=== PATIENT | male | born 1940 | race Caucasian/White ===

== ENCOUNTER → 2017-12-25 10:16 | Outpatient (CLI) | payer MEDICARE, SELFPAY ==
--- NOTE | 2017-12-25 10:30 | RAD_ITS ---
STUDY: X-RAY - PELVIS AND RIGHT HIP REASON FOR EXAM: Male, 77 years old. Worsening right hip pain over 3 months. TECHNIQUE: Radiological exam, hip, unilateral, with pelvis when performed; 2 or 3 views. COMPARISON: Right hip and pelvis, October 17, 2016. FINDINGS: There is increased rectal feces. Normal visualized soft tissue structures. There are multiple calcified phleboliths. Normal bilateral iliac wings, sacroiliac joints and visualized sacrum. Normal bilateral superior and inferior pubic rami. Normal pubic symphysis. Normal bilateral ischial tuberosities. There are stable degenerative changes of the left hip. Normal visualized right femoral head. There is cortical sclerosis with sub-cortical cyst formation of the right acetabulum. is severe articular joint space narrowing of the right hip. RAD/Hip 2-3 Views with Pelvis IMPRESSION: Stable degenerative changes right hip. Electronically Signed: Devante Gomez DO at 18:16 EDT Tel [phone], Service support ,
== END ==
PROVIDERS: Family Provider Family Medicine; PCP Family Medicine; Visit Provider Anesthesiology Pain Medicine
DX: M25.551 Pain in right hip (principal)
CPT/HCPCS: 73502

== ENCOUNTER → 2018-01-14 10:28 | Outpatient (CLI) | payer MEDICARE, SELFPAY ==
[2018-01-14 12:40] LABS: Anion Gap 7 (5-15); BUN 25 mg/dL (7-18); BUN/Creat Ratio 33.5 RATIO (10-20); Calcium,Total 9.5 mg/dL (8.5-10.1); Chloride 106 mmol/L (98-107); Cholesterol 104 mg/dL (200); Creatinine, Serum 0.75 mg/dL (0.70-1.30); EST Glomerular Filtration Rate 108 mL/min (>60); Est Glom Filt Rate - Afr Amer 131 mL/min (>60); Glucose 118 mg/dL (74-106); Hemoglobin A1c 6.6 % (4.2-6.3); High Density Lipoprotein 45 mg/dL; Potassium 4.3 mmol/L (3.5-5.1); Sodium Level 141 mmol/L (136-145); Triglycerides 75 mg/dL; Very Low Density Lipoprotein 15 mg/dL (5-40)
== END ==
PROVIDERS: Family Provider Family Medicine; PCP Family Medicine; Visit Provider Family Medicine
DX: J44.9 Chronic obstructive pulmonary disease, unspecified (principal); E11.9 Type 2 diabetes mellitus without complications; E78.5 Hyperlipidemia, unspecified
CPT/HCPCS: 36415; 80048; 80061; 83036

== ENCOUNTER 2018-04-10 08:30 | Outpatient (RCR) | payer MEDICARE, SELFPAY ==
--- NOTE | 2018-02-26 09:34 | HP.PTEVAL_ITS ---
Patient's Visit Information ARMAAN MCCLOUD is a 78 year old M referred to Physical Therapy by Mari Hull with a diagnosis of BACK PAIN AND LEG WEAKNESS. Date of Evaluation: 02/26/18 Physical Therapist: Dianna Kiran - Visit Plan Frequency: 2-3x /Week Duration: 4-6 Weeks Plan: AQUATIC THERAPY FOR PAIN RELEIF, POSTURE CORRECTION/STRENGTHENING, INSTRUCTION IN APPROPRIATE BODY MECHANICS AND ACTIVITY MODIFICATIONS. DLS STARTING WITH A NEUTRAL SPINE PROGRESSING ROM TOLERATED. SAMANTHA LE ROM, STRETCHING AND STRENGTHENING. HEP INSTRUCTION. - Subjective Subjective: Diagnosis: BACK PAIN AND LEG WEAKNESS. Work/Leisure: RETIRED. Disability: NO. Present symptoms: LOW BACK PAIN AND RIGHT HIP PAIN. RIGHT LEG GIVES OUT SOMETIMES BUT HASN'T FALLEN. Present since: CHRONIC. Pain Scale : WORST 6/10, LEAST 1/10. Currently: 11/16. Commenced as a result of: ARTHRITIS. Symptoms at onset: LOW BACK. Worse: WALKING, STANDING, YARD WORK. Better: SITTING, LYING. Disturbed sleep: NO. Previous history/Previous treatment: LUMBAR SURGERY SEP 2015, PT BEFORE AND AFTER SURGERY. WATER THERAPY 2016 - WHICH HELPED BUT PATIENT UNABLE TO FOLLOW THROUGH. DR. HULL ABOUT 6 MONTHS OR SO NOW. CONSULT WITH DR. ANGUIANO LEAD TO DR. HULL. PATIENT REPORTS HE HAS HAD AT LEAST 4 LUMBAR MIRNA (AND MAYBE A RIGHT HIP INJECTION OR TWO) WITH BENEFIT. Coughing/sneezing/straining: NO. Gait: INDEP DISTANCE AND SPEED LIMITED. NO AD. Difficulty initiating urinatin: NO. Accidents: NO. Unexplained weight loss: NO. Imaging: LUMBAR X-RAY A FEW MONTHS AGO OF RIGHT HIP AND MRI LOW BACK ABOUT A YEAR AGO. MRI: L4-5: There is disc desiccation, moderate to severe loss of the disc. height, endplate spondylosis, with moderate facet arthrosis. The patient is. status post right L4 hemilaminectomy (axial T1 series 6, image 13). There. is a broad-based right foraminal disc protrusion (sagittal T1 series 3,. image 10; axial T1 series 6, image 12), measuring 6 mm in width, producing. retrodiscal foraminal narrowing, but without morphologic neural impingement. (sagittal T1 series 3, image 10). L5-S1: There is disc desiccation, mild loss of the disc height,. circumferential annular bulging and mild facet arthrosis. Normal central. canal and intervertebral neural foramina. MULTI-LEVEL DDD. PMH: IDDM. Recent major surgery: LUMBAR 2015 - Objective Sitting/Standing Posture: POOR. Lordosis: INCREASED. Lateral shift: SCOLIOSIS. Active Correction of posture: NE. Other Observations: INDEP GAIT INTO PT WITH MILD LIMP ON RIGHT LE WITHOUT AD. INDEP SIT TO STAND WITHOUT UE ASSIST. Motor deficit: LEFT LE 5/5 EXCEPT HIP 4/5. RIGHT LE: HIP 3+/5, KNEE 5/5, ANKLE 5/5. Sensory deficit: NO. ROM deficit: DECREASED RIGHT HIP ROM ALL PLANES COMPARED TO LEFT. TESTING OF HIP FLEXION ROM WHICH IS APPROX 85 DEG IS PAINFULL. HE ALSO HAS DECREASED RIGHT HIP ROM ALL PLANES AND PAIN AT THE END OF THE AVAILABLE RANGE. Dural Signs: NEGATIVE. Lumbar mvmt loss: flex - MIN. ext - ELSY. R SG - ELSY. L SG - ELSY. Core strength: POOR. OTHER: POSITIVE RIGHT BRIT TEST. DIFFICULTING REACHING RIGHT FOOT LIMITING PUTTING ON /TAKING OFF SHOE AND SOCK. - Goals Goal 1:: DECREASE C/O LOW BACK AND RIGHT HIP PAIIN Goal Time Frame: 4-6 Weeks Goal 2:: IMPROVE STANDING, WALKING, ADL, AND YARD WORK FUNCTION Goal Time Frame: 4-6 Weeks Goal 3:: INSTRUCT IN PROPHYLAXIS Goal Time Frame: 4-6 Weeks - Rehabilitation Potential Rehabilitation Potential: Good - Anticipated Interventions Patient/Client Instruction: Educate patient on: Condition, Plan of Care, Risk Factors, Benefits of Fitness Program For the Purpose of:: To improve self management Therapeutic Exercise to Include: Strength training, Endurance training, Body mechanics, Postural training, Flexibilty training, Gait and locomotor training, Dynamic Lumbar Stabilization For the Purpose of:: To decrease pain, To improve muscle performance and motor function, To increase tolerance to activity/condition/position, To improve ability of physical actions for home/community/work/leisure, To improve gait and locomotor functions Thank you for the opportunity to evaluate your patient. For Medicare and Medicare HMO plans, please review the plan of care and approve it. It will need to be FAXED BACK to us at [phone] for Medicare purposes. Please let me know if there are questions or concerns regarding this plan of care. Physician Signature: Date:
--- NOTE | 2018-04-10 09:21 | HP.PTDCSUM_ITS ---
HP - PT D/C Summary It has been my pleasure to treat ARMAAN MCCLOUD under orders from Mari Hull , for the diagnosis of BACK PAIN AND LEG WEAKNESS for a total of 8 visit(s). Discharge Date: 04/10/18 Please see the following information for a summary of their discharge status. - Subjective Subjective: FOLLOW UP WITH DR. HULL LAST SATURDAY. THEY WENT OVER THE X-RAY AND STATES DR. HULL DOESN'T THINK HE NEEDS HIP SURGERY YET. NEXT INJECTION IS PLANNED TO BE IN HIS BACK. PLANS TO TRY A HIP X-RAY IN MAY 2018. ON THE [facility] [employer] BOARD SO HOPING A SHOT WILL HELP HIM DEAL WITH THE FAIR. OBTAINED A POOL MEMBERSHIP AT [facility] AND PLANS TO START INDEP WATER EX THERE TODAY. HE WANTS TO STOP PT AND SEE HOW HE DOES ON HIS OWN AT THIS POINT. PATIENT REPORTS HE IS ABLE TO GET HIS RIGHT FOOT UP A LITTLE BIT HIGHER NOW TO GET HIS SHOE AND SOCK ON. RIGHT BACK AND HIP PAIN COMES AND GOES BUT THE TIGHTNESS IS ALWAYS THERE. STILL GETTING UP TO 5-6/10 PAIN WITH A LOT OF BENDING (30-40 MIN) TO DO THINGS LIKE GARDENING. - Pain RLE Pain Intensity (Out of 10): 1 Lumbar Spine Pain Intensity (Out of 10): 1 - Overall Improvement % Improvement: 50 - Objective Objective/Function: Motor deficit: LEFT LE 5/5 EXCEPT HIP 4+/5. RIGHT LE: HIP 4-/5, KNEE 5/5, ANKLE 5/5. ROM deficit: DECREASED RIGHT HIP ROM ALL PLANES COMPARED TO LEFT. TESTING OF HIP FLEXION ROM WHICH IS APPROX 110 DEG PROVOKES C/O A LITTLE BIT OF PAIN BUT MAINLY TIGHTNESS TODAY. HE ALSO HAS DECREASED RIGHT HIP ROM ALL PLANES AND PAIN AT THE END OF THE AVAILABLE RANGE. Dural Signs: NEGATIVE. Lumbar mvmt loss: flex - MIN. ext - ELSY. R SG - ELSY. L SG - ELSY. OTHER: POSITIVE RIGHT BRIT TEST WITH C/O MILD RIGHT ANTERIOR HIP PAIN. - Goals Goal 1:: DECREASE C/O LOW BACK AND RIGHT HIP PAIIN Goal Progress: Not Progressing Goal 2:: IMPROVE STANDING, WALKING, ADL, AND YARD WORK FUNCTION Goal Progress: Goal Met Goal 3:: INSTRUCT IN PROPHYLAXIS Goal Progress: Goal Met - Plan Plan: D/C TO INDEP WATER EX AT THE DAYS INN. - D/C Information If there are questions or concerns regarding this patient's physical therapy, please feel free to call me at [phone]. Thank you for the referral of this patient. Sincerely, Dianna Kiran
== END 2018-04-10 10:14 | disposition home or self-care (01) ==
LOC: PT 08:30
PROVIDERS: Family Provider Family Medicine; PCP Family Medicine; Visit Provider Anesthesiology Pain Medicine
DX: M54.9 Dorsalgia, unspecified (principal); R29.898 Other symptoms and signs involving the musculoskeletal system
CPT/HCPCS: 97113; 97162; 97164

== ENCOUNTER → 2018-07-17 10:54 | Outpatient (CLI) | payer MEDICARE, SELFPAY ==
[2018-07-17 12:26] LABS: Microalbumin,Random Urine 23.6 mg/L (NO RANGE EST.); Microalbumin:Creatinine Ratio 24.9 mg/g CRE (<30 mg/g CRE)
[2018-07-17 12:32] LABS: Hemoglobin A1c 6.5 % (4.2-6.3)
[2018-07-17 12:38] LABS: AST(SGOT) 14 U/L (15-37); Alanine Aminotransfer ALT/SGPT 21 U/L (16-61); Albumin, Serum 3.5 g/dL (3.2-5.0); Alkaline Phosphatase 69 U/L (45-117); Anion Gap 4 (5-15); BUN 19 mg/dL (7-18); BUN/Creat Ratio 27.1 RATIO (10-20); Chloride 106 mmol/L (98-107); Cholesterol 95 mg/dL (200); EST Glomerular Filtration Rate 116 mL/min (>60); Est Glom Filt Rate - Afr Amer 141 mL/min (>60); Globulin 3.6 g/dL (2.2-4.2); Glucose 195 mg/dL (74-106); High Density Lipoprotein 41 mg/dL; Potassium 4.4 mmol/L (3.5-5.1); Protein, Total 7.1 g/dL (6.4-8.2); Sodium Level 139 mmol/L (136-145); Triglycerides 88 mg/dL; Very Low Density Lipoprotein 18 mg/dL (5-40)
== END ==
PROVIDERS: Visit Provider Family Medicine
DX: E11.9 Type 2 diabetes mellitus without complications (principal)
CPT/HCPCS: 36415; 80048; 80061; 80076; 82043; 82570; 83036

== ENCOUNTER 2018-09-27 23:08 | Emergency (ER) | payer MEDICARE, SELFPAY ==
[2018-09-27 09:22] VITALS: BMI 32.3
[2018-09-27 23:09] VITALS: BP 149/74; PULSE 68; RESP 16; TEMP 36.7; O2SAT 98; BMI 32.3
[2018-09-27] MEDS: Morphine 4 MG/ML Syringe IV (23:36)
[2018-09-27] MEDS: Ondansetron 4 MG/2 ML Vial IV (23:37)
[2018-09-27 23:44] LABS: Absolute Neutrophil Count 5.9 X10^3/uL (2.0-7.7); Basophil# 0.01 X10^3/uL; Basophil% 0.1 % (0-1); Eosinophil# 0.03 X10^3/uL; Eosinophils% 0.4 % (0-5); Hematocrit 35.7 % (40-54); Hemoglobin 11.7 g/dl (13.0-16.5); Lymphocyte % 12.8 % (19-41); Mean Corp Hgb Conc 32.8 g/gl (32-36); Mean Corpuscular Hgb 30.9 pg (27.0-32.0); Mean Corpuscular Volume 94.2 fL (80-94); Mean Platelet Vol. 9.5 fl (6.2-12.0); Monocyte# 0.91 X10^3/uL; Monocyte% 11.6 % (0-10); Neutrophil # 5.85 X10^3/uL (2.7-7.7); Neutrophil % 74.6 % (47-70); Platelet Count 268 K/mm3 (150-450); RBC Distribution Width CV 14.6 % (11.6-14.6); RBC Distribution Width SD 50.3 fl (35.1-43.9); Red Blood Count 3.79 M/mm3 (4.6-6.2); White Blood Count 7.8 K/mm3 (4.4-11.0)
[2018-09-27 23:46] LABS: POSITIVE COUNT NO; POSITIVE DIFFERENTIAL NO; POSITIVE MORPHOLOGY NO
[2018-09-27 23:57] LABS: Anion Gap 8 (5-15); BUN 16 mg/dL (7-18); BUN/Creat Ratio 16.3 RATIO (10-20); Calcium,Total 8.6 mg/dL (8.5-10.1); Chloride 107 mmol/L (98-107); Creatinine, Serum 0.98 mg/dL (0.70-1.30); EST Glomerular Filtration Rate 79 mL/min (>60); Est Glom Filt Rate - Afr Amer 95 mL/min (>60); Estimated Creatinine Clearance 59.95 ml/min; Glucose 233 mg/dL (74-106); Sodium Level 139 mmol/L (136-145)
--- NOTE | 2018-09-28 01:22 | ED.VISSUMM ---
- ER Visit Summary Date of Service: 09/28/18 Chief Complaint: Headache History of Present Illness: The patient is a [address] Ramon and Dr. Jaime Auguts. He reports that he has a right sided headache that began 3 days ago. He states that over the same timeframe he is developed a rash on his forehead. Does complain of skin sensitivity. Patient reports that the headache is a dull, aching pain that is 9 out of 10 at worst and 7 out of 10 currently. Is worsened by nothing and relieved by nothing. States that he was seen in urgent care this morning and was placed on acyclovir. He has vomited 30 minutes after he is taking each pill. States he is vomited 3-4 times. No blood in his emesis. Patient also complains of right eye pain is 4-10 severity. He denies any change in his vision. Does not wear contacts. He does wear glasses. On review of systems patient denies any fever, chills, numbness, weakness, or other complaints. Physical Examination: Vitals: Stable. Afebrile. General: Well-nourished and well-developed. Head: Normocephalic atraumatic. Eye: Diffuse conjunctival injection. No ulcer. He does have fluorescein uptake approximate 11:00. This is not over his pupil. Neck: Supple, no lymphadenopathy. No JVD. Nontender. Cardiovascular: Regular rate and rhythm. No murmurs. Respiratory: No respiratory distress. Clear to auscultation bilaterally. Abdominal: Soft, nontender, nondistended, normal bowel sounds. No guarding, rebound, or peritoneal signs. Back: Nontender. Extremities: Nontender, no edema. Skin: Vesicular rash in a V1 distribution on the right. There is no crusting. He does have lesions to the bridge of his nose. However, there is not a Black sign. Neurologic: Alert and oriented ?3. Cranial nerves II through XII are intact. Normal strength and sensation. Psych: Normal affect. Test Results: CBC is remarkable for an H&H of 11.7 and 35.7, 7 neutrophils of 75, lymphocytes 13, monocytes of 12. Chem-7 is more for glucose 233. Emergency Department Course and Treatment: Patient began vomiting on arrival to the emerge department. He had an IV placed. He was given morphine, Zofran, and acyclovir IV. He had TobraDex eyedrops placed. Treatment Plan: Patient was discussed with Dr. Jackson. He will be discharged instructions to follow-up tomorrow for another exam. He will be discharged with Zofran and valacyclovir to use instead of the acyclovir. He is given Percocet for pain. He is instructed to use the TobraDex drops 4 times a day. Return to the emergency department for any worsening symptoms. Disposition: To home in improved and stable condition. Impression: 1. Herpes zoster right forehead. 2. Herpes zoster ophthalmicus on right. This note was generated with [employer] dictation software. It may contain incorrect words, spelling, and punctuation that were not noted in review of the chart prior to signing ED Disposition - Plan for ED Patient: Disposition: Home or Assisted Living Chief Complaint: General Illness Instructions: ED Shingles Prescriptions: Oxycodone HCl/Acetaminophen [Percocet 5/325] 1 tablet PO Q6H PRN PRN 5 Days #20 tablet PRN Reason: Pain Ondansetron [Zofran Odt] 4 mg PO Q8H PRN PRN #10 tablet PRN Reason: Nausea Valacyclovir HCl [Valacyclovir] 1,000 mg PO TID #21 tablet Referrals: Jaime Galarza MD [Primary Care Provider] - 1-2 Weeks Cameron Jackson MD [STAFF PHYSICIAN] - 09/28/18 12:30 pm
--- NOTE | 2018-09-28 01:25 | ED.DCSUM_ITS ---
- ER Visit Summary Date of Service: 09/28/18 Chief Complaint: Headache History of Present Illness: The patient is a [address] Ramon and Dr. Jaime August. He reports that he has a right sided headache that began 3 days ago. He states that over the same timeframe he is developed a rash on his foreh ead. Does complain of skin sensitivity. Patient reports that the headache is a dull, aching pain that is 9 out of 10 at worst and 7 out of 10 currently. Is worsened by nothing and relieved by nothi ng. States that he was seen in urgent care this morning and was placed on acyclovir. He has vomited 30 minutes after he is taking each pill. States he is vomited 3-4 times. No blood in his emesis. Patient also complains of right eye pain is 4-10 severity. He denies any change in his vision. Does not wear contacts. He does wear glasses. On review of systems patient denies any fever, chills, numbness, weakness, or other complaints. Physical Examination: Vitals: Stable. Afebrile. General: Well-nourished and well-developed. Head: Normocephalic atraumatic. Eye: Diffuse conjunctival injection. No ulcer. He does have fluorescein uptake approximate 11:00. This is not over his pupil. Neck: Supple, no lymphadenopathy. No JVD. Nontender. Cardiovascular: Regular rate and rhythm. No murmurs. Respiratory: No respiratory distress. Clear to auscultation bilaterally. Abdominal: Soft, nontender, nondistended, normal bowel sounds. No guarding, rebound, or peritoneal signs. Back: Nontender. Extremities: Nontender, no edema. Skin: Vesicular rash in a V1 distribution on the right. There is no crusting. He does have lesions to the bridge of his nose. However, there is not a Black sign. Neurologic: Alert and oriented ?3. Cranial nerves II through XII are intact. Normal strength and sensation. Psych: Normal affect. Test Results: CBC is remarkable for an H&H of 11.7 and 35.7, 7 neutrophils of 75, lymphocytes 13, monocytes of 12. Chem-7 is more for glucose 233. Emergency Department Course and Treatment: Patient began vomiting on arrival to the emerge department. He had an IV placed. He was given morphine, Zofran, and acyclovir IV. He had TobraDex eyedrops placed. Treatment Plan: Patient was discussed with Dr. Jackson. He will be discharged instructions to follow-up tomorrow for another exam. He will be discharged with Zofran and valacyclovir to use instead of the acyclovir. He is given Percocet for pain. He is instructed to use the TobraDex drops 4 times a day. Return to the emergency department for any worsening symptoms. Disposition: To home in improved and stable condition. Impression: 1. Herpes zoster right forehead. 2. Herpes zoster ophthalmicus on right. This note was generated with [employer] dictation software. It may contain incorrect words, spelling, and punctuation that were not noted in review of the chart prior to signing ED Disposition - Plan for ED Patient: Disposition: Home or Assisted Living Chief Complaint: General Illness Instructions: ED Shingles Prescriptions: Oxycodone HCl/Acetaminophen [Percocet 5/325] 1 tablet PO Q6H PRN PRN 5 Days #20 tablet PRN Reason: Pain Ondansetron [Zofran Odt] 4 mg PO Q8H PRN PRN #10 tablet PRN Reason: Nausea Valacyclovir HCl [Valacyclovir] 1,000 mg PO TID #21 tablet Referrals: Jaime Galarza MD [Primary Care Provider] - 1-2 Weeks Cameron Jackson MD [STAFF PHYSICIAN] - 09/28/18 12:30 pm
[2018-09-28] MEDS: Fluorescein 1 MG STRIP 1 STRIP RIGHT EYE (01:35)
[2018-09-28] MEDS: Tetracaine 0.5% Ophthalmic Bottle 1 DRP RIGHT EYE (01:35)
[2018-09-28] MEDS: Tobram/Dexam 2.5ML OPTH.BTL 2 DRP RIGHT EYE (01:47)
[2018-09-28] MEDS: Ondansetron ODT 4 MG Tablet PO (01:48)
[2018-09-28] MEDS: oxyCODONE 5 MG Tablet PO (01:49)
[2018-09-28 01:55] VITALS: BP 130/68; PULSE 65; PULSE 66; O2SAT 95; O2SAT 96
== END 2018-09-28 01:57 | disposition home or self-care (01) ==
PROVIDERS: Emergency Provider Emergency Medicine; Family Provider Family Medicine; PCP Family Medicine
DX: R51 Headache (principal); B02.30 Zoster ocular disease, unspecified; E11.9 Type 2 diabetes mellitus without complications; I10 Essential (primary) hypertension; E78.00 Pure hypercholesterolemia, unspecified; N40.0 Benign prostatic hyperplasia without lower urinary tract symptoms
CPT/HCPCS: 80048; 85025; 96361; 96374; 96375; 99284; J7030; J7040; A4216; J2405

== ENCOUNTER → 2018-12-08 09:46 | Outpatient (CLI) | payer MEDICARE, SELFPAY ==
[2018-12-08 12:29] LABS: Absolute Lymphocyte Count 1.24 X10^3/ul (0.83-4.51); Basophil# 0.01 X10^3/uL; Basophil% 0.2 % (0-1); Eosinophil# 0.19 X10^3/uL; Eosinophils% 3.9 % (0-5); Hematocrit 40.1 % (40-54); Hemoglobin 12.6 g/dl (13.0-16.5); Lymphocyte # 1.24 X10^3/ul (4.0); Lymphocyte % 25.5 % (19-41); Mean Corp Hgb Conc 31.4 g/gl (32-36); Mean Corpuscular Hgb 30.7 pg (27.0-32.0); Mean Corpuscular Volume 97.8 fL (80-94); Mean Platelet Vol. 10.6 fl (6.2-12.0); Monocyte# 0.41 X10^3/uL; Monocyte% 8.4 % (0-10); Platelet Count 294 K/mm3 (150-450); RBC Distribution Width CV 15.1 % (11.6-14.6); RBC Distribution Width SD 52.4 fl (35.1-43.9); White Blood Count 4.9 K/mm3 (4.4-11.0)
[2018-12-08 12:30] LABS: Neutrophil % 61.6 % (47-70); POSITIVE COUNT NO; POSITIVE DIFFERENTIAL NO; POSITIVE MORPHOLOGY NO
[2018-12-08 13:13] LABS: ALB/GLOB Ratio 1.2 RATIO (0.9-2.4); AST(SGOT) 18 U/L (15-37); Alanine Aminotransfer ALT/SGPT 24 U/L (16-61); Albumin, Serum 3.7 g/dL (3.2-5.0); Alkaline Phosphatase 67 U/L (45-117); Anion Gap 11 (5-15); BUN 16 mg/dL (7-18); BUN/Creat Ratio 22.6 RATIO (10-20); Chloride 106 mmol/L (98-107); Cholesterol 100 mg/dL (200); Creatinine, Serum 0.71 mg/dL (0.70-1.30); EST Glomerular Filtration Rate 115 mL/min (>60); Est Glom Filt Rate - Afr Amer 139 mL/min (>60); Glucose 169 mg/dL (74-106); High Density Lipoprotein 42 mg/dL; PSA,Total - Annual Screen 2.32 ng/mL (0.00-4.00); Potassium 4.5 mmol/L (3.5-5.1); Protein, Total 6.7 g/dL (6.4-8.2); Sodium Level 143 mmol/L (136-145); Thyroid Stim Hormone (TSH) 0.92 uIU/mL (0.358-3.74); Triglycerides 86 mg/dL; Very Low Density Lipoprotein 17 mg/dL (5-40)
== END ==
PROVIDERS: Family Provider Family Medicine; PCP Family Medicine; Referring Provider Family Medicine; Visit Provider Family Medicine
DX: Z01.818 Encounter for other preprocedural examination (principal); Z12.5 Encounter for screening for malignant neoplasm of prostate
CPT/HCPCS: 36415; 80053; 80061; 84153; 84443; 85025; G0103

== ENCOUNTER 2019-01-05 05:23 | Inpatient (IN) | payer MEDICARE, SELFPAY ==
--- NOTE | 2018-12-19 11:45 | HP.PCM_ITS ---
History and Physical DATE OF SURGERY: 01/05/2019 SCHEDULED PROCEDURE: right total hip arthroplasty HISTORY OF PRESENT ILLNESS: This is a 78-year-old male who has been having ongoing pain in his right hip for approximately 3 years. Patient was also having low back problems in which she had surgery which helped his back. He continued to have ongoing pain in the right hip. His pain is constant and aching. He has increased pain going up and down stairs, walking any amount of distance, and standing. Patient has difficult time with activities of daily living. Patient has tried conservative measures consisting of rest, elevation with no relief in symptoms. Patient has had a previous corticosteroid injection into the hip with only temporary relief. Patient has tried physical therapy and home exercises without relief in symptoms. Patient has tried oral medications consisting of Aleve with only temporary relief. He denies previous surgery on the right hip. After failing conservative measures and discussing treatment options with Dr. Santy Arvizu, the patient would like to proceed with a right total hip arthroplasty. Patient has obtain surgical clearance from his primary care physician Dr. Galarza. Patient has medical history pertinent for type 2 diabetes mellitus, Merchant's palsy, and enlarged prostate. He currently denies any chest pain, shortness of breath, fevers chills, recent infections. Patient just got over shingles outbreak earlier this year. REVIEW OF SYSTEMS: ROS: Const: Reports vision problems, but denies anorexia, change in appetite, fever, hard of hearing and weight change. CV: Denies chest pain, heart murmur, irregular heartbeat and peripheral vascular disease. Resp: Denies asthma, cough, pneumonia, sleep apnea, SOB, tuberculosis and wheezing. GI: Denies constipation, diarrhea, difficulty swallowing, heartburn, nausea, bloody stools and vomiting. : Urinary: denies incontinence. Musculo: Denies leg swelling, limp, trouble walking and weakness. Skin: Reports history of shingles, but denies Raynaud's and tattoo. Neuro: Denies ambulatory dysfunction, dizziness, numbness/tingling and tremor. Psych: Denies anxiety, depression, insomnia, mental illness and stress. Ap/Lymph: Denies anemia, bleeding/bruising tendency and past transfusion. Reviewed and updated. PAST MEDICAL HISTORY: PMH: Problem List: Localized, primary osteoarthritis of the pelvic region and thigh, Thoracic and lumbosacral neuritis, Low back pain, Thoracic and lumbosacral neuritis, Low back pain Medical Problems: Diabetes RT Side - MERCHANT'S PALSY Accidents: RT Elbow Dislocated - 21YEARS OLD Surgical Hx: Appendectomy, Tonsillectomy, Back surgery 2015 Anesthesia Complications: None Assistive Devices: Glasses Reviewed and updated. SOCIAL HISTORY: SH: Marital: .Occupation: Retired.Work Status: Retired.Hand Dominance: Ambidextrous. Personal Habits: Cigarette Use: Former - [employer].Alcohol: Occasionally.Drug Use: Denies Use.Enjoy Exercising: Exercises 1-3 X/Week. Reviewed, no changes. VITALS: Ht: 65.5 Wt: 236lb Wt k.050 BMI: 38.7 BP: 138/64 Pulse: 68 Resp: 16 T: 98.2 T: 36.8C ALLERGIES: No Known Drug Allergy MEDICATIONS: Metformin HCL ER 500 mg 2 po BID, Losartan Potassium 50 mg 1 PO q day, Glipizide ER 5 mg 1 PO bid, Finasteride 5 mg 1 po qd, Actos 30 mg 1 PO q day, Lovastatin 40 mg 1 po qd, Aspirin 81 mg 1 po qd, Vitamin E 400 Unit 1 po qd, Vitamin C 500 mg 1 po qd, Multivitamins 1 po qd, Insulin 22 units daily, Tamsulosin HCL 0.4 mg 1 by mouth every day, Naproxen Sodium 220 mg 2 tablets per day PRE-OP EXAM: General appearance:NORMAL Other: Eyes: Conjunctivae and lids: NORMAL Pupils: ERR Ears, Nose, Mouth, and Throat: NORMAL Other: Inspection of lips, teeth and gums: NORMAL Other: Neck: Examination of neck: no masses noted. Respiratory: Assessment of respiratory effort: NORMAL Other: Auscultation of lungs: clear to auscultation no wheezes, rhonchi or rales. Cardiovascular: Auscultation of heart: regular rate and rhythm, no murmurs, gallops or rubs. Gastrointestinal: Exam of abdomen: soft, nontender, nondistended bowel sounds present. PHYSICAL EXAMINATION: Patient does walk with an antalgic gait. Patient is complaining of groin pain on the right side as well as buttock pain. He has limited range of motion of the right hip with increased pain. Negative straight leg raise. Sensation intact to light touch. Neurovascularly intact. IMAGING STUDIES: X-rays were obtained at [facility] [place] on December 19, 2018 including 3 views AP pelvis, AP right hip, frog leg right hip reveals no acute findings for fracture or dislocation. Patient has severe osteoarthritic changes in the right hip with [id number]. There is subchondral sclerosis, subchondral cyst formation. There is large osteophytes off the acetabulum and femoral head. Patient also has osteoarthritis in the left hip with joint space narrowing, subchondral sclerosis, and osteophyte formation. IMPRESSION: 1. Severe right hip osteoarthritis 2. Type 2 diabetes mellitus 3. Merchant's palsy affecting right side 4. Enlarged prostate PLAN: Dr. Santy Arvizu did discuss and review with the patient all treatment options including surgical versus nonsurgical options. Patient does wish to proceed with the above-stated procedure. Potential risks, benefits, and complications of the procedure were discussed in detail including but not limited to , infection, nerve and blood vessel damage, persistent pain, numbness, tingling, paresthesias, blood clot, pulmonary embolism, and requirement for possible further surgery. The patient expressed full understanding and has no further questions for the doctor. Patient does agree to proceed with the above-stated procedure and has signed the surgery consent form. This dictation was created using voice recognition software. Phonetic and/or grammatical errors may exist.. ___ I have re-examined the patient. There are no clinical changes since date of exam. ___ See progress notes for changes. ___ Dictated on admission Date: Time: Signature:
[2018-12-19 13:28] VITALS: BP 129/58; PULSE 80; RESP 16; TEMP 37.2; O2SAT 98; BMI 31.1
[2018-12-19 14:34] LABS: Hemoglobin A1c 6.1 % (4.2-6.3)
--- NOTE | 2019-01-01 10:29 | CASEMGMT ---
Call placed to patient to discuss discharge needs after upcoming surgery. Patient plans to return home with assistance from family. Patient has first outpatient physical therapy visit set up and will have transportation assistance. Patient has a walker, toilet riser, and shower seat. There's a bedroom and bathroom on the first level of the home. There are no steps to get into basement where [id number] suite is located, there are 2 steps to get to the rest of the home. Informed patient that RN-CM will likely follow up after surgery. Guera Bhat LPN Clinical Support
--- NOTE | 2019-01-02 | HIP_PTH ---
PATIENT: ARMAAN MCCLOUD LOC: MS3 U#:[id number] AGE/SX: 78/M ROOM: MS305 RE01/05/[address]: Dr. Santy Arvizu DO : 1940 BED: 1 DIS: 01/06/2019 SPEC #: [id number] RECD: 01/05/19 10:13 STATUS: NADYA REQ #: [id number] WON: 01/02/19 00:[address]: Santy Arvizu DEPT: SURGICAL PATHOLOGY RECD BY: Hira Shrestha ENTERED: 01/05/19 12:59 SP TYPE: TOTAL HIP OTHR DR: Dr. Jaime Galarza MD Tissues: Hip, NOS Procedures: Decalcification bone/plaque Surgery Specimen Level IV HEADER OPERATION: Total hip replacement PRE-OP DIAGNOSIS: Severe right hip osteoarthritis TISSUE SUBMITTED: Right hip bone and soft tissue MICROSCOPIC DIAGNOSIS Right hip, bone and soft tissue, total hip replacement: Bone and degenerative articular cartilage showing changes consistent with degenerative osteoarthritis. Bone marrow showing trilineage hematopoiesis and benign lymphoid aggregates. Fibroadipose tissue showing vascular calcification. CE:brett 01/08/19 MICROSCOPIC DESCRIPTION Slides are reviewed. GROSS DESCRIPTION Received is one container labeled with the patient's name and designated bone and soft tissue hip, right. The specimen consists of a lyle femoral head measuring 6 x 4.5 x 4.5 cm. The articular surface displays prominent osteophyte formation, eburnation and bone erosion. Also present in the specimen container are multiple irregular fragments of bone reamings and pink-yellow soft tissue measuring in aggregate 9 x 7 x 1.5 cm. Communications Agent sections are submitted in two cassettes as follows: 1 - soft tissue, 2 - bone after decalcification. / AM:brett 01/05/19 TC:5 CPT: 01893, [id number]
[2019-01-05] VITALS (15 sets, daily range): BP systolic 118–140; BP diastolic 49–89; PULSE 67–84; RESP 16–18; TEMP 36.1–36.9; O2SAT 93–99; BMI 31.1
[2019-01-05] MEDS: oxyCODONE HCl Cr 10 MG Tablet PO (05:59)
[2019-01-05] MEDS: Celecoxib 200 MG Capsule 400 MG PO (05:59)
[2019-01-05] MEDS: Acetaminophen 500 MG Tablet 1000 MG PO ×3 (06:00→21:25)
[2019-01-05] MEDS: Lactated Ringers 1,000 ML 999 ML IV (06:19)
[2019-01-05 06:36] LABS: Bedside Glucose 153 mg/dL (70-110)
[2019-01-05] MEDS: Cefazolin 2 GM in 0.9% Normal Saline 100 ML IV (07:28)
--- NOTE | 2019-01-05 08:36 | PCM.OPRPT ---
Report of Operation Date of Procedure: 01/05/19 Pre-Operative Diagnosis: OA right hip Post-Operative Diagnosis: same Surgery/Procedure Performed:: Right THR Description of Surgical Findings:: Primary Surgeon/Physician: Santy Arvizu rubber mill operator: Ashvin Meraz PA-C rubber mill operator: Pre-Operative Diagnosis: OA Right hip Post-Operative Diagnosis: same Surgery/Procedure Performed: Right THR Estimated Blood Loss: 100cc Specimen's Removed: bone Type of Anesthesia: spinal ASA Class: ASA3 Severe Disease Implants: [Cheryl Trident size 50 cup, 132 degree Accolade 2 size 3 stem, +3 neck, MDM head ] Surgical Indications: Patient has severe end-stage osteoarthritic changes in the [right ] hip. They have failed conservative measures including activity modification, anti-inflammatories, use of assistive devices. This to the point where the pain affects their ability to enjoy life and complete activities of daily living without discomfort. Patient has elected to undergo the above procedure Procedure Description: The patient was greeted in the preoperative area the [right ] hip was marked with surgical marker preoperative antibiotics administered. The patient was then taken to or suite in stable condition. Preoperative tranexamic acid was also utilized. Once the patient was placed in the supine position on the operating room table and once adequate anesthesia was obtained they were then placed in the lateral decubitus position with the surgical hip facing the field. All bony prominences were well-padded. A commercial hip position was utilized. The appropriate extremity was then prepped and draped in usual sterile fashion. Ioban was placed on the skin. Surgical timeout was performed and surgery was commenced. A standard posterior approach to the hip was then performed. Incision was planned and carried out with a #10 blade scalpel. Dissection was then carried length of the incision to the IT band which was split proximally and distally. A Charnley retractor was then placed for soft tissue retraction exposing the piriformis. A standard posterior capsulotomy was performed. Severe eburnation of bone was noted and periarticular osteophytes were identified consistent with severe end-stage osteoarthritis. A femoral neck osteotomy guide was used to aileen the proximal femur. A femoral osteotomy was then created approximately 1 fingerbreadth above the lesser trochanter. This was measured and placed on the back table. Once this was complete acetabular retractors were placed anteriorly and posteriorly. Labrum was then removed from the acetabulum exposing the entire cup of the acetabulum. Sequential reaming was then commenced and the acetabulum was medialized and sequentially widened in order to accommodate appropriate size cup. The acetabular cup was then impacted into position to the appropriate depth referencing approximately 30? anteversion and 45? of inclination. Excellent purchase was obtained. An appropriate size MDM liner was then placed. Attention was then turned to the femoral preparation. The hip was placed in the 90/90 position and a lateralizing box osteotome was utilized. Femoral starting awl was used followed by sequential broaching to the appropriate size. Excellent purchase was obtained with the stem no stem subsidence and excellent rotational stability was confirmed. A calcar reamer was then used in the trial head neck was placed on the broach. The hip was then located and taken through full range of motion flexion internal and external rotation as well as extension. Excellent stability was noted no impingement was identified of the components and leg lengths appear to be appropriate. The hip was at this point dislocated and the trial femoral components were removed. The final femoral stem was then implanted and impacted to the appropriate depth. Again excellent purchase was obtained no stem subsidence or rotational instability was noted. The hip was once again trialed and confirmation of leg length and stability was performed. Soft tissue tension also appeared to be appropriate. At this point the hip was redislocated and the trunnion was cleaned and dried meticulously in the appropriate size MDM femoral head was placed on the clean dry trunnion using a 12/14 Peña taper. The hip was once again relocated and again taken through full range of motion. I did inject a cocktail of postoperative pain medication in the deep and superficial tissues. Copious irrigation was performed. Anatomic closure of the piriformis tendon was performed through drill holes in the greater trochanter. A #1 Vicryl 0 Vicryl was utilized in subcutaneous tissue and surgical amador were placed in the skin. A well-padded nonadherent dressing was applied. Patient was taken to PACU in stable condition. No complications were identified. Will follow standard postop protocol for total hip arthroplasty. My materials assistant played a vital role in the procedure beginning with positioning, holding retraction of soft tissues, positioning the leg to optimize visualization during the procedure and assisting with wound closure. rubber mill operator: None rubber mill operator: Ashvin Meraz Type of Anesthesia:: Spinal Anesthesiologist: Kancherla,Jonah Specimen's removed: bone Estimated Blood Loss (mL): 100 cc - Admit VTE Documentation VTE Present on Admission: No VTE Mechan Device Prophylaxis: SCD's, Thigh High JENIFER Hose VTE Pharm Prophylaxis ordered?: Yes
--- NOTE | 2019-01-05 08:40 | OP.PCM_ITS ---
Report of Operation Date of Procedure: 01/05/19 Pre-Operative Diagnosis: OA right hip Post-Operative Diagnosis: same Surgery/Procedure Performed:: Right THR Description of Surgical Findings:: Primary Surgeon/Physician: Santy Arvizu clinic assistant: Ashvin Meraz PA-C clinic assistant: Pre-Operative Diagnosis: OA Right hip Post-Operative Diagnosis: same Surgery/Procedure Performed: Right THR Estimated Blood Loss: 100cc Specimen's Removed: bone Type of Anesthesia: spinal ASA Class: ASA3 Severe Disease Implants: [Cheryl Trident size 50 cup, 132 degree Accolade 2 size 3 stem, +3 neck, MDM head ] Surgical Indications: Patient has severe end-stage osteoarthritic changes in the [right ] hip. They have failed conservative measures including activity modification, anti-inflammatories, use of assistive devices. This to the point where the pain affects their ability to enjoy life and complete activities of daily living without discomfort. Patient has elected to undergo the above procedure Procedure Description: The patient was greeted in the preoperative area the [right ] hip was marked with surgical marker preoperative antibiotics administered. The patient was then taken to or suite in stable condition. Preoperative tranexamic acid was also utilized. Once the patient was placed in the supine position on the operating room table and once adequate anesthesia was obtained they were then placed in the lateral decubitus position with the surgical hip facing the field. All bony prominences were well-padded. A commercial hip position was utilized. The appropriate extremity was then prepped and draped in usual sterile fashion. Ioban was placed on the skin. Surgical timeout was performed and surgery was commenced. A standard posterior approach to the hip was then performed. Incision was planned and carried out with a #10 blade scalpel. Dissection was then carried length of the incision to the IT band which was split proximally and distally. A Charnley retractor was then placed for soft tissue retraction exposing the piriformis. A standard posterior capsulotomy was performed. Severe eburnation of bone was noted and periarticular osteophytes were identified consistent with severe end-stage osteoarthritis. A femoral neck osteotomy guide was used to aileen the proximal femur. A femoral osteotomy was then created approximately 1 fingerbreadth above the lesser trochanter. This was measured and placed on the back table. Once this was complete acetabular retractors were placed anteriorly and posteriorly. Labrum was then removed from the acetabulum exposing the entire cup of the acetabulum. Sequential reaming was then commenced and the acetabulum was medialized and sequentially widened in order to accommodate appropriate size cup. The acetabular cup was then impacted into position to the appropriate depth referencing approximately 30? anteversion and 45? of inclination. Excellent purchase was obtained. An appropriate size MDM liner was then placed. Attention was then turned to the femoral preparation. The hip was placed in the 90/90 position and a lateralizing box osteotome was utilized. Femoral starting awl was used followed by sequential broaching to the appropriate size. Excellent purchase was obtained with the stem no stem subsidence and excellent rotational stability was confirmed. A calcar reamer was then used in the trial head neck was placed on the broach. The hip was then located and taken through full range of motion flexion internal and external rotation as well as extension. Excellent stability was noted no impingement was identified of the components and leg lengths appear to be appropriate. The hip was at this point dislocated and the trial femoral components were removed. The final femoral stem was then implanted and impacted to the appropriate depth. Again excellent purchase was obtained no stem subsidence or rotational instability was noted. The hip was once again trialed and confirmation of leg length and stability was performed. Soft tissue tension also appeared to be appropriate. At this point the hip was redislocated and the trunnion was cleaned and dried meticulously in the appropriate size MDM femoral head was placed on the clean dry trunnion using a 12/14 Peña taper. The hip was once again relocated and again taken through full range of motion. I did inject a cocktail of postoperative pain medication in the deep and superficial tissues. Copious irrigation was performed. Anatomic closure of the piriformis tendon was performed through drill holes in the greater trochanter. A #1 Vicryl 0 Vicryl was utilized in subcutaneous tissue and surgical amador were placed in the skin. A well-padded nonadherent dressing was applied. Patient was taken to PACU in stable condition. No complications were identified. Will follow standard postop protocol for total hip arthroplasty. My assistant football coach played a vital role in the procedure beginning with positioning, holding retraction of soft tissues, positioning the leg to optimize visualization during the procedure and assisting with wound closure. clinic assistant: None clinic assistant: Ashvin Meraz Type of Anesthesia:: Spinal Anesthesiologist: Kancherla,Jonah Specimen's removed: bone Estimated Blood Loss (mL): 100 cc - Admit VTE Documentation VTE Present on Admission: No VTE Mechan Device Prophylaxis: SCD's, Thigh High JENIFER Hose VTE Pharm Prophylaxis ordered?: Yes
--- NOTE | 2019-01-05 09:30 | RAD_ITS ---
STUDY: X-RAY - RIGHT HIP REASON FOR EXAM: Male, 78 years old. Right hip replacement. TECHNIQUE: 2 views of the hip. COMPARISON: Comparison is made with prior study dated December 06, 2017. FINDINGS: The patient is status post right total hip replacement. There is good alignment. Normal visualized superior and inferior pubic rami and ischial tuberosities. Widening of the left femoral head and neck suggestive of left femoral acetabular impingement. Postoperative soft tissue changes. RAD/Hip Min 2 Views (Portable) IMPRESSION: Status post right total hip replacement. There is good alignment. Electronically Signed: Willard Conrad, at 13:43 EDT , Service support ,
[2019-01-05 10:11] LABS: Bedside Glucose 146 mg/dL (70-110)
[2019-01-05] MEDS: Finasteride 5 MG Tablet PO (11:08)
[2019-01-05] MEDS: Pioglitazone Hydrochloride 30 MG Tablet PO (11:09)
[2019-01-05] MEDS: glipiZIDE XL 5 MG Tablet PO ×2 (11:09→17:30)
[2019-01-05] MEDS: Lactated Ringers 1,000 ML 125 ML IV ×2 (11:12→21:25)
--- NOTE | 2019-01-05 11:13 | PCA ---
rn in with pt
[2019-01-05] MEDS: Ipratropium 0.5 MG/2.5 ML SOLUTION INHALATION ×2 (13:21→20:21)
[2019-01-05] MEDS: Cefazolin 1 GM/50 ML BAG IV ×2 (14:53→23:04)
[2019-01-05 15:52] LABS: Hematocrit 30.8 % (40-54); Mean Corp Hgb Conc 32.5 g/gl (32-36); Mean Corpuscular Volume 95.4 fL (80-94); Mean Platelet Vol. 9.3 fl (6.2-12.0); Platelet Count 218 K/mm3 (150-450); RBC Distribution Width CV 14.5 % (11.6-14.6); RBC Distribution Width SD 50.3 fl (35.1-43.9); Red Blood Count 3.23 M/mm3 (4.6-6.2); White Blood Count 7.3 K/mm3 (4.4-11.0)
[2019-01-05 15:55] LABS: Scan Indicated on CBC? Y/N NO
[2019-01-05 16:05] LABS: Anion Gap 3 (5-15); BUN 18 mg/dL (7-18); BUN/Creat Ratio 23.4 RATIO (10-20); Calcium,Total 8.6 mg/dL (8.5-10.1); Chloride 107 mmol/L (98-107); Creatinine, Serum 0.77 mg/dL (0.70-1.30); EST Glomerular Filtration Rate 104 mL/min (>60); Est Glom Filt Rate - Afr Amer 126 mL/min (>60); Estimated Creatinine Clearance 54.67 ml/min; Glucose 185 mg/dL (74-106); Sodium Level 139 mmol/L (136-145)
[2019-01-05] MEDS: metFORMIN HCl 1,000 MG Tablet 1000 MG PO (17:31)
[2019-01-05] MEDS: Aspirin 325 MG Tablet PO (21:25)
[2019-01-05] MEDS: Senna/Docusate Sodium 1 Tablet 2 TABLET PO (21:25)
[2019-01-05] MEDS: Atorvastatin Calcium 40 MG Tablet PO (21:26)
[2019-01-05] MEDS: Tamsulosin HCl 0.4 MG Capsule PO (21:26)
[2019-01-05 22:30] LABS: Bedside Glucose 88 mg/dL (70-110)
[2019-01-06 02:13] VITALS: BP 129/59; PULSE 80; RESP 18; TEMP 36.8
[2019-01-06] MEDS: Lactated Ringers 1,000 ML 125 ML IV (03:57)
[2019-01-06] MEDS: Acetaminophen 500 MG Tablet 1000 MG PO ×2 (05:48→14:13)
[2019-01-06 06:19] LABS: Hematocrit 33.4 % (40-54); Hemoglobin 10.7 g/dl (13.0-16.5); Mean Corpuscular Hgb 30.3 pg (27.0-32.0); Mean Corpuscular Volume 94.6 fL (80-94); Platelet Count 239 K/mm3 (150-450); RBC Distribution Width CV 14.4 % (11.6-14.6); RBC Distribution Width SD 47.3 fl (35.1-43.9); Red Blood Count 3.53 M/mm3 (4.6-6.2); White Blood Count 6.6 K/mm3 (4.4-11.0)
[2019-01-06 06:33] LABS: Anion Gap 4 (5-15); BUN 12 mg/dL (7-18); BUN/Creat Ratio 19.8 RATIO (10-20); Chloride 107 mmol/L (98-107); EST Glomerular Filtration Rate 138 mL/min (>60); Est Glom Filt Rate - Afr Amer 166 mL/min (>60); Estimated Creatinine Clearance 54.67 ml/min; Glucose 137 mg/dL (74-106); Potassium 4.3 mmol/L (3.5-5.1); Sodium Level 141 mmol/L (136-145)
[2019-01-06 06:39] LABS: Scan Indicated on CBC? Y/N NO
[2019-01-06] MEDS: oxyCODONE 5 MG Tablet PO ×2 (07:06→13:07)
[2019-01-06 07:16] VITALS: PULSE 78; RESP 16; O2SAT 96
[2019-01-06] MEDS: Ipratropium 0.5 MG/2.5 ML SOLUTION INHALATION (07:16)
[2019-01-06 07:36] VITALS: BP 138/59; PULSE 93; RESP 18; TEMP 37.1; O2SAT 97
--- NOTE | 2019-01-06 07:52 | PN.ORTHO_ITS ---
Subjective: Patient sitting at bedside eating breakfast. Patient states pain is well managed. Patient denies chest pain, shortness breath, calf pain, nausea v omiting. Has no other complaints. Ready for discharge home. Objective: Dressings clean dry intact. Negative signs and symptoms of DVT. Vital signs labs within normal limits. Patient speaking in full sentences with no obvious respiratory distress. - Physical Exam General: Alert, Oriented x3, Cooperative HEENT: PERRLA Neurological: Cranial nerves II-XII grossly intact Psych/Mental Status: Normal Affect, Alert and oriented to time, place, person, mood and affect Vital Signs Temp Pulse Resp BP Pulse Ox 98.8 F 93 18 138/59 H 97 01/06/19 07:36 01/06/19 07:36 01/06/19 07:36 01/06/19 07:36 01/06/19 07:36 Oxygen Delivery Method Room Air Weight: 86.3 kg Body Mass Index (BMI) 31.1 Finger Stick Blood Glucose 146 Intake and Output for Last 24 Hours 01/04/19 01/05/19 01/06/19 23:59 23:59 23:59 Intake Total 3874 / 3874 1505 / 1505 Output Total 200 / 200 500 / 500 Balance 3674 / 3674 1005 / 1005 Laboratory Tests Past 24 Hrs 01/05/19 01/05/19 01/06/19 15:28 15:28 05:40 WBC 7.3 6.6 RBC 3.23 L 3.53 L Hgb 10.0 L 10.7 L Hct 30.8 L 33.4 L MCV 95.4 H 94.6 H MCH 31.0 30.3 MCHC 32.5 32.0 RDW 14.5 14.4 RDW Differential 50.3 H 47.3 H Plt Count 218 239 MPV 9.3 10.0 Sodium 139 Potassium 4.0 Chloride 107 Carbon Dioxide 29.0 Anion Gap 3 L BUN 18 Creatinine 0.77 Estim Creat Clear Calc 54.67 Est GFR (MDRD) Af Amer 126 Est GFR (MDRD) Non-Af 104 BUN/Creatinine Ratio 23.4 H Glucose 185 H Calcium 8.6 01/06/19 05:40 WBC RBC Hgb Hct MCV MCH MCHC RDW RDW Differential Plt Count MPV Sodium 141 Potassium 4.3 Chloride 107 Carbon Dioxide 30.0 Anion Gap 4 L BUN 12 Creatinine 0.60 L Estim Creat Clear Calc 54.67 Est GFR (MDRD) Af Amer 166 Est GFR (MDRD) Non-Af 138 BUN/Creatinine Ratio 19.8 Glucose 137 H Calcium 9.0 POC Glucose 01/05/19 01/05/19 21:23 10:04 POC Glucose 88 146 H Medical Necessity - Tobacco Use Smoking Status: Former smoker Tobacco Use: Cigarettes Assessment/Plan All Active Problems (Last Reviewed 09/27/18 @ 09:25 by Lachelle River) Corneal abrasion, right (Acute) Shingles (Acute) Status post right total hip arthroplasty Plan 1. Continue pain medications as prescribed 2. Continue physical therapy, weight-bear as tolerated, with walker. 3. Aspirin 3 and 25 mg 1 p.o. every 12 hours times 30 days for postop DVT prophylaxis 4. Encourage incentive spirometry 5. Follow-up as scheduled, see pink sheet 6. Discharge home today after p.m. therapy 7. [facility]
[2019-01-06 07:56] VITALS: BP 109/65; PULSE 98; RESP 18; TEMP 37.2; O2SAT 94
--- NOTE | 2019-01-06 07:56 | DCINST_ITS ---
Discharge Diet: No Restrictions Discharge Activity: May Not Drive, May Shower, Use Walker May shower in (days): 2 - only if incision is dry and without drainage. Do NOT soak/submerge in tub/pool/garcia/stream/hot tub. May resume sexual activity in: No Restrictions Ice area for (Minutes): 20 - every hour while awake Weight Bearing Status: Weight bearing as tolerated Lifting Restrictions: 20 pounds Elevate: Operative Extremity Call your doctor if your incision/area has: Continuous Slow Oozing, Sudden Increased Bleeding, Increased Pain/ Swelling, Increased Redness, Foul Smelling Discharge Call your doctor if you observe: Fever of 101 or Higher, Inability to urinate, Inability to have a bowel movement, Shortness of breath, Fainting spells, Chest pain, Increased palpitations (irregular heartbeat), Calf discomfort, Uncontrolled pain Change Dressing in (Days):: 1 - Change daily and as needed. Cleanse incision/area with: Soap & Water Allergies/Adverse Reactions: Allergies No Known Allergies Allergy (Verified 12/19/18 12:52) Medications to take at Discharge Finasteride [Proscar] 5 mg PO DAILY 08/11/13 Insulin Glargine [Lantus SoloStar Pen] 22 units SUBCUT QHS 08/11/13 Losartan Potassium [Cozaar] 50 mg PO DAILY 08/11/13 Metformin HCl [Glucophage] 1,000 mg PO BIDCM 08/11/13 Multivitamins,Therapeutic [Multivitamin] 1 tab PO DAILY 08/11/13 Pioglitazone [Actos] 30 mg PO DAILY 08/11/13 glipiZIDE XL [Glucotrol Xl] 5 mg PO BID 08/11/13 Atorvastatin Calcium [Lipitor] 40 mg PO QHS 06/02/17 Ascorbic Acid [Vitamin C] 500 mg PO DAILY 12/19/18 Tamsulosin HCl [Flomax] 0.4 mg PO QHS 12/19/18 Umeclidinium [place] Inhaler [Incruse Ellipta Inhaler] 1 puff IH DAILY 12/19/18 Vitamin E 400 unit PO DAILY 12/19/18 Acetaminophen [Tylenol] 1,000 mg PO Q8 #90 tab 01/06/19 Aspirin 325 mg PO BID #60 tab 01/06/19 Oxycodone [Oxyir] 5 - 10 mg PO Q4H PRN PRN 7 Days #90 tab 01/06/19 The following prescriptions were given: Oxycodone [Oxyir] 5 - 10 mg PO Q4H PRN PRN 7 Days #90 tab PRN Reason: Mod-Severe Pain (-07/16) Acetaminophen [Tylenol] 1,000 mg PO Q8 #90 tab Aspirin 325 mg PO BID #60 tab Primary Care Physician: Jaime Galarza MD [Primary Care Provider] - Test Results: Test results from this visit will be discussed in further detail at your follow- up appointment, if applicable. Please Follow Up With: Ashvin Meraz PA-C When: see pink sheet
[2019-01-06 07:57] VITALS: PULSE 93; RESP 18
[2019-01-06] MEDS: metFORMIN HCl 1,000 MG Tablet 1000 MG PO (08:14)
[2019-01-06] MEDS: Aspirin 325 MG Tablet PO (08:15)
[2019-01-06] MEDS: glipiZIDE XL 5 MG Tablet PO (08:15)
[2019-01-06] MEDS: Pioglitazone Hydrochloride 30 MG Tablet PO (08:15)
[2019-01-06] MEDS: Finasteride 5 MG Tablet PO (08:16)
[2019-01-06] MEDS: Multivitamins,Therapeutic Tablet 1 TABLET PO (08:16)
[2019-01-06] MEDS: Senna/Docusate Sodium 1 Tablet 2 TABLET PO (08:16)
[2019-01-06] MEDS: Losartan Potassium 50 MG Tablet PO (08:16)
[2019-01-06] MEDS: Ascorbic Acid 500 MG Tablet PO (08:16)
[2019-01-06] MEDS: Vitamin E 400 UNITS Capsule PO (08:16)
--- NOTE | 2019-01-06 08:51 | NURSING ---
Pt requested all AM pills this morning prior to therapy. Same given. Pt denies any nausea since arrival to [facility]- education provided on patch- pt requested to have removed this morning from behind right ear- same completed. 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 Pt denies any vision issues or any other noticeable abnormalities regarding moreira's palsy.
--- NOTE | 2019-01-06 11:55 | CASEMGMT ---
RN ALISA Face to Face with patient for initial transition planning/care coordination assessment. RN ALISA introduced self and role at [facility]. Patient sitting in chair, alert and oriented. Patient willing to participate in assessment and is able to answer all questions appropriately. Care providers, pharmacy, and demographics verified. Patient wishes to discharge home and is setup with [facility] for outpatient therapy. Patient states he has no further needs or concerns at this time. CM to follow for discharge planning needs that may arise. PCP: Geovanni Specialists: None Preferred Pharmacy: [facility] Insurance: [facility] Prescription Benefit: yes Living Will/HPOA: Yes Lolly Womack LNOK: Living Arrangements: Patient lives with in home with in law suite in basement. Transportation: DME/HHC: Patient states he has shower chair, raised toilet seat, and walker. No previous HHC or SNF Disposition Plan: Patient to discharge home with outpatient therapy, family support, and follow-up plans in place. Denise ORELLANA, RN, CM
== END 2019-01-06 14:34 | disposition home or self-care (01) | DRG 470 ==
PROVIDERS: Admitting Provider Orthopaedic Surgery; Family Provider Family Medicine; PCP Family Medicine; Referring Provider Orthopaedic Surgery; Visit Provider Orthopaedic Surgery
PROC: 0SR90JZ Replacement of Right Hip Joint with Synthetic Substitute, Open Approach (ICD-10-PCS; CPT 27130; principal; 2019-01-05 06:50)
DX: M16.0 Bilateral primary osteoarthritis of hip (principal); G51.0 Bell's palsy; N40.0 Benign prostatic hyperplasia without lower urinary tract symptoms; E11.9 Type 2 diabetes mellitus without complications; Z79.84 Long term (current) use of oral hypoglycemic drugs
CPT/HCPCS: 36415; 73502; 80048; 82962; 83036; 85027; 87081; 88305; 88311; 94640; 94762; 97110; 97161; 97166; 97530; 97535; C1776; J7120; J2405

== ENCOUNTER 2019-03-05 12:00 | Outpatient (RCR) | payer MEDICARE, SELFPAY ==
[2018-12-19 13:28] VITALS: BMI 31.1
[2019-01-05 10:49] VITALS: BMI 31.1
--- NOTE | 2019-01-09 13:03 | HP.PTEVAL_ITS ---
Patient's Visit Information ARMAAN MCCLOUD is a 78 year old M referred to Physical Therapy by DORON Champion with a diagnosis of R DREW. Date of Evaluation: 01/09/19 Physical Therapist: Cm Yang PT, ATC - Visit Plan Frequency: 2-3x /Week Duration: 4-6 Weeks Plan: R DREW protocal. R LE strengthening, balance and proprio, core stab ex's, nustep, and HEP - Subjective Findings: DOS: 01/05/19. Pt reports he had a R DREW performed on that date. Pt reports he had a chronic Hx greater than one year of R hip pain. Pt reports he was in the hospital for one day after the surgery and has been home ever since. Pt reports he is still in a lot of pain, but is able to walk much better since having the surgery. No tingling or numbness in R LE. No sleep difficulty secondary to pain. Pt had a posterior approach used for his DREW. Pt is able to negotiate stairs one step at a time. Pt reports he lives in his basement, but has a chair lift for the stairs. Pt reports he has 4 steps into his house, and no difficulty with negotiating them as long as it's 1 step at a time. 2/10 at rest, 5/10 at worst (walking) - Pain R DREW Pain Intensity (Out of 10): 2 Pain Intensity Range: 5 - Objective Neuro: B LE sensation is WNL to light touch. B patellar reflex = 1/3. Observation: Incision is healing well with no signs of infection. Mild drainage in 2 locations. MMT: R LE is grossly 3-/5 throughout while L LE is 5/5 throughout. ROM: L LE is WNL in all planes. R LE is limited in all planes secondary to weakness and pain. Gait: Pt was able to ambulate 680' with WW and CGA - Goals Goal 1:: Decrease R hip pain x 50% to aid with increased tolerance for ambulation Goal Time Frame: 4-6 Weeks Goal 2:: Increase R LE strength x 1 grade to aid with stair negotiation Goal Time Frame: 4-6 Weeks Goal 3:: Pt will be able to ambulate greater than 1000' with LRD to aid with community ambulation Goal Time Frame: 4-6 Weeks Goal 4:: I with HEP Goal Time Frame: 4-6 Weeks - Rehabilitation Potential Physical Therapy Diagnosis: R hip pain, weakness, and limited gait ability secondary to R DREW Rehabilitation Potential: Good - Anticipated Interventions Patient/Client Instruction: Educate patient on: Condition, Plan of Care For the Purpose of:: To improve self management Therapeutic Exercise to Include: Strength training, Endurance training, Balance training, Flexibilty training, Gait and locomotor training, Dynamic Lumbar Stabilization For the Purpose of:: To decrease pain, To improve muscle performance and motor function, To improve gait and locomotor functions Cryotherapy (ice pack, ice massage): Yes For the Purpose of:: To decrease pain Thank you for the opportunity to evaluate your patient. For Medicare and Medicare HMO plans, please review the plan of care and approve it. It will need to be FAXED BACK to us at [phone] for Medicare purposes. For Medicare only, by signing this I certify the plan of care. Please let me know if there are questions or concerns regarding this plan of care. Physician Signature:_ Date:
--- NOTE | 2019-02-02 12:07 | HP.PTREVAL ---
DORON Champion, It has been my pleasure to treat ARMAAN MCCLOUD over the last 10 visits for R DREW. Please see the progress note below for an update on the physical therapy plan of care! Subjective: Mild pain this date Objective/Function: R hip pain 1/10 and only increases to 2/10 at worst. Gait: Pt is able to ambulate 680' with WW until needing to sit down and rest. Stairs: Pt can negotiate 1 flight of stairs with L UE assist without difficulty. R hip MMT: 4/5 throughout. Pt is negotiating well toward Rx goals Plan Plan: R DREW protocol. R LE strengthening, balance and proprio, core stab ex's, nustep, and HEP Goals Goal 1:: Decrease R hip pain x 50% to aid with increased tolerance for ambulation Goal Time Frame: 4-6 Weeks Goal Progress: Progressing Goal 2:: Increase R LE strength x 1 grade to aid with stair negotiation Goal Time Frame: 4-6 Weeks Goal Progress: Progressing Goal 3:: Pt will be able to ambulate greater than 1000' with LRD to aid with community ambulation Goal Time Frame: 4-6 Weeks Goal Progress: Progressing Goal 4:: I with HEP Goal Time Frame: 4-6 Weeks Goal Progress: Progressing Anticipated Interventions Patient/Client Instruction: Educate patient on: Condition, Plan of Care For the Purpose of:: To improve self management Therapeutic Exercise to Include: Strength training, Endurance training, Balance training, Flexibilty training, Gait and locomotor training, Dynamic Lumbar Stabilization For the Purpose of:: To decrease pain, To improve muscle performance and motor function, To improve gait and locomotor functions Cryotherapy (ice pack, ice massage): Yes For the Purpose of:: To decrease pain Please do not hesitate to contact me at [phone] by phone or if you have questions or concerns regarding this new plan of care! Sincerely, Cm Yang, PT, ATC
--- NOTE | 2019-03-05 12:24 | HP.PTDCSUM ---
HP - PT D/C Summary It has been my pleasure to treat ARMAAN MCCLOUD under orders from DORON Champion, for the diagnosis of R DREW for a total of 19 visit(s). Discharge Date: Please see the following information for a summary of their discharge status. - Subjective Subjective: No pain, it just feels a little weak - Pain R DREW Pain Intensity (Out of 10): 0 - Overall Improvement % Improvement: 90 - Objective Objective/Function: R hip pain 0/10. R LE MMT= 5/5 throughout. Pt was able to ambulate greater than 1000' with no AD. Pt is I with HEP. Rx goals achieved - Goals Goal 1:: Decrease R hip pain x 50% to aid with increased tolerance for ambulation Goal Progress: Goal Met Goal 2:: Increase R LE strength x 1 grade to aid with stair negotiation Goal Progress: Goal Met Goal 3:: Pt will be able to ambulate greater than 1000' with LRD to aid with community ambulation Goal Progress: Goal Met Goal 4:: I with HEP Goal Progress: Goal Met - Plan Plan: Discharge - D/C Information If there are questions or concerns regarding this patient's physical therapy, please feel free to call me at [phone]. Thank you for the referral of this patient. Sincerely, Cm Yang, PT, ATC
== END 2019-03-05 19:00 | disposition home or self-care (01) ==
LOC: PT 12:00
PROVIDERS: Family Provider Family Medicine; PCP Family Medicine; Referring Provider Physician Assistant Surgical; Visit Provider Physician Assistant Surgical
DX: Z96.641 Presence of right artificial hip joint (principal); Z47.1 Aftercare following joint replacement surgery
CPT/HCPCS: 97110; 97161; 97530

== ENCOUNTER → 2019-07-21 10:17 | Outpatient (CLI) | payer MEDICARE, SELFPAY ==
[2019-01-05 10:49] VITALS: BMI 31.1
[2019-07-21 12:26] LABS: Hematocrit 35.8 % (40-54); Hemoglobin 11.5 g/dL (13.0-16.5); Mean Corp Hgb Conc 32.1 g/dL (32-36); Mean Corpuscular Hgb 31.8 pg (27.0-32.0); Mean Corpuscular Volume 98.9 fL (80-94); Mean Platelet Vol. 10.7 fl (6.2-12.0); Platelet Count 254 K/mm3 (150-450); RBC Distribution Width CV 14.6 % (11.6-14.6); RBC Distribution Width SD 50.2 fl (35.1-43.9); Red Blood Count 3.62 M/mm3 (4.6-6.2)
[2019-07-21 12:46] LABS: AST(SGOT) 15 U/L (15-37); Alanine Aminotransfer ALT/SGPT 19 U/L (16-61); Albumin, Serum 3.5 g/dL (3.2-5.0); Alkaline Phosphatase 65 U/L (45-117); Anion Gap 5 (5-15); BUN 13 mg/dL (7-18); BUN/Creat Ratio 20.1 RATIO (10-20); Chloride 107 mmol/L (98-107); Cholesterol 80 mg/dL (200); Creatinine, Serum 0.65 mg/dL (0.70-1.30); EST Glomerular Filtration Rate 127 mL/min (>60); Est Glom Filt Rate - Afr Amer 154 mL/min (>60); Globulin 3.4 g/dL (2.2-4.2); Glucose 152 mg/dL (74-106); High Density Lipoprotein 41 mg/dL; Potassium 4.1 mmol/L (3.5-5.1); Protein, Total 6.9 g/dL (6.4-8.2); Sodium Level 139 mmol/L (136-145); Triglycerides 68 mg/dL; Very Low Density Lipoprotein 14 mg/dL (5-40)
== END ==
PROVIDERS: Family Medicine; Family Provider Family Medicine; PCP Family Medicine; Referring Provider Family Medicine; Visit Provider Family Medicine
DX: I10 Essential (primary) hypertension (principal); E78.5 Hyperlipidemia, unspecified; N40.0 Benign prostatic hyperplasia without lower urinary tract symptoms
CPT/HCPCS: 36415; 80053; 80061; 84153; 85027

== ENCOUNTER → 2020-11-25 10:25 | Outpatient (CLI) | payer MEDICARE, SELFPAY ==
[2019-01-05 10:49] VITALS: BMI 31.1
[2020-11-25 13:02] LABS: Anion Gap 4 (5-15); BUN 21 mg/dL (7-18); BUN/Creat Ratio 25.3 RATIO (10-20); Calcium,Total 9.5 mg/dL (8.5-10.1); Chloride 106 mmol/L (98-107); Cholesterol 97 mg/dL (200); Creatinine, Serum 0.83 mg/dL (0.70-1.30); EST Glomerular Filtration Rate 95 mL/min (>60); Est Glom Filt Rate - Afr Amer 115 mL/min (>60); Glucose 156 mg/dL (74-106); High Density Lipoprotein 43 mg/dL; Potassium 4.4 mmol/L (3.5-5.1); Sodium Level 139 mmol/L (136-145); Triglycerides 92 mg/dL; Very Low Density Lipoprotein 18 mg/dL (5-40)
[2020-11-25 15:16] LABS: Microalbumin,Random Urine 17.2 mg/L (NO RANGE EST.)
== END ==
PROVIDERS: PCP Family Medicine; Referring Provider Family Medicine; Visit Provider Family Medicine
DX: I10 Essential (primary) hypertension (principal)
CPT/HCPCS: 36415; 80048; 80061; 82043

== ENCOUNTER 2021-01-18 08:05 | Day surgery (SDC) | payer MEDICARE, SELFPAY ==
[2019-01-05 10:49] VITALS: BMI 31.1
--- NOTE | 2021-01-12 12:41 | EKG12_ITS ---
Test Reason : PREOP Blood Pressure : / mmHG Vent. Rate : 080 BPM Atrial Rate : 080 BPM P-R Int : 174 ms QRS Dur : 076 ms QT Int : 356 ms P-R-T Axes : 050 -07 045 degrees QTc Int : 410 ms Normal sinus rhythm Normal ECG Confirmed by JE TANG, ROSS ([id number]), copy editor NEHEMIAH GALLARDO ([id number]) on 01/16/2021 2:08:39 PM Referred By: DALILA Confirmed By:ROSS WOOTEN MD
[2021-01-12 13:53] LABS: Absolute Neutrophil Count 3.5 X10^3/uL (2.0-7.7); Basophil# 0.03 X10^3/uL; Basophil% 0.6 % (0-1); Eosinophils% 1.9 % (0-5); Hematocrit 37.1 % (40-54); Hemoglobin 11.7 g/dL (13.0-16.5); Lymphocyte % 20.8 % (19-41); Mean Corp Hgb Conc 31.5 g/dL (32-36); Mean Corpuscular Hgb 31.8 pg (27.0-32.0); Mean Corpuscular Volume 100.8 fL (80-94); Mean Platelet Vol. 10.1 fl (6.2-12.0); Monocyte# 0.51 X10^3/uL; Monocyte% 9.6 % (0-10); NRBC Flagged by Analyzer 0 % (0-5); Neutrophil # 3.46 X10^3/uL (2.7-7.7); Neutrophil % 65.4 % (47-70); Platelet Count 265 K/mm3 (150-450); RBC Distribution Width CV 14.6 % (11.6-14.6); RBC Distribution Width SD 51.8 fl (35.1-43.9); Red Blood Count 3.68 M/mm3 (4.6-6.2); White Blood Count 5.3 K/mm3 (4.4-11.0)
[2021-01-18] VITALS (14 sets, daily range): BP systolic 112–149; BP diastolic 62–72; PULSE 79–96; RESP 16–18; TEMP 36.1–37.7; O2SAT 94–100; BMI 33.0
[2021-01-18] MEDS: Lactated Ringers 1,000 ML 100 ML IV (08:30)
[2021-01-18 08:55] LABS: Bedside Glucose 187 mg/dL (70-110)
[2021-01-18] MEDS: Cefazolin 2 GM in 0.9% Normal Saline 100 ML IV (10:05)
--- NOTE | 2021-01-18 10:05 | PCM.HP.STD ---
Problem List (1) BPH with obstruction/lower urinary tract symptoms Status: Acute History of Present Illness Date of Admission: 01/18/21 Chief Complaint: BPH with obstruction The patient is a 81 year old male with a large prostate obstructive prostate plan to proceed with a TURP today to relieve obstruction. Past Medical History Medical History: Medical History (Last Reviewed 09/27/18 @ 09:25 by Lachelle River) Arthritis M19.90 Diabetes E11.9 History of dislocation of elbow Z87.39 Severe headache R51 Shoulder pain M25.519 Chronic neck and back pain M54.2, M54.9, G89.29 Allergies No Known Allergies Allergy (Verified 01/18/21 08:40) Home Medications: Ambulatory Orders Medication Instructions Recorded Finasteride [Proscar] 5 mg PO DAILY 08/11/13 Insulin Glargine [Lantus SoloStar 22 units SUBCUT QHS 08/11/13 Pen] Losartan Potassium [Cozaar] 50 mg PO DAILY 08/11/13 Multivitamins,Therapeutic 1 tab PO DAILY 08/11/13 [Multivitamin] Pioglitazone [Actos] 30 mg PO DAILY 08/11/13 glipiZIDE XL [Glucotrol Xl] 5 mg PO BID 08/11/13 metFORMIN HCl [Glucophage] 1,000 mg PO BIDCM 08/11/13 Atorvastatin Calcium [Lipitor] 40 mg PO QHS 06/02/17 Ascorbic Acid [Vitamin C] 500 mg PO DAILY 12/19/18 Tamsulosin HCl [Flomax] 0.4 mg PO QHS 12/19/18 Umeclidinium [place] Inhaler 1 puff IH BID 12/19/18 [Incruse Ellipta Inhaler] Vitamin E 400 unit PO DAILY 12/19/18 Acetaminophen [Tylenol] 1,000 mg PO Q8 #90 tab 01/06/19 Aspirin [Aspirin, Baby] 81 mg PO DAILY 01/11/21 Surgical History: Surgical History (Last Reviewed 09/27/18 @ 09:25 by Lachelle River) History of appendectomy Z90.49 Surgical History: no surgical history Smoking Status: Former smoker Review of Systems Constitutional: Denies: Chills, Fever, Weight Change HEENT: Denies: Head Aches, Sinus Congestion, Sinus Drainage Cardiovascular: Denies: Chest Pain, Palpitations Respiratory: Denies: Cough, Shortness of breath at rest, Sputum production Gastrointestinal: Denies: Abdominal Pain, Nausea, Vomiting Genitourinary: Denies: Dysuria Musculoskeletal: Denies: Joint Pain, Joint Tenderness Skin: Denies: Rash, Wounds Neurological: Denies: Numbness, Tingling, Focal weakness Psychiatric: Denies: Anxiety, Depression, Homicidal Ideations, Suicidal Ideations Hematologic/ Lymphatic: Denies: Easy Bruising, Easy Bleeding VTE Information - Inpt Only VTE Present on Admission: No - Physical Exam Vitals/I&O's: Vital Signs Temp Pulse Resp BP Pulse Ox 98.2 F 80 16 149/62 H 100 01/18/21 08:42 01/18/21 08:42 01/18/21 08:42 01/18/21 08:42 01/18/21 08:42 Oxygen Delivery Method Room Air Weight: 95.6 kg Body Mass Index (BMI) 33.0 Finger Stick Blood Glucose 146 General: Alert, Oriented x3, Cooperative HEENT: Atraumatic, PERRLA, EOMI, Normocephalic Neck: Supple, No JVD, Negative Carotid Bruits Lungs: Clear to auscultation, Normal air movement Cardiovascular: Regular rate, No murmurs Abdomen: Bowel Sounds Present, Soft, Non Tender Extremities: No edema, Capillary Refill Less than 3 Seconds Skin: No rashes, No breakdown Musculoskeletal: No Tenderness to Palpation of Joints or Extremities Neurological: Cranial nerves II-XII grossly intact Psych/Mental Status: Normal Affect, Appropriate Microbiology Past 72 Hours 01/17/21 12:40 Interface Orders SARS-CoV-2 Antigen (Rapid) - Final Laboratory Results 01/18/21 08:31: POC Glucose 187 H Current Medications Lactated Ringer's () 1,000 mls @ 100 mls/hr IV .Q10H HERNAN Last Admin: 01/18/21 08:30 Dose: 100 mls/hr Documented by: Assessment/Plan All Active Problems (Last Reviewed 09/27/18 @ 09:25 by Lachelle River) BPH with obstruction/lower urinary tract symptoms (Acute) Corneal abrasion, right (Acute) Shingles (Acute) Plan to proceed with a TURP.
--- NOTE | 2021-01-18 10:08 | DCINST_ITS ---
Discharge Diet: Light diet - advance as tolerated Discharge Activity: May not drive while taking narcotic pain medications. Instructions: Transurethral Resection of the Prostate (TURP): Home Recovery Allergies/Adverse Reactions: Allergies No Known Allergies Allergy (Verified 01/18/21 08:40) Medications to take at Discharge Finasteride [Proscar] 5 mg PO DAILY 08/11/13 Insulin Glargine [Lantus SoloStar Pen] 22 units SUBCUT QHS 08/11/13 Losartan Potassium [Cozaar] 50 mg PO DAILY 08/11/13 Multivitamins,Therapeutic [Multivitamin] 1 tab PO DAILY 08/11/13 Pioglitazone [Actos] 30 mg PO DAILY 08/11/13 glipiZIDE XL [Glucotrol Xl] 5 mg PO BID 08/11/13 metFORMIN HCl [Glucophage] 1,000 mg PO BIDCM 08/11/13 Atorvastatin Calcium [Lipitor] 40 mg PO QHS 06/02/17 Ascorbic Acid [Vitamin C] 500 mg PO DAILY 12/19/18 Tamsulosin HCl [Flomax] 0.4 mg PO QHS 12/19/18 Umeclidinium [place] Inhaler [Incruse Ellipta Inhaler] 1 puff IH BID 12/19/18 Vitamin E 400 unit PO DAILY 12/19/18 Acetaminophen [Tylenol] 1,000 mg PO Q8 #90 tab 01/06/19 Aspirin [Aspirin, Baby] 81 mg PO DAILY 01/11/21 Ciprofloxacin [Cipro] 500 mg PO BID #6 tab 01/18/21 Ibuprofen 600 mg PO Q6H PRN PRN 7 Days #20 tablet 01/18/21 The following prescriptions were given: Ciprofloxacin [Cipro] 500 mg PO BID #6 tab Transmission Status: Pending to [address] Ibuprofen 600 mg PO Q6H PRN PRN 7 Days #20 tablet PRN Reason: Pain 1-10 Or Fever Transmission Status: Pending to [address] Orders to be completed after discharge: 12 Lead EKG [[facility]] Location: None Selected Primary Care Physician: Jaime Galarza MD [Primary Care Provider] - Test Results: Test results from this visit will be discussed in further detail at your follow- up appointment, if applicable. Please Follow Up With: Patel Gamble MD When: in 2 weeks, please call to make an appointment.
--- NOTE | 2021-01-18 10:10 | PROS_PTH ---
PATIENT: ARMAAN MCCLOUD LOC: [facility] [place] U#:[id number] AGE/SX: 81/M ROOM: RE01/18/[address]: Dr. Patel Gamble MD : 1940 BED: DIS: 01/19/2021 SPEC #: [id number] RECD: 01/18/21 12:47 STATUS: NADYA REHeber #: [id number] WON: 01/18/21 10:[address]: Patel Gamble DEPT: SURGICAL PATHOLOGY RECD BY: Yoselin Reed ENTERED: 01/18/21 13:01 SP TYPE: TURP OTHR DR: Dr. Jaime Galarza MD Tissues: Prostate, NOS Procedures: Surgery Specimen Level IV HEADER OPERATION: Cysto, TUR prostate, Olympus PRE-OP DIAGNOSIS: BPH with obstruction / lower urinary tract symptoms TISSUE SUBMITTED: Prostate chips MICROSCOPIC DIAGNOSIS Prostate chips, TUR: Benign prostatic hyperplasia, glandular and stromal type. Focal mild chronic inflammation. SJ:rg 01/19/2021 MICROSCOPIC DESCRIPTION Slides are reviewed. GROSS DESCRIPTION Received is one container labeled with the patient's name and designated prostate chips. The specimen consists of multiple irregular fragments of pink-lyle, rubbery, soft tissue that in aggregate weigh 21 gm and measure in aggregate 6 x 6 x 3 cm. For[place] Hand tissue is submitted in ten cassettes. / BETH:brett 01/18/21 TC:5 CPT: 93748
--- NOTE | 2021-01-18 11:39 | PCM.OPRPT ---
Problem List (1) BPH with obstruction/lower urinary tract symptoms Status: Acute Report of Operation Date of Procedure: 01/18/21 Pre-Operative Diagnosis: BPH with obstruction Post-Operative Diagnosis: Same Surgery/Procedure Performed:: Transurethral resection of the prostate Description of Surgical Findings:: In the preoperative setting I discussed with the patient how the surgery would be done with expect afterwards. We discussed how a prostate resection is done and we discussed the risk of the surgery including, bleeding, infection, retrograde ejaculation, changes with ejaculation or intercourse,. We discussed the possibility that the resection of the prostate may not alleviate his urinary symptoms. We discussed the small risk of developing scar tissue along the urethral channel and strictures. We also discussed the chance of the prostate could grow back and he may need further surgery or treatment in the future for prostate problems. Patient was taken back to the operating room, timeout procedure was performed, he was identified and marked and placed on the operating room table. He underwent general anesthesia. He was placed in dorsolithotomy position. Penis and testicles were prepped and draped in usual sterile fashion. Went into the bladder using the visual obturator with a resectoscope. Once inside the bladder identified the right and left ureteral orifice. I then identified the prostate and the anatomy of the prostate. I marked out the area of the sphincter and the verumontanum was identified. I then proceeded with the prostate resection first resected the median lobe. And then resected the right lobe of the prostate. Then to resect the left lobe of the prostate. I then resected the apical tissue of the prostate. Made sure that there was no injury to the sphincter or the verumontanum was still intact. At the end of the resection all the chips were Ellik out of the bladder. I then identified the left and right ureteral orifice and these were confirmed to be in good position and effluxing and not injured. The resectoscope was removed, a 22 [place] Konger catheter was placed into the bladder on continuous irrigation. And the urine was fairly light pink color and draining normally. He was taken back to the PACU in good condition. Type of Anesthesia:: General Drains: [address] - Admit VTE Documentation VTE Present on Admission: No
[2021-01-18] MEDS: 0.9% Normal Saline 1,000 ML 75 ML IV (15:47)
[2021-01-18 16:41] LABS: Bedside Glucose 221 mg/dL (70-110)
--- NOTE | 2021-01-18 16:43 | CHAPLAIN ---
Type of Pastoral Visit _x__ Initial Visit ___ Follow-up Visit ___ On-call Visit ___ General Patient Visit ___ Spiritual Assessment ___ Family Conference ___ Bereavement ___ Rapid Response ___ Code Blue ___ Other (describe below) Pastoral Care Referral From _x__ Patient ___ Family ___ Nurse ___ Physician ___ Forest Technician ___ Hospitality Specialist ___ Other (describe below) Sacrament/Intervention _x__ Active listening ___ Anointing ___ Sabianism ___ Bereavement ___ Communion ___ Chel exploration ___ ___ Life review _x__ Prayer ___ Reconciliation ___ Sacrament of Sick _x__ Supportive presence ___ Wedding ___ Other (describe below) Pastoral Comments
[2021-01-18] MEDS: glipiZIDE XL 5 MG Tablet PO (17:39)
[2021-01-18] MEDS: metFORMIN HCl 1,000 MG Tablet 1000 MG PO (17:39)
[2021-01-18] MEDS: Ipratropium 0.5 MG/2.5 ML SOLUTION INHALATION (18:50)
[2021-01-18] MEDS: Ciprofloxacin 400 MG/200 ML BAG 200 MG IV (21:33)
[2021-01-18] MEDS: 0.9% Saline Lock 10 ML Syringe IV (21:34)
[2021-01-18] MEDS: Tamsulosin HCl 0.4 MG Capsule PO (21:35)
[2021-01-18] MEDS: Atorvastatin Calcium 40 MG Tablet PO (21:35)
[2021-01-18] MEDS: Docusate Sodium 100 MG Capsule PO (21:35)
[2021-01-18 23:06] LABS: Bedside Glucose 267 mg/dL (70-110)
[2021-01-19 03:45] VITALS: BP 124/59; PULSE 89; RESP 16; TEMP 36.8; O2SAT 96
[2021-01-19] MEDS: 0.9% Normal Saline 1,000 ML 75 ML IV (06:01)
[2021-01-19] MEDS: Ipratropium 0.5 MG/2.5 ML SOLUTION INHALATION (06:54)
[2021-01-19 07:32] VITALS: PULSE 83; RESP 17; RESP 18
[2021-01-19 07:53] VITALS: BP 127/64; PULSE 85; RESP 16; TEMP 37.1; O2SAT 97
[2021-01-19] MEDS: glipiZIDE XL 5 MG Tablet PO (10:18)
[2021-01-19] MEDS: metFORMIN HCl 1,000 MG Tablet 1000 MG PO (10:18)
[2021-01-19] MEDS: Pioglitazone Hydrochloride 30 MG Tablet PO (10:18)
[2021-01-19] MEDS: Multivitamins,Therapeutic Tablet 1 TABLET PO (10:18)
[2021-01-19] MEDS: Pantoprazole Sodium 40 MG Tablet PO (10:19)
[2021-01-19] MEDS: Docusate Sodium 100 MG Capsule PO (10:19)
[2021-01-19] MEDS: Ascorbic Acid 500 MG Tablet PO (10:19)
[2021-01-19] MEDS: Vitamin E 400 UNITS Capsule PO (10:19)
[2021-01-19] MEDS: Losartan Potassium 50 MG Tablet PO (10:19)
== END 2021-01-19 11:15 | disposition home or self-care (01) ==
LOC: SDC 08:07 → AC 08:07 → MS3 11:08
PROVIDERS: Anesthesiology; PCP Family Medicine; Referring Provider Urology; Visit Provider Urology
PROC: (CPT 52601; principal; 2021-01-18 10:00)
DX: N40.1 Benign prostatic hyperplasia with lower urinary tract symptoms (principal); N41.1 Chronic prostatitis; N13.8 Other obstructive and reflux uropathy; E11.9 Type 2 diabetes mellitus without complications; Z79.4 Long term (current) use of insulin; Z79.82 Long term (current) use of aspirin; Z87.891 Personal history of nicotine dependence; M19.90 Unspecified osteoarthritis, unspecified site; Z87.39 Personal history of other diseases of the musculoskeletal system and connective tissue; M54.9 Dorsalgia, unspecified; M54.2 Cervicalgia; G89.29 Other chronic pain
CPT/HCPCS: 52601; 36415; 82962; 83036; 85025; 87426; 88305; 93005; 94640; 99251; C9803; J7030; J7120; A4216; G0463; J0744; J2405

== ENCOUNTER → 2021-05-26 08:28 | Outpatient (CLI) | payer MEDICARE, SELFPAY ==
[2021-05-26 10:25] LABS: AST(SGOT) 18 U/L (15-37); Alanine Aminotransfer ALT/SGPT 27 U/L (16-61); Albumin, Serum 3.7 g/dL (3.2-5.0); Alkaline Phosphatase 71 U/L (45-117); Anion Gap 2 (5-15); BUN 17 mg/dL (7-18); BUN/Creat Ratio 22.2 RATIO (10-20); Bilirubin, Direct 0.19 mg/dL (0.00-0.30); Calcium,Total 9.3 mg/dL (8.5-10.1); Chloride 109 mmol/L (98-107); Cholesterol 80 mg/dL (200); Creatinine, Serum 0.77 mg/dL (0.70-1.30); EST Glomerular Filtration Rate 104 mL/min (>60); Est Glom Filt Rate - Afr Amer 126 mL/min (>60); Globulin 3.4 g/dL (2.2-4.2); Glucose 111 mg/dL (74-106); High Density Lipoprotein 38 mg/dL; Microalbumin:Creatinine Ratio 68.3 mg/g CRE (<30 mg/g CRE); Potassium 4.4 mmol/L (3.5-5.1); Protein, Total 7.1 g/dL (6.4-8.2); Sodium Level 140 mmol/L (136-145); Triglycerides 58 mg/dL; Very Low Density Lipoprotein 12 mg/dL (5-40)
== END ==
PROVIDERS: PCP Family Medicine; Visit Provider Family Medicine
DX: E11.9 Type 2 diabetes mellitus without complications (principal)
CPT/HCPCS: 36415; 80048; 80061; 80076; 82043; 82570

== ENCOUNTER → 2021-06-25 15:48 | Outpatient (CLI) | payer MEDICARE, SELFPAY | PROVIDERS: PCP Family Medicine; Visit Provider Nurse Practitioner Family | DX: U07.1 COVID-19 (principal) | CPT/HCPCS: 87635; U0005; U0003 ==

== ENCOUNTER 2021-06-29 15:53 | Outpatient (CLI) | payer MEDICARE, SELFPAY ==
[2021-06-29] MEDS: 0.9% Saline Lock 10 ML Syringe IV (16:14)
[2021-06-29 16:18] VITALS: BP 143/58; PULSE 95; RESP 16; TEMP 36.9; O2SAT 98; BMI 32.1
[2021-06-29 16:48] VITALS: BP 137/59; PULSE 88; RESP 18; TEMP 37.2; O2SAT 96
[2021-06-29 17:48] VITALS: BP 138/59; PULSE 92; RESP 18; TEMP 37.5; O2SAT 96
== END 2021-06-29 17:48 | disposition home or self-care (01) ==
LOC: ICUOUT 15:53 → MS3 15:54
PROVIDERS: PCP Family Medicine; Referring Provider Nurse Practitioner Adult Health; Visit Provider Nurse Practitioner Adult Health
DX: Z23 Encounter for immunization (principal); U07.1 COVID-19
CPT/HCPCS: J7050; M0243; Q0245; A4216; Q0244

== ENCOUNTER 2021-07-31 05:36 | Day surgery (SDC) | payer MEDICARE, SELFPAY ==
--- NOTE | 2021-07-18 08:55 | EKG12_ITS ---
Test Reason : PRE OP Blood Pressure : / mmHG Vent. Rate : 089 BPM Atrial Rate : 089 BPM P-R Int : 162 ms QRS Dur : 082 ms QT Int : 338 ms P-R-T Axes : 045 -23 051 degrees QTc Int : 411 ms Normal sinus rhythm Normal ECG Confirmed by JE TANG, ROSS ([id number]), web editor RICCARDO CHADWICK ([id number]) on 07/19/2021 9:14:04 AM Referred By: Santy Arvizu Confirmed By:ROSS WOOTEN MD
[2021-07-18 10:39] LABS: Absolute Lymphocyte Count 1.16 X10^3/uL (0.83-4.51); Absolute Neutrophil Count 4.2 X10^3/uL (2.0-7.7); Basophil# 0.03 X10^3/uL; Basophil% 0.5 % (0-1); Eosinophil# 0.08 X10^3/uL; Eosinophils% 1.3 % (0-5); Hematocrit 36.3 % (40-54); Hemoglobin 11.7 g/dL (13.0-16.5); Lymphocyte # 1.16 X10^3/ul (0.83-4.51); Mean Corp Hgb Conc 32.2 g/dL (32-36); Mean Corpuscular Hgb 32.7 pg (27.0-32.0); Mean Corpuscular Volume 101.4 fL (80-94); Mean Platelet Vol. 10.2 fl (6.2-12.0); Monocyte% 8.2 % (0-10); NRBC Flagged by Analyzer 0 % (0-5); Neutrophil # 4.23 X10^3/uL (2.7-7.7); Neutrophil % 69.4 % (47-70); Platelet Count 373 K/mm3 (150-450); RBC Distribution Width CV 17.2 % (11.6-14.6); RBC Distribution Width SD 56.6 fl (35.1-43.9); Red Blood Count 3.58 M/mm3 (4.6-6.2); White Blood Count 6.1 K/mm3 (4.4-11.0)
[2021-07-18 11:08] LABS: Anion Gap 8 (5-15); BUN 15 mg/dL (7-18); BUN/Creat Ratio 20.2 RATIO (10-20); Calcium,Total 9.5 mg/dL (8.5-10.1); Chloride 104 mmol/L (98-107); Creatinine, Serum 0.74 mg/dL (0.70-1.30); EST Glomerular Filtration Rate 108 mL/min (>60); Est Glom Filt Rate - Afr Amer 131 mL/min (>60); Glucose 192 mg/dL (74-106); Potassium 4.1 mmol/L (3.5-5.1); Sodium Level 140 mmol/L (136-145)
[2021-07-18 11:09] LABS: Hemoglobin A1c 6.2 % (3.8-5.6); Magnesium 1.8 mg/dL (1.6-2.6)
[2021-07-31] VITALS (15 sets, daily range): BP systolic 106–134; BP diastolic 52–67; PULSE 72–84; RESP 16; TEMP 36–37.1; O2SAT 93–100; BMI 31.0
--- NOTE | 2021-07-31 | IMM_PTH ---
PATIENT: ARMAAN MCCLOUD LOC: [facility] [place] U#:[id number] AGE/SX: 81/M ROOM: RE07/31/[address]: Dr. Santy Arvizu DO : 1940 BED: DIS: 07/31/2021 SPEC #: [id number] RECD: 08/02/21 13:48 STATUS: NADYA REQ #: [id number] WON: 07/31/21 00:[address]: Santy Arvizu DEPT: IMMUNOHISTOCHEMISTRY RECD BY: Janessa Farias ENTERED: 08/02/21 13:50 SP TYPE: IMMUNO OTHR DR: Dr. Jaime Galarza MD Tissues: Hip, NOS Procedures: BCL-2 (add) BCL-6 (add) CD10 (add) CD138 (add) CD15 (add) CD20 (add) CD23 (add) CD3 (add) CD30 (add) CD43 (add) CD45 (add) CD5 (add) CD79A (add) CYCLIN (add) KAPPA (add) KI-67 (add) LAMBDA (add) MUM1 (add) Pankeratin (initial) PHYSICIAN & [address] [address] SPECIMEN INFORMATION: Tissue Source: Left hip bone and tissue Clinical Info: Osteoarthritis Specimen Number: [id number] #2 CPT code: 54946, 65192 x18 METHODOLOGY: Deparaffinized sections of prefer/formalin-fixed tissue or PAP/DQ stained slides are incubated with monoclonal/polyclonal antibodies/oligonucleotide probes. Localization is made via biotin free immunoperoxidase method. Appropriate controls are performed and reacted as expected. Results on target cell population are indicated in the following table: RESULTS: ANTIBODY / CLONE RESULT Block 2 AE1-3 (AE1/AE3/PCK26) negative CD3 (PS1) positive CD5 (SP10) positive CD10 (56C6) negative CD15 (MMA) negative CD20 (L26) positive, dim CD23 (1B12) negative CD30 (Christiano-H2) negative CD43 (L60) positive CD45 (RP2/18) positive CD79a (11E3) positive CD138 (B-A38) negative BCL-2 (bcl-2/100/D5) negative BCL-6 (IK655M/A8) negative Cyclin D1/BCL-1 (SP4) negative MUM1 (MRQ-43) negative Loring (polyclonal) negative Lambda (polyclonal) negative Ki-67 (30-9) negative These tests were developed and their performance characteristics determined by [facility]. They may not have been cleared or approved by the U.S. Food and Drug Administration. The FDA has determined that such clearance or approval is not necessary. The above immunohistochemical/dualISH markers are ordered and reviewed by the Pathologist. INTERPRETATION: Bone and tissue of left hip, total hip resection: Polytypic (benign) lymphoid aggregates. AM:brett 08/03/2021
--- NOTE | 2021-07-31 | HIP_PTH ---
PATIENT: ARMAAN MCCLOUD LOC: [facility] [place] U#:[id number] AGE/SX: 81/M ROOM: RE07/31/[address]: Dr. Santy Arvizu DO : 1940 BED: DIS: 07/31/2021 SPEC #: [id number] RECD: 07/31/21 12:48 STATUS: NADYA REHeber #: [id number] WON: 07/31/21 00:[address]: Santy Arvizu DEPT: SURGICAL PATHOLOGY RECD BY: Hira Shrestha ENTERED: 07/31/21 12:49 SP TYPE: TOTAL HIP OTHR DR: Dr. Jaime Galarza MD Tissues: Hip, NOS Procedures: Decalcification bone/plaque Surgery Specimen Level IV HEADER OPERATION: ERAS, total hip replacement PRE-OP DIAGNOSIS: Osteoarthritis left hip TISSUE SUBMITTED: Left hip bone and tissue MICROSCOPIC DIAGNOSIS Bone and tissue of left hip, total hip resection: Degenerative joint disease. Multiple paratrabecular lymphoid aggregates, polytypic by immunohistochemistry. See comment. AM:brett 08/02/2021 COMMENT Sections show multiple paratrabecular lymphoid aggregates. Immunohistochemistry ([id number]) reveals these lymphoid aggregates to be polytypic (benign). Clinical correlation is suggested. Case has been reviewed in consultation with Dr. Truong who concurs with the above diagnosis. IDC:BETH MICROSCOPIC DESCRIPTION Slides are reviewed. GROSS DESCRIPTION Received is one container labeled with the patient's name and designated bone and tissue hip, left. The specimen consists of a lyle femoral head with portion of femoral neck. The femoral head measures 4 x 4.5 x 4 cm and the femoral neck measures up to 1.5 cm in length. The articular surface displays prominent osteophyte formation and bone erosion. Also present in the specimen container are multiple irregular fragments of bone reamings measuring in aggregate 7 x 7.5 x 2 cm. Body Care Manager sections are submitted in two cassettes after decalcification as follows: 1 ? bone reamings, 2 ? femoral head. / BETH:brett 07/31/21 TC:5 CPT: 76649, 69737
[2021-07-31] MEDS: Acetaminophen 500 MG Tablet 1000 MG PO (06:16)
[2021-07-31] MEDS: Gabapentin 600 MG Tablet PO (06:16)
[2021-07-31] MEDS: Lactated Ringers 1,000 ML 100 ML IV (06:18)
[2021-07-31 07:05] LABS: Bedside Glucose 326 mg/dL (70-110)
[2021-07-31] MEDS: Insulin Lispro 100 UNIT/ML INSULN.PEN SC (07:05)
[2021-07-31] MEDS: Cefazolin 2 GM in 0.9% Normal Saline 100 ML IV (07:40)
--- NOTE | 2021-07-31 08:51 | OP.PCM_ITS ---
Report of Operation Date of Procedure: 07/31/21 Pre-Operative Diagnosis: OA left hip Post-Operative Diagnosis: same Surgery/Procedure Performed:: Left THR Description of Surgical Findings:: Report of Operation Date of Procedure: Pre-Operative Diagnosis: OA [ left ] hip Post-Operative Diagnosis: same Surgery/Procedure Performed: [left ] THR brush or broom cutter: Ashvin Meraz PA-C Type of Anesthesia: spinal Anesthesiologist: Rolando Park M.D. Specimen's removed: bone Estimated Blood Loss (100 mL): Implants: Cheryl Accolade 2, size 4 132 degree neck angle stem, 48 mm MDM cup, +0 neck length Surgical Indications: Patient has severe end-stage osteoarthritic changes in the [left ] hip. They have failed conservative measures including activity modification, anti-inf lammatories, use of assistive devices. This to the point where the pain affects their ability to enjoy life and complete activities of daily living without discomfort. Patient has elected to undergo the above procedure Procedure Description: The patient was greeted in the preoperative area the [ left ] hip was marked with surgical marker preoperative antibiotics administered. The patient was then taken to or suite in stable condition. Preoperative tranexamic acid was also utilized. Once the patient was placed in the supine position on the operating room table and once adequate anesthesia was obtained they were then placed in the lateral decubitus position with the surgical hip facing the field. All bony prominences were well-padded. A commercial hip position was utilized. The appropriate extremity was then prepped and draped in usual sterile fashion. Ioban was placed on the skin. Surgical timeout was performed and surgery was commenced. A standard posterior approach to the hip was then performed. Incision was planned and carried out with a #10 blade scalpel. Dissection was then carried length of the incision to the IT band which was split proximally and distally. A Charnley retractor was then placed for soft tissue retraction exposing the piriformis. A standard posterior capsulotomy was performed. Severe eburnation of bone was noted and periarticular osteophytes were identified consistent with severe end-stage osteoarthritis. A femoral neck osteotomy guide was used to aileen the proximal femur. A femoral osteotomy was then created approximately 1 fingerbreadth above the lesser trochanter. This was measured and placed on the back table. Once this was complete acetabular retractors were placed anteriorly and posteriorly. Labrum was then removed from the acetabulum exposing the entire cup of the acetabulum. Sequential reaming was then commenced and the acetabulum was medialized and sequentially widened in order to accommodate appropriate size cup. The acetabular cup was then impacted into position to the appropriate depth referencing approximately [45 ] anteversion and [45 ]of inclination. Excellent purchase was obtained. An appropriate size MDM liner was then placed. Attention was then turned to the femoral preparation. The hip was placed in the 90/90 position and a lateralizing box osteotome was utilized. Femoral starting awl was used followed by sequential broaching to the appropriate size. Excellent purchase was obtained with the stem no stem subsidence and excellent rotational stability was confirmed. A calcar reamer was then used in the trial head neck was placed on the broach. The hip was then located and taken through full range of motion flexion internal and external rotation as well as extension. Excellent stability was noted no impingement was identified of the components and leg lengths appear to be appropriate. The hip was at this point dislocated and the trial femoral components were removed. The final femoral stem was then implanted and impacted to the appropriate depth. Again excellent purchase was obtained no stem subsidence or rotational instability was noted. The hip was once again trialed and confirmation of leg length and stability was performed. Soft tissue tension also appeared to be appropriate. At this point the hip was redislocated and the trunnion was cleaned and dried meticulously in the appropriate size MDM femoral head was placed on the clean dry trunnion using a 12/14 Peña taper. The hip was once again relocated and again taken through full range of motion. I did inject a cocktail of postoperative pain medication in the deep and superficial tissues. Copious irrigation was performed. Anatomic closure of the piriformis tendon was performed through drill holes in the greater trochanter. A #1 Vicryl 0 Vicryl was utilized in subcutaneous tissue and surgical amador were placed in the skin. A well-padded nonadherent dressing was applied. Patient was taken to PACU in stable condition. No complications were identified. Will follow standard postop protocol for total hip arthroplasty. My certified medical assistant played a vital role in the procedure beginning with positioning, holding retraction of soft tissues, positioning the leg to optimize visualization during the procedure and assisting with wound closure. Post-op Plan: DVT ppx; ASA 81 mg BID, thigh high compression stockings Follow up: in office in 2 weeks for wound check PT: to start POD #0 at hospital, outpatient PT should be arranged. Preoperative antibiotic: Ancef 2 grams IV Santy Arvizu DO Surgeon: Santy Arvizu brush or broom cutter: Ashvin Meraz Type of Anesthesia: Spinal Anesthesiologist: Rolando Colin Estimated Blood Loss (mL): 100 cc Fluids Replaced: 1000 c crystalloid Admit VTE Documentation VTE Present on Admission: No VTE Mechan Device Prophylaxis: SCD's and Thigh High JENIFER Hose VTE Pharm Prophylaxis ordered?: Yes
[2021-07-31] MEDS: Lactated Ringers 1,000 ML 999 ML IV (09:13)
[2021-07-31 09:50] LABS: Bedside Glucose 205 mg/dL (70-110)
--- NOTE | 2021-07-31 10:05 | RAD_ITS ---
STUDY: X-RAY - PELVIS AND LEFT HIP REASON FOR EXAM: Male, 81 years old. pain -- in PACU TECHNIQUE: 2 views of the pelvis and hip. COMPARISON: None. FINDINGS: There is a non-specific bowel gas pattern. There are atherosclerotic vascular calcifications of the pelvic arteries. There are multiple calcified phleboliths. Normal bilateral iliac wings, sacroiliac joints and visualized sacrum. Normal bilateral superior and inferior pubic rami. Normal pubic symphysis. Normal bilateral ischial tuberosities. Right hip replacement in gross radiographic alignment. Left hip replacement is in radiographic alignment. No periimplant fracture. Soft tissue swelling, subcutaneous air and surgical skin amador of the lateral left hip compatible with recent surgery. RAD/Hip Min 2 Views (Portable) IMPRESSION: Left hip replacement and gross radiographic alignment with recent operative changes. Electronically Signed: Mahendra Aldana MD (Brooks) at 6:47 EDT , Service support ,
[2021-07-31] MEDS: Lactated Ringers 1,000 ML 125 ML IV (10:21)
[2021-07-31] MEDS: Cefazolin 1 GM/50 ML BAG IV (12:39)
[2021-07-31] MEDS: 0.9% Normal Saline 1,000 ML 100 ML IV (12:39)
== END 2021-07-31 15:39 | disposition home or self-care (01) ==
LOC: SDC 05:36 → AC 05:36
PROVIDERS: Anesthesiology; PCP Family Medicine; Referring Provider Orthopaedic Surgery; Visit Provider Orthopaedic Surgery
PROC: 0SRB0JZ Replacement of Left Hip Joint with Synthetic Substitute, Open Approach (ICD-10-PCS; CPT 27130; principal; 2021-07-31 07:05)
DX: M16.12 Unilateral primary osteoarthritis, left hip (principal); E11.9 Type 2 diabetes mellitus without complications; M19.90 Unspecified osteoarthritis, unspecified site; G89.29 Other chronic pain; Z79.4 Long term (current) use of insulin; Z79.899 Other long term (current) drug therapy
CPT/HCPCS: 01214; 27130; 36415; 73502; 80048; 82962; 83036; 83735; 85025; 87081; 88305; 88311; 88341; 88342; 93005; 97162; C1776; J7030; J7120; J2405

== ENCOUNTER 2021-11-28 11:22 | Outpatient (CLI) | payer MEDICARE, SELFPAY ==
[2021-11-28 13:16] LABS: Anion Gap 4 (5-15); BUN 14 mg/dL (7-18); BUN/Creat Ratio 19.1 RATIO (10-20); Calcium,Total 9.3 mg/dL (8.5-10.1); Chloride 110 mmol/L (98-107); Cholesterol 86 mg/dL (200); Creatinine, Serum 0.73 mg/dL (0.70-1.30); EST Glomerular Filtration Rate 109 mL/min (>60); Est Glom Filt Rate - Afr Amer 132 mL/min (>60); Glucose 152 mg/dL (74-106); High Density Lipoprotein 39 mg/dL; Potassium 4.2 mmol/L (3.5-5.1); Sodium Level 142 mmol/L (136-145); Triglycerides 48 mg/dL; Very Low Density Lipoprotein 10 mg/dL (5-40)
== END 2021-11-28 23:59 | disposition home or self-care (01) ==
PROVIDERS: PCP Family Medicine; Referring Provider Family Medicine; Visit Provider Family Medicine
DX: E11.9 Type 2 diabetes mellitus without complications (principal)
CPT/HCPCS: 36415; 80048; 80061

== ENCOUNTER → 2022-05-09 | Outpatient (CLI) | payer MEDICARE, SELFPAY | END | disposition home or self-care (01) | PROVIDERS: PCP Family Medicine; Visit Provider Family Medicine | DX: U07.1 COVID-19 (principal) | CPT/HCPCS: 87635; U0003; U0005 ==

== ENCOUNTER → 2022-12-24 | Outpatient (CLI) | payer MEDICARE, SELFPAY ==
[2022-12-24 17:57] LABS: Anion Gap 8 (5-15); BUN 22 mg/dL (7-18); BUN/Creat Ratio 30.5 RATIO (10-20); Calcium,Total 9.8 mg/dL (8.5-10.1); Chloride 106 mmol/L (98-107); Creatinine, Serum 0.72 mg/dL (0.70-1.30); EST Glomerular Filtration Rate 111 mL/min (>60); Est Glom Filt Rate - Afr Amer 135 mL/min (>60); Glucose 137 mg/dL (74-106); Sodium Level 140 mmol/L (136-145)
== END | disposition home or self-care (01) ==
LOC: MFPLAB 14:39
PROVIDERS: PCP Family Medicine; Visit Provider Family Medicine
DX: Z12.5 Encounter for screening for malignant neoplasm of prostate (principal); E11.9 Type 2 diabetes mellitus without complications
CPT/HCPCS: 36415; 80048; 84153; G0103

== ENCOUNTER 2023-03-16 20:26 | Emergency (ER) | payer MEDICARE, SELFPAY ==
[2023-03-16 20:26] VITALS: BP 171/68; PULSE 77; RESP 18; TEMP 35.5; O2SAT 99
--- NOTE | 2023-03-16 20:37 | CT_ITS ---
INDICATION: Right facial and head trauma EXAMINATION: CT BRAIN - CT Head or Brain W/O Contrast Injection TECHNIQUE: Multiple axial images were obtained of the head without intravenous contrast. A radiation dose optimization technique was used for this scan. IV Contrast dosage and agent: None. COMPARISON: FINDINGS: BRAIN PARENCHYMA: No intra- or extra-axial hemorrhage. No evidence of acute infarct. No intracranial mass or mass effect. There is preservation of the rose/white matter interface. Posterior fossa structures are unremarkable. CSF SPACES: Moderate cortical and central involutional change. No hydrocephalus. Basal cisterns are patent. CALVARIUM, SKULL BASE, PARANASAL SINUSES AND MASTOID AIR CELLS: Right maxillary sinus fluid level. Right orbital floor fracture identified. No obvious zygomatic arch fracture. Small superficial hematoma at the right forehead. CT/Brain/Head without Contrast IMPRESSION: No acute parenchymal or extra-axial hemorrhage identified. Left right-sided orbital fracture. See dedicated facial CT. Right forehead superficial hematoma. Electronically Signed: Anoop Birmingham MD at 21:25 EDT ,
--- NOTE | 2023-03-16 20:39 | CT_ITS ---
INDICATION: right orbit trauma EXAMINATION: CT FACIAL BONES - CT Maxillofacial W/O Contrast Injection TECHNIQUE: Helically acquired images were obtained of the facial bones. A radiation dose optimization technique was used for this scan. IV Contrast dosage and agent: None. COMPARISON: None. FINDINGS: Right orbital floor fracture. Depression of 7 mm. Inferior rectus approaches the bony defect at the orbital floor through which is herniated a small amount of fat. No definitive nasal septal fracture or nasal bone fracture. Small right-sided extraconal air is present. No mandibular fracture. Intact nasal spine. Intact pterygoid bones. Intact zygomatic arches. Lamina papyracea grossly intact. Visualized submandibular and parotid glands are grossly intact. Intact parapharyngeal fat planes. Superficial soft tissue hematoma the right-side of forehead. CT/Sinus/Facial Bone IMPRESSION: Right orbital floor fracture as outlined. Electronically Signed: Anoop Birmingham MD at 21:27 EDT ,
--- NOTE | 2023-03-16 20:39 | ED.VIS.FALL ---
HPI HPI - Fall History of Present Illness Chief Complaint: Fall Detail of Chief Complaint: Tripped and fell injuring his right face. Informant: patient and spouse/S.O. Occured/Mechanism Occurred: Today and Hours Mechanism/Context: Yes same level fall and Yes trip Usually ambulates: Without assistance Pain/Injury Pain Location: head, face and chest Quality of Pain: Dull and Aching Current Severity: Moderate Maximum Severity: Moderate Associated Symptoms Associated Symptoms: Negative for Parasthesias, Weakness, Loss of function, Inability to ambulate, Loss of consciousness or Amnesia Narrative Narrative: 83-year-old male history of diabetes. Was walking today tripped over a curb around 4-1/2 hours ago. Tripped and fell and hit the right side of his face on the cement. No LOC. He is on aspirin but no other blood thinners. Denies any headache. More facial pain and right eyebrow pain. Said he has had some nausea this evening. Denies neck pain. Also when he fell he injured his right lower rib cage. Denies any abdominal pain. No recent illness. Has a mild abrasion to his left knee. Prior similar symptoms: No Recent Illness/Hospitalization: [facility] Medical History (Updated 03/16/23 @ 21:[address] Mode Gilbert MD) Arthritis Back pain Chronic cough Chronic neck and back pain Diabetes Former smoker History of dislocation of elbow History of echocardiogram History of pain when walking History of stress test Insulin dependent diabetes mellitus Severe headache Shortness of breath on exertion Shoulder pain Uses inhaler device Wears glasses Wears hearing aid Home Medications glipizide 5 mg tablet, extended release 24 hr 5 mg PO BID DIABETES 08/11/13 [History Last Taken Unknown] insulin glargine 100 unit/mL (3 mL) subcutaneous pen 22 units subcut QHS DIABETES 08/11/13 [History Last Taken Unknown] losartan 50 mg tablet 50 mg PO DAILY BP 08/11/13 [History Last Taken 07/31/21 05:00] metformin 1,000 mg tablet 1,000 mg PO BIDCM DIABETES 08/11/13 [History Last Taken Unknown] multivitamin with folic acid 400 mcg tablet 1 tab PO DAILY SUPPLEMENT 08/11/13 [History Last Taken Unknown] pioglitazone 30 mg tablet 30 mg PO DAILY DIABETES 08/11/13 [History Last Taken Unknown] atorvastatin 40 mg tablet 40 mg PO QHS CHOLESTEROL 06/02/17 [History Last Taken Unknown] ascorbic acid (vitamin C) 500 mg tablet (Vitamin C) 500 mg PO DAILY SUPPLEMENT 12/19/18 [History Last Taken Unknown] vitamin E 268 mg (400 unit) capsule 400 unit PO DAILY SUPPLEMENT 12/19/18 [History Last Taken Unknown] aspirin 81 mg chewable tablet 81 mg PO DAILY 01/11/21 [History Last Taken 01/10/21] mometasone-formoterol HFA 200 mcg-5 mcg/actuation aerosol inhaler (Dulera) 2 puff inhalation BID 06/29/21 [History Last Taken Unknown] acetaminophen 500 mg tablet 1,000 mg PO Q12H PRN PRN Pain 07/14/21 [History Last Taken Unknown] Allergy/AdvReac Type Severity Reaction Status Date / Time No Known Allergies Allergy Verified 03/16/23 20:29 Surgical History (Updated 03/16/23 @ 21:13 by Tami Celis) History of appendectomy History of back surgery History of tonsillectomy and adenoidectomy Hx of colonoscopy Hx of total hip arthroplasty Hx of transurethral resection of prostate Social History Smoking Status: Former smoker ROS ROS ED ROS Narrative Nausea today after his head injury. Review of Systems ROS Unobtainable: Denies due to encephalopathy Constitutional Constitutional ED: Denies chills or fever(s) Eyes Eyes: Denies blurry vision ENT ENT ED: Denies ear pain Cardiovascular Cardiovascular: Denies chest pain Respiratory/Chest Respiratory/Chest: Denies cough or dyspnea Gastrointestinal Gastrointestinal: Reports nausea; Denies abdominal pain, diarrhea or melena Genitourinary Genitourinary ED: Denies dysuria Musculoskeletal Musculoskeletal: Denies arthralgias Integumentary Denies abscess Neurologic Neurologic: Reports headache(s) Psychiatric Psychiatric: Denies anxiety or depression Endocrine Endocrinology: Denies polydipsia Hematologic/Lymphatic Hematologic/Lymphatic: Denies easy bleeding Allergic/Immunologic Allergic/Immunologic ED: Denies mouth swelling EXAM Physical Exam Narrative Exam Narrative: 83-year male vital signs stable afebrile there is no septal retracting. Lying in bed. at bedside. H EENT exam Unremarkable. Pupils are round reactive to light. Equal symmetrical 2 mm. He does have tenderness and swelling to his right eyebrow. No laceration. Extraocular motions are intact. There is no other facial trauma. Scalp nontender. Trachea and C-spine nontender normal range of motion to his neck. Lungs are clear. Heart regular rhythm. Chest wall nontender except right lower rib cage mildly tender. Abdomen soft nontender normal bowel sounds no peritoneal signs. Pelvic girdle intact. Moving all 4 extremities. There is a mild abrasion of his left knee but he has full flexion extension at the knee. Both hips are unremarkable. Neurologically is awake and alert. He is answering questions following commands. GCS of 15. Back nontender. Const Vital Signs: 03/16/23 20:26 03/16/23 21:15 Temperature 95.9 F L Temperature Source Temporal Pulse Rate 77 Respiratory Rate 18 Respiratory Effort Normal Non-Labored Respiratory Depth Normal Respiratory Pattern Normal Blood Pressure 171/68 H Blood Pressure Mean 102 Pulse Ox 99 Oxygen Delivery Method Room Air Room Air Positive well nourished and well developed; Negative for cachectic, contractures or unkempt General Appearance ED: well developed and NAD; Negative for unkempt, cachectic or contractures Nutritional Appearance: Negative for cachectic HEENT Reports normocephalic trauma, contusion, hematoma and tenderness; Negative for atraumatic Eyes PERRL and EOMs intact bilaterally General Eye ED: Negative for pale conjunctiva or scleral icterus Neck full ROM, no lymphadenopathy and supple General: Negative for tenderness Chest Wall inspection of chest normal and palpation of chest normal Chest: Negative for other Resp normal respiratory effort, no retractions and clear to auscultation bilaterally Resp Narrative: Mild tenderness right lower rib cage. No crepitance or subcu air. No bruising. Effort and Inspection: Negative for pain with movement Auscultation: Negative for rales, rhonchi or wheezes Cardio regular rate, regular rhythm, S1 normal heart sound, S2 normal heart sound and no murmurs GI non-tender, non-distended and no masses Inspection: Negative for abdominal distention Palpation: soft; Negative for guarding Back/Spine no CVA tenderness General Back: Negative for CVA tenderness, erythema, ecchymosis, swelling or tenderness Cervical Spine: Negative for cervical spine tenderness Thoracic Spine / Upper Back: Negative for ROM limited Lumbar Spine / Lower Back: Negative for lumbar spinal tenderness Neuro oriented x3, CN's II-XII intact bilaterally, moves all extremities and no focal motor deficits Shaq Coma Scale: document GCS findings Spontaneous Obeys Commands Oriented 15 Sensorium / Orientation: alert, oriented to person, oriented to place and oriented to time; Negative for orientation impaired or confused Motor Exam: strength 5/5 throughout Psych mental status grossly normal and thought process normal Appearance: Negative for unkempt Attitude: No agitated Mood & Affect: Negative for depressed, anxious or tearful Skin General Skin Exam: Negative for other Lesions: no lesions Rashes: no rashes MDM MDM MDM Narrative Medical decision making narrative: 83-year-old male tripped and fell on a curb fell hitting his right forehead primarily upper eyebrow on the curb. He is on aspirin. He has had nausea and pain CAT scan of his head to be obtained. He has no neck pain I do not think CT imaging of his neck is necessary. He has mild tenderness to his right lower rib cage chest x-ray will be obtained. He has an abrasion on his left knee it does not need x-rayed. He is nontender is normal range of motion. No deformity or any significant swelling. Patient was offered but did not anything for pain or nausea. Repeat exam patient doing well at 9:33 PM went over his x-ray results. CT of his head and facial bones showed a right orbital floor fracture. Soft tissue hematoma. But no acute intracranial bleed. He was instructed of that. Ice to his. Tylenol for pain. Follow-up with ophthalmology for reevaluation of the orbital floor fracture. History & Record Review Discussion w/independent historian: Patient and Family Radiography Chest X-Ray - ED: 2 View, Read by ED Physician, Normal, Heart, Lungs, Mediastinum, Bony Structures, No Acute Disease and Chronic Changes Diagnostic Testing: Clinical Impression(s) from Imaging Studies Brain CT 03/16/23 20:37 IMPRESSION: No acute parenchymal or extra-axial hemorrhage identified. Left right-sided orbital fracture. See dedicated facial CT. Right forehead superficial hematoma. Electronically Signed: Anoop Birmingham MD at 21:25 EDT , Facial/Sinus 03/16/23 20:39 IMPRESSION: Right orbital floor fracture as outlined. Electronically Signed: Anoop Birmingham MD at 21:27 EDT , Chest X-Ray 03/16/23 20:57 IMPRESSION: No radiographic evidence of acute cardiopulmonary disease. Electronically Signed: Anoop Birmingham MD at 21:22 EDT , Chest x-ray, 2 views, interpreted by myself shows no acute abnormality. Normal cardiac silhouette. No obvious rib fractures. No obvious bony abnormality. No pneumothorax or hemothorax. Interpreted by myself. I did go over the patient's chest x-ray results of both he and his . Discharge Plan Triage Chief Complaint: Fall ED Provider: Mode Gilbert Dx/Rx/DC Orders Clinical Impression: Fall, Closed head injury, Closed fracture of right orbit, Traumatic hematoma of forehead Instructions: ED Facial Fracture, ED Head Injury (Adult) Prescriptions: No Action losartan 50 MG tablet 50 mg PO DAILY glipizide 5 MG tablet 5 mg PO BID metformin 1,000 MG tablet 1,000 mg PO BIDCM pioglitazone 30 MG tablet 30 mg PO DAILY insulin glargine 100 UNITS/ML insulin pen 22 units subcut QHS multivitamin with folic acid 1 TABLET tablet 1 tab PO DAILY atorvastatin 40 MG tablet 40 mg PO QHS ascorbic acid (vitamin C) [Vitamin C] 500 MG tablet 500 mg PO DAILY vitamin E 400 UNIT capsule 400 unit PO DAILY aspirin 81 MG tablet,chewable 81 mg PO DAILY acetaminophen 500 MG tablet 1,000 mg PO Q12H PRN PRN (Reason: Pain) Dulera 200-5 mcg/actuation HFA aerosol inhaler 2 puff INHALATION BID Label Comments: inhale 2 puffs by mouth and INTO THE LUNGS twice a day Rinse mouth after use Primary Care Provider: Jaime Galarza Referrals: Morales Herrmann MD [Med Staff - Active Staff] - 1 Week Jaime Galarza MD [Primary Care Provider] - As Needed Activity Restrictions/Additional Instructions: Ice to your forehead and right eye. You do have a small fracture or break in the orbit of your eye. Call and follow-up with Dr. Morales Herrmann of ophthalmology for further evaluation. Tylenol for pain. Return if severe headache, intractable vomiting or not acting right. You most likely also have a mild concussion. Disposition Disposition: Home, Self Care
--- NOTE | 2023-03-16 20:57 | RAD_ITS ---
INDICATION: Fall right lower rib cage pain EXAMINATION/TECHNIQUE: X-RAY - XR Chest 2 Views COMPARISON: None. FINDINGS: LINES/DEVICES: None. LUNGS: No consolidation, edema or effusion. No pneumothorax. MEDIASTINUM AND CARDIOVASCULAR STRUCTURES: Cardiac silhouette not enlarged. Central airways and mediastinal contour are unremarkable. BONES AND SOFT TISSUES: No acute fracture. Degenerative changes of the shoulders and spine are present. RAD/Chest PA and Lateral IMPRESSION: No radiographic evidence of acute cardiopulmonary disease. Electronically Signed: Anoop Birmingham MD at 21:22 EDT ,
[2023-03-16 21:13] VITALS: BMI 32.5
[2023-03-16 21:43] VITALS: BP 155/77; PULSE 81; RESP 17; O2SAT 100
== END 2023-03-16 21:45 | disposition home or self-care (01) ==
PROVIDERS: Emergency Provider Emergency Medicine; PCP Family Medicine; Visit Provider Emergency Medicine
DX: S02.31XA Fracture of orbital floor, right side, initial encounter for closed fracture (principal); E11.9 Type 2 diabetes mellitus without complications; Z79.4 Long term (current) use of insulin; Z87.891 Personal history of nicotine dependence; S00.83XA Contusion of other part of head, initial encounter; W01.198A Fall on same level from slipping, tripping and stumbling with subsequent striking against other object, initial encounter; Y93.01 Activity, walking, marching and hiking; S09.8XXA Other specified injuries of head, initial encounter; Z79.899 Other long term (current) drug therapy; Z79.84 Long term (current) use of oral hypoglycemic drugs; Z79.82 Long term (current) use of aspirin; Z90.49 Acquired absence of other specified parts of digestive tract; Z96.649 Presence of unspecified artificial hip joint
CPT/HCPCS: 70450; 70486; 71046; 99282

== ENCOUNTER → 2023-06-27 | Outpatient (CLI) | payer MEDICARE, SELFPAY ==
[2023-06-27 11:01] LABS: ALB/GLOB Ratio 1.2 RATIO (0.9-2.4); AST(SGOT) 19 U/L (15-37); Alanine Aminotransfer ALT/SGPT 25 U/L (16-61); Albumin, Serum 3.6 g/dL (3.2-5.0); Alkaline Phosphatase 75 U/L (45-117); Anion Gap 2 (5-15); BUN 19 mg/dL (7-18); BUN/Creat Ratio 24.5 RATIO (10-20); Calcium,Total 9.5 mg/dL (8.5-10.1); Chloride 108 mmol/L (98-107); Cholesterol 82 mg/dL (200); Creatinine, Serum 0.78 mg/dL (0.70-1.30); EST Glomerular Filtration Rate 102 mL/min (>60); Est Glom Filt Rate - Afr Amer 123 mL/min (>60); Glucose 183 mg/dL (74-106); High Density Lipoprotein 36 mg/dL; PSA,Total- Diagnostic 3.28 ng/mL (0.0-4.0); Potassium 4.6 mmol/L (3.5-5.1); Protein, Total 6.6 g/dL (6.4-8.2); Sodium Level 139 mmol/L (136-145); Triglycerides 91 mg/dL; Very Low Density Lipoprotein 18 mg/dL (5-40)
[2023-06-27 12:54] LABS: Microalbumin,Random Urine 87.8 mg/L (NO RANGE EST.); Microalbumin:Creatinine Ratio 52.6 mg/g CRE (<30 mg/g CRE)
== END | disposition home or self-care (01) ==
LOC: MFPLAB 09:43
PROVIDERS: PCP Family Medicine; Visit Provider Family Medicine
DX: R97.20 Elevated prostate specific antigen [PSA] (principal); E11.9 Type 2 diabetes mellitus without complications
CPT/HCPCS: 36415; 80053; 80061; 82043; 82570; 84153

== ENCOUNTER → 2023-12-26 | Outpatient (CLI) | payer MEDICARE, SELFPAY ==
[2023-12-26 11:27] LABS: Anion Gap 8 (5-15); BUN 16 mg/dL (7-18); BUN/Creat Ratio 18.3 RATIO (10-20); Calcium,Total 8.9 mg/dL (8.5-10.1); Chloride 107 mmol/L (98-107); Cholesterol 76 mg/dL (200); Creatinine, Serum 0.87 mg/dL (0.70-1.30); EST Glomerular Filtration Rate 89 mL/min (>60); Est Glom Filt Rate - Afr Amer 108 mL/min (>60); Glucose 192 mg/dL (74-106); High Density Lipoprotein 40 mg/dL; Potassium 4.4 mmol/L (3.5-5.1); Sodium Level 138 mmol/L (136-145); Triglycerides 94 mg/dL; Very Low Density Lipoprotein 19 mg/dL (5-40)
== END | disposition home or self-care (01) ==
LOC: MTLAB 09:27
PROVIDERS: PCP Family Medicine; Referring Provider Family Medicine; Visit Provider Family Medicine
DX: E11.9 Type 2 diabetes mellitus without complications (principal); I10 Essential (primary) hypertension
CPT/HCPCS: 36415; 80048; 80061

== ENCOUNTER → 2024-05-13 | Outpatient (CLI) | payer MEDICARE, SELFPAY ==
--- NOTE | 2024-05-13 13:54 | RAD_ITS ---
STUDY: X-RAY - UNILATERAL RIBS ( RIGHT ) WITH CHEST REASON FOR EXAM: Male, 84 years old. One week history of right anterior rib pain. TECHNIQUE - RIBS: 4 view(s) of the ribs. TECHNIQUE - CHEST: Single PA view of the chest. COMPARISON: Comparison is made with prior chest radiograph dated March 16, 2023. FINDINGS - RIBS: Normal visualized ribs without a demonstrated fracture. FINDINGS - CHEST: There is hyperinflation of the lungs consistent with chronic obstructive lung disease (COPD). There is no demonstrated pleural abnormality. There is borderline cardiomegaly. Normal mediastinum and carmelita. Normal visualized pulmonary arteries. There is atherosclerotic calcification of the aortic arch with tortuosity. Normal visualized thoracic spine. Normal visualized ribs, clavicles, and shoulders. There is no demonstrated abnormality of the visualized soft tissue structures of the upper abdomen. RAD/Ribs Uni Min 3V w/PA Chest IMPRESSION: RIBS: Normal x-ray examination of the ribs. CHEST: Hyperinflation. COPD. Electronically Signed: Willard Conrad MD at 14:31 EDT ,
== END | disposition home or self-care (01) ==
LOC: MTRAD 13:54
PROVIDERS: PCP Family Medicine; Referring Provider Physician Assistant; Visit Provider Physician Assistant
DX: T14.90XA Injury, unspecified, initial encounter (principal)
CPT/HCPCS: 71101

== ENCOUNTER → 2024-06-29 | Outpatient (CLI) | payer MEDICARE, SELFPAY ==
[2024-06-29 12:20] LABS: Anion Gap 5 (5-15); BUN 14 mg/dL (7-18); BUN/Creat Ratio 17.3 RATIO (10-20); Calcium,Total 9.2 mg/dL (8.5-10.1); Chloride 103 mmol/L (98-107); Cholesterol 92 mg/dL (200); Creatinine, Serum 0.81 mg/dL (0.70-1.30); EST Glomerular Filtration Rate 97 mL/min (>60); Est Glom Filt Rate - Afr Amer 117 mL/min (>60); Glucose 265 mg/dL (74-106); High Density Lipoprotein 35 mg/dL; Potassium 4.1 mmol/L (3.5-5.1); Sodium Level 135 mmol/L (136-145); Triglycerides 152 mg/dL; Very Low Density Lipoprotein 30 mg/dL (5-40)
== END | disposition home or self-care (01) ==
LOC: MFPLAB 09:53
PROVIDERS: PCP Family Medicine; Visit Provider Family Medicine
DX: I10 Essential (primary) hypertension (principal)
CPT/HCPCS: 36415; 80048; 80061

== ENCOUNTER → 2024-07-06 | Outpatient (CLI) | payer MEDICARE, SELFPAY ==
[2024-07-06 15:49] LABS: PSA,Total - Annual Screen 4.31 ng/mL (0.00-4.00)
== END | disposition home or self-care (01) ==
LOC: MTLAB 12:51
PROVIDERS: PCP Family Medicine; Referring Provider Nurse Practitioner; Visit Provider Nurse Practitioner
DX: Z12.5 Encounter for screening for malignant neoplasm of prostate (principal)
CPT/HCPCS: 36415; 84153; G0103

== ENCOUNTER → 2024-08-21 | Outpatient (CLI) | payer MEDICARE, SELFPAY ==
--- NOTE | 2024-08-21 14:52 | RAD_ITS ---
INDICATION: cough EXAMINATION/TECHNIQUE: X-RAY - XR Chest 2 Views COMPARISON: Prior study dated: 05/13/2024, 03/16/2023 FINDINGS: LINES/DEVICES: None. LUNGS: Focal opacity posteriorly on the lateral view of the CP angle. This is not well visualized on the PA view but is likely in the right lower lobe. No pneumothorax. MEDIASTINUM: Aorta is atherosclerotic and tortuous. CARDIAC SILHOUETTE: Not enlarged. BONES AND SOFT TISSUES: No acute abnormalities. RAD/Chest PA and Lateral IMPRESSION: Focal opacity posteriorly best seen on the lateral view, likely in the right lower lobe. This may be consistent with pneumonia. Other etiologies including mass is not excluded. Radiographic follow-up is recommended in 6-8 weeks to confirm resolution, or CT may be helpful, to exclude mass. Electronically Signed: Arin Reddy MD at 8:05 EST ,
== END | disposition home or self-care (01) ==
LOC: MTRAD 14:50
PROVIDERS: PCP Family Medicine; Referring Provider Physician Assistant Surgical; Visit Provider Physician Assistant Surgical
DX: R09.89 Other specified symptoms and signs involving the circulatory and respiratory systems (principal); R05.9 Cough, unspecified
CPT/HCPCS: 71046

== ENCOUNTER 2024-08-22 19:58 | Inpatient (IN) | payer MEDICARE, SELFPAY ==
[2024-08-22] VITALS (7 sets, daily range): BP systolic 134–183; BP diastolic 62–76; PULSE 81–123; RESP 18–28; TEMP 37.1–38; O2SAT 91–93; BMI 29.3
--- NOTE | 2024-08-22 20:54 | EDS_ITS ---
HPI History of Present Illness Chief Complaint: General Illness Informant: patient Onset/Context/Timing Onset: Days (3) Context: Sudden Onset Timing: Continuous Quality: Short of breath Location: Chest Worsened by: Nothing Relieved by: Nothing Narrative Narrative: Patient presents with cough and fever that has been getting worse over the past 3 days. Patient [facility]. Patient was given a prescription for erythromycin. Patient states he has been taking that with minimal relief. Patient states he also recently received his COVID and influenza immunizations just prior to his symptoms starting. Patient states he had an episode of nausea and vomiting 3 days ago when his symptoms started. Patient states he is coughing up some clear sputum. Patient denies any sore throat or sinus pressure. Patient denies any headaches. [facility] Medical History Contusion of right chest wall URI (upper respiratory infection) Wears hearing aid Wears glasses Insulin dependent diabetes mellitus Uses inhaler device Back pain Former smoker Shortness of breath on exertion Chronic cough History of pain when walking History of stress test History of echocardiogram History of dislocation of elbow Chronic neck and back pain Severe headache Diabetes Shoulder pain Arthritis Home Medications ?Medication ?Instructions ?Recorded ?Last Taken ?Type glipizide 5 mg tablet, extended 5 mg PO BID DIABETES 08/11/13 Unknown History release 24 hr insulin glargine 100 unit/mL (3 22 units subcut QHS DIABETES 08/11/13 Unknown History mL) subcutaneous pen losartan 50 mg tablet 50 mg PO DAILY BP 08/11/13 07/31/21 05:00 History metformin 1,000 mg tablet 1,000 mg PO BIDCM DIABETES 08/11/13 Unknown History multivitamin with folic acid 400 1 tab PO DAILY SUPPLEMENT 08/11/13 Unknown History mcg tablet pioglitazone 30 mg tablet 30 mg PO DAILY DIABETES 08/11/13 Unknown History atorvastatin 40 mg tablet 40 mg PO QHS CHOLESTEROL 06/02/17 Unknown History ascorbic acid (vitamin C) 500 mg 500 mg PO DAILY SUPPLEMENT 12/19/18 Unknown History tablet (Vitamin C) vitamin E 268 mg (400 unit) capsule 400 unit PO DAILY SUPPLEMENT 12/19/18 Unknown History aspirin 81 mg chewable tablet 81 mg PO DAILY 01/11/21 01/10/21 History acetaminophen 500 mg tablet 1,000 mg PO Q12H PRN PRN Pain 07/14/21 Unknown History benzonatate 200 mg capsule 200 mg PO TID PRN cough #20 caps 06/16/24 Unknown Rx azithromycin 250 mg tablet See Rx Instructions PO .COMPLEX #6 08/21/24 Unknown Rx tabs Allergy/AdvReac Type Severity Reaction Status Date / Time No Known Allergies Allergy Verified 08/22/24 19:59 Surgical History Hx of transurethral resection of prostate Hx of colonoscopy History of tonsillectomy and adenoidectomy Hx of total hip arthroplasty History of back surgery History of appendectomy Social History Smoking Status: Former smoker ROS ROS ED Constitutional Constitutional ED: Reports fever(s) and subjective; Denies chills Eyes Eyes: Denies blurry vision or change in vision ENT ENT ED: Denies rhinorrhea or sore throat Cardiovascular Cardiovascular: Denies chest pain or palpitations Respiratory/Chest Respiratory/Chest: Reports cough and dyspnea Gastrointestinal Gastrointestinal: Denies nausea or vomiting Genitourinary Genitourinary ED: Reports urinary frequency; Denies dysuria or hematuria Musculoskeletal Musculoskeletal: Denies back pain or neck pain Integumentary Denies abscess or rash Neurologic Neurologic: Denies headache(s) or weakness Allergic/Immunologic Allergic/Immunologic ED: Denies mouth swelling or urticaria EXAM Physical Exam Const Vital Signs: 08/22/24 19:58 08/22/24 20:44 08/22/24 20:45 Temperature 98.8 F 100.4 F H Temperature Source Oral Oral Pulse Rate 81 123 H Respiratory Rate 19 H 24 H Respiratory Pattern Tachypnea Blood Pressure 183/76 H 172/65 H Blood Pressure Mean 111 100 Pulse Ox 93 93 Oxygen Delivery Method Room Air Room Air 08/22/24 21:40 08/22/24 21:45 08/22/24 22:24 Temperature 100.4 F H Temperature Source Oral Pulse Rate 117 H 123 H 116 H Respiratory Rate 24 H 28 H 18 Respiratory Pattern Tachypnea Blood Pressure 136/68 H 163/62 H Blood Pressure Mean 90 95 Pulse Ox 93 91 Oxygen Delivery Method Room Air Room Air 08/22/24 23:18 08/22/24 23:20 Temperature 100.2 F H 100.2 F H Temperature Source Oral Pulse Rate 115 H 113 H Respiratory Rate 24 H 28 H Respiratory Pattern Blood Pressure 134/66 H 134/66 H Blood Pressure Mean 88 88 Pulse Ox 91 91 Oxygen Delivery Method Room Air Positive well nourished and well developed General Appearance ED: well developed and NAD HEENT Reports moist mucous membranes Neck supple and no JVD Resp normal respiratory effort Auscultation: rhonchi lower bilaterally Cardio regular rhythm Rate: tachycardic GI non-tender and non-distended Palpation: soft Neuro oriented x3, CN's II-XII intact bilaterally and no sensory deficits noted Sensorium / Orientation: alert Motor Exam: strength 5/5 throughout Psych mental status grossly normal MDM MDM MDM Narrative Medical decision making narrative: Differential diagnose includes pneumonia, bronchitis, viral illness, and urinary tract infection. Chest x-ray will be obtained to assess for pneumonia and bronchitis. COVID-19, influenza, and RSV PCR will be obtained to assess for viral infection. CBC will be obtained to assess for leukocytosis and anemia. Basic metabolic profile will be obtained to assess for electrolyte abnormality and renal function. Urinalysis will be obtained to assess for urinary tract infection and hematuria. Lab Data Attestation: I reviewed the patient's lab results. Lab results narrative: CBC was reviewed. There is a mild anemia with hemoglobin of 10.1 and hematocrit 31.8. The remainder is within normal limits. Basic metabolic profile was reviewed. Glucose was elevated to 61. The remainder is within normal limits. Urinalysis was reviewed. There is no evidence of urinary tract infection or hematuria. Labs: Laboratory Results - last 24 hr 08/22/24 08/22/24 20:50 21:30 WBC 5.1 RBC 3.26 L Hgb 10.1 L Hct 31.8 L MCV 97.5 H MCH 31.0 MCHC 31.8 L RDW Std Deviation 49.9 H RDW Coeff of Bruna 14.1 Plt Count 284 MPV 10.7 Immature Gran % (Auto) 0.600 Neut % (Auto) 69.4 Lymph % (Auto) 11.3 L [place] % (Auto) 18.3 H Eos % (Auto) 0.2 Baso % (Auto) 0.2 Absolute Neuts (auto) 3.6 Absolute Lymphs (auto) 0.58 L Nucleated RBC % 0 Differential Comment SEE COMMENT Platelet Estimate ADEQUATE RBC Morphology N CHROM Hypochromasia RARE Anisocytosis RARE Macrocytosis RARE Ovalocytes RARE Sodium 136 Potassium 4.0 Chloride 104 Carbon Dioxide 26.0 Anion Gap 6 BUN 16 Creatinine 0.86 Estim Creat Clear Calc 68.96 Est GFR (MDRD) Af Amer 110 Est GFR (MDRD) Non-Af 91 BUN/Creatinine Ratio 18.7 Glucose 261 H Calcium 9.6 Urine Color Yellow Urine Clarity Clear Urine pH 6.0 Ur Specific [place] 1.015 Urine Protein 100 H Urine Glucose (UA) 1000 H Urine Ketones 50 H Urine Occult Blood 25 H Urine Nitrite Negative Urine Bilirubin Negative Urine Urobilinogen 4 H Ur Leukocyte Esterase Negative Urine RBC 0 SEEN Urine WBC 0 SEEN Ur Squamous Epith Cells 0-5 SEEN Amorphous Sediment 1+ Urine Bacteria 0 SEEN Hyaline Casts 0-5 SEEN Urine Mucus 0 SEEN Radiography Diagnostic Testing: Clinical Impression(s) from Imaging Studies Chest X-Ray 08/22/24 21:20 IMPRESSION: Bibasilar pneumonia Electronically Signed: Morales Cordoba MD at 22:41 EST Reading Location ID and State: [facility] / [place] Tel , Service support , PA and lateral chest x-ray was obtained. There are 2 views. On my independent interpretation, lung walters show bibasilar pneumonia. There is normal cardiac silhouette. Bony thorax is normal. Radiologist also interpreted the x-ray and agrees. Management Discussion w/another healthcare provider: Hospitalist Treatment and Re-Evaluation :: Patient was given a DuoNeb aerosol here. Patient was given Tylenol. Patient was given IV fluids. Patient was advised of his findings. Patient was started on Rocephin and Zithromax. Because of the patient's tachycardia and bilateral infiltrates, I recommended admission to the hospital. Case was discussed with the hospitalist. She will admit the patient to her service. Patient understood and was agreeable with the plan. All questions were answered. Discharge Plan Triage Chief Complaint: General Illness ED Provider: Gerry Ojeda Dx/Rx/DC Orders Clinical Impression: Pneumonia, 65 years of age or older, Tachycardia, Diabetes mellitus Prescriptions: No Action benzonatate 200 mg capsule 200 mg PO TID PRN (Reason: cough) Qty: 20 0RF azithromycin 250 mg tablet See Rx Instructions PO .COMPLEX Qty: 6 0RF Rx Instructions: take 500 mg today (day 1), then 250 mg for 4 days (days 2-5) PO losartan 50 MG tablet 50 mg PO DAILY glipizide 5 MG tablet 5 mg PO BID metformin 1,000 MG tablet 1,000 mg PO BIDCM pioglitazone 30 MG tablet 30 mg PO DAILY insulin glargine 100 UNITS/ML insulin pen 22 units subcut QHS multivitamin with folic acid 1 TABLET tablet 1 tab PO DAILY atorvastatin 40 MG tablet 40 mg PO QHS ascorbic acid (vitamin C) [Vitamin C] 500 MG tablet 500 mg PO DAILY vitamin E 400 UNIT capsule 400 unit PO DAILY aspirin 81 MG tablet,chewable 81 mg PO DAILY acetaminophen 500 MG tablet 1,000 mg PO Q12H PRN PRN (Reason: Pain) Primary Care Provider: Jaime Galarza Referrals: Jaime Galarza MD [Primary Care Provider] - Print Language: Bhutanese Disposition Disposition: Acute Care Hospital [facility]
--- NOTE | 2024-08-22 21:20 | RAD_ITS ---
STUDY: X-RAY CHEST REASON FOR EXAM: Male, 84 years old. Cough TECHNIQUE: PA and lateral COMPARISON: August 21, 2024. FINDINGS: Mild bilateral lower lobe infiltrates.. There is no demonstrated pleural abnormality. Normal size heart. Normal mediastinum and carmelita. Normal visualized pulmonary arteries. Calcified aortic arch and descending thoracic aorta. Normal visualized thoracic spine. Normal visualized ribs, clavicles, and shoulders. There is no demonstrated abnormality of the visualized soft tissue structures of the upper abdomen. RAD/Chest PA and Lateral IMPRESSION: Bibasilar pneumonia Electronically Signed: Morales Cordoba MD at 22:41 EST ,
[2024-08-22 21:36] LABS: Absolute Lymphocyte Count 0.58 X10^3/uL (0.83-4.51); Absolute Neutrophil Count 3.6 X10^3/uL (2.0-7.7); Basophil# 0.01 X10^3/uL; Basophil% 0.2 % (0-1); Eosinophil# 0.01 X10^3/uL; Eosinophils% 0.2 % (0-5); Hematocrit 31.8 % (40-54); Hemoglobin 10.1 g/dL (13.0-16.5); Lymphocyte # 0.58 X10^3/ul (0.83-4.51); Lymphocyte % 11.3 % (19-41); Mean Corp Hgb Conc 31.8 g/dL (32-36); Mean Corpuscular Volume 97.5 fL (80-94); Mean Platelet Vol. 10.7 fl (6.2-12.0); Monocyte# 0.94 X10^3/uL; Monocyte% 18.3 % (0-10); NRBC Flagged by Analyzer 0 % (0-5); Neutrophil # 3.56 X10^3/uL (2.7-7.7); Neutrophil % 69.4 % (47-70); POSITIVE DIFFERENTIAL YES; POSITIVE MORPHOLOGY YES; Platelet Count 284 K/mm3 (150-450); RBC Distribution Width CV 14.1 % (11.6-14.6); RBC Distribution Width SD 49.9 fl (35.1-43.9); Red Blood Count 3.26 M/mm3 (4.6-6.2); White Blood Count 5.1 K/mm3 (4.4-11.0)
[2024-08-22 21:37] LABS: Differential Indicated SCAN CRITERIA MET
[2024-08-22] MEDS: Ipratropium/Albuterol Sulfate 3 ML AMPUL.NEB INHALATION (21:39)
[2024-08-22] MEDS: 0.9% Normal Saline (1000mL) 1,000 ML 1000 ML IV (21:39)
[2024-08-22 21:50] LABS: Bacteria 0 SEEN /hpf (None Seen); Mucous, Urine 0 SEEN /hpf (<or=2+); Red Blood Cells-Urine 0 SEEN /hpf (0-5); White Blood Cells 0 SEEN /hpf (0-5)
[2024-08-22 21:55] LABS: Anion Gap 6 (5-15); BUN 16 mg/dL (7-18); BUN/Creat Ratio 18.7 RATIO (10-20); Calcium,Total 9.6 mg/dL (8.5-10.1); Chloride 104 mmol/L (98-107); Creatinine, Serum 0.86 mg/dL (0.70-1.30); EST Glomerular Filtration Rate 91 mL/min (>60); Est Glom Filt Rate - Afr Amer 110 mL/min (>60); Estimated Creatinine Clearance 68.96 ml/min; Glucose 261 mg/dL (74-106); Sodium Level 136 mmol/L (136-145)
[2024-08-22 21:58] LABS: Color, Urine Yellow (Yellow); Glucose, Dipstick 1000 mg/dl (Normal); Ketone-Dipstick 50 mg/dl (Negative); Leukocyte Esterase-Dipstick Negative /ul (Negative); Nitrite-Dipstick Negative (Negative); Occult Blood-Urine 25 /ul (Negative); Protein-Dipstick 100 mg/dl (Negative); Specific Gravity, Urine 1.015 (1.002-1.030); Urine Bilirubin Dipstick Negative (Negative); Urine Clarity Clear (Clear); Urine Urobilinogen 4 mg/dl (Normal)
[2024-08-22 22:09] LABS: Amorphous Sediment 1+; Hyaline Cast 0-5 SEEN /lpf (0-5); Squamous Epithelial Cells - UA 0-5 SEEN /hpf (0-5)
[2024-08-22 22:16] LABS: Platelet Estimate ADEQUATE (ADEQ)
[2024-08-22 22:17] LABS: Anisocytosis RARE; Hypochromasia RARE; Macrocytosis RARE; Ovalocyte RARE; Red Cell Morphology N CHROM NORMAL (NORM C&C)
[2024-08-22] MEDS: Ceftriaxone 2 GM in 0.9% Normal Saline (50mL MB+) 50 ML IV (23:19)
--- NOTE | 2024-08-22 23:21 | PCM.HP.STD ---
HPI - General General Date of Admission: 08/22/24 Date of Service: 08/22/24 Chief Complaint: URI sxs, cough, dyspnea HPI Narrative The patient is an 84 y/o M w/ PMHx: IRVING on CPAP q HS, Chronic anemia, Former tobacco use, Diabetes mellitus type II, Obesity, BPH with obstructive pathology, HTN, HLD who presents to the [facility] ED on 08/22/2024 with 2 days of persistent cough, congestion, fatigue, shortness of breath as well as fever with urgent care evaluation the day prior prescribed an antibiotic therapy specifically a Z-Triston cough regimen with benzonatate however despite self administration of these medications he has felt worse prompting eventual ED evaluation this evening. Patient did receive his COVID and influenza immunizations on 08/20/2024 of note. He denies any ill contacts and his son and who are present deny themselves any recent URI type symptoms. Workup in the ED included T98.8, heart rate 81, BP 183/76, respiratory rate 19, 93% on room air however most recent repeat vital sign assessment T 100.4 orally, heart rate 123, BP 172/65, respiratory rate 24, 93% on room air, CBC with WBC 5.1, hemoglobin 10.1, MCV 97.5, platelet 24 with lymphopenia, BMP unremarkable aside glucose 261, urinalysis with protein 100, glucose 1000, ketone 50, occult blood 25, negative nitrite, negative leukocyte esterase, no marked urine bacteria, chest x-ray with bibasilar pneumonia, rapid SARS COVID/influenza/RSV PCR negative. In the ED patient ministered 1 L normal saline, azithromycin 500 mg IV x 1, Rocephin 2 g IV x 1, as well as DuoNeb therapy. [facility] Medical History Obesity BPH (benign prostatic hyperplasia) HLD (hyperlipidemia) HTN (hypertension) Chronic anemia IRVING on CPAP Wears hearing aid Wears glasses Insulin dependent diabetes mellitus Back pain Former smoker History of pain when walking History of stress test History of echocardiogram History of dislocation of elbow Chronic neck and back pain Arthritis Home Medications ?Medication ?Instructions ?Recorded ?Last Taken ?Type glipizide 5 mg tablet, extended 5 mg PO BID DIABETES 08/11/13 Unknown History release 24 hr insulin glargine 100 unit/mL (3 22 units subcut QHS DIABETES 08/11/13 Unknown History mL) subcutaneous pen losartan 50 mg tablet 50 mg PO DAILY BP 08/11/13 07/31/21 05:00 History metformin 1,000 mg tablet 1,000 mg PO BIDCM DIABETES 08/11/13 Unknown History multivitamin with folic acid 400 1 tab PO DAILY SUPPLEMENT 08/11/13 Unknown History mcg tablet pioglitazone 30 mg tablet 30 mg PO DAILY DIABETES 08/11/13 Unknown History atorvastatin 40 mg tablet 40 mg PO QHS CHOLESTEROL 06/02/17 Unknown History ascorbic acid (vitamin C) 500 mg 500 mg PO DAILY SUPPLEMENT 12/19/18 Unknown History tablet (Vitamin C) vitamin E 268 mg (400 unit) capsule 400 unit PO DAILY SUPPLEMENT 12/19/18 Unknown History aspirin 81 mg chewable tablet 81 mg PO DAILY 01/11/21 01/10/21 History acetaminophen 500 mg tablet 1,000 mg PO Q12H PRN PRN Pain 07/14/21 Unknown History benzonatate 200 mg capsule 200 mg PO TID PRN cough #20 caps 06/16/24 Unknown Rx azithromycin 250 mg tablet See Rx Instructions PO .COMPLEX #6 08/21/24 Unknown Rx tabs Allergy/AdvReac Type Severity Reaction Status Date / Time No Known Allergies Allergy Verified 08/22/24 19:59 Family History Mother Heart failure Heart disease Father Diabetes Surgical History Hx of transurethral resection of prostate Hx of colonoscopy History of tonsillectomy and adenoidectomy Hx of total hip arthroplasty History of back surgery History of appendectomy Social History household members: spouse Smoking Status: Former smoker how long ago did patient quit smoking: Quit 1965, smoked 1 ppd from college->quit. alcohol intake: current alcohol intake frequency: a few times a month Alcohol type: wine substance use type: does not use ROS ROS Narrative Admission Review of Systems: CONSTITUTIONAL: No weight loss, + fever, chills, weakness or fatigue. HEENT: + Congestion, rhinorrhea. Eyes: No visual loss, blurred vision, double vision or yellow sclerae. Ears, Nose, Throat: No hearing loss, sneezing. SKIN: No rash or itching, lesions, wounds. CARDIOVASCULAR: No chest pain, chest pressure or chest discomfort, palpitations, edema, orthopnea, syncopal events. RESPIRATORY: + Dyspnea, cough. No marked wheezing or hemoptysis. GASTROINTESTINAL: No anorexia, nausea, vomiting or diarrhea, abdominal pain, melena, BRBPR. GENITOURINARY: No dysuria, frequency, urgency or retention. NEUROLOGICAL: No headache, dizziness, syncope, paralysis, ataxia, numbness or tingling in the extremities, focal weakness, change in bowel or bladder control, seizure. MUSCULOSKELETAL: + muscle, back pain, joint pain or stiffness. HEMATOLOGIC: + Chronic anemia. No bleeding or bruising. LYMPHATICS: No enlarged nodes. No history of splenectomy. PSYCHIATRIC: No history of depression or anxiety. ENDOCRINOLOGIC: No reports of sweating, cold or heat intolerance. No polyuria or polydipsia. ALLERGIES: No history of asthma, hives, eczema or rhinitis. Vital Signs Vital Signs Vital Signs: 08/22/24 19:58 08/22/24 20:44 08/22/24 20:45 Temperature 98.8 F 100.4 F H Temperature Source Oral Oral Pulse Rate 81 123 H Respiratory Rate 19 H 24 H Respiratory Pattern Tachypnea Blood Pressure 183/76 H 172/65 H Blood Pressure Mean 111 100 Pulse Ox 93 93 Oxygen Delivery Method Room Air Room Air 08/22/24 21:40 08/22/24 21:45 08/22/24 22:24 Temperature 100.4 F H Temperature Source Oral Pulse Rate 117 H 123 H 116 H Respiratory Rate 24 H 28 H 18 Respiratory Pattern Tachypnea Blood Pressure 136/68 H 163/62 H Blood Pressure Mean 90 95 Pulse Ox 93 91 Oxygen Delivery Method Room Air Room Air 08/22/24 23:18 08/22/24 23:20 Temperature 100.2 F H 100.2 F H Temperature Source Oral Pulse Rate 115 H 113 H Respiratory Rate 24 H 28 H Respiratory Pattern Blood Pressure 134/66 H 134/66 H Blood Pressure Mean 88 88 Pulse Ox 91 91 Oxygen Delivery Method Room Air Weight Weight: 187 lb 3.2 oz Body Mass Index (BMI) 29.3 Physical Exam Narrative Physical Examination: General: Awake, alert, oriented x 3 and cooperative, seated upright in the bed, fatigued and ill-appearing. Skin: Normal color, normal turgor, no icterus, no cyanosis. HEENT: AT/NC, EOMI, PERRLA, dry MM, no appreciated carotid bruits or JVD noted; however, thickened neck makes evaluation difficult. Lungs: Significantly diminished, greater bases, mildly coarse, right greater than left, coughing during evaluation, productive, no marked wheezing or rales noted. Heart: Mildly tachycardic with regular rhythm; no gallop, rub audible. Abdomen: Soft, obese, NTTP, ND, distant normal BS, no appreciated HSM. Extremities: No cyanosis, clubbing, or edema. Neurological: Patient awake, alert, oriented as noted, cognitive function intact; pupils equally reactive to light and accommodation, cranial nerves grossly normal, moving all 4 extremities, no focal deficits, strength moderately to severely globally decreased secondary to acute presentation complaints. Psychiatric: Affect appears fatigued, ill-appearing, no acute evidence of depressive or anxiety feelings. Results Lab / Micro Data 08/22/24 20:50 08/22/24 20:50 Labs: Laboratory Results - last 24 hr 08/22/24 20:50: WBC 5.1, RBC 3.26 L, Hgb 10.1 L, Hct 31.8 L, MCV 97.5 H, MCH 31.0, MCHC 31.8 L, RDW Std Deviation 49.9 H, RDW Coeff of Bruna 14.1, Plt Count 284, MPV 10.7, Immature Gran % (Auto) 0.600, Neut % (Auto) 69.4, Lymph % (Auto) 11.3 L, [place] % (Auto) 18.3 H, Eos % (Auto) 0.2, Baso % (Auto) 0.2, Absolute Neuts (auto) 3.6, Absolute Lymphs (auto) 0.58 L, Nucleated RBC % 0, Differential Comment SEE COMMENT, Platelet Estimate ADEQUATE, RBC Morphology N CHROM, Hypochromasia RARE, Anisocytosis RARE, Macrocytosis RARE, Ovalocytes RARE, Sodium 136, Potassium 4.0, Chloride 104, Carbon Dioxide 26.0, Anion Gap 6, BUN 16, Creatinine 0.86, Estim Creat Clear Calc 68.96, Est GFR (MDRD) Af Amer 110, Est GFR (MDRD) Non-Af 91, BUN/Creatinine Ratio 18.7, Glucose 261 H, Calcium 9.6 08/22/24 21:30: Urine Color Yellow, Urine Clarity Clear, Urine pH 6.0, Ur Specific [place] 1.015, Urine Protein 100 H, Urine Glucose (UA) 1000 H, Urine Ketones 50 H, Urine Occult Blood 25 H, Urine Nitrite Negative, Urine Bilirubin Negative, Urine Urobilinogen 4 H, Ur Leukocyte Esterase Negative, Urine RBC 0 SEEN, Urine WBC 0 SEEN, Ur Squamous Epith Cells 0-5 SEEN, Amorphous Sediment 1+, Urine Bacteria 0 SEEN, Hyaline Casts 0-5 SEEN, Urine Mucus 0 SEEN Micro: Microbiology 08/22/24 21:35 Mucosa - Nose SARS-CoV-2, Influenza & RSV (PCR) - Final Imaging Radiology Impression Chest X-Ray 08/22/24 21:20 IMPRESSION: Bibasilar pneumonia Electronically Signed: Morales Cordoba MD at 22:41 EST Reading Location ID and State: [address] [place] [address] Tel , Service support , Assessment & Plan Assessment/Plan (1) Pneumonia: PLAN: Plan The patient is an 84 y/o M w/ PMHx: IRV[place] on CPAP q HS, Chronic anemia, Former tobacco use, Diabetes mellitus type II, Obesity, BPH with obstructive pathology, HTN, HLD who presents to the [facility] ED on 08/22/2024 with 2 days of persistent cough, congestion, fatigue, shortness of breath as well as fever with urgent care evaluation the day prior prescribed an antibiotic therapy specifically a Z-Triston cough regimen with benzonatate however despite self administration of these medications he has felt worse prompting eventual ED evaluation this evening. Patient did receive his COVID and influenza immunizations on 08/20/2024 of note. #1. Acute Hypoxia secondary to Acute Bibasilar pneumonia, failed outpatient therapy, unclear organism: Will admit to MS telemetry, will maintain on oxygen with wean as tolerated to room air if supplementation necessary, continue ATC budesonide therapy, PRN albuterol, maintained on IV Rocephin, complete azithromycin treatment course, HOB, IS parameters w/ pending sputum cultures, full respiratory viral panel and urine antigens. Given patient hypoxia with oxygenation seated in the ED bed 90 to 91% do suspect that with ambulation he would drop significantly therefore will need ambulatory oxygenation assessment prior to discharge to home. #2. Diabetes mellitus type II: Hold oral home regimen, continue home insulin regimen, most recent hemoglobin A1c noted remotely 07/18/2021 6.2% at that time, ADA diet, accu checks w/ ISS. #3. Chronic macrocytic anemia: Admission hemoglobin 10.1, MCV 97.5, baseline hemoglobin noted previously 10-11 range, continue to follow outpatient, trend CBC. #4. Hypertension: Continue home regimen including losartan, PRN hydralazine. #5. Hyperlipidemia: We will continue patient on statin therapy. #6. Obesity: Weight loss and lifestyle changes encouraged. #7. Former tobacco use: Encourage continued tobacco cessation. #8. IRVING: CPAP nightly. #9. DVT prophylaxis Lovenox. #10. CODE status: Patient AUNDREA is his who is present and sign a secondary and living will is currently in place. Discussed CODE status at length including difference between FULL code, DNR-CCA and DNR-CC status. Following discussions about the differences in these status, requested Full Code status. Advanced Care Planning Face to Face Time: 16 minutes. Charges/Coding Visit Charges Inpatient E&M: 21905 Init Hosp L3 Procedures Hospitalists Procedures: 47236 Advncd Care Plan 30 Min
[2024-08-23] VITALS (13 sets, daily range): BP systolic 116–143; BP diastolic 54–89; PULSE 90–116; RESP 15–24; TEMP 36.3–38.5; O2SAT 92–95; BMI 29.0
[2024-08-23] MEDS: 0.9% Normal Saline (1000mL) 1,000 ML 100 ML IV (01:04)
[2024-08-23] MEDS: Azithromycin 500 MG in Dextrose 5%-Water (250mL Bag) 250 ML 250 MG IV ×2 (01:05→10:38)
[2024-08-23] MEDS: Acetaminophen 325 MG Tablet 650 MG PO (01:19)
[2024-08-23] MEDS: Albuterol 2.5 MG/3 ML VIAL.NEB. INHALATION ×3 (01:48→20:21)
[2024-08-23 06:32] LABS: Absolute Lymphocyte Count 0.68 X10^3/uL (0.83-4.51); Absolute Neutrophil Count 3.2 X10^3/uL (2.0-7.7); Basophil# 0.03 X10^3/uL; Basophil% 0.6 % (0-1); Eosinophil# 0.01 X10^3/uL; Eosinophils% 0.2 % (0-5); Hematocrit 27.3 % (40-54); Hemoglobin 8.6 g/dL (13.0-16.5); Lymphocyte # 0.68 X10^3/ul (0.83-4.51); Mean Corp Hgb Conc 31.5 g/dL (32-36); Mean Corpuscular Hgb 30.6 pg (27.0-32.0); Mean Corpuscular Volume 97.2 fL (80-94); Mean Platelet Vol. 10.6 fl (6.2-12.0); Monocyte# 0.95 X10^3/uL; Monocyte% 19.5 % (0-10); NRBC Flagged by Analyzer 0 % (0-5); Neutrophil # 3.16 X10^3/uL (2.7-7.7); Neutrophil % 65.1 % (47-70); POSITIVE MORPHOLOGY YES; Platelet Count 248 K/mm3 (150-450); RBC Distribution Width CV 14.1 % (11.6-14.6); RBC Distribution Width SD 50.1 fl (35.1-43.9); Red Blood Count 2.81 M/mm3 (4.6-6.2); White Blood Count 4.9 K/mm3 (4.4-11.0)
[2024-08-23] MEDS: Insulin Lispro 100 UNIT/ML INSULN.PEN SC ×4 (06:34→22:01)
[2024-08-23 06:54] LABS: Bedside Glucose 255 mg/dL (74-106)
[2024-08-23 06:59] LABS: Differential Comment SCANNED; Differential Indicated SCAN CRITERIA MET
[2024-08-23 07:00] LABS: Polychromasia 1+
[2024-08-23 07:01] LABS: ALB/GLOB Ratio 0.9 RATIO (0.9-2.4); AST(SGOT) 20 U/L (15-37); Alanine Aminotransfer ALT/SGPT 15 U/L (16-61); Albumin, Serum 2.9 g/dL (3.2-5.0); Alkaline Phosphatase 61 U/L (45-117); Anion Gap 5 (5-15); BUN 15 mg/dL (7-18); BUN/Creat Ratio 19.7 RATIO (10-20); Calcium,Total 8.8 mg/dL (8.5-10.1); Chloride 108 mmol/L (98-107); Creatinine, Serum 0.76 mg/dL (0.70-1.30); EST Glomerular Filtration Rate 104 mL/min (>60); Est Glom Filt Rate - Afr Amer 126 mL/min (>60); Estimated Creatinine Clearance 73.81 ml/min; Globulin 3.2 g/dL (2.2-4.2); Glucose 281 mg/dL (74-106); Potassium 3.8 mmol/L (3.5-5.1); Protein, Total 6.1 g/dL (6.4-8.2); Sodium Level 138 mmol/L (136-145)
[2024-08-23] MEDS: Budesonide Respules 0.5 MG/2 ML AMPUL.NEB. INHALATION ×2 (07:01→20:21)
[2024-08-23] MEDS: Aspirin 81 MG TAB.CHEW PO (09:02)
[2024-08-23] MEDS: Ascorbic Acid 500 MG Tablet PO (09:03)
[2024-08-23] MEDS: Losartan Potassium 50 MG Tablet PO (09:04)
[2024-08-23] MEDS: Enoxaparin 40 MG/0.4 ML Syringe SC (09:04)
[2024-08-23] MEDS: Ceftriaxone 1 GM/50 ML BAG IV (09:11)
[2024-08-23 12:35] LABS: Bedside Glucose 275 mg/dL (74-106)
--- NOTE | 2024-08-23 16:28 | PN.HOSP_ITS ---
Reason for Visit Reason for Visit: Diagnoses Pneumonia, unspecified organism (08/22/24) Subjective Subjective Patient was seen and examined today, he is on room air at rest and appears comfortable. Patient's respiratory panel was unremarkable, COVID-19 test was negative. Objective Data Objective Data Vital Signs: Vital Signs Temp Pulse Resp BP Pulse Ox O2 Del Method 97.4 F L 90 16 126/63 H 95 Room Air 08/23/24 14:00 08/23/24 14:00 08/23/24 14:00 08/23/24 14:00 08/23/24 14:00 08/23/24 14:00 Oxygen Delivery Method Room Air Weight: 84.1 kg Body Mass Index (BMI) 29.0 Intake & Output: Intake and Output for Last 24 Hours 08/21/24 08/22/24 08/23/24 23:59 23:59 23:59 Intake Total 1050 / 1050 1375 / 1375 Balance 1050 / 1050 1375 / 1375 Lab / Micro Data 08/23/24 05:20 08/23/24 05:20 Labs: Laboratory Results - last 24 hr 08/22/24 20:50: WBC 5.1, RBC 3.26 L, Hgb 10.1 L, Hct 31.8 L, MCV 97.5 H, MCH 31.0, MCHC 31.8 L, RDW Std Deviation 49.9 H, RDW Coeff of Bruna 14.1, Plt Count 284, MPV 10.7, Immature Gran % (Auto) 0.600, Neut % (Auto) 69.4, Lymph % (Auto) 11.3 L, Bracken % (Auto) 18.3 H, Eos % (Auto) 0.2, Baso % (Auto) 0.2, Absolute Neuts (auto) 3.6, Absolute Lymphs (auto) 0.58 L, Nucleated RBC % 0, Differential Comment SEE COMMENT, Platelet Estimate ADEQUATE, RBC Morphology N CHROM, Hypochromasia RARE, Anisocytosis RARE, Macrocytosis RARE, Ovalocytes RARE, Sodium 136, Potassium 4.0, Chloride 104, Carbon Dioxide 26.0, Anion Gap 6, BUN 16, Creatinine 0.86, Estim Creat Clear Calc 68.96, Est GFR (MDRD) Af Amer 110, Est GFR (MDRD) Non-Af 91, BUN/Creatinine Ratio 18.7, Glucose 261 H, Calcium 9.6 08/22/24 21:30: Urine Color Yellow, Urine Clarity Clear, Urine pH 6.0, Ur Specific Woodworth 1.015, Urine Protein 100 H, Urine Glucose (UA) 1000 H, Urine Ketones 50 H, Urine Occult Blood 25 H, Urine Nitrite Negative, Urine Bilirubin Negative, Urine Urobilinogen 4 H, Ur Leukocyte Esterase Negative, Urine RBC 0 SEEN, Urine WBC 0 SEEN, Ur Squamous Epith Cells 0-5 SEEN, Amorphous Sediment 1+, Urine Bacteria 0 SEEN, Hyaline Casts 0-5 SEEN, Urine Mucus 0 SEEN 08/23/24 05:20: WBC 4.9, RBC 2.81 L, Hgb 8.6 L, Hct 27.3 L, MCV 97.2 H, MCH 30.6, MCHC 31.5 L, RDW Std Deviation 50.1 H, RDW Coeff of Bruna 14.1, Plt Count 248, MPV 10.6, Immature Gran % (Auto) 0.600, Neut % (Auto) 65.1, Lymph % (Auto) 14.0 L, Bracken % (Auto) 19.5 H, Eos % (Auto) 0.2, Baso % (Auto) 0.6, Absolute Neuts (auto) 3.2, Absolute Lymphs (auto) 0.68 L, Nucleated RBC % 0, Differential Comment SCANNED, Polychromasia 1+, Sodium 138, Potassium 3.8, Chloride 108 H, Carbon Dioxide 25.0, Anion Gap 5, BUN 15, Creatinine 0.76, Estim Creat Clear Calc 73.81, Est GFR (MDRD) Af Amer 126, Est GFR (MDRD) Non-Af 104, BUN/Creatinine Ratio 19.7, Glucose 281 H, Calcium 8.8, Total Bilirubin 1.30 H, AST 20, ALT 15 L, Alkaline Phosphatase 61, Total Protein 6.1 L, Albumin 2.9 L, Globulin 3.2, Albumin/Globulin Ratio 0.9 08/23/24 06:29: POC Glucose 255 H 08/23/24 12:13: POC Glucose 275 H Micro: Microbiology 08/23/24 03:33 Sputum, Expectorated/Coughed Gram Stain - Final 08/23/24 02:12 Mucosa - Nasopharyngeal Respiratory Panel (PCR) - Final 08/23/24 03:33 Urine, Clean Catch Legionella Antigen - Final 08/23/24 03:33 Urine, Clean Catch Streptococcus pneumoniae Antigen (M - Final 08/22/24 21:35 Mucosa - Nose SARS-CoV-2, Influenza & RSV (PCR) - Final Radiography Diagnostic Testing: Radiology Impression Chest X-Ray 08/22/24 21:20 IMPRESSION: Bibasilar pneumonia Electronically Signed: Morales Cordoba MD at 22:41 EST Reading Location ID and State: [facility] / [place] Tel , Service support , Physical Exam Const alert, oriented x3, no apparent distress and healthy appearing General Appearance: cooperative, well kempt and well developed Orientation / Consciousness: awake, oriented to person, oriented to place and oriented to time HEENT normocephalic, head/scalp atraumatic and moist oral mucous membranes Eyes PERRL, EOMs intact bilaterally and conjunctivae normal Neck supple, no JVD, thyroid normal and no carotid bruits General: trachea midline Resp normal respiratory effort, no retractions, no use of accessory muscles and clear to auscultation bilaterally Auscultation: Negative for rales, rhonchi or wheezes Cardio regular rate, regular rhythm, S1 normal heart sound, S2 normal heart sound, no murmurs, no rub and no gallops GI normal to inspection, nondistended, normoactive bowel sounds, soft to palpation, non-tender and non-distended Extremity no clubbing, cyanosis or edema Skin no rashes or lesions noted General Skin Exam: no breakdown Neuro oriented x3, CN's II-XII intact bilaterally, moves all extremities, no focal motor deficits and no sensory deficits noted Sensorium / Orientation: awake and alert Speech: speech normal Psych affect normal Assessment & Plan Assessment/Plan (1) Pneumonia: PLAN: Plan 1. Bibasilar community-acquired pneumonia-continue present antibiotic coverage, patient's white blood cell count remains normal at this time, patient is on room air at this time, I will repeat patient's chest x-ray tomorrow #2 hypoxia secondary to #1-resolved at this time, patient will need a walking pulse oximeter he before he is discharged home #3 type 2 diabetes-patient is receiving sliding scale insulin per fingerstick blood sugars #4 essential hypertension-patient will continue on his home regimen Total clinical time spent by myself addressing the patient's medical issues, reviewing all of his data, and collaborating with patient's care team: 35 minutes Charges/Coding Visit Charges Inpatient E&M: 27573 Subs Hosp L2
[2024-08-23 17:09] LABS: Bedside Glucose 193 mg/dL (74-106)
--- NOTE | 2024-08-23 20:32 | CPS ---
This SUPERVISOR MATRIX set up patient home CPAP
[2024-08-23] MEDS: Atorvastatin Calcium 40 MG Tablet PO (21:58)
[2024-08-23] MEDS: Insulin Glargine-YFGN 100 UNIT/ML Pen 22 UNIT SC (22:02)
[2024-08-23 22:23] LABS: Bedside Glucose 209 mg/dL (74-106)
[2024-08-24] VITALS (13 sets, daily range): BP systolic 110–133; BP diastolic 56–84; PULSE 85–99; RESP 15–18; TEMP 37.1–37.6; O2SAT 90–97; BMI 29.6
--- NOTE | 2024-08-24 06:12 | RAD_ITS ---
INDICATION: pneumonia EXAMINATION/TECHNIQUE: X-RAY - XR Chest 2 Views COMPARISON: Chest radiograph 08/22/2024 and 03/16/2023. Findings: Frontal and lateral views of the chest. LUNG PARENCHYMA: No acute focal airspace disease or mass lesion. PLEURA: No pleural effusion. No pneumothorax. Again noted is left posterior costophrenic angle patchy airspace disease, not present previous year. HEART/GREAT VESSELS: Cardiomediastinal silhouette is unremarkable. BONES: Osseous structures are unremarkable for age. RAD/Chest PA and Lateral IMPRESSION: Again noted is left posterior costophrenic angle patchy airspace disease, to include atelectasis versus pneumonia, not present previous year. Recommend follow-up to resolution. Electronically Signed: Greg Mckeon MD at 6:39 EST ,
[2024-08-24] MEDS: Insulin Lispro 100 UNIT/ML INSULN.PEN SC ×4 (06:25→21:22)
[2024-08-24 06:45] LABS: Bedside Glucose 240 mg/dL (74-106)
[2024-08-24] MEDS: Budesonide Respules 0.5 MG/2 ML AMPUL.NEB. INHALATION ×2 (07:29→19:52)
[2024-08-24] MEDS: Aspirin 81 MG TAB.CHEW PO (09:48)
[2024-08-24] MEDS: Ascorbic Acid 500 MG Tablet PO (09:50)
[2024-08-24] MEDS: Enoxaparin 40 MG/0.4 ML Syringe SC (09:50)
[2024-08-24] MEDS: Losartan Potassium 50 MG Tablet PO (09:50)
[2024-08-24] MEDS: Ceftriaxone 1 GM/50 ML BAG IV (09:51)
[2024-08-24] MEDS: 0.9% Saline Lock 10 ML Syringe IV (09:52)
--- NOTE | 2024-08-24 10:15 | CASEMGMT ---
TIFFANIE CUELLAR Assessment: Face to Face with pt for initial transition planning/care coordination assessment. TIFFANIE CUELLAR introduced self and role at [facility], pt voices understanding and consents to assessment. Pt is A&O x4 and answers all questions appropriately at this time. Pt sitting up in bed in no distress with oxygen on. Care providers, pharmacy, and demographics verified/updated. Admitting Dx: PNA Strata Score: 2 PCP:Geovanni Specialists:Sibilia, pulm; Yenny, eyes; Tye, uro; [facility] Preferred Pharmacy: [facility] Insurance: [employer] [facility] Prescription Benefit: yes LNOK: Lolly Chnael, Living Arrangements: Pt lives with in a two story home with 2 steps to enter with a rail. Pt reports he is typically I in ADLs and denies concerns at home. Transportation: Pt drives self and denies concerns with transportation. DME:CPAP, BGM with sufficient test strips and supplies as well as insulin and needles. Pt ahs a shower chair, cane and walker available but does not use. HHC/SNF: Denies hx of Pt states no concerns with going home at time of dc. Provided pt with a local in network list of DME companies should pt need O2 upon dc, pt chose [employer]. Pt states he will go to [employer] for silver sneakers upon dc. 6 cl=20, no therapy ordered. Pt aware if he feels he needs therapy here to notify TIFFANIE CUELLAR. Pt states no further concerns/needs. CM to follow. Advised pt to ask CM if any further question/concerns/needs arise, voices understanding. Pt Goal: Home- plans to go to [employer] on own for silver sneakers Plan: Home, follow for oxygen Rey MORENO CM
[2024-08-24] MEDS: Azithromycin 500 MG in Dextrose 5%-Water (250mL Bag) 250 ML 250 MG IV (10:53)
[2024-08-24 12:32] LABS: Bedside Glucose 326 mg/dL (74-106)
--- NOTE | 2024-08-24 12:51 | CHAPLAIN ---
Type of Pastoral Visit _x__ Initial Visit ___ Follow-up Visit ___ On-call Visit ___ General Patient Visit ___ Spiritual Assessment ___ Family Conference ___ Bereavement ___ Rapid Response ___ Code Blue ___ Other (describe below) Pastoral Care Referral From _x__ Patient ___ Family ___ Nurse ___ Physician ___ Heel Builder ___ Paper Grader ___ Other (describe below) Sacrament/Intervention _x__ Active listening ___ Anointing ___ Pentecostalism ___ Bereavement ___ Communion ___ Chel exploration ___ ___ Life review _x__ Prayer ___ Reconciliation ___ Sacrament of Sick _x__ Supportive presence ___ Wedding ___ Other (describe below) Pastoral Comments
--- NOTE | 2024-08-24 13:29 | PCM.PN.HOSP ---
Reason for Visit Reason for Visit: Diagnoses Pneumonia, unspecified organism (08/22/24) Objective Data Objective Data Vital Signs: Vital Signs Temp Pulse Resp BP Pulse Ox O2 Del Method O2 Flow Rate 99.3 F H 86 17 120/56 L 94 Nasal Cannula 2 08/24/24 12:24 08/24/24 12:24 08/24/24 12:24 08/24/24 12:24 08/24/24 12:24 08/24/24 12:24 08/24/24 12:24 Oxygen Flow Rate (L/min) 2 Oxygen Delivery Method Nasal Cannula Weight: 188 lb 11.451 oz Body Mass Index (BMI) 29.6 Intake & Output: Intake and Output for Last 24 Hours 08/22/24 08/23/24 08/24/24 23:59 23:59 23:59 Intake Total 1050 / 1050 1375 / 1575 865 / 865 Balance 1050 / 1050 1375 / 1575 865 / 865 Lab / Micro Data 08/23/24 05:20 08/23/24 05:20 Labs: Laboratory Results - last 24 hr 08/23/24 16:49: POC Glucose 193 H 08/23/24 22:00: POC Glucose 209 H 08/24/24 06:24: POC Glucose 240 H 08/24/24 12:10: POC Glucose 326 H Micro: Microbiology 08/23/24 03:33 Sputum, Expectorated/Coughed Gram Stain - Final 08/23/24 02:12 Mucosa - Nasopharyngeal Respiratory Panel (PCR) - Final 08/23/24 03:33 Urine, Clean Catch Legionella Antigen - Final 08/23/24 03:33 Urine, Clean Catch Streptococcus pneumoniae Antigen (M - Final 08/22/24 21:35 Mucosa - Nose SARS-CoV-2, Influenza & RSV (PCR) - Final Radiography Diagnostic Testing: Radiology Impression Chest X-Ray 08/24/24 06:12 IMPRESSION: Again noted is left posterior costophrenic angle patchy airspace disease, to include atelectasis versus pneumonia, not present previous year. Recommend follow-up to resolution. Electronically Signed: Greg Mckeon MD at 6:39 EST , Physical Exam Narrative Seen and examined. Patient feels short of breath cough. He still brings up greenish sputum although amount has decreased. Dyspnea on exertion. Physical exam General: Alert, Oriented x3, Cooperative. BMI 29.6 kg/m? HEENT: Atraumatic, PERRLA, EOMI, Normocephalic Oral: No Gingival or Mucosal Lesions/ Ulcerations Neck: Supple, No JVD, Negative Carotid Bruits Chest wall/Lungs: Air entry bilateral equal, bronchial breath sound. Bilateral coarse crepitation. Dyspnea on exertion Cardiovascular: Regular rate, Regular Rhythm, Normal S1, Normal S2, No M/G/R Abdomen: Bowel Sounds Present, Soft, Non Tender, Non-Distended : No dysuria. No renal angle tenderness. No suprapubic tenderness. Extremities: No edema, Capillary Refill Less than 3 Seconds Skin: No rashes, No breakdown Musculoskeletal: No Tenderness to Palpation of Joints or Extremities Neurological: Cranial nerves II-XII grossly intact, DTR 2+/4. No acute focal neurological deficit. Psych/Mental Status: Normal Affect, Appropriate. Assessment & Plan Assessment/Plan (1) Pneumonia: PLAN: Plan 84-year-old gentleman was admitted with fever cough for past 3 days with gradual worsening. Patient also had outpatient prescription of erythromycin who he was taking with minimal relief. Patient was diagnosed pneumonia with bilateral basilar infiltrate. 1. Bibasilar community-acquired pneumonia-continue present antibiotic coverage, patient's white blood cell count remains normal at this time, patient is on room air at this time, I will repeat patient's chest x-ray tomorrow 08/24: Repeat chest x-ray done in the morning, individually reviewed shows persistent left posterior CP angle patchy airspace disease compared with the previous chest x-ray. Patient is still symptomatic with shortness of breath therefore continue IV antibiotics. Tmax 99.3 Fahrenheit #2 hypoxia secondary to #1: On 2 L of oxygen. #3 type 2 diabetes: Accu-Chek before meals and at bedtime with Humalog sliding scale coverage and hypoglycemia protocol. #4. Essential hypertension: Continue on his home regimen Charges/Coding Visit Charges Inpatient E&M: 42085 Subs Hosp L2
[2024-08-24] MEDS: guaiFENesin/D-Methorphan TAB.SR.12H 2 TABLET PO ×2 (15:04→21:56)
[2024-08-24] MEDS: Acetaminophen 325 MG Tablet 650 MG PO ×2 (17:03→21:34)
[2024-08-24] MEDS: Ipratropium/Albuterol Sulfate 3 ML AMPUL.NEB INHALATION (19:52)
[2024-08-24] MEDS: Insulin Glargine-YFGN 100 UNIT/ML Pen 22 UNIT SC (21:22)
[2024-08-24] MEDS: Atorvastatin Calcium 40 MG Tablet PO (21:34)
[2024-08-24 21:57] LABS: Bedside Glucose 277 mg/dL (74-106)
[2024-08-24 21:57] LABS: Bedside Glucose 277 mg/dL (74-106)
[2024-08-25 02:23] VITALS: BP 138/65; PULSE 97; RESP 18; TEMP 36.9; O2SAT 94
[2024-08-25 04:03] VITALS: PULSE 92
[2024-08-25 05:49] VITALS: BMI 29.3
[2024-08-25] MEDS: Acetaminophen 325 MG Tablet 650 MG PO (06:01)
[2024-08-25] MEDS: Insulin Lispro 100 UNIT/ML INSULN.PEN SC ×2 (06:04→12:59)
[2024-08-25 06:24] LABS: Bedside Glucose 312 mg/dL (74-106)
[2024-08-25] MEDS: Ipratropium/Albuterol Sulfate 3 ML AMPUL.NEB INHALATION (06:55)
[2024-08-25] MEDS: Budesonide Respules 0.5 MG/2 ML AMPUL.NEB. INHALATION (06:55)
[2024-08-25 06:56] VITALS: PULSE 76; RESP 16; O2SAT 96
[2024-08-25 09:00] VITALS: BP 118/60; PULSE 93; RESP 16; TEMP 36.6; O2SAT 96
[2024-08-25] MEDS: 0.9% Saline Lock 10 ML Syringe IV (09:33)
[2024-08-25] MEDS: Aspirin 81 MG TAB.CHEW PO (09:34)
[2024-08-25] MEDS: Enoxaparin 40 MG/0.4 ML Syringe SC (09:34)
[2024-08-25] MEDS: Senna/Docusate Sodium 1 Tablet 2 TABLET PO (09:34)
[2024-08-25] MEDS: Losartan Potassium 50 MG Tablet PO (09:34)
[2024-08-25] MEDS: Ascorbic Acid 500 MG Tablet PO (09:34)
[2024-08-25] MEDS: guaiFENesin/D-Methorphan TAB.SR.12H 2 TABLET PO (09:35)
[2024-08-25] MEDS: Ceftriaxone 1 GM/50 ML BAG IV (09:37)
--- NOTE | 2024-08-25 10:21 | DCINST_ITS ---
Discharge Instructions Diet Discharge Diet: Low fat / Low cholesterol, 1800 Calorie Control Diet and 2000 mg Sodium Diet Activity Discharge Activity: Return to Normal Activity Weight Bearing Status: Weight bearing as tolerated Dressing / Incision Call your doctor if you observe: Fever of 101 or Higher, Coldness, Increased Pain, Numbness or Tingling, Change in Color, Inability to urinate, Inability to have a bowel movement, Shortness of breath, Dizziness, Fainting spells, Swelling in the ankles, Chest pain, Prolonged hiccupping, Increased palpitations (irregular heartbeat) and Calf discomfort Follow Up Care When: IN 2 WEEKS Test Results: Test results from this visit will be discussed in further detail at your follow- up appointment, if applicable. Discharge Plan Admission Admit Date/Time: 08/22/24 23:29 Primary Reason for Your Visit: Pneumonia Attending Provider: Anders Nguyen Primary Care Provider: Jaime Galarza Consulting Providers: Alyson Clarke; Matias Sinclair Instructions Additional Instructions / Restrictions: Continue incentive spirometry and PEP for 1 week Discharge Orders/Prescriptions Prescriptions: New dextromethorphan-guaifenesin 60-1,200 mg tablet extended release 12 hr 1 tab PO BID 7 Days Qty: 14 0RF cefdinir 300 mg capsule 300 mg PO BID 5 Days Qty: 10 0RF Continued benzonatate 200 mg capsule 200 mg PO TID PRN (Reason: cough) Qty: 20 0RF losartan 50 MG tablet 50 mg PO DAILY glipizide 5 MG tablet 5 mg PO BID metformin 1,000 MG tablet 1,000 mg PO BIDCM pioglitazone 30 MG tablet 30 mg PO DAILY insulin glargine 100 UNITS/ML insulin pen 22 units subcut QHS multivitamin with folic acid 1 TABLET tablet 1 tab PO DAILY atorvastatin 40 MG tablet 40 mg PO QHS ascorbic acid (vitamin C) [Vitamin C] 500 MG tablet 500 mg PO DAILY vitamin E 400 UNIT capsule 400 unit PO DAILY aspirin 81 MG tablet,chewable 81 mg PO DAILY acetaminophen 500 MG tablet 1,000 mg PO Q12H PRN PRN (Reason: Pain) Discontinued azithromycin 250 mg tablet See Rx Instructions PO .COMPLEX Qty: 6 0RF Rx Instructions: take 500 mg today (day 1), then 250 mg for 4 days (days 2-5) PO Referrals / Follow Up: Jaime Galarza MD [Primary Care Provider] - Errol Cabral MD [Med Staff - Active Staff] - Within 2 Weeks Disposition Disposition (needs filled in before D/C Order can be placed): Home, Self Care
--- NOTE | 2024-08-25 10:28 | PCM.DC.SUM ---
Providers Date of Admission: 08/22/24 Date of Discharge: 08/25/24 Primary Care Physician: Dr. Jaime Galarza MD Reason For Visit: PNA Diagnosis Discharge Diagnosis (1) Pneumonia: Status: Acute Code(s): J18.9 - Pneumonia, unspecified organism Plan 84-year-old gentleman was admitted with fever cough for past 3 days with gradual worsening. Patient also had outpatient prescription of erythromycin who he was taking with minimal relief. Patient was diagnosed pneumonia with bilateral basilar infiltrate. 1. Bibasilar community-acquired pneumonia-continue present antibiotic coverage, patient's white blood cell count remains normal at this time, patient is on room air at this time, I will repeat patient's chest x-ray tomorrow 08/24: Repeat chest x-ray done in the morning, individually reviewed shows persistent left posterior CP angle patchy airspace disease compared with the previous chest x-ray. Patient is still symptomatic with shortness of breath therefore continue IV antibiotics. Tmax 99.3 Fahrenheit 08/25: Clinically patient much improved. No shortness of breath/dyspnea at rest. Currently not on oxygen. No tachypnea. Patient is discharged on cefdinir for 5 more days and Mucinex DM; prescription given. Home qualification oxygen ordered. Pulse ox 96% on room air. Continue incentive spirometry and PEP for 1 week. Advised to follow with tobacco primer machine operator Dr. Errol Cabral in 2 weeks. #2 hypoxia secondary to #1: On 2 L of oxygen. 08/25 hypoxia resolved. #3 type 2 diabetes: Accu-Chek before meals and at bedtime with Humalog sliding scale coverage and hypoglycemia protocol. 08/25: Glucose 281 in BMP. On metformin glipizide and pioglitazone at home. Continued #4. Essential hypertension: Continue on his home regimen 08/25: Blood pressure in normal range. Discharge medication reconciliation done. Discharge follow-up instructions completed. Discharge process discussed with the patient and all questions were answered to patient's satisfaction. Follow with PCP in 1 to 2 weeks Total time spent, exact 35 minutes on discharge meds reconciliation, examination, coordination of care with nurses and ancillary staff, review of imaging and blood test and discussion with the patient on follow-up instructions. Medications at Discharge Home Medications glipizide 5 mg tablet, extended release 24 hr 5 mg PO BID DIABETES 08/11/13 insulin glargine 100 unit/mL (3 mL) subcutaneous pen 22 units subcut QHS DIABETES 08/11/13 losartan 50 mg tablet 50 mg PO DAILY BP 08/11/13 metformin 1,000 mg tablet 1,000 mg PO BIDCM DIABETES 08/11/13 multivitamin with folic acid 400 mcg tablet 1 tab PO DAILY SUPPLEMENT 08/11/13 pioglitazone 30 mg tablet 30 mg PO DAILY DIABETES 08/11/13 atorvastatin 40 mg tablet 40 mg PO QHS CHOLESTEROL 06/02/17 ascorbic acid (vitamin C) 500 mg tablet (Vitamin C) 500 mg PO DAILY SUPPLEMENT 12/19/18 vitamin E 268 mg (400 unit) capsule 400 unit PO DAILY SUPPLEMENT 12/19/18 aspirin 81 mg chewable tablet 81 mg PO DAILY 01/11/21 acetaminophen 500 mg tablet 1,000 mg PO Q12H PRN PRN Pain 07/14/21 benzonatate 200 mg capsule 200 mg PO TID PRN cough #20 caps 06/16/24 cefdinir 300 mg capsule 300 mg PO BID 5 days #10 caps 08/25/24 dextromethorphan-guaifenesin ER 60 mg-1,200 mg tab,extend release,12hr 1 tab PO BID 7 days #14 tabs 08/25/24 Physical Exam Narrative Seen and examined. Patient has mild cough sometimes bring phlegm otherwise no tachypnea or shortness of breath or dyspnea. Physical exam General: Alert, Oriented x3, Cooperative. BMI 29.6 kg/m? HEENT: Atraumatic, PERRLA, EOMI, Normocephalic Oral: No Gingival or Mucosal Lesions/ Ulcerations Neck: Supple, No JVD, Negative Carotid Bruits Chest wall/Lungs: Air entry diminished in bilateral lung bases. No tachypnea or hypoxia. Mild bilateral coarse crepitations Cardiovascular: Regular rate, Regular Rhythm, Normal S1, Normal S2, No M/G/R Abdomen: Bowel Sounds Present, Soft, Non Tender, Non-Distended : No dysuria. No renal angle tenderness. No suprapubic tenderness. Extremities: No edema, Capillary Refill Less than 3 Seconds Skin: No rashes, No breakdown Musculoskeletal: No Tenderness to Palpation of Joints or Extremities Neurological: Cranial nerves II-XII grossly intact, DTR 2+/4. No acute focal neurological deficit. Psych/Mental Status: Normal Affect, Appropriate. Weight / BMI Weight Weight: 186 lb 15.232 oz Body Mass Index (BMI) 29.3 ABG / Lab / Microbiology Data 08/23/24 05:20 08/23/24 05:20 Laboratory: Laboratory Results - last 24 hr 08/24/24 12:10: POC Glucose 326 H 08/24/24 16:31: POC Glucose 277 H 08/24/24 21:20: POC Glucose 277 H 08/25/24 06:02: POC Glucose 312 H Microbiology: Microbiology 08/22/24 23:30 Blood Culture (Wb) - Anticubital Right Blood Culture - Preliminary No growth in 48 hours. 08/23/24 03:33 Sputum, Expectorated/Coughed Gram Stain - Final 08/23/24 02:12 Mucosa - Nasopharyngeal Respiratory Panel (PCR) - Final 08/23/24 03:33 Urine, Clean Catch Legionella Antigen - Final 08/23/24 03:33 Urine, Clean Catch Streptococcus pneumoniae Antigen (M - Final 08/22/24 21:35 Mucosa - Nose SARS-CoV-2, Influenza & RSV (PCR) - Final D/C Instructions Discharge Diet: Low fat / Low cholesterol, 1800 Calorie Control Diet and 2000 mg Sodium Diet Weight Bearing Status: Weight bearing as tolerated Call your doctor if you observe: Fever of 101 or Higher, Coldness, Increased Pain, Numbness or Tingling, Change in Color, Inability to urinate, Inability to have a bowel movement, Shortness of breath, Dizziness, Fainting spells, Swelling in the ankles, Chest pain, Prolonged hiccupping, Increased palpitations (irregular heartbeat) and Calf discomfort DC O2, CPAP, BIPAP Needs Additional Home O2 Discharge instructions: Yes Type of respiratory needs?: CPAP CPAP instructions: On home setting. DC home with Oxygen: No When: IN 2 WEEKS Meaningful Use Info Meaningful Use Meaningful Use Diagnoses (Choose all that apply): None applicable Ischemic Stroke Statin Dosing Therapy Reference: STATIN DOSE THERAPY REFERENCE: * Patients > 75 years receive moderate or high dose statin therapy. * Patients 75 years or YOUNGER should receive HIGH intensity statin dose unless contraindicated. You will be required to document reason for non-treatment if statin daily dose does not meet guidelines. HIGH DOSE STATIN THERAPY DAILY Atorvastatin > than or = to 40 mg Rosuvastatin > than or = to 20 mg Amlodipine + Atorvastatin > than or = to 2.5/40 mg Ezetimibe + Simvastatin 10/80 mg Simvastatin 80mg Discharge Plan Admission Admit Date/Time: 08/22/24 23:29 Primary Reason for Your Visit: Pneumonia Attending Provider: Anders Nguyen Primary Care Provider: Jaime Galarza Consulting Providers: Alyson Clarke; Matias Sinclair Instructions Additional Instructions / Restrictions: Continue incentive spirometry and PEP for 1 week Discharge Orders/Prescriptions Prescriptions: New dextromethorphan-guaifenesin 60-1,200 mg tablet extended release 12 hr 1 tab PO BID 7 Days Qty: 14 0RF cefdinir 300 mg capsule 300 mg PO BID 5 Days Qty: 10 0RF Continued benzonatate 200 mg capsule 200 mg PO TID PRN (Reason: cough) Qty: 20 0RF losartan 50 MG tablet 50 mg PO DAILY glipizide 5 MG tablet 5 mg PO BID metformin 1,000 MG tablet 1,000 mg PO BIDCM pioglitazone 30 MG tablet 30 mg PO DAILY insulin glargine 100 UNITS/ML insulin pen 22 units subcut QHS multivitamin with folic acid 1 TABLET tablet 1 tab PO DAILY atorvastatin 40 MG tablet 40 mg PO QHS ascorbic acid (vitamin C) [Vitamin C] 500 MG tablet 500 mg PO DAILY vitamin E 400 UNIT capsule 400 unit PO DAILY aspirin 81 MG tablet,chewable 81 mg PO DAILY acetaminophen 500 MG tablet 1,000 mg PO Q12H PRN PRN (Reason: Pain) Discontinued azithromycin 250 mg tablet See Rx Instructions PO .COMPLEX Qty: 6 0RF Rx Instructions: take 500 mg today (day 1), then 250 mg for 4 days (days 2-5) PO Referrals / Follow Up: Jaime Galarza MD [Primary Care Provider] - Errol Cabral MD [Med Staff - Active Staff] - Within 2 Weeks Disposition Disposition (needs filled in before D/C Order can be placed): Home, Self Care Charges/Coding Visit Charges Inpatient E&M: 45369 Disch Hosp >30min
--- NOTE | 2024-08-25 11:26 | PHA.DC.MC.R ---
Pharmacy [facility] has performed discharge medication reconciliation and counseling for this patient. 1. CEFDINIR 300MG PO BID X 5 DAYS 2. MUCINEX DM 1T PO Q12 X 7 DAYS The patient's discharge medication list was reviewed for discrepancies and discrepancies were resolved. The patient was counseled on the following discharge medications and changes in medications for homegoing were reviewed. The Reason for Use, instructions for use, and potential side effects were reviewed for all new medications. The patient's questions regarding all of their medications were answered. The patient was able to verbally demonstrate an understanding of their discharge medications. Patient counseled by pharmacy affairs assistantRick. Medications at Discharge Home Medications glipizide 5 mg tablet, extended release 24 hr 5 mg PO BID DIABETES 08/11/13 insulin glargine 100 unit/mL (3 mL) subcutaneous pen 22 units subcut QHS DIABETES 08/11/13 losartan 50 mg tablet 50 mg PO DAILY BP 08/11/13 metformin 1,000 mg tablet 1,000 mg PO BIDCM DIABETES 08/11/13 multivitamin with folic acid 400 mcg tablet 1 tab PO DAILY SUPPLEMENT 08/11/13 pioglitazone 30 mg tablet 30 mg PO DAILY DIABETES 08/11/13 atorvastatin 40 mg tablet 40 mg PO QHS CHOLESTEROL 06/02/17 ascorbic acid (vitamin C) 500 mg tablet (Vitamin C) 500 mg PO DAILY SUPPLEMENT 12/19/18 vitamin E 268 mg (400 unit) capsule 400 unit PO DAILY SUPPLEMENT 12/19/18 aspirin 81 mg chewable tablet 81 mg PO DAILY 01/11/21 acetaminophen 500 mg tablet 1,000 mg PO Q12H PRN PRN Pain 07/14/21 benzonatate 200 mg capsule 200 mg PO TID PRN cough #20 caps 06/16/24 cefdinir 300 mg capsule 300 mg PO BID 5 days #10 caps 08/25/24 dextromethorphan-guaifenesin ER 60 mg-1,200 mg tab,extend release,12hr 1 tab PO BID 7 days #14 tabs 08/25/24
[2024-08-25 11:54] LABS: Bedside Glucose 304 mg/dL (74-106)
[2024-08-25] MEDS: Azithromycin 250 MG Tablet 500 MG PO (13:03)
--- NOTE | 2024-08-25 13:54 | CASEMGMT ---
Pt nurse notified RN CM that pt does not qualify for home oxygen.
[2024-08-25 13:56] VITALS: O2SAT 92; O2SAT 96
[2024-08-25 14:32] VITALS: BP 122/64; PULSE 94; RESP 16; TEMP 36.6; O2SAT 96
== END 2024-08-25 14:52 | disposition home or self-care (01) | DRG 195 ==
LOC: ED 23:42 → MS3 08-23
PROVIDERS: Internal Medicine; Admitting Provider Family Medicine; Emergency Provider Emergency Medicine; PCP Family Medicine; Visit Provider Internal Medicine
DX: J18.9 Pneumonia, unspecified organism (principal); D53.9 Nutritional anemia, unspecified; E11.9 Type 2 diabetes mellitus without complications; E66.9 Obesity, unspecified; E78.5 Hyperlipidemia, unspecified; I10 Essential (primary) hypertension; G47.33 Obstructive sleep apnea (adult) (pediatric); Z79.4 Long term (current) use of insulin; Z87.891 Personal history of nicotine dependence; R09.02 Hypoxemia; Z68.29 Body mass index [BMI] 29.0-29.9, adult
CPT/HCPCS: 36415; 71046; 80048; 80053; 81001; 82962; 85025; 87040; 87070; 87205; 87449; 87631; 87633; 94640; 94668; 97802; 99285; J7030; J7040; A4216; J0696

== ENCOUNTER → 2024-08-28 | Outpatient (CLI) | payer MEDICARE, SELFPAY ==
[2024-08-28 15:53] LABS: Hematocrit 27.5 % (40-54); Hemoglobin 8.7 g/dL (13.0-16.5); Mean Corp Hgb Conc 31.6 g/dL (32-36); Mean Corpuscular Hgb 30.3 pg (27.0-32.0); Mean Corpuscular Volume 95.8 fL (80-94); Mean Platelet Vol. 10.4 fl (6.2-12.0); POSITIVE COUNT YES; POSITIVE MORPHOLOGY YES; Platelet Count 489 K/mm3 (150-450); RBC Distribution Width CV 14.3 % (11.6-14.6); RBC Distribution Width SD 50.2 fl (35.1-43.9); Red Blood Count 2.87 M/mm3 (4.6-6.2); White Blood Count 11.4 K/mm3 (4.4-11.0)
[2024-08-28 16:13] LABS: Anion Gap 7 (5-15); BUN 16 mg/dL (7-18); BUN/Creat Ratio 18.3 RATIO (10-20); Calcium,Total 9.6 mg/dL (8.5-10.1); Chloride 106 mmol/L (98-107); Creatinine, Serum 0.88 mg/dL (0.70-1.30); EST Glomerular Filtration Rate 89 mL/min (>60); Est Glom Filt Rate - Afr Amer 107 mL/min (>60); Glucose 298 mg/dL (74-106); Potassium 4.2 mmol/L (3.5-5.1); Sodium Level 138 mmol/L (136-145)
[2024-08-28 18:06] LABS: Differential Indicated MANUAL DIFF
[2024-08-28 18:14] LABS: Eosinophil 1 % (0-5); Lymphocyte 13 % (19-41); Metamyelocyte 6 % (0-1); Monocyte 3 % (0-10); Myelocyte 3 % (0-0); Neutrophil-Band 7 % (0-5); Neutrophil-Segmented 67 % (47-70); Total Cells Counted 100 (MANUAL DIFF)
[2024-08-28 18:18] LABS: Absolute Neutrophil Count 8.4 X10^3/uL (2.0-7.7)
[2024-08-28 18:19] LABS: Absolute Lymphocyte Count 1.48 X10^3/uL (0.83-4.51); Anisocytosis RARE; Macrocytosis RARE; Platelet Estimate SLT INC (ADEQ); Red Cell Morphology N CHROM NORMAL (NORM C&C)
[2024-08-28 18:20] LABS: Hypochromasia RARE
[2024-09-01 08:54] LABS: Pathologist Review Reviewed
== END | disposition home or self-care (01) ==
LOC: MFPLAB 13:54
PROVIDERS: PCP Family Medicine; Referring Provider Family Medicine; Visit Provider Family Medicine
DX: D64.9 Anemia, unspecified (principal); J18.9 Pneumonia, unspecified organism
CPT/HCPCS: 36415; 80048; 85025

== ENCOUNTER → 2024-09-23 | Outpatient (CLI) | payer MEDICARE, SELFPAY ==
[2024-09-23 15:40] LABS: Absolute Lymphocyte Count 0.99 X10^3/uL (0.83-4.51); Absolute Neutrophil Count 4.3 X10^3/uL (2.0-7.7); Basophil# 0.03 X10^3/uL; Basophil% 0.5 % (0-1); Eosinophil# 0.14 X10^3/uL; Eosinophils% 2.4 % (0-5); Hematocrit 30.5 % (40-54); Hemoglobin 9.5 g/dL (13.0-16.5); Lymphocyte # 0.99 X10^3/ul (0.83-4.51); Lymphocyte % 16.8 % (19-41); Mean Corp Hgb Conc 31.1 g/dL (32-36); Mean Corpuscular Volume 105.9 fL (80-94); Mean Platelet Vol. 10.4 fl (6.2-12.0); Monocyte# 0.36 X10^3/uL; Monocyte% 6.1 % (0-10); NRBC Flagged by Analyzer 0 % (0-5); Neutrophil # 4.31 X10^3/uL (2.7-7.7); Platelet Count 216 K/mm3 (150-450); RBC Distribution Width CV 16.9 % (11.6-14.6); RBC Distribution Width SD 64.9 fl (35.1-43.9); Red Blood Count 2.88 M/mm3 (4.6-6.2); White Blood Count 5.9 K/mm3 (4.4-11.0)
== END | disposition home or self-care (01) ==
LOC: MFPLAB 12:07
PROVIDERS: PCP Family Medicine; Referring Provider Family Medicine; Visit Provider Family Medicine
DX: D64.9 Anemia, unspecified (principal)
CPT/HCPCS: 36415; 85025

== ENCOUNTER → 2025-03-26 | Outpatient (CLI) | payer MEDICARE, SELFPAY ==
--- OUTSIDE RECORDS SUMMARY | 2025-03-26 10:02 | XMS RPT_ITS | CCD ---
Author Organization [facility] Care Team Providers Care Relationship Mgr Name Role Phone BRANDON OLIVER Unavailable Unavailable OLIVER, CORWIN Unavailable Unavailable BRANDON OLIVER Unavailable Unavailable Alyson Clarke Admitting Unavailable Alyson Clarke Consulting Unavailable Anders Nguyen Attending Unavailable Geovanni, Jaime Primary Care Unavailable KaneeletsMatias bolanos Consulting Unavailable Geovanni, Jaime Primary Care Unavailable Galarza, Jaime Referring Unavailable Geovanni, Jaime Attending Unavailable Valentín Jones Referring Unavailable Valentín Jones Attending Unavailable Geovanni, Jaime Primary Care Unavailable Geovanni, Jaime Primary Care Unavailable Alyson Clarke Admitting Unavailable Dottie, Matias Attending Unavailable Alyson Clarke Consulting Unavailable Tereletsluis miguel, Matias Consulting Unavailable Anders Nguyen Attending Unavailable Anders Nguyen Consulting Unavailable Geovanni, Jaime Primary Care Unavailable Geovanni, Jaime Referring Unavailable Valentín Jones Attending Unavailable Galarza, Jaime Referring Unavailable Valentín Jones Attending Unavailable Geovanni, Jaime Primary Care Unavailable Geovanni, Jaime Referring Unavailable Valentín Jones Attending Unavailable Geovanni, Jaime Primary Care Unavailable Geovanni, Jaime Referring Unavailable Maxx oClón Attending Unavailable Geovanni, Jaime Primary Care Unavailable Alyson Clarke Attending Unavailable Galarza, Jaime Attending Unavailable Galarza, Jaime Primary Care Unavailable ChicagoJulia Referring Unavailable [place], Julia Attending Unavailable Geovanni, Jaime Primary Care Unavailable Maxx Colón Referring Unavailable Maxx Colón Attending Unavailable Geovanni, Jaime Primary Care Unavailable Galarza, Jaime Primary Care Unavailable Galarza, Jaime Referring Unavailable Geovanni, Jaime Attending Unavailable Medications Current Medications Medication Drug Class(es) Dates Sig (Normalized) Sig (Original) acetaminophen 500 mg oral tablet (6 sources) Start: 07-14-2021 take 1000 mg by mouth every twelve hours as needed Acetaminophen Active 1000 MG PO EVERY 12 HOURS NEEDED July 14, 2021 11:04am Start: 01-06-2019 End: 07-14-2021 take 1000 mg by mouth every eight hours Acetaminophen Discontinued 1000 MG PO EVERY 8 HOURS 90 January 06, 2019 12:00am July 14, 2021 11:05am ascorbic acid 500 mg oral tablet (3 sources) Vitamin C Start: 12-19-2018 take 1 tablet by mouth once daily Ascorbic Acid (Vitamin C) (Vitamin C) 500 MG tablet Active 500 MG PO DAILY December 19, 2018 12:00am aspirin 81 mg chewable tablet (6 sources) Platelet Aggregation Inhibitor, Nonsteroidal Anti-inflammatory Drug Start: 01-11-2021 take 81 mg by mouth once daily Aspirin Active 81 MG PO DAILY January 11, 2021 12:00am Start: 08-11-2013 End: 01-06-2019 take 81 mg by mouth once daily Aspirin Discontinued 81 MG PO DAILY@0800 August 11, 2013 1:00am January 06, 2019 7:54am atorvastatin 40 mg oral tablet (3 sources) HMG-CoA Reductase Inhibitor Start: 06-02-2017 take 40 mg by mouth at bedtime Atorvastatin Active 40 MG PO AT BEDTIME June 02, 2017 12:00am 120 actuat formoterol fumarate 0.005 mg/actuat / mometasone furoate 0.2 mg/actuat metered dose inhaler (3 sources) Corticosteroid, beta2-Adrenergic Agonist Start: 06-29-2021 take 1 puff(s) by inhalation twice daily Mometasone-Formo terol (Dulera) 200-5 mcg/actuation HFA aerosol inhaler Active 2 PUFF INHALATION TWICE A DAY June 29, 2021 12:00am glipiZIDE er 5 mg 24 hr extended release oral tablet (3 sources) Sulfonylurea Start: 08-11-2013 take 5 mg by mouth twice daily Glipizide Active 5 MG PO TWICE A DAY August 11, 2013 1:00am 3 ml insulin glargine 100 unt/ml pen injector (3 sources) Insulin Analog Start: 08-11-2013 Insulin Glargine Active 22 UNITS SC AT BEDTIME August 11, 2013 1:00am losartan potassium 50 mg oral tablet (3 sources) Angiotensin 2 Receptor Luis Start: 08-11-2013 take 50 mg by mouth once daily Losartan Active 50 MG PO DAILY August 11, 2013 1:00am metFORMIN hydrochloride 1000 mg oral tablet (3 sources) Biguanide Start: 08-11-2013 take 1000 mg by mouth twice daily at mealtime Metformin Active 1000 MG PO TWICE DAILY WITH MEALS August 11, 2013 1:00am Multivitamin With Folic Acid (3 sources) Start: 08-11-2013 take 1 tablet by mouth once daily Multivitamin With Folic Acid Active 1 TABLET PO DAILY August 11, 2013 1:00am pioglitazone 30 mg oral tablet (3 sources) Peroxisome Proliferator Receptor alpha Agonist, Peroxisome Proliferator Receptor gamma Agonist, Thiazolidinedione Start: 08-11-2013 take 30 mg by mouth once daily Pioglitazone Active 30 MG PO DAILY August 11, 2013 1:00am predniSONE 10 mg oral tablet (1 source) Start: 05-28-2023 take 10 mg by mouth twice daily Prednisone Active 10 MG PO TWICE A DAY May 28, 2023 12:00am vitamin e 180 mg oral capsule (3 sources) Start: 12-19-2018 take 400 [IU] by mouth once daily Vitamin E Active 400 UNIT PO DAILY December 19, 2018 12:00am Completed/Discontinued Medications Medication Drug Class(es) Dates Sig (Normalized) Sig (Original) acetaminophen 325 mg / oxyCODONE hydrochloride 5 mg oral tablet (3 sources) Opioid Agonist Start: 09-28-2018 End: 10-03-2018 take 1 tablet by mouth every six hours as needed Oxycodone-Acetamin ophen Discontinued 1 TABLET PO EVERY 6 HOURS NEEDED 23 02September 28, 2018 1:00am October 03, 2018 1:08am acyclovir 800 mg oral tablet (3 sources) Herpesvirus Nucleoside Analog DNA Polymerase Inhibitor, Herpes Simplex Virus Nucleoside Analog DNA Polymerase Inhibitor, Herpes Zoster Virus Nucleoside Analog DNA Polymerase Inhibitor Start: 09-27-2018 End: 10-04-2018 Acyclovir Discontinued 800 MG PO Q4H 42 September 27, 2018 1:00am October 04, 2018 1:07am while awake; give 5 doses in 24 hours ibuprofen 600 mg oral tablet (3 sources) Nonsteroidal Anti-inflammatory Drug Start: 01-18-2021 End: 01-25-2021 take 600 mg by mouth every six hours as needed Ibuprofen Discontinued 600 MG PO EVERY 6 HOURS NEEDED 25 04January 18, 2021 10:07am January 25, 2021 12:02am naproxen sodium 220 mg oral capsule (3 sources) Nonsteroidal Anti-inflammatory Drug Start: 12-19-2018 End: 01-06-2019 Naproxen Sodium (Aleve) 220 MG capsule Discontinued 220 MG PO NEEDED December 19, 2018 12:00am January 06, 2019 7:54am oxyCODONE hydrochloride 5 mg oral tablet (3 sources) Opioid Agonist Start: 01-06-2019 End: 01-13-2019 take 5-10 mg by mouth every four hours as needed Oxycodone Discontinued 5 - 10 MG PO EVERY 4 HOURS NEEDED 90 7 January 06, 2019 12:00am January 13, 2019 12:11am sulfacetamide sodium 100 mg/ml ophthalmic solution (3 sources) Sulfonamide Antibacterial Start: 09-27-2018 End: 10-04-2018 Sulfacetamide Sodium (Bleph-10) 10 % drops Discontinued 1 DRP ophthalmic (eye) Q3H 15 September 27, 2018 1:00am October 04, 2018 1:07am Problems Active Problems Problem Classification Problem Date Documented Da te Episodic/Chronic Deficiency and other anemia (1 source) Anemia, unspecified; Translations: [Anemia, unspecified] Onset: 10-28-2024 Episodic E Codes: Fall (1 source) Fall; Translations: [Unspecified fall, initial encounter] 03-24-2023 Episodic Essential hypertension (1 source) Essential (primary) hypertension; Translations: [Essential (primary) hypertension] Onset: 07-22-2024 Chronic Hyperplasia of prostate (3 sources) Benign prostatic hypertrophy with outflow obstruction; Translations: [Benign prostatic hyperplasia with lower urinary tract symptoms] 01-18-2021 Chronic Immunizations and screening for infectious disease (3 sources) Patient encounter status; Translations: [Encounter for laboratory testing for COVID-19 virus] 06-25-2021 Episodic Other injuries and conditions due to external causes (1 source) Closed injury of head; Translations: [Unspecified injury of head, initial encounter] 03-24-2023 Episodic Other upper respiratory disease (3 sources) Respiratory tract congestion; Translations: [Nasal congestion] 06-25-2021 Episodic Skull and face fractures (1 source) Closed fracture of right orbit; Translations: [Fracture of orbit, unspecified, initial encounter for closed fracture] 03-24-2023 Episodic Superficial injury; contusion (4 sources) Abrasion of cornea of right eye; Translations: [Injury of conjunctiva and corneal abrasion without foreign body, right eye, initial encounter] 01-05-2019 Episodic Unclassified (1 source) Unknown / UNK(Unknown) Onset: 05-07-2017 Unclassified (3 sources) Age AND/OR growth finding; Translations: [65 years of age or older] 06-29-2021 Unclassified (1 source) Cough, unspecified; Translations: [Cough, unspecified] Onset: 08-22-2024 Viral infection (6 sources) Disease caused by 2019-nCoV; Translations: [COVID-19] 06-29-2021 Episodic Past or Other Problems Problem Classification Problem Date Documented Da te Episodic/Chronic Other circulatory disease (1 source) Other specified symptoms and signs involving the circulatory and respiratory systems; Translations: [Other specified symptoms and signs involving the circulatory and respiratory systems] Onset: 09-17-2024 Episodic Other injuries and conditions due to external causes (1 source) Injury, unspecified, initial encounter; Translations: [Injury, unspecified, initial encounter] Onset: 06-11-2024 Episodic Other lower respiratory disease (2 sources) Cough; Translations: [Other forms of dyspnea] Onset: 05-07-2017 Episodic Other screening for suspected conditions (not mental disorders or infectious disease) (1 source) Encounter for screening for malignant neoplasm of prostate; Translations: [Encounter for screening for malignant neoplasm of prostate] Onset: 07-29-2024 Episodic Other upper respiratory disease (1 source) Dysphonia; Translations: [Dysphonia] Onset: 05-07-2017 Episodic Other upper respiratory infections (2 sources) Upper respiratory infection; Translations: [Acute upper respiratory infection, unspecified] Onset: 08-22-2024 05-28-2023 Episodic Pneumonia (except that caused by tuberculosis or sexually transmitted disease) (2 sources) Pneumonia, unspecified organism; Translations: [Pneumonia, unspecified organism] Onset: 08-25-2024 Episodic Results Test Name Value Interpretation Reference Range Facility Urgent Care Visit Reporton 0 01-04-2025 Urgent Care Visit Report [facility] [address], [address] [place] [address] OFFICE VISIT Date of Service: 01/04/25 MR#: [id number] Acct: [id number] Name: ARMAAN CHANEL Rep #: [id number] : 1940 Provider: DORON Ferrer Age/Sex: 84/M Location: [facility] Status: Signed Intake Vital Signs 08/23/24 11:01 01/04/25 13:07 Height 5 ft 7 in 5 ft 7 in Weight: 190 lb BMI 29.7 BP 122/74 H Blood Pressure Location Rt brachial Position Sitting Respiration 18 Pulse 90 Pulse Source Monitor Temp 98.8 F Temp Source Temporal Pulse Oximetry (%) 98 Oxygen Delivery Method room air Intake Visit Reasons: 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 complaints 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 Is patient in pain?: No Allergies No Known Allergies Allergy (Verified 01/04/25 13:05) Medications ???Medication ???Instructions ???Recorded ???Confirmed ???Type glipizide 5 mg tablet, extended 5 mg PO BID DIABETES 08/11/1312/07 History release 24 hr insulin glargine 100 unit/mL (3 22 units subcut QHS DIABETES 08/1101/04/25 History mL) subcutaneous pen losartan 50 mg tablet 50 mg PO DAILY BP 08/11/13 5 History metformin 1,000 mg tablet 1,000 mg PO BIDCM DIABETES 3 01/04/25 History multivitamin with folic acid 400 1 tab PO DAILY SUPPLEMENT 08/11/13 01/04/25 History mcg tablet pioglitazone 30 mg tablet 30 mg PO DAILY DIABETES 08/11/13 0 01/04/25 History atorvastatin 40 mg tablet 40 mg PO QHS CHOLESTEROL 06/02/17 01/04/25 History ascorbic acid (vitamin C) 500 mg 500 mg PO DAILY SUPPLEMENT 9 01/04/25 History tablet (Vitamin C) vitamin E 268 mg (400 unit) capsule 400 unit PO DAILY SUPPLEMENT 01/04/25 History aspirin 81 mg chewable tablet 81 mg PO DAILY 01/11/21 01/04/25 H istory acetaminophen 500 mg tablet 1,000 mg PO Q12H PRN PRN Pain 1005/2701/04/25 History dextromethorphan-guaifenesi n ER 60 1 tab PO BID 7 days #14 tabs 01/04/25 Rx mg-1,200 mg tab,extend release,12hr methylprednisolone 4 mg tablets in See Rx Instructions PO PER PKG D IR 01/04/25 01/04/25 Rx a dose pack (Medrol (Triston)) #21 tabs Have you fallen in the past year?: No Nurse's Note: Sx's have been going on since Saturday States he has a somewhat productive cough that is clear, sinus congestion/runny nose,some sob. Denies headaches, sore throat, body aches,fevers, chills. [facility]. Had leftover benzonate and dayquil he was able to sleep last night. [facility] Medical History Pneumonia Obesity BPH (benign prostatic hyperplasia) HLD (hyperlipidemia) HTN (hypertension) Chronic anemia IRVING on CPAP Wears hearing aid Wears glasses Insulin dependent diabetes mellitus Back pain Former smoker History of pain when walking History of stress test History of echocardiogram History of dislocation of elbow Chronic neck and back pain Arthritis Surgical History Hx of transurethral resection of prostate Hx of colonoscopy History of tonsillectomy and adenoidectomy Hx of total hip arthroplasty History of back surgery History of appendectomy Family History Mother Heart failure Heart disease Father Diabetes Social History household members: spouse Smoking Status: Former smoker how long ago did patient quit smoking: Quit 1965, smoked 1 ppd from college->quit. alcohol intake: current alcohol intake frequency: a few times a month Alcohol type: wine substance use type: does not use HPI HPI Details: ARMAAN CHANEL, is a 84 M who presents to the office today for initial evaluation at the [facility] for approximately 48-hour history of clear cough, congestion/runny nose, some sob only w/ persistent coughing. No complaints of fever, chills, sweats, headaches, sore throat, or chest pressure with shortness of breath/dyspnea on exertion. He admits to having difficulty sleeping at night as his cough is more prominent when supine. Wlyv-paq-loixbsi DayQuil as well as Mucinex DM and an old benzonatate prescription have been tried with minimal assist. Non-smoker. No close contacts with similar complaints. Declining POC screening upon offering. No other associated symptoms and no alleviating/aggravating factors. ROS: as above Exam Const General: cooperative, healthy appearing and no acute distress Orientation: alert, awake and oriented x3 HENMT Head: normal to inspection Ears: hearing grossly normal bilaterally, external ears normal, TM's normal bilaterally and EAC's normal Nose: external n (more content not included)... Normal [facility] CBC W/Diff, Automatedon - Absolute Lymph 0.99 X10 3/uL Normal 0.83-4.51 [facility] Comment on above: Order Comment: Order Date: 08/31/24Order Info: 018- - CBCD Performed By: #### L 501.080 #### [facility] [address] [place], [address] Absolute Neut 4.3 X10 3/uL Normal 2.0-7.7 [facility] Comment on above: Order Comment: Order Date: 08/31/24Order Info: 018- - CBCD Performed By: #### L 501.080 #### [facility] [address] [place], [address] Basophils/100 WBC (Bld) 0.5 % Normal 0-1 [facility] Comment on above: Order Comment: Order Date: 08/31/24Order Info: 018- - CBCD Performed By: #### L 501.080 #### [facility] [address] [place], [address] Eosinophils/100 WBC (Bld) 2.4 % Normal 0-5 [facility] Comment on above: Order Comment: Order Date: 08/31/24Order Info: 018-1 - CBCD Performed By: #### L 501.080 #### [facility] [address] [place], [address] Erythrocyte distribution width (RBC) [Ratio] 16.9 % High 11.6-14.6 [facility] Comment on above: Order Comment: Order Date: 08/31/24Order Info: 018-1 - CBCD Performed By: #### L 501.080 #### [facility] [address] [place], [address] Hematocrit (Bld) [Volume fraction] 30.5 % Low 40-54 [facility] Comment on above: Order Comment: Order Date: 08/31/24Order Info: 018- - CBCD Performed By: #### L 501.080 #### [facility] [address] [place], [address] Hemoglobin (Bld) [Mass/Vol] 9.5 g/dL Low 13.0-16.5 [facility] Comment on above: Order Comment: Order Date: 08/31/24Order Info: 018- - CBCD Performed By: #### L 501.080 #### [facility] [address] [place], [address] IG% 1.200 High 0.0-0.9 [facility] Comment on above: Order Comment: Order Date: 08/31/24Order Info: 018- - CBCD Result Comment: IG% - Immature Granulocytes (promyelocytes, myelocytes and metamyelocytes) > 1% indicates that a LEFT SHIFT is Present. Performed By: #### L 501.080 #### [facility] [address] [place], [address] Lymphocytes/100 WBC (Bld) 16.8 % Low 19-41 [facility] Comment on above: Order Comment: Order Date: 08/31/24Order Info: 018- - CBCD Performed By: #### L 501.080 #### [facility] [address] [place], [address] MCH (RBC) [Entitic mass] 33.0 pg High 27.0-32.0 [facility] Comment on above: Order Comment: Order Date: 08/31/24Order Info: 183-10 - CBCD Performed By: #### L 501.080 #### [facility] [address] [place], [address] MCHC (RBC) [Mass/Vol] 31.1 g/dL Low 32-36 [facility] Comment on above: Order Comment: Order Date: 08/31/24Order Info: 183- - CBCD Performed By: #### L 501.080 #### [facility] [address] [place], [address] MCV (RBC) [Entitic vol] 105.9 fL High 80-94 [facility] Comment on above: Order Comment: Order Date: 08/31/24Order Info: 183-10 - CBCD Performed By: #### L 501.080 #### [facility] [address] [place], [address] Monocytes/100 WBC (Bld) 6.1 % Normal 0-10 [facility] Comment on above: Order Comment: Order Date: 08/31/24Order Info: 183-10 - CBCD Performed By: #### L 501.080 #### [facility] [address] [place], [address] Neutrophils/100 WBC (Bld) 73.0 % High 47-70 [facility] Comment on above: Order Comment: Order Date: 08/31/24Order Info: 183- - CBCD Performed By: #### L 501.080 #### [facility] [address] [place], [address] Nucleated RBC (Bld) [#/Vol] 0 10*3/uL Normal 0-5 [facility] Comment on above: Order Comment: Order Date: 08/31/24Order Info: 183- - CBCD Performed By: #### L 501.080 #### [facility] [address] [place], [address] Platelet mean volume (Bld) [Entitic vol] 10.4 fL Normal 6.2-12.0 [facility] Comment on above: Order Comment: Order Date: 08/31/24Order Info: 018- - CBCD Performed By: #### L 501.080 #### [facility] [address] [place], [address] Platelets (Bld) [#/Vol] 216 10*3/uL Normal 150-450 [facility] Comment on above: Order Comment: Order Date: 08/31/24Order Info: 183- - CBCD Performed By: #### L 501.080 #### [facility] [address] [place], [address] RBC (Bld) [#/Vol] 2.88 10*6/uL Low 4.6-6.2 [facility] Comment on above: Order Comment: Order Date: 08/31/24Order Info: 018- - CBCD Performed By: #### L 501.080 #### [facility] [address] [place], [address] RDW SD 64.9 fl High 35.1-43.9 [facility] Comment on above: Order Comment: Order Date: 08/31/24Order Info: 018- - CBCD Performed By: #### L 501.080 #### [facility] [address] [place], [address] WBC (Bld) [#/Vol] 5.9 10*3/uL Normal 4.4-11.0 [facility] Comment on above: Order Comment: Order Date: 08/31/24Order Info: 018-1 - CBCD Performed By: #### L 501.080 #### [facility] [address] [place], [address] CBC W/Diff, Automatedon 11-2 PATH REV Reviewed Normal [facility] Comment on above: Result Comment: LEUK OCYTOSIS Macrocytic anemia. SLIGHT L WBC Clinical correlation suggested. Juan A Peralta D.O. 09/01/24 AMENDED REPORT 09/01/24 0853 PATH REV previously reported as: February Performed By: #### L 100.0100, L500.2500 #### [facility] [address] [place], [address] Basic Metabolic Profile (BMP )on 08-28-2024 BUN/CRE 18.3 RATIO Normal 10-20 [facility] Comment on above: Performed By: #### L 100.0100, L500.2500 #### [facility] [address] [place], [address] CA,Total 9.6 mg/dL Normal 8.5-10.1 [facility] Comment on above: Performed By: #### L 100.0100, L500.2500 #### [facility] [address] [place], [address] Chloride [Moles/Vol] 106 mmol/L Normal 98-107 [facility] Comment on above: Performed By: #### L 100.0100, L500.2500 #### [facility] [address] [place], [address] CO2 [Moles/Vol] 25.0 mmol/L Normal 21.0-32.0 [facility] Comment on above: Performed By: #### L 100.0100, L500.2500 #### [facility] [address] [place], [address] Creatinine [Mass/Vol] 0.88 mg/dL Normal 0.70-1.30 [facility] Comment on above: Result Comment: The validity of the calculated GFR GFRAA in patients over 70 years has not been determined. Clinical correlation is essential. Performed By: #### L 100.0100, L500.2500 #### [facility] [address] [place], [address] EST GFR - AA 107 mL/min Normal >60 [facility] Comment on above: Result Comment: Afri can Swiss GFR Calc Performed By: #### L 100.0100, L500.2500 #### [facility] [address] [place], [address] GAP 7 Normal 5-15 [facility] Comment on above: Performed By: #### L 100.0100, L500.2500 #### [facility] [address] [place], [address] GFR/1.73 sq M.predicted among non-blacks MDRD (S/P/Bld) [Vol rate/Area] 89 mL/min/{1.73_m2} Normal >60 [facility] Comment on above: Result Comment: Non- GFR Calc Performed By: #### L 100.0100, L500.2500 #### [facility] [address] [place], [address] Glucose [Mass/Vol] 298 mg/dL High 74-106 [facility] Comment on above: Result Comment: Gluc ose result greater than or equal to 200 mg/dL suggests DIABETES MELLITUS per A.D.A. criteria. Performed By: #### L 100.0100, L500.2500 #### [facility] [address] [place], [address] Potassium [Moles/Vol] 4.2 mmol/L Normal 3.5-5.1 [facility] Comment on above: Performed By: #### L 100.0100, L500.2500 #### [facility] [address] [place], [address] Sodium [Moles/Vol] 138 mmol/L Normal 136-145 [facility] Comment on above: Performed By: #### L 100.0100, L500.2500 #### [facility] [address] [place], [address] Urea nitrogen [Mass/Vol] 16 mg/dL Normal 7-18 [facility] Comment on above: Performed By: #### L 100.0100, L500.2500 #### [facility] [address] [place], [address] Culture, Blood (WB)on 2023 CUB Blood Cultures x2, f rom different sites No growth in 5 days. Normal [facility] Comment on above: Performed By: #### L 100.0100, L500.2500 #### [facility] [address] [place], [address] Bedside Glucoseon 08-25-2024 FINGERSTICK GLU 304 mg/dL High 74-106 [facility] Comment on above: Result Comment: YESSI GEMENT OF PATIENT CARE PER NURSING PROTOCOL Performed By: #### L 501.080 #### [facility] [address] [place], [address] FINGERSTICK GLU 312 mg/dL High 74-106 [facility] Comment on above: Result Comment: YESSI GEMENT OF PATIENT CARE PER NURSING PROTOCOL Performed By: #### L 501.080 #### [facility] [address] [place], [address] Discharge Instructionon 08-07 Discharge Instruction [facility] Medical Records Department [address] [place] [address] Instructions for Home/Discharge Instructions 08/25/24 1021 MR#: [id number] Acct: [id number] Name: ARMAAN CHANEL Rep #: [id number] : 1940 84 From: Anders Nguyen MD PCP: Dr. Jaime Galarza MD Status:ADM IN Discharge Instructions Diet Discharge Diet: Low fat / Low cholesterol, 1800 Calorie Control Diet and 2000 mg Sodium Diet Activity Discharge Activity: Return to Normal Activity Weight Bearing Status: Weight bearing as tolerated Dressing / Incision Call your doctor if you observe: Fever of 101 or Higher, Coldness, Increased Pain, Numbness or Tingling, Change in Color, Inability to urinate, Inability to have a bowel movement, Shortness of breath, Dizziness, Fainting spells, Swelling in the ankles, Chest pain, Prolonged hiccupping, Increased palpitations (irregular heartbeat) and Calf discomfort Follow Up Care When: IN 2 WEEKS Test Results: Test results from this visit will be discussed in further detail at your follow-up appointment, if applicable. Discharge Plan Admission Admit Date/Time: 08/22/24 23:29 Primary Reason for Your Visit: Pneumonia Attending Provider: Anders Nguyen Primary Care Provider: Jaime Galarza Consulting Providers: Alyson Clarke; Matias Sinclair Instructions Additional Instructions / Restrictions: Continue incentive spirometry and PEP for 1 week Discharge Orders/Prescriptions Prescriptions: New dextromethorphan-guaifenesi n 60-1,200 mg tablet extended release 12 hr 1 tab PO BID 7 Days Qty: 14 0RF cefdinir 300 mg capsule 300 mg PO BID 5 Days Qty: 10 0RF Continued benzonatate 200 mg capsule 200 mg PO TID PRN (Reason: cough) Qty: 20 0RF losartan 50 MG tablet 50 mg PO DAILY glipizide 5 MG tablet 5 mg PO BID metformin 1,000 MG tablet 1,000 mg PO BIDCM pioglitazone 30 MG tablet 30 mg PO DAILY insulin glargine 100 UNITS/ML insulin pen 22 units subcut QHS multivitamin with folic acid 1 TABLET tablet 1 tab PO DAILY atorvastatin 40 MG tablet 40 mg PO QHS ascorbic acid (vitamin C) [Vitamin C] 500 MG tablet 500 mg PO DAILY vitamin E 400 UNIT capsule 400 unit PO DAILY aspirin 81 MG tablet,chewable 81 mg PO DAILY acetaminophen 500 MG tablet 1,000 mg PO Q12H PRN PRN (Reason: Pain) Discontinued azithromycin 250 mg tablet See Rx Instructions PO .COMPLEX Qty: 6 0RF Rx Instructions: take 500 mg today (day 1), then 250 mg for 4 days (days 2-5) PO Referrals / Follow Up: Jaime Galarza MD [Primary Care Provider] - Errol Cabral MD [Med Staff - Active Staff] - Within 2 Weeks Disposition Disposition (needs filled in before D/C Order can be placed): Home, Self Care 08/25/24 1028 Anders Nguyen MD CC: Dr. Alyson Clarke MD; Dr. Matias Sinclair DO; Dr. Jaime Galarza MD Signed Normal [facility] Respiratory Cultureon 2023 RESPC List Antibiotics Las t 48 Hours? rocephin zithromax Presumptive C albicans Amount Growth 1+ Normal [facility] Comment on above: Performed By: #### L 501.080 #### [facility] [address] [place], [address] Bedside Glucoseon 08-24-2024 FINGERSTICK GLU 277 mg/dL High 74-106 [facility] Comment on above: Result Comment: YESSI GEMENT OF PATIENT CARE PER NURSING PROTOCOL Performed By: #### L 501.080 #### [facility] [address] [place], [address] FINGERSTICK GLU 326 mg/dL High [address] [place] [address] Comment on above: Result Comment: YESSI GEMENT OF PATIENT CARE PER NURSING PROTOCOL Performed By: #### L 501.080 #### [facility] [address] [place], [address] FINGERSTICK GLU 240 mg/dL High [address] [place] [address] Comment on above: Result Comment: YESSI GEMENT OF PATIENT CARE PER NURSING PROTOCOL Performed By: #### L 501.080 #### [facility] [address] [place], [address] Chest PA and Lateralon 08-24 Chest PA and Lateral [facility] Imaging Services [address] [place] [address] Chest PA and Lateral MR#: [id number] Acct: [id number] Name: ARMAAN CHANEL Rep #: [id number] : 1940 M 84 From: Greg Mckeon MD PCP: Dr. Jaime Galarza MD Status: ADM IN Study: Chest PA and Lateral Date of Exam: 08/24/24 Exam# [id number] Ordering Dr: Matias Sinclair DO [id number] INDICATION: pneumonia EXAMINATION/TECHNIQUE: X-RAY - XR Chest 2 Views COMPARISON: Chest radiograph 08/22/2024 and 03/16/2023. Findings: Frontal and lateral views of the chest. LUNG PARENCHYMA: No acute focal airspace disease or mass lesion. PLEURA: No pleural effusion. No pneumothorax. Again noted is left posterior costophrenic angle patchy airspace disease, not present previous year. HEART/GREAT VESSELS: Cardiomediastinal silhouette is unremarkable. BONES: Osseous structures are unremarkable for age. RAD/Chest PA and Lateral IMPRESSION: Again noted is left posterior costophrenic angle patchy airspace disease, to include atelectasis versus pneumonia, not present previous year. Recommend follow-up to resolution. Electronically Signed: Greg Mckeon MD at 6:39 EST , CC: Dr. Matias Sinclair, ; Dr. Jaime Galarza MD Production Specialist: Signed Normal [facility] Bedside Glucoseon 08-23-2024 FINGERSTICK GLU 209 mg/dL High 74-106 [facility] Comment on above: Result Comment: YESSI GEMENT OF PATIENT CARE PER NURSING PROTOCOL Performed By: #### L 501.080 #### [facility] [address] [place], [address] FINGERSTICK GLU 193 mg/dL High 74-106 [facility] Comment on above: Result Comment: YESSI GEMENT OF PATIENT CARE PER NURSING PROTOCOL Performed By: #### L 501.080 #### [facility] [address] [place], [address] FINGERSTICK GLU 275 mg/dL High [facility]106 [facility] Comment on above: Result Comment: YESSI GEMENT OF PATIENT CARE PER NURSING PROTOCOL Performed By: #### L 501.080 #### [facility] [address] [place], [address] FINGERSTICK GLU 255 mg/dL High 74-106 [facility] Comment on above: Result Comment: YESSI DE LEON OF PATIENT CARE PER NURSING PROTOCOL Performed By: #### L 501.080 #### [facility] [address], [address] CBC W/Diff, Automatedon 11- POLYCHROMASIA 1+ Normal [facility] Comment on above: Performed By: #### L 100.0100, L500.2500 #### [facility] [address] [place], [address] SMEAR COMMENT SCANNED Normal [facility] Comment on above: Performed By: #### L 100.0100, L500.2500 #### [facility] [address] [place], [address] Comprehensive Metabolic Prof ilon 08-23-2024 Albumin [Mass/Vol] 2.9 g/dL Low 3.2-5.0 [facility] Comment on above: Performed By: #### L 100.0100, L500.2500 #### [facility] [address] [place], [address] Albumin/Globulin [Mass ratio] 0.9 {ratio} Normal 0.9-2.4 [facility] Comment on above: Performed By: #### L 100.0100, L500.2500 #### [facility] [address] [place], [address] ALK P 61 U/L Normal 45-117 [facility] Comment on above: Performed By: #### L 100.0100, L500.2500 #### [facility] [address] [place], [address] ALT [Catalytic activity/Vol] 15 U/L Low 16-61 [facility] Comment on above: Performed By: #### L 100.0100, L500.2500 #### [facility] [address] [place], [address] AST [Catalytic activity/Vol] 20 U/L Normal 15-37 [facility] Comment on above: Performed By: #### L 100.0100, L500.2500 #### [facility] [address] [place], [address] Bilirubin [Mass/Vol] 1.30 mg/dL High 0.20-1.00 [facility] Comment on above: Result Comment: For patients on eltrombopag therapy, use of Dimension [place] TBIL is not recommended. Performed By: #### L 100.0100, L500.2500 #### [facility] [address] [place], [address] BUN/CRE 19.7 RATIO Normal 10-20 [facility] Comment on above: Performed By: #### L 100.0100, L500.2500 #### [facility] [address] [place], [address] CA,Total 8.8 mg/dL Normal 8.5-10.1 [facility] Comment on above: Performed By: #### L 100.0100, L500.2500 #### [facility] [address] [place], [address] Chloride [Moles/Vol] 108 mmol/L High 98-107 [facility] Comment on above: Performed By: #### L 100.0100, L500.2500 #### [facility] [address] [place], [address] CO2 [Moles/Vol] 25.0 mmol/L Normal 21.0-32.0 [facility] Comment on above: Performed By: #### L 100.0100, L500.2500 #### [facility] [address] [place], [address] Creatinine [Mass/Vol] 0.76 mg/dL Normal 0.70-1.30 [facility] Comment on above: Result Comment: The validity of the calculated GFR GFRAA in patients over 70 years has not been determined. Clinical correlation is essential. Performed By: #### L 100.0100, L500.2500 #### [facility] [address] [place], [address] ECRCL 73.81 ml/min Normal [facility] Comment on above: Performed By: #### L 100.0100, L500.2500 #### [facility] [address] [place], [address] EST GFR - AA 126 mL/min Normal >60 [facility] Comment on above: Result Comment: Afri can Swiss GFR Calc Performed By: #### L 100.0100, L500.2500 #### [facility] [address] [place], [address] GAP 5 Normal 5-15 [facility] Comment on above: Performed By: #### L 100.0100, L500.2500 #### [facility] [address] [place], [address] GFR/1.73 sq M.predicted among non-blacks MDRD (S/P/Bld) [Vol rate/Area] 104 mL/min/{1.73_m2} Normal >60 [facility] Comment on above: Result Comment: Non- GFR Calc Performed By: #### L 100.0100, L500.2500 #### [facility] [address] [place], [address] Globulin (S) [Mass/Vol] 3.2 g/dL Normal 2.2-4.2 [facility] Comment on above: Performed By: #### L 100.0100, L500.2500 #### [facility] [address] [place], [address] Glucose [Mass/Vol] 281 mg/dL High 74-106 [facility] Comment on above: Result Comment: Gluc ose result greater than or equal to 200 mg/dL suggests DIABETES MELLITUS per A.D.A. criteria. Performed By: #### L 100.0100, L500.2500 #### [facility] [address] [place], [address] Potassium [Moles/Vol] 3.8 mmol/L Normal 3.5-5.1 [facility] Comment on above: Performed By: #### L 100.0100, L500.2500 #### [facility] [address] [place], [address] Sodium [Moles/Vol] 138 mmol/L Normal 136-145 [facility] Comment on above: Performed By: #### L 100.0100, L500.2500 #### [facility] [address] [place], [address] T PROT 6.1 g/dL Low 6.4-8.2 [facility] Comment on above: Performed By: #### L 100.0100, L500.2500 #### [facility] [address] [place], [address] Urea nitrogen [Mass/Vol] 15 mg/dL Normal 7-18 [facility] Comment on above: Performed By: #### L 100.0100, L500.2500 #### [facility] [address] [place], [address] Gram Stainon 08-23-2024 List Antibiotics Las t 48 Hours? rocephin zithromax Acceptable Specimen? Yes (<25 Epithelial cells per/lpf) Gram Stain 3+ White Blood Cells 1+ Gram positive cocci No Epithelial cells Normal [facility] Comment on above: Performed By: #### L 501.080 #### [facility] [address] [place], [address] Legionella Antigen Urineon 1 10-23-2023 LEGU URINE, CLEAN CATCH Negative Presumptive negative for Legionella pneumophila serogroup 1 antigen in urine, suggesting no recent or current infection. Legionella Ag, Urine Negative (See interpretation below) Normal [facility] Comment on above: Performed By: #### L 501.080 #### [facility] [address] [place], [address] RESPIRATORY PANEL MOLECULARo n 08-23-2024 RP PANEL Normal Reference Ran ge = Not Detected Resp path DNA+RNA Pnl Resp YESSI+probe Nucleic acid amplification test method ADENOVIRUS Not Detected INFLUENZA A Not Detected INFLUENZA A (SUBTYPE H1) Not Detected INFLUENZA A (SUBTYPE H3) Not Detected INFLUENZA B Not Detected HUMAN METAPHNEUMO Not Detected PARAINFLUENZA 1 Not Detected PARAINFLUENZA 2 Not Detected PARAINFLUENZA 3 Not Detected PARAINFLUENZA 4 Not Detected RHINOVIRUS Not Detected RSV A Not Detected RSV B Not Detected Normal [facility] Comment on above: Performed By: #### L 501.080 #### [facility] [address] [place], [address] Strep pneumoniae Antig(UR,CS F)on 08-23-2024 STPAG Negative Urine Presumptive negative for pneumococcal pneumonia, suggesting no current or recent pneumococcal infection. Infection due to S pneumoniae cannot be ruled out since the antigen present in the sample may be below the detection limit of the test. Strep pneumo Test Negative URINE (See interpretation below) Normal [facility] Comment on above: Performed By: #### L 501.080 #### [facility] [address] [place], [place], [address] Basic Metabolic Profile (BMP )on 08-22-2024 BUN/CRE 18.7 RATIO Normal 10-20 [facility] Comment on above: Performed By: #### L 501.080 #### [facility] [address] [place], [place], [address] CA,Total 9.6 mg/dL Normal 8.5-10.1 [facility] Comment on above: Performed By: #### L 501.080 #### [facility] [address] [place], [place], [address] Chloride [Moles/Vol] 104 mmol/L Normal 98-107 [facility] Comment on above: Performed By: #### L 501.080 #### [facility] [address] [place], [address] CO2 [Moles/Vol] 26.0 mmol/L Normal 21.0-32.0 [facility] Comment on above: Performed By: #### L 501.080 #### [facility] [address] [place], [address] Creatinine [Mass/Vol] 0.86 mg/dL Normal 0.70-1.30 [facility] Comment on above: Result Comment: The validity of the calculated GFR GFRAA in patients over 70 years has not been determined. Clinical correlation is essential. Performed By: #### L 501.080 #### [facility] [address] [place], [address] ECRCL 68.96 ml/min Normal [facility] Comment on above: Performed By: #### L 501.080 #### [facility] [address] [place], [address] EST GFR - AA 110 mL/min Normal >60 [facility] Comment on above: Result Comment: Afri can Swiss GFR Calc Performed By: #### L 501.080 #### [facility] [address] [place], [address] GAP 6 Normal 5-15 [facility] Comment on above: Performed By: #### L 501.080 #### [facility] [address] [place], [address] GFR/1.73 sq M.predicted among non-blacks MDRD (S/P/Bld) [Vol rate/Area] 91 mL/min/{1.73_m2} Normal >60 [facility] Comment on above: Result Comment: Non- GFR Calc Performed By: #### L 501.080 #### [facility] [address] [place], [address] Glucose [Mass/Vol] 261 mg/dL High 74-106 [facility] Comment on above: Result Comment: Gluc ose result greater than or equal to 200 mg/dL suggests DIABETES MELLITUS per A.D.A. criteria. Performed By: #### L 501.080 #### [facility] [address] [place], [address] Potassium [Moles/Vol] 4.0 mmol/L Normal 3.5-5.1 [facility] Comment on above: Performed By: #### L 501.080 #### [facility] [address] [place], [address] Sodium [Moles/Vol] 136 mmol/L Normal 136-145 [facility] Comment on above: Performed By: #### L 501.080 #### [facility] [address] [place], [address] Urea nitrogen [Mass/Vol] 16 mg/dL Normal 7-18 [facility] Comment on above: Performed By: #### L 501.080 #### [facility] [address] [place], [address] CBC W/Diff, Automatedon 11- Anisocytosis Ql (Bld) RARE Normal [facility] Comment on above: Performed By: #### L 501.080 #### [facility] [address] [place], [address] HYPOCHROMASIA RARE Normal [facility] Comment on above: Performed By: #### L 501.080 #### [facility] [address] [place], [address] MACROCYTOSIS RARE Normal [facility] Comment on above: Performed By: #### L 501.080 #### [facility] [address] [place], [address] OVALOCYTE RARE Normal [facility] Comment on above: Performed By: #### L 501.080 #### [facility] [address] [place], [address] RED CELL MORPH N CHROM Normal NORM C C [facility] Comment on above: Performed By: #### L 501.080 #### [facility] [address] [place], [address] PLT EST ADEQUATE Normal ADEQ [facility] Comment on above: Performed By: #### L 501.080 #### [facility] [address] [place], [address] SMEAR COMMENT SEE COMMENT Normal [facility] Comment on above: Result Comment: LYMP HOPENIA NOTED Performed By: #### L 501.080 #### [facility] [address] [place], [address] Chest PA and Lateralon 08-22 Chest PA and Lateral [facility] Imaging Services [address] [place] [address] Chest PA and Lateral MR#: [id number] Acct: [id number] Name: ARMAAN CHANEL Rep #: [id number] : 1940 M 84 From: Morales Cordoba MD PCP: Dr. Jaime Galarza MD Status: [facility] Study: Chest PA and Lateral Date of Exam: 08/22/24 Exam# [id number] Ordering Dr: Gerry Ojeda DO [id number] STUDY: X-RAY CHEST REASON FOR EXAM: Male, 84 years old. Cough TECHNIQUE: PA and lateral COMPARISON: August 21, 2024. FINDINGS: Mild bilateral lower lobe infiltrates.. There is no demonstrated pleural abnormality. Normal size heart. Normal mediastinum and carmelita. Normal visualized pulmonary arteries. Calcified aortic arch and descending thoracic aorta. Normal visualized thoracic spine. Normal visualized ribs, clavicles, and shoulders. There is no demonstrated abnormality of the visualized soft tissue structures of the upper abdomen. RAD/Chest PA and Lateral IMPRESSION: Bibasilar pneumonia Electronically Signed: Morales Cordoba MD at 22:41 EST Reading Location ID and State: [facility] / [place] Tel , Service support , CC: Dr. Gerry Ojeda DO; Dr. Jaime Galarza MD Production Specialist: Signed Normal [facility] Emergency Department Summary on 08-22-2024 Emergency Department Summary [facility] Medical Records Department [address] [place] [address] Emergency Department Summary 08/22/24 MR#: [id number] Acct: [id number] Name: ARMAAN CHANEL Rep #: [id number] : 1940 84 From: Gerry Ojeda DO PCP: Dr. Jaime Galarza MD Status:ADM IN Location: [place] [address]-1 HPI History of Present Illness Chief Complaint: General Illness Informant: patient Onset/Context/Timing Onset: Days (3) Context: Sudden Onset Timing: Continuous Quality: Short of breath Location: Chest Worsened by: Nothing Relieved by: Nothing Narrative Narrative: Patient presents with cough and fever that has been getting worse over the past 3 days. Patient [facility]. Patient was given a prescription for erythromycin. Patient states he has been taking that with minimal relief. Patient states he also recently received his COVID and influenza immunizations just prior to his symptoms starting. Patient states he had an episode of nausea and vomiting 3 days ago when his symptoms started. Patient states he is coughing up some clear sputum. Patient denies any sore throat or sinus pressure. Patient denies any headaches. [facility] Medical History Contusion of right chest wall URI (upper respiratory infection) Wears hearing aid Wears glasses Insulin dependent diabetes mellitus Uses inhaler device Back pain Former smoker Shortness of breath on exertion Chronic cough History of pain when walking History of stress test History of echocardiogram History of dislocation of elbow Chronic neck and back pain Severe headache Diabetes Shoulder pain Arthritis Home Medications ???Medication ???Instructions ???Recorded ???Last Taken ???Type glipizide 5 mg tablet, extended 5 mg PO BID DIABETES 08/11/13 Unknown History release 24 hr insulin glargine 100 unit/mL (3 22 units subcut QHS DIABETES 08/11/13 Unknown History mL) subcutaneous pen losartan 50 mg tablet 50 mg PO DAILY BP 08/11/13 07/31/21 05:00 History metformin 1,000 mg tablet 1,000 mg PO BIDCM DIABETES 08/11/13 Unknown History multivitamin with folic acid 400 1 tab PO DAILY SUPPLEMENT 08/11/13 Unknown History mcg tablet pioglitazone 30 mg tablet 30 mg PO DAILY DIABETES 08/11/13 Unknown History atorvastatin 40 mg tablet 40 mg PO QHS CHOLESTEROL 06/02/17 Unknown History ascorbic acid (vitamin C) 500 mg 500 mg PO DAILY SUPPLEMENT 12/19/18 Unknown History tablet (Vitamin C) vitamin E 268 mg (400 unit) capsule 400 unit PO DAILY SUPPLEMENT 12/19/18 Unknown History aspirin 81 mg chewable tablet 81 mg PO DAILY 01/11/21 01/10/21 History acetaminophen 500 mg tablet 1,000 mg PO Q12H PRN PRN Pain 07/14/21 Unknown History benzonatate 200 mg capsule 200 mg PO TID PRN cough #20 caps 06/16/24 Unknown Rx azithromycin 250 mg tablet See Rx Instructions PO .COMPLEX #6 08/21/24 Unknown Rx tabs Allergy/AdvReac Type Severity Reaction Status Date / Time No Known Allergies Allergy Verified 08/22/24 19:59 Surgical History Hx of transurethral resection of prostate Hx of colonoscopy History of tonsillectomy and adenoidectomy Hx of total hip arthroplasty History of back surgery History of appendectomy Social History Smoking Status: Former smoker ROS ROS ED Constitutional Constitutional ED: Reports fever(s) and subjective; Denies chills Eyes Eyes: Denies blurry vision or change in vision ENT ENT ED: Denies rhinorrhea or sore throat Cardiovascular Cardiovascular: Denies chest pain or palpitations Respiratory/Chest Respiratory/Chest: Reports cough and dyspnea Gastrointestinal Gastrointestinal: Denies nausea or vomiting Genitourinary Genitourinary ED: Reports urinary frequency; Denies dysuria or hematuria Musculoskeletal Musculoskeletal: Denies back pain or neck pain Integumentary Denies abscess or rash Neurologic Neurologic: Denies headache(s) or weakness Allergic/Immunologic Allergic/Immunologic ED: Denies mouth swelling or urticaria EXAM Physical Exam Const Vital Signs: 08/22/24 19:58 08/22/24 20:44 08/22/24 20:45 Temperature 98.8 F 100.4 F H Temperature Source Oral Oral Pulse Rate 81 123 H Respiratory Rate 19 H 24 H Respiratory Pattern Tachypnea Blood Pressure 183/76 H 172/65 H Blood Pressure Mean 111 100 Pulse Ox 93 93 Oxygen Delivery Method Room Air Room Air 08/22/24 21:40 08/22/24 21:45 08/22/24 22:24 Temperature 100.4 F H Temperature Source Oral Pulse Rate 117 H 123 H 116 H Respiratory Rate 24 H 28 H 18 Respiratory Pattern Tachypnea Blood Pressure 136/68 H 163/62 H Blood Pressure M (more content not included)... Normal [facility] H AND P Exam - Hospitaliston 08-22-2024 H&P Exam - Hospitalist [facility] Medical Records Department [address] [place] [address] H P Exam - Hospitalist 08/22/24 2321 MR#: [id number] Acct: [id number] Name: ARMAAN CHANEL Rep #: [id number] : 1940 84 From: Alyson Clarke MD PCP: Dr. Jaime Galarza MD Status:ADM IN Location: [facility] [id number] HPI - General General Date of Admission: 08/22/24 Date of Service: 08/22/24 Chief Complaint: URI sxs, cough, dyspnea HPI Narrative The patient is an 84 y/o M w/ PMHx: IRVING on CPAP q HS, Chronic anemia, Former tobacco use, Diabetes mellitus type II, Obesity, BPH with obstructive pathology, HTN, HLD who presents to the [facility] ED on 08/22/2024 with 2 days of persistent cough, congestion, fatigue, shortness of breath as well as fever with urgent care evaluation the day prior prescribed an antibiotic therapy specifically a Z- Triston cough regimen with benzonatate however despite self administration of these medications he has felt worse prompting eventual ED evaluation this evening. Patient did receive his COVID and influenza immunizations on 08/20/2024 of note. He denies any ill contacts and his son and who are present deny themselves any recent URI type symptoms. Workup in the ED included T98.8, heart rate 81, BP 183/76, respiratory rate 19, 93% on room air however most recent repeat vital sign assessment T 100.4 orally, heart rate 123, BP 172/65, respiratory rate 24, 93% on room air, CBC with WBC 5.1, hemoglobin 10.1, MCV 97.5, platelet 24 with lymphopenia, BMP unremarkable aside glucose 261, urinalysis with protein 100, glucose 1000, ketone 50, occult blood 25, negative nitrite, negative leukocyte esterase, no marked urine bacteria, chest x-ray with bibasilar pneumonia, rapid SARS COVID/influenza/RSV PCR negative. In the ED patient ministered 1 L normal saline, azithromycin 500 mg IV x 1, Rocephin 2 g IV x 1, as well as DuoNeb therapy. [facility] Medical History Obesity BPH (benign prostatic hyperplasia) HLD (hyperlipidemia) HTN (hypertension) Chronic anemia IRVING on CPAP Wears hearing aid Wears glasses Insulin dependent diabetes mellitus Back pain Former smoker History of pain when walking History of stress test History of echocardiogram History of dislocation of elbow Chronic neck and back pain Arthritis Home Medications ???Medication ???Instructions ???Recorded ???Last Taken ???Type glipizide 5 mg tablet, extended 5 mg PO BID DIABETES 08/11/13 Unknown History release 24 hr insulin glargine 100 unit/mL (3 22 units subcut QHS DIABETES 08/11/13 Unknown History mL) subcutaneous pen losartan 50 mg tablet 50 mg PO DAILY BP 08/11/13 07/31/21 05:00 History metformin 1,000 mg tablet 1,000 mg PO BIDCM DIABETES 08/11/13 Unknown History multivitamin with folic acid 400 1 tab PO DAILY SUPPLEMENT 08/11/13 Unknown History mcg tablet pioglitazone 30 mg tablet 30 mg PO DAILY DIABETES 08/11/13 Unknown History atorvastatin 40 mg tablet 40 mg PO QHS CHOLESTEROL 06/02/17 Unknown History ascorbic acid (vitamin C) 500 mg 500 mg PO DAILY SUPPLEMENT 12/19/18 Unknown History tablet (Vitamin C) vitamin E 268 mg (400 unit) capsule 400 unit PO DAILY SUPPLEMENT 12/19/18 Unknown History aspirin 81 mg chewable tablet 81 mg PO DAILY 01/11/21 01/10/21 History acetaminophen 500 mg tablet 1,000 mg PO Q12H PRN PRN Pain 07/14/21 Unknown History benzonatate 200 mg capsule 200 mg PO TID PRN cough #20 caps 06/16/24 Unknown Rx azithromycin 250 mg tablet See Rx Instructions PO .COMPLEX #6 08/21/24 Unknown Rx tabs Allergy/AdvReac Type Severity Reaction Status Date / Time No Known Allergies Allergy Verified 08/22/24 19:59 Family History Mother Heart failure Heart disease Father Diabetes Surgical History Hx of transurethral resection of prostate Hx of colonoscopy History of tonsillectomy and adenoidectomy Hx of total hip arthroplasty History of back surgery History of appendectomy Social History household members: spouse Smoking Status: Former smoker how long ago did patient quit smoking: Quit 1965, smoked 1 ppd from college->quit. alcohol intake: current alcohol intake frequency: a few times a month Alcohol type: wine substance use type: does not use ROS ROS Narrative Admission Review of Systems: CONSTITUTIONAL: No weight loss, + fever, chills, weakness or fatigue. HEENT: + Congestion, rhinorrhea. Eyes: No visual loss, blurred vision, double vision or yellow sclerae. Ears, Nose, Throat: No hearing loss, sneezing. SKIN: No rash or itching, lesions, wounds. CARDIOVASCULAR: No chest pain, chest pressure or chest discomfort, palpitations, edema, o (more content not included)... Normal [facility] M100.678on 08-22-2024 M100.678 Pending SARS-CoV-2 (COVID 19) Negative INFLUENZA A Negative INFLUENZA B Negative RSV PCR Negative Normal [facility] Comment on above: Performed By: #### L 100.0100, L500.2500 #### [facility] [address] [place], [address] Urinalysis, Completeon 08-22 AMORPHOUS 1+ Normal [facility] Comment on above: Order Comment: CLEAN CATCH Performed By: #### L 100.0100, L500.2500 #### [facility] [address] [place], [address] CAST,HYALINE 0-5 SEEN Normal 0-5 [facility] Comment on above: Order Comment: CLEAN CATCH Performed By: #### L 100.0100, L500.2500 #### [facility] [address] [place], [address] EPI,SQUAMOUS 0-5 SEEN Normal 0-5 [facility] Comment on above: Order Comment: CLEAN CATCH Performed By: #### L 100.0100, L500.2500 #### [facility] [address] [place], [address] BILIRUBIN URINE Negative Normal Negative [facility] Comment on above: Order Comment: CLEAN CATCH Performed By: #### L 100.0100, L500.2500 #### [facility] [address] [place], [address] Clarity (U) Clear Normal Clear [facility] Comment on above: Order Comment: CLEAN CATCH Performed By: #### L 100.0100, L500.2500 #### [facility] [address] [place], [address] Color (U) Yellow Normal Yellow [facility] Comment on above: Order Comment: CLEAN CATCH Performed By: #### L 100.0100, L500.2500 #### [facility] [address] [place], [address] GLUCOSE, UR 1000 mg/dl Abnormal Normal [facility] Comment on above: Order Comment: CLEAN CATCH Performed By: #### L 100.0100, L500.2500 #### [facility] [address] [place], [address] KETONE UR 50 mg/dl Abnormal Negative [facility] Comment on above: Order Comment: CLEAN CATCH Performed By: #### L 100.0100, L500.2500 #### [facility] [address] [place], [address] LEUK ESTERASE Negative Normal Negative [facility] Comment on above: Order Comment: CLEAN CATCH Performed By: #### L 100.0100, L500.2500 #### [facility] [address] [place], [address] Nitrite Ql (U) Negative Normal Negative [facility] Comment on above: Order Comment: CLEAN CATCH Performed By: #### L 100.0100, L500.2500 #### [facility] [address] [place], [address] OCCULT BLOOD-UR 25 /ul Abnormal Negative [facility] Comment on above: Order Comment: CLEAN CATCH Performed By: #### L 100.0100, L500.2500 #### [facility] [address] [place], [address] pH UR 6.0 Normal 5.0 - 8.0 [facility] Comment on above: Order Comment: CLEAN CATCH Performed By: #### L 100.0100, L500.2500 #### [facility] [address] [place], [address] PROT DIPSTX 100 mg/dl Abnormal Negative [facility] Comment on above: Order Comment: CLEAN CATCH Performed By: #### L 100.0100, L500.2500 #### [facility] [address] [place], [address] SP.GR. DIPSTX 1.015 Normal 1.002-1.030 [facility] Comment on above: Order Comment: CLEAN CATCH Performed By: #### L 100.0100, L500.2500 #### [facility] [address] [place], [address] UROBILI 4 mg/dl Abnormal Normal [facility] Comment on above: Order Comment: CLEAN CATCH Performed By: #### L 100.0100, L500.2500 #### [facility] [address] [place], [address] BACTERIA 0 SEEN Normal None Seen [facility] Comment on above: Order Comment: CLEAN CATCH Performed By: #### L 100.0100, L500.2500 #### [facility] [address] [place], [address] Mucus Ql (Urine sed) 0 SEEN Normal [facility] Comment on above: Order Comment: CLEAN CATCH Performed By: #### L 100.0100, L500.2500 #### [facility] [address] [place], [address] RBC 0 SEEN Normal 0-5 [facility] Comment on above: Order Comment: CLEAN CATCH Performed By: #### L 100.0100, L500.2500 #### [facility] [address] [place], [address] WBC 0 SEEN Normal 0-5 [facility] Comment on above: Order Comment: CLEAN CATCH Performed By: #### L 100.0100, L500.2500 #### [facility] [address] [place], [address] Chest PA and Lateralon 08-21 Chest PA and Lateral [facility] [address] [place] [address] Chest PA and Lateral MR#: [id number] Acct: [id number] Name: ARMAAN CHANEL CAROL Rep #: [id number] : 1940 M 84 From: Arin Schluz PCP: Dr. Jaime Galarza MD Status: REG CLI Study: Chest PA and Lateral Date of Exam: 08/21/24 Exam# [id number] Ordering Dr: Maxx Rivera PA [id number] INDICATION: cough EXAMINATION/TECHNIQUE: X-RAY - XR Chest 2 Views COMPARISON: Prior study dated: 05/13/2024, 03/16/2023 FINDINGS: LINES/DEVICES: None. LUNGS: Focal opacity posteriorly on the lateral view of the CP angle. This is not well visualized on the PA view but is likely in the right lower lobe. No pneumothorax. MEDIASTINUM: Aorta is atherosclerotic and tortuous. CARDIAC SILHOUETTE: Not enlarged. BONES AND SOFT TISSUES: No acute abnormalities. RAD/Chest PA and Lateral IMPRESSION: Focal opacity posteriorly best seen on the lateral view, likely in the right lower lobe. This may be consistent with pneumonia. Other etiologies including mass is not excluded. Radiographic follow-up is recommended in 6-8 weeks to confirm resolution, or CT may be helpful, to exclude mass. Electronically Signed: Arin Reddy MD at 8:05 EST , CC: DORON Bermudez; Dr. Jaime Galarza MD Production Specialist: Signed Normal [facility] Urgent Care Visit Reporton 1 10-21-2023 Urgent Care Visit Report [facility] [address], [address] [place] [address] OFFICE VISIT Date of Service: 08/21/24 MR#: [id number] Acct: [id number] Name: ARMAAN CHANEL Rep #: [id number] : 1940 Provider: DORON Bermudez Age/Sex: 84/M Location: [facility] Status: Signed Intake Vital Signs 06/16/24 12:34 08/21/24 14:50 Height 5 ft 7 in Weight: 195 lb BMI 30.5 BP 132/92 H 158/82 H Blood Pressure Location Lt brachial Lt brachial Position Sitting Sitting Respiration 16 18 Pulse 95 106 H Pulse Source Monitor Monitor Temp 98.0 F 99.9 F H Temp Source Temporal Oral Pulse Oximetry (%) 97 92 Oxygen Delivery Method room air room air Intake Visit Reasons: Respiratory complaints Allergies No Known Allergies Allergy (Verified 08/21/24 14:52) Have you fallen in the past year?: No PFSH Medical History Contusion of right chest wall URI (upper respiratory infection) Wears hearing aid Wears glasses Insulin dependent diabetes mellitus Uses inhaler device Back pain Former smoker Shortness of breath on exertion Chronic cough History of pain when walking History of stress test History of echocardiogram History of dislocation of elbow Chronic neck and back pain Severe headache Diabetes Shoulder pain Arthritis Surgical History Hx of transurethral resection of prostate Hx of colonoscopy History of tonsillectomy and adenoidectomy Hx of total hip arthroplasty History of back surgery History of appendectomy Social History Smoking Status: Former smoker HPI HPI Details: ARMAAN CHANEL, is a 84 M who presents to the office today for complaint of cough and congestion starting yesterday. Patient states this started yesterday morning. He also reports having fatigue as well. Additionally patient had his COVID and influenza immunizations given yesterday morning. Patient denies nausea, vomiting or diarrhea. No hemoptysis, shortness of breath or difficulty breathing. Patient does state feeling feverish however has not actually taken his temperature. No other associated symptoms or alleviating/aggravating factors. ROS Const Constitutional: No other (as above) Exam Const General: cooperative and well developed HENMT Head: normal to inspection and atraumatic Ears: hearing grossly normal bilaterally Nose: nasal discharge clear Face and sinus: normal facial exam Mouth: oral mucosae normal Throat: abnormal tonsil bilaterally hypertrophy 1+ Resp Effort Inspection: normal respiratory effort and no audible wheezes Auscultation: Bilateral: Clear to Auscultation Cardio Palpation: normal PMI Rate: regular rate Rhythm: regular rhythm Neuro General: patient alert and CN's II-XI intact bilaterally Psych Appearance: grossly normal Mental Status: mental status grossly normal Coding Level of Care Code Off vis,est,level 3 Diagnoses URI (upper respiratory infection) J06.9 Assessment and Plan Assessment and Plan (1) URI (upper respiratory infection): Status: Acute Plan: Patient tested negative for influenza and COVID in the office today. Azithromycin as prescribed today. Encouraged to get plenty of rest, drink lots of clear liquids, and use Tylenol or Ibuprofen (unless contraindicated) for fever and comfort. Patient also educated on other symptomatic management techniques. To be seen in 7-10 days if no improvement; sooner if worsening of symptoms. Patient advised of potential red flags and when appropriate to report to the ED. Patient verbalized understanding and agreement with all the above. Orders: Orders Chest PA and Lateral Today R09.89 - Other specified symptoms and signs involving the circulatory and respiratory systems POC FLU A B Today R05.9 - Cough, unspecified POC Rapid SARS Antigen Today Medications: New azithromycin take 500 mg today (day 1), then 250 mg for 4 days (days 2-5) PO 6 tabs 0RF Clinical Quality Measures Falls Risk Screening/Assistive Devices Have you fallen in the past year?: No 08/21/24 1735 Date Maxx Grey Signature: Date (if applicable) CC: Normal [facility] PSA,Total - Annual Screenon 07-06-2024 PSA,TOT SCREEN 4.31 ng/mL High 0.00-4.00 [facility] Comment on above: Result Comment: This test was performed using the TPSA assay method for the Vouch[employer] chemistry system. Values obtained with different assay methods cannot be used interchangably. When changing PSA assays in the course of monitoring a patient, additional sequential testing should be carried out to confirm baseline values. Performed By: #### L 501.080 #### [facility] [address] [place], [address] Basic Metabolic Profile (BMP )on 06-29-2024 BUN/CRE 17.3 RATIO Normal 10-20 [facility] Comment on above: Performed By: #### L 501.080 #### [facility] [address] [place], [address] CA,Total 9.2 mg/dL Normal 8.5-10.1 [facility] Comment on above: Performed By: #### L 501.080 #### [facility] [address] [place], [address] Chloride [Moles/Vol] 103 mmol/L Normal 98-107 [facility] Comment on above: Performed By: #### L 501.080 #### [facility] [address] [place], [address] CO2 [Moles/Vol] 27.0 mmol/L Normal 21.0-32.0 [facility] Comment on above: Performed By: #### L 501.080 #### [facility] [address] [place], [address] Creatinine [Mass/Vol] 0.81 mg/dL Normal 0.70-1.30 [facility] Comment on above: Result Comment: The validity of the calculated GFR GFRAA in patients over 70 years has not been determined. Clinical correlation is essential. Performed By: #### L 501.080 #### [facility] [address] [place], [address] EST GFR - AA 117 mL/min Normal >60 [facility] Comment on above: Result Comment: Afri can Swiss GFR Calc Performed By: #### L 501.080 #### [facility] [address] [place], [address] GAP 5 Normal 5-15 [facility] Comment on above: Performed By: #### L 501.080 #### [facility] [address] [place], [address] GFR/1.73 sq M.predicted among non-blacks MDRD (S/P/Bld) [Vol rate/Area] 97 mL/min/{1.73_m2} Normal >60 [facility] Comment on above: Result Comment: Non- GFR Calc Performed By: #### L 501.080 #### [facility] [address] [place], [address] Glucose [Mass/Vol] 265 mg/dL High 74-106 [facility] Comment on above: Result Comment: Gluc ose result greater than or equal to 200 mg/dL suggests DIABETES MELLITUS per A.D.A. criteria. Performed By: #### L 501.080 #### [facility] [address] [place], [address] Potassium [Moles/Vol] 4.1 mmol/L Normal 3.5-5.1 [facility] Comment on above: Performed By: #### L 501.080 #### [facility] [address] [place], [address] Sodium [Moles/Vol] 135 mmol/L Low 136-145 [facility] Comment on above: Performed By: #### L 501.080 #### [facility] [address] [place], [address] Urea nitrogen [Mass/Vol] 14 mg/dL Normal 7-18 [facility] Comment on above: Performed By: #### L 501.080 #### [facility] [address] [place], [address] Lipid Profileon 06-29-2024 Cholesterol [Mass/Vol] 92 mg/dL Normal 200 [facility] Comment on above: Result Comment: <200 mg/dL Desirable 200-240 mg/dL Borderline >240 mg/dL High Risk Performed By: #### L 501.080 #### [facility] [address] [place], [address] Cholesterol in HDL [Mass/Vol] 35 mg/dL Low [facility] Comment on above: Result Comment: The drugs N-Acetylcysteine and Metamizole may falsely depress this assay. Reference Range HDL <40 mg/dL Low HDL Cholesterol HDL >or= 60 mg/dL High HDL Cholesterol Performed By: #### L 501.080 #### [facility] [address] [place], [address] Cholesterol in LDL [Mass/Vol] 27 mg/dL Normal 0-130 [facility] Comment on above: Performed By: #### L 501.080 #### [facility] [address] [place], [address] Cholesterol in VLDL [Mass/Vol] 30 mg/dL Normal 5-40 [facility] Comment on above: Performed By: #### L 501.080 #### [facility] [address] [place], [address] Triglyceride [Mass/Vol] 152 mg/dL Normal [facility] Comment on above: Result Comment: The drugs N-Acetylcysteine and Metamizole may falsely depress this assay. Serum Triglycerides Reference Interval Normal <150 mg/dL Borderline high 150 - 199 mg/dL High 200 - 499 mg/dL Very High > or = 500 mg/dL Performed By: #### L 501.080 #### [facility] [address] [place], [address] Urgent Care Visit Reporton 0 06-16-2024 Urgent Care Visit Report [facility] [address] , [address] [place], [place] [address] OFFICE VISIT Date of Service: 06/16/24 MR#: [id number] Acct: [id number] Name: ARMAAN CHANEL Rep #: [id number] : 1940 Provider: DORON Ferrer Age/Sex: 84/M Location: [facility] Status: Signed Intake Vital Signs 05/28/23 16:10 06/16/24 12:34 Height 5 ft 7 in 5 ft 7 in Weight: 195 lb BMI 30.5 BP 132/92 H Blood Pressure Location Lt brachial Position Sitting Respiration 16 Pulse 95 Pulse Source Monitor Temp 98.0 F Temp Source Temporal Pulse Oximetry (%) 97 Oxygen Delivery Method room air Intake Visit Reasons: COUGH/CHEST/SINUS CONGESTION Chief Complaint: COUGH CHEST CONGESTION 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 Accompanied by: Is patient in pain?: No Allergies No Known Allergies Allergy (Verified 06/16/24 12:35) Have you fallen in the past year?: No PFSH Medical History Contusion of right chest wall URI (upper respiratory infection) Wears hearing aid Wears glasses Insulin dependent diabetes mellitus Uses inhaler device Back pain Former smoker Shortness of breath on exertion Chronic cough History of pain when walking History of stress test History of echocardiogram History of dislocation of elbow Chronic neck and back pain Severe headache Diabetes Shoulder pain Arthritis Surgical History Hx of transurethral resection of prostate Hx of colonoscopy History of tonsillectomy and adenoidectomy Hx of total hip arthroplasty History of back surgery History of appendectomy Social History Smoking Status: Former smoker HPI HPI Chief Complaint: COUGH CHEST CONGESTION Details: ARMAAN CHANEL, is a 84 M who presents to the office today for initial evaluation at the [facility] for approximately 24-hour history of cough, headache, fatigue, congestion/runny nose. No complaints of chest pain or shortness of breath or dyspnea on exertion. No zogq-kcf-lktitim products taken to assist. Several close contacts with similar URI complaints, including spouse. Non-smoker. No other associated symptoms and no alleviating/aggravating factors. ROS Const Constitutional: No other (as above) Exam Const General: cooperative, healthy appearing and no acute distress Nutritional Appearance: average body habitus Orientation: alert, awake and oriented x3 HENWI Head: normal to inspection Ears: hearing grossly normal bilaterally, external ears normal, TM's normal bilaterally and EAC's normal Nose: external nose normal, nares normal, septum normal and nasal discharge clear Face and sinus: normal facial exam, sinuses nontender and face symmetric Mouth: oral mucosae normal, lip normal, tongue normal and oropharynx normal Throat: posterior oropharynx normal, tonsils normal, uvula midline and no postnasal drainage Eyes General: appearance normal, both eyes and all related structures Neck Neck: normal visual inspection, full ROM, no lymphadenopathy, no meningeal signs and supple Neck mass: No Thyroid: thyroid normal Lymphatic: no lymphadenopathy noted Chest Chest palpation inspection: normal inspection of the chest Resp Effort Inspection: normal respiratory effort, able to speak in complete sentences and cough Quality of cough: wet (Nonproductive in office today) Auscultation: Bilateral: Clear to Auscultation Cardio Palpation: normal PMI Rate: tachycardic Rhythm: regular rhythm Heart Sounds: S1 normal, S2 normal, no gallops, no murmurs and no rubs Pulses: radial pulses present GI Inspection: normal to inspection Palpation: soft and no hepatosplenomegaly Skin General: no rashes or lesions noted Neuro General: patient alert, patient awake and patient oriented x3 Cognition: normal cognition Speech: speech normal Psych Appearance: grossly normal Mental Status: mental status grossly normal Mood: congruent mood Affect: normal affect Speech and Movement: speech and movement normal Attitude: cooperative Diagnoses COVID-19 U07.1 Assessment and Plan Assessment and Plan (1) COVID-19: Status: Acute Plan: See POC results. Dexamethasone and Benzonatate as prescribed today. Supportive measures as instructed today. Patient aware of isolation recommendations and [facility] department notification. Follow-up with PCP in 5 to 7 days should symptoms not improve, ED sooner should symptoms worsen or any other concerns develop. Patient states acknowledging understanding all the above Results POC DANY Covid FluAB PCR POC Dany Covid PCR Detected Last Edit by Diana Kline MA on 06/16/24 12:55 POC DANY FLU NOT DETECTED FLU A B La (more content not included)... Normal [facility] Ribs Uni Min 3V w/PA Cheston 08-07-2024 Ribs Uni Min 3V w/PA Chest [facility] [address] [place], [place] [address] Ribs Uni Min 3V w/PA Chest MR#: [id number] Acct: [id number] Name: ARMAAN CHANEL Rep #: [id number] : 1940 M 84 From: Willard reddy MD PCP: Dr. Jaime Galarza MD Status: REG CLI Study: Ribs Uni Min 3V w/PA Chest Date of Exam: 05/13 Exam# [id number] Ordering Dr: Valentín Estrada PA [id number] STUDY: X-RAY - UNILATERAL RIBS ( RIGHT ) WITH CHEST REASON FOR EXAM: Male, 84 years old. One week history of right anterior rib pain. TECHNIQUE - RIBS: 4 view(s) of the ribs. TECHNIQUE - CHEST: Single PA view of the chest. COMPARISON: Comparison is made with prior chest radiograph dated March 16, 2023. FINDINGS - RIBS: Normal visualized ribs without a demonstrated fracture. FINDINGS - CHEST: There is hyperinflation of the lungs consistent with chronic obstructive lung disease (COPD). There is no demonstrated pleural abnormality. There is borderline cardiomegaly. Normal mediastinum and carmelita. Normal visualized pulmonary arteries. There is atherosclerotic calcification of the aortic arch with tortuosity. Normal visualized thoracic spine. Normal visualized ribs, clavicles, and shoulders. There is no demonstrated abnormality of the visualized soft tissue structures of the upper abdomen. RAD/Ribs Uni Min 3V w/PA Chest IMPRESSION: RIBS: Normal x-ray examination of the ribs. CHEST: Hyperinflation. COPD. Electronically Signed: Willard Conrad MD at 14:31 EDT Reading Location ID and State: [facility] / [place] , Service support , CC: Dr. Jaime Galarza MD; DORON Ferrer Production Specialist: Signed Normal [facility] Urgent Care Visit Reporton 0 05-13-2024 Urgent Care Visit Report [facility] [address], [address] [place] [address] OFFICE VISIT Date of Service: 05/13/24 MR#: [id number] Acct: [id number] Name: ARMAAN CHANEL Rep #: [id number] : 1940 Provider: DORON Ferrer Age/Sex: 84/M Location: [facility] Status: Signed Intake Vital Signs 05/28/23 16:10 05/13/24 13:47 Height 5 ft 7 in Weight: 205 lb BMI 32.1 BP 130/70 H 138/58 H Blood Pressure Location Lt brachial Lt brachial Position Sitting Sitting Respiration 16 18 Pulse 94 87 Pulse Source Monitor NIBP Temp 98.2 F 98.0 F Temp Source Temporal Temporal Pulse Oximetry (%) 98 96 Oxygen Delivery Method room air room air Intake Visit Reasons: SORE RIBS ON R SIDE FROM FALL Chief Complaint: right rib pain 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 Is patient in pain?: Yes Allergies No Known Allergies Allergy (Verified 05/13/24 13:52) Have you fallen in the past year?: Yes Nurse's Note: right rib pain after a trip and fall 1 week ago landing on cooler. c/o pain since, worse with inspiration and cough. denies additional injuries. [facility] Medical History (Updated 05/13/24 @ 14:25 by Valentín SAL, PA) Contusion of right chest wall URI (upper respiratory infection) Wears hearing aid Wears glasses Insulin dependent diabetes mellitus Uses inhaler device Back pain Former smoker Shortness of breath on exertion Chronic cough History of pain when walking History of stress test History of echocardiogram History of dislocation of elbow Chronic neck and back pain Severe headache Diabetes Shoulder pain Arthritis Surgical History Hx of transurethral resection of prostate Hx of colonoscopy History of tonsillectomy and adenoidectomy Hx of total hip arthroplasty History of back surgery History of appendectomy Social History Smoking Status: Former smoker HPI HPI Chief Complaint: right rib pain Details: ARMAAN CHANEL, is a 84 M who presents to the office today for initial evaluation at the [facility] for right anterior lower rib cage pain. Patient was proximately week ago tripping and falling hitting the same causing localized pain which is aggravated to touch and with deep inspiration. He notes no complaints of chest pain or shortness of breath or dyspnea on exertion or fatigue or abdominal complaints. No complaints of nausea/vomiting or changes in bowel/bladder function. PMH NC. No fydz-era-[id number] box diagnosis. No other associated symptoms and no other alleviating/aggravating factors. ROS Const Constitutional: No other (as above) Exam Const General: cooperative, healthy appearing and no acute distress Orientation: alert and awake HENWI Head: normal to inspection Ears: hearing grossly normal bilaterally and external ears normal Nose: external nose normal and no nasal discharge Neck Neck: normal visual inspection and no meningeal signs Chest Chest palpation inspection: normal inspection of the chest, normal palpation of entire chest wall (Except tender to palpation right anterior lower rib cage) and abnormal inspection of the chest (Right anterior lower rib cage with resolving ecchymosis) Resp Effort Inspection: normal respiratory effort, able to speak in complete sentences and symmetric chest movement Auscultation: Bilateral: Clear to Auscultation Cardio Palpation: normal PMI Rate: regular rate Rhythm: regular rhythm Heart Sounds: S1 normal and S2 normal Pulses: radial pulses present GI Inspection: normal to inspection Palpation: soft Skin General: no rashes or lesions noted Neuro General: patient alert and patient awake Cognition: normal cognition Speech: speech normal Extrem General: normal to inspection Psych Appearance: grossly normal Mental Status: mental status grossly normal Mood: congruent mood Affect: normal affect Speech and Movement: speech and movement normal Attitude: cooperative Coding Level of Care Code Off vis,est,level 4 Diagnoses Contusion of right chest wall S20.211A Assessment and Plan Assessment and Plan (1) Contusion of right chest wall: Status: Acute Plan: Right rib and PA chest radiographs taken today reveal no acute rib fractures per my review, pending radiologist interpretation time patient discharged. Supportive measures as instructed today. Follow-up PCP in 5 to 7 days should symptoms not improve, ED sooner should symptoms only worsen or any other concerns develop. Patient states acknowledging understanding all the above. This note was generated with [employer] dictation software. It may contain incorrect words, spelling, and punctuation that were not noted in checking the note before signing. Orders (more content not included)... Normal [facility] Basophil percentageOrdered B y: Jaime Galarza on 12-26-2023 Chloride [Moles/Vol] 107 mmol/L 98-107 [facility] Cholesterol [Mass/Vol] 76 mg/dL <200 [facility] Comment on above: <200 mg/dL Desirable 200-240 mg/dL Borderline >240 mg/dL High Risk Glucose [Mass/Vol] 192 mg/dL 74-106 [facility] Comment on above: Fasting Glucose resu lt greater than or equal to 126 mg/dL suggests DIABETES MELLITUS per A.D.A. criteria. Potassium [Moles/Vol] 4.4 mmol/L 3.5-5.1 [facility] Sodium [Moles/Vol] 138 mmol/L 136-145 [facility] Triglyceride [Mass/Vol] 94 mg/dL <199 [facility] Comment on above: The drugs N-Acetylcy steine and Metamizole may falsely depress this assay.Serum Triglycerides Reference Interval Normal <150 mg/dL Borderline high 150 - 199 mg/dL High 200 - 499 mg/dL Very High > or = 500 mg/dL Laboratory - Chemistry and C hemistry - challengeOrdered By: Jaime Galarza on 12-26-2023 Cholesterol in HDL [Mass/Vol] 40 mg/dL >40 [facility] Comment on above: The drugs N-Acetylcy steine and Metamizole may falsely depress this assay. Reference Range HDL <40 mg/dL Low HDL Cholesterol HDL >or= 60 mg/dL High HDL Cholesterol Cholesterol in LDL [Mass/Vol] 17 mg/dL 0-130 [facility] CO2 [Moles/Vol] 23.0 mmol/L 21.0-32.0 [facility] Urea nitrogen/Creatinine [Mass ratio] 18.3 mg/mg 10-20 [facility] No Panel InformationOrdered By: Jaime Galarza on 12-26-2023 Estimated GFR (MDRD) Amer 108 mL/min >60 [facility] Comment on above: GFR Calc Estimated GFR (MDRD) Non-Af Amer 89 mL/min >60 [facility] Comment on above: Non- GFR Calc VLDL Cholesterol 19 mg/dL 5-40 [facility] Serum or plasma calcium amandeep urement (mass/volume)Ordered By: Jaime Galarza on 12-26-2023 Calcium [Mass/Vol] 8.9 mg/dL 8.5-10.1 [facility] Serum or plasma creatinine m easurement (mass/volume)Ordered By: Jaime Galarza on 12-26-2023 Creatinine [Mass/Vol] 0.87 mg/dL 0.70-1.30 [facility] Comment on above: The validity of the calculated GFR & GFRAA in patients over 70 years has not been determined. Clinical correlation is essential. Serum or plasma urea nitroge n measurement (mass/volume)Ordered By: Jaime Galarza on 12-26-2023 Urea nitrogen [Mass/Vol] 16 mg/dL 7-18 [facility] Thin prep Papanicolaou smear with manual screeningOrdered By: Jaime Galarza on 12-26-2023 Thin prep Papanicolaou smear with manual screening 8 5-15 [facility] Basophil percentageOrdered B y: Dr. Galarza on 12-24-2022 Chloride [Moles/Vol] 106 mmol/L 98-107 [facility] Glucose [Mass/Vol] 137 mg/dL 74-106 [facility] Comment on above: Fasting Glucose resu lt greater than or equal to 126 mg/dL suggests DIABETES MELLITUS per A.D.A. criteria. Potassium [Moles/Vol] 4.0 mmol/L 3.5-5.1 [facility] Sodium [Moles/Vol] 140 mmol/L 136-145 [facility] Laboratory - Chemistry and C hemistry - challengeOrdered By: Dr. Galarza on 12-24-2022 CO2 [Moles/Vol] 26.0 mmol/L 21.0-32.0 [facility] Urea nitrogen/Creatinine [Mass ratio] 30.5 mg/mg 10-20 [facility] No Panel InformationOrdered By: Dr. Galarza on 12-24-2022 Estimated GFR (MDRD) Amer 135 mL/min >60 [facility] Comment on above: GFR Calc Estimated GFR (MDRD) Non-Af Amer 111 mL/min >60 [facility] Comment on above: Non- GFR Calc Prostate Specific Antigen Screen 4.50 ng/mL 0.00-4.00 [facility] Comment on above: This test was perfor med using the TPSA assay method for theVouchr chemistry system. Values obtained with differentassay methods cannot be used interchangably.When changing PSA assays in the course of monitoring apatient, additional sequential testing should be carriedout to confirm baseline values. Serum or plasma calcium amandeep urement (mass/volume)Ordered By: Dr. Galarza on 12-24-2022 Calcium [Mass/Vol] 9.8 mg/dL 8.5-10.1 [facility] Serum or plasma creatinine m easurement (mass/volume)Ordered By: Dr. Galarza on 12-24-2022 Creatinine [Mass/Vol] 0.72 mg/dL 0.70-1.30 [facility] Comment on above: The validity of the calculated GFR & GFRAA in patients over 70 years has not been determined. Clinical correlation is essential. Serum or plasma urea nitroge n measurement (mass/volume)Ordered By: Dr. Galarza on 12-24-2022 Urea nitrogen [Mass/Vol] 22 mg/dL 7-18 [facility] Thin prep Papanicolaou smear with manual screeningOrdered By: Dr. Galarza on 12-24-2022 Thin prep Papanicolaou smear with manual screening 8 5-15 [facility] Laboratory - Microbiology an d Antimicrobial susceptibilityon 05-09-2022 SARS-CoV-2 (COVID-19) RNA YESSI+probe Ql (Unsp spec) Detected Not Detect [facility] Work Phone: Comment on above: Normal Reference Ran ge: Not DetectedMethod:(RT-PCR) real-time reverse transcriptase PCRLuminex GERARDO Instrument*The Food and Drug Administration (FDA) has issued an Emergency Use Authorization (EAU) for the GERARDO SARS-CoV-2 Assay for the rapid detection of the virus that causes COVID-19. This test has been validated, but the FDAs independent review of this validation is pending.*Negative results do not preclude infection and should not be used as the sole basis for treatment or patient management. Optimum specimen types and timing for peak viral levels during infections caused by SARS-CoV-2 have not been determined. Collection of multiple specimens from the same patient may be necessary to detect the virus. The possibility of a false negative result should be considered if the patient has clinical presentation or has had recent exposure. OBSOLETEon 10-28-2017 OBSOLETE Refill (INTMWS) -------ARMAAN CHANEL ([id number]) 1940 MDate Time Provider Department10/28/17 [facility] INTRohanWS During your visit today, we recorded the following information about you:Lashell Claros LPN 10/28/2017 12:01 PM SignedPatient has been identified by name and date of : YesPharmacy phones for refill(s):Pending Prescriptions Disp Refills LOSARTAN 50 MG TABLET 90 tablet 3 Sig: TAKE 1 TABLET DAILY ELICEO: YesDate of last office visit in primary care: 05/07/2017No future appt scheduledLast 2 Encounter Wt Readings: Date: Wt: 05/07/2017 89.4 kg (197 lb) 03/22/2017 89.4 kg (197 lb)Previous labs/tests for medication: Blood Pressure:BUN (mg/dL)Date Value05/07/2017 21 Sodium (mmol/L)Date Value05/07/2017 138 Last 1 Encounter BP Readings: Date: BP: 05/07/2017 124/56Please advise. Thank you. Lashell Engle CNP 10/28/2017 3:14 PM SignedPatient needs to reschedule follow-up that was canceled for further refills.The following approved medication requests have been transmitted electronically.Signed Prescriptions Disp Refills losartan (COZAAR) 50 mg tablet 90 tablet 0 Sig: TAKE 1 TABLET DAILY ELICEO: No Authorizing Provider: KHALIDA ENGLE (GISSELL)Elizabeth Frederick LPN 10/28/2017 4:15 PM SignedPlease call pt to arrange Nov yearly.TAHIR Ventura 10/28/2017 4:31 PM [id number] attempt/left message for patient to call back and schedule yearly physical.Jess Ventura PSR 11/01/2017 10:27 AM SignedSpoke with patient/he is no longer is being seen here at the Clinic for care.Allergies As of Date: 10/28/2017(No Known Allergies)Date Reviewed: 05/07/2017Reviewed by: Yasemin Sandoval LPN - Fully AssessedReason for Visit: Refill Request [94]Order(s):losartan (COZAAR) 50 mg tabletTAKE 1 TABLET DAILYDisp: 90 tabletRfl: 0Prescriptions as of 10/28/2017 Sig: LOSARTAN 50 MG TABLET TAKE 1 TABLET DAILY PIOGLITAZONE 30 MG TABLET TAKE 1 TABLET DAILY METFORMIN 500 MG TABLET TAKE 2 TABLETS TWICE A DAY WI* BD INSULIN PEN NEEDLE UF SHOR* USE ONCE DAILY OR INSTRUCT* LANTUS SOLOSTAR 100 UNIT/ML (* INJECT 22 UNITS UNDER THE SKI* OMEPRAZOLE 40 MG CAPSULE,MAHENDRA* Take 1 capsule by mouth once * GLIPIZIDE ER 5 MG TABLET, EXT* TAKE 1 TABLET TWICE A DAY WIT* ALBUTEROL SULFATE HFA 90 MCG/* Inhale 2 Puffs as instructed * FLUTICASONE 50 MCG/ACTUATION * Use 2 Sprays in each nostril * DEXTROMETHORPHAN POLISTIREX E* Take 60 mg by mouth twice fredy* MOBIC ORAL Take by mouth. ATORVASTATIN 40 MG TABLET Take 1 tablet by mouth once d* TAMSULOSIN 0.4 MG CAPSULE Take 1 capsule by mouth once * FINASTERIDE 5 MG TABLET TAKE 1 TABLET DAILY BLOOD SUGAR DIAGNOSTIC STRIPS Test blood sugar(s) 2 times d* ASPIRIN 81 MG TABLET Take one (1) tablet daily . MULTIVITAMIN TABLET Take one(1) tablet daily. VITAMIN C 500 MG TABLET Take one(1) tablet daily. VITAMIN E 400 UNIT SOFTGEL Take one(1) capsule daily.Problem List As Of Date 10/28/2017 Noted Resolved LUMBOSACRAL NEURITIS NOS [[id number]] INVALID FOR*06/24/2006 Diabetes mellitus without complication (HCC) [E*INVALID FOR* Hyperlipemia [E78.5] INVALID FOR* More... LUMBAR DISC DISPLACEMENT [M51.26] 06/24/2006 More... 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 Impotence of Organic Origin [N52.9] INVALID FOR* Elevated PSA [R97.20] INVALID FOR*08/06/2016Prescriptions ordered this encounter Disp Refills Start End LOSARTAN 50 MG TABLET 90 t* 0 10/28/2017 Sig: TAKE 1 TABLET DAILYMedications Discontinued During This Encounter losartan (COZAAR) 50 mg tablet 90 t* 3 11/02/2016 10/28/2017 Sig: TAKE 1 TABLET DAILY Disc: Reason for discontinue is not on file. Status:Closed by ZINA DEWITT LPN on 11/04/17 [facility] OBSOLETEon 09-26-2017 OBSOLETE Refill (INTMWS) -------ARMAAN CHANEL ([id number]) 1940 MDate Time Provider Xerauafvkd58/21/17 [facility] During your visit today, we recorded the following information about you:Zina Dewitt LPN 09/26/2017 10:03 AM SignedPatient phones requesting refills as follows:Pending Prescriptions Disp Refills PIOGLITAZONE 30 MG TABLET 90 tablet 3 Sig: TAKE 1 TABLET DAILY ELICEO: no METFORMIN 500 MG TABLET 360 tablet 3 Sig: TAKE 2 TABLETS TWICE A DAY WITH MEALS ELICEO: noLast appt with pcp 05/07/17.Please call pt to reschedule yearly from Nov. Please review and advise.Zina Engle CNP 09/26/2017 12:02 PM SignedThe following approved medication requests have been transmitted electronically.Signed Prescriptions Disp Refills pioglitazone (ACTOS) 30 mg tablet 90 tablet 0 Sig: TAKE 1 TABLET DAILY ELICEO: No Authorizing Provider: KHALIDA ENGLE (GISSELL) metFORMIN (GLUCOPHAGE) 500 mg tablet 360 tablet 0 Sig: TAKE 2 TABLETS TWICE A DAY WITH MEALS ELICEO: No Authorizing Provider: KHALIDA ENGLE)Khalida Engle CNPAllergies As of Date: 09/26/2017(No Known Allergies)Date Reviewed: 05/07/2017Reviewed by: Yasemin Sandoval LPN - Fully AssessedReason for Visit: Refill Request [94]Primary Visit Diagnosis:Diabetes mellitus without complication (HCC) [E11.9]Order(s):pioglitazon e (ACTOS) 30 mg tabletTAKE 1 TABLET DAILYDisp: 90 tabletRfl: 0 metFORMIN (GLUCOPHAGE) 500 mg tabletTAKE 2 TABLETS TWICE A DAY WITH MEALSDisp: 360 tabletRfl: 0 COMP METABOLIC PANEL [SQCMP] Order #: [id number] FUTURE HGB A1C [SDPPQ4A] Order #: [id number] FUTURE ALBUMIN/CREAT RATIO RND UR [SQUACR] Order #: [id number] FUTUREPrescriptions as of 09/26/2017 Sig: PIOGLITAZONE 30 MG TABLET TAKE 1 TABLET DAILY METFORMIN 500 MG TABLET TAKE 2 TABLETS TWICE A DAY WI* BD INSULIN PEN NEEDLE UF SHOR* USE ONCE DAILY OR INSTRUCT* LANTUS SOLOSTAR 100 UNIT/ML (* INJECT 22 UNITS UNDER THE SKI* OMEPRAZOLE 40 MG CAPSULE,MAHENDRA* Take 1 capsule by mouth once * GLIPIZIDE ER 5 MG TABLET, EXT* TAKE 1 TABLET TWICE A DAY WIT* ALBUTEROL SULFATE HFA 90 MCG/* Inhale 2 Puffs as instructed * FLUTICASONE 50 MCG/ACTUATION * Use 2 Sprays in each nostril * DEXTROMETHORPHAN POLISTIREX E* Take 60 mg by mouth twice fredy* MOBIC ORAL Take by mouth. LOSARTAN 50 MG TABLET TAKE 1 TABLET DAILY ATORVASTATIN 40 MG TABLET Take 1 tablet by mouth once d* TAMSULOSIN 0.4 MG CAPSULE Take 1 capsule by mouth once * FINASTERIDE 5 MG TABLET TAKE 1 TABLET DAILY BLOOD SUGAR DIAGNOSTIC STRIPS Test blood sugar(s) 2 times d* ASPIRIN 81 MG TABLET Take one (1) tablet daily . MULTIVITAMIN TABLET Take one(1) tablet daily. VITAMIN C 500 MG TABLET Take one(1) tablet daily. VITAMIN E 400 UNIT SOFTGEL Take one(1) capsule daily.Problem List As Of Date 09/26/2017 Noted Resolved LUMBOSACRAL NEURITIS NOS [[id number]] INVALID FOR*06/24/2006 Diabetes mellitus without complication (HCC) [E*INVALID FOR* Hyperlipemia [E78.5] INVALID FOR* More... LUMBAR DISC DISPLACEMENT [M51.26] 06/24/2006 More... 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 Impotence of Organic Origin [N52.9] INVALID FOR* Elevated PSA [R97.20] INVALID FOR*08/06/2016Prescriptions ordered this encounter Disp Refills Start End PIOGLITAZONE 30 MG TABLET 90 t* 0 09/26/2017 Sig: TAKE 1 TABLET DAILY METFORMIN 500 MG TABLET 360 * 0 09/26/2017 Sig: TAKE 2 TABLETS TWICE A DAY WITH MEALSMedications Discontinued During This Encounter pioglitazone (ACTOS) 30 mg tablet 90 t* 3 10/01/2016 09/26/2017 Sig: TAKE 1 TABLET DAILY Disc: Reason for discontinue is not on file. metFORMIN (GLUCOPHAGE) 500 mg tablet 360 * 3 10/01/2016 09/26/2017 Sig: TAKE 2 TABLETS TWICE A DAY WITH MEALS Disc: Reason for discontinue is not on file. Status:Closed by KHALIDA ENGLE CNP on 09/26/17 Normal [facility] OBSOLETEon 07-21-2017 OBSOLETE Refill (INTMWS) -------ARMAAN CHANEL ([id number]) 1940 MDate Time Provider Ziltazjsnt47/15/17 [facility] During your visit today, we recorded the following information about you:Zina Dewitt LPN 07/22/2017 11:13 AM SignedPatient's pharmacy requesting refills as follows:Pending Prescriptions Disp Refills BD INSULIN PEN NEEDLE UF SHORT 31 GAUGE X 5/16ANDquot; 100 Each 3 Sig: USE ONCE DAILY OR INSTRUCTED ELICEO: no Please review and advise.Zina Engle CNP 07/22/2017 11:55 AM SignedThe following approved medication requests have been transmitted electronically.Signed Prescriptions Disp Refills BD INSULIN PEN NEEDLE UF 31 gauge x 5/16ANDquot; ndle 100 Each 3 Sig: USE ONCE DAILY OR INSTRUCTED ELICEO: No Authorizing Provider: KHALIDA ENGLE (GISSELL)Royal Freedrick As of Date: 07/21/2017(No Known Allergies)Date Reviewed: 05/07/2017Reviewed by: Yasemin Sandoval LPN - Fully AssessedReason for Visit: Refill Request [94]Order(s):BD INSULIN PEN NEEDLE UF 31 gauge x 5/16 ndleUSE ONCE DAILY OR INSTRUCTEDDisp: 100 EachRfl: 3Prescriptions as of 07/21/2017 Sig: BD INSULIN PEN NEEDLE UF SHOR* USE ONCE DAILY OR INSTRUCT* LANTUS SOLOSTAR 100 UNIT/ML (* INJECT 22 UNITS UNDER THE SKI* OMEPRAZOLE 40 MG CAPSULE,MAHENDRA* Take 1 capsule by mouth once * GLIPIZIDE ER 5 MG TABLET, EXT* TAKE 1 TABLET TWICE A DAY WIT* ALBUTEROL SULFATE HFA 90 MCG/* Inhale 2 Puffs as instructed * FLUTICASONE 50 MCG/ACTUATION * Use 2 Sprays in each nostril * DEXTROMETHORPHAN POLISTIREX E* Take 60 mg by mouth twice fredy* MOBIC ORAL Take by mouth. LOSARTAN 50 MG TABLET TAKE 1 TABLET DAILY PIOGLITAZONE 30 MG TABLET TAKE 1 TABLET DAILY METFORMIN 500 MG TABLET TAKE 2 TABLETS TWICE A DAY WI* ATORVASTATIN 40 MG TABLET Take 1 tablet by mouth once d* TAMSULOSIN 0.4 MG CAPSULE Take 1 capsule by mouth once * FINASTERIDE 5 MG TABLET TAKE 1 TABLET DAILY BLOOD SUGAR DIAGNOSTIC STRIPS Test blood sugar(s) 2 times d* ASPIRIN 81 MG TABLET Take one (1) tablet daily . MULTIVITAMIN TABLET Take one(1) tablet daily. VITAMIN C 500 MG TABLET Take one(1) tablet daily. VITAMIN E 400 UNIT SOFTGEL Take one(1) capsule daily.Problem List As Of Date 07/21/2017 Noted Resolved LUMBOSACRAL NEURITIS NOS [[id number]] INVALID FOR*06/24/2006 Diabetes mellitus without complication (HCC) [E*INVALID FOR* Hyperlipemia [E78.5] INVALID FOR* More... LUMBAR DISC DISPLACEMENT [M51.26] 06/24/2006 More... 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 Impotence of Organic Origin [N52.9] INVALID FOR* Elevated PSA [R97.20] INVALID FOR*08/06/2016Prescriptions ordered this encounter Disp Refills Start End BD INSULIN PEN NEEDLE UF SHORT 31 GA* 100 * 3 07/22/2017 Sig: USE ONCE DAILY OR INSTRUCTEDMedications Discontinued During This Encounter BD INSULIN PEN NEEDLE UF 31 gauge x * 100 * 2 10/22/2016 07/22/2017 Sig: USE ONCE DAILY OR INSTRUCTED Disc: Reason for discontinue is not on file. Status:Closed by KHALIDA ENGLE CNP on 07/22/17 Normal [facility] OBSOLETEon 07-14-2017 OBSOLETE Refill (INTMWS) -------ARMAAN CHANEL ([id number]) 1940 MDate Time Provider Aphpmeygvr64/8/17 [facility] During your visit today, we recorded the following information about you:Allergies As of Date: 07/14/2017(No Known Allergies)Date Reviewed: 05/07/2017Reviewed by: Yasemin Sandoval LPN - Fully AssessedReason for Visit: Refill Request [94]Prescriptions as of 07/14/2017 Sig: LANTUS SOLOSTAR 100 UNIT/ML (* INJECT 22 UNITS UNDER THE SKI* OMEPRAZOLE 40 MG CAPSULE,MAHENDRA* Take 1 capsule by mouth once * GLIPIZIDE ER 5 MG TABLET, EXT* TAKE 1 TABLET TWICE A DAY WIT* ALBUTEROL SULFATE HFA 90 MCG/* Inhale 2 Puffs as instructed * FLUTICASONE 50 MCG/ACTUATION * Use 2 Sprays in each nostril * DEXTROMETHORPHAN POLISTIREX E* Take 60 mg by mouth twice fredy* MOBIC ORAL Take by mouth. LOSARTAN 50 MG TABLET TAKE 1 TABLET DAILY BD INSULIN PEN NEEDLE UF SHOR* USE ONCE DAILY OR INSTRUCT* PIOGLITAZONE 30 MG TABLET TAKE 1 TABLET DAILY METFORMIN 500 MG TABLET TAKE 2 TABLETS TWICE A DAY WI* ATORVASTATIN 40 MG TABLET Take 1 tablet by mouth once d* TAMSULOSIN 0.4 MG CAPSULE Take 1 capsule by mouth once * FINASTERIDE 5 MG TABLET TAKE 1 TABLET DAILY BLOOD SUGAR DIAGNOSTIC STRIPS Test blood sugar(s) 2 times d* ASPIRIN 81 MG TABLET Take one (1) tablet daily . MULTIVITAMIN TABLET Take one(1) tablet daily. VITAMIN C 500 MG TABLET Take one(1) tablet daily. VITAMIN E 400 UNIT SOFTGEL Take one(1) capsule daily.Problem List As Of Date 07/14/2017 Noted Resolved LUMBOSACRAL NEURITIS NOS [[id number]] INVALID FOR*06/24/2006 Diabetes mellitus without complication (HCC) [E*INVALID FOR* Hyperlipemia [E78.5] INVALID FOR* More... LUMBAR DISC DISPLACEMENT [M51.26] 06/24/2006 More... 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 Impotence of Organic Origin [N52.9] INVALID FOR* Elevated PSA [R97.20] INVALID FOR*08/06/2016Encounter Number: [id number] Status:Closed by ZINA DEWITT LPN on 07/15/17 [facility] OBSOLETEon 06-29-2017 OBSOLETE Refill (INTMWS) -------ARMAAN CHANEL ([id number]) 1940 MDate Time Provider Department06/29/17 BRANDON OLIVER INTMWS During your visit today, we recorded the following information about you:Cyndie Crawford PharmD 07/01/2017 11:00 AM SignedPharmacist Refill Authorization ReviewName: Armaan ChanelMRN: [id number]: 07/01/2017Time: 11:00 AMRefill authorization request(s) received via pharmacy request and reviewedunder effective consult agreement. Upon review, did confirm that an activepatient-provider relationship exists and that the prescriber is a participatingphysician under the consult agreement.The medication(s) fall under the following categories:Category 1: 1 corresponding medication(s) qualifies for renewal due to up todate labs and provider visits.Additional actions taken: Prescription(s) issued.Cyndie Crawford PharmDPharmacy Managed Authorization CenterPhone Current Outpatient Prescriptions:Omeprazole 40 mg capsule Take 1 capsule by mouth once daily.glipiZIDE XL (GLUCOTROL XL) 5 mg 24 hr tablet TAKE 1 TABLET TWICE A DAY WITHMEALS WITH BREAKFAST AND SUPPERalbuterol HFA (PROVENTIL HFA, VENTOLIN HFA) 90 mcg/actuation inhaler Inhale 2Puffs as instructed every 6 hours as needed.fluticasone (FLONASE) 50 mcg/actuation nasal spray Use 2 Sprays in each nostrilonce daily. Rinse mouth after use.Dextromethorphan Poly Complex (DELSYM) 30 mg/5 mL liquid Take 60 mg by mouthtwice daily.MELOXICAM (MOBIC ORAL) Take by mouth.LANTUS SOLOSTAR 100 unit/mL (3 mL) inpn INJECT 22 UNITS UNDER THE SKIN DAILY ATBEDTIMElosartan (COZAAR) 50 mg tablet TAKE 1 TABLET DAILYBD INSULIN PEN NEEDLE UF 31 gauge x 16ANDquot; ndle USE ONCE DAILY OR ASINSTRUCTEDpioglitazone (ACTOS) 30 mg tablet TAKE 1 TABLET DAILYmetFORMIN (GLUCOPHAGE) 500 mg tablet TAKE 2 TABLETS TWICE A DAY WITH MEALSatorvastatin (LIPITOR) 40 mg tablet Take 1 tablet by mouth once daily. Forcholesterol.tamsulosin ER (FLOMAX) 0.4 mg cp24 Take 1 capsule by mouth once daily.finasteride (PROSCAR) 5 mg tablet TAKE 1 TABLET DAILYblood sugar diagnostic (FREESTYLE LITE STRIPS) test strip Test blood sugar(s) 2times daily. Dx: Type 2 DM - Controlled E11.9 Insulin: YesASPIRIN 81 MG ORAL TAB Take one (1) tablet daily .MULTIVITAMIN ORAL TAB Take one(1) tablet daily.VITAMIN C 500MG TABLET Take one(1) tablet daily.VITAMIN E 400 UNIT SOFTGEL Take one(1) capsule daily.No current facility-administered medications for this visit.Allergies As of Date: 06/29/2017(No Known Allergies)Date Reviewed: 05/07/2017Reviewed by: Yasemin Sandoval LPN - Fully AssessedReason for Visit: Refill Request [94]Order(s):LANTUS SOLOSTAR 100 unit/mL (3 mL) inpnINJECT 22 UNITS UNDER THE SKIN DAILY AT BEDTIMEDisp: 30 mLRfl: 3Prescriptions as of 06/29/2017 Sig: LANTUS SOLOSTAR 100 UNIT/ML (* INJECT 22 UNITS UNDER THE SKI* OMEPRAZOLE 40 MG CAPSULE,MAHENDRA* Take 1 capsule by mouth once * GLIPIZIDE ER 5 MG TABLET, EXT* TAKE 1 TABLET TWICE A DAY WIT* ALBUTEROL SULFATE HFA 90 MCG/* Inhale 2 Puffs as instructed * FLUTICASONE 50 MCG/ACTUATION * Use 2 Sprays in each nostril * DEXTROMETHORPHAN POLISTIREX E* Take 60 mg by mouth twice fredy* MOBIC ORAL Take by mouth. LOSARTAN 50 MG TABLET TAKE 1 TABLET DAILY BD INSULIN PEN NEEDLE UF SHOR* USE ONCE DAILY OR INSTRUCT* PIOGLITAZONE 30 MG TABLET TAKE 1 TABLET DAILY METFORMIN 500 MG TABLET TAKE 2 TABLETS TWICE A DAY WI* ATORVASTATIN 40 MG TABLET Take 1 tablet by mouth once d* TAMSULOSIN 0.4 MG CAPSULE Take 1 capsule by mouth once * FINASTERIDE 5 MG TABLET TAKE 1 TABLET DAILY BLOOD SUGAR DIAGNOSTIC STRIPS Test blood sugar(s) 2 times d* ASPIRIN 81 MG TABLET Take one (1) tablet daily . MULTIVITAMIN TABLET Take one(1) tablet daily. VITAMIN C 500 MG TABLET Take one(1) tablet daily. VITAMIN E 400 UNIT SOFTGEL Take one(1) capsule daily.Problem List As Of Date 06/29/2017 Noted Resolved LUMBOSACRAL NEURITIS NOS [[id number]] INVALID FOR*06/24/2006 Diabetes mellitus without complication (HCC) [E*INVALID FOR* Hyperlipemia [E78.5] INVALID FOR* More... LUMBAR DISC DISPLACEMENT [M51.26] 06/24/2006 More... 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 Impotence of Organic Origin [N52.9] INVALID FOR* Elevated PSA [R97.20] INVALID FOR*08/06/2016Prescriptions ordered this encounter Disp Refills Start End LANTUS SOLOSTAR 100 UNIT/ML (3 ML) S* 30 mL 3 07/01/2017 Sig: INJECT 22 UNITS UNDER THE SKIN DAILY AT BEDTIMEMedications Discontinued During This Encounter LANTUS SOLOSTAR 100 unit/mL (3 mL) i* 21 mL 1 02/13/2017 07/01/2017 Sig: INJECT 22 UNITS UNDER THE SKIN DAILY AT BEDTIME Disc: Reason for discontinue is not on file. Status:Closed by MICHAEL (PHARMACIST)CYNDIE on 07/01/17 Normal [facility] [place] [facility] Basic Metabolic Panlon 05-07 Anion gap 14 mmol/L Normal 9-18 [facility] [place] [facility] Comment on above: Performed By: #### C BCNORMA KEATING, NTBNP ####[place] [address] [address] [place] [phone] Calcium 10.6 mg/dL High 8.5-10.2 [facility] [place] [facility] Comment on above: Performed By: #### C BCGUSTAVOF BMP, NTBNP ####[place] [address] [address] [place] [phone] Chloride 100 mmol/L Normal 97-105 [facility] [place] [facility] Comment on above: Performed By: #### C BCNORMA KEATING, NTBNP ####[place] [address] [address] [place] [phone] CO2 24 mmol/L Normal 22-30 [facility] [place] [facility] Comment on above: Performed By: #### C BCGUSTAVOF BMP, NTBNP ####[place] [address] [address] [place] [phone] Creatinine 0.87 mg/dL Normal 0.73-1.22 [facility] [place] [facility] Comment on above: Performed By: #### C BCGUSTAVOF BMP, NTBNP ####[place] [address] [address] [place] [phone] eGFR (non-black) mL/min/{1.73_m2} Normal [facility] Comment on above: Performed By: #### C BCDIF, BMP, NTBNP ####[place] [address] [address] [place] [phone] Result Comment: eGFR (Estimated GFR) Units of measure: mL/min/1.73 meters squaredeGFR is derived from the reexpressed MDRD Study equation using the following parameters: serum creatinine, age, gender and race. The creatinine assay has been calibrated to be traceable to IDMS.An eGFR <60 mL/min/1.73m2 for >3 months is consistent with chronic kidney disease. Refer to KDOQI guidelines for clinical interpretation.In patients with unstable renal function, e.g. those with acute kidney injury, the eGFR may not accurately reflect actual GFR. Glucose mass conc 160 mg/dL High 74-99 [facility] Comment on above: Result Comment: The [place] Diabetes Association (ADA) provides guidance for cutoff values for fasting glucose and random glucose. The ADA defines fasting as no caloric intake for at least 8 hours. Fasting plasma glucose results between 100 to 125 mg/dL indicate increased risk for diabetes (prediabetes).Fasting plasma glucose results greater than or equal to 126 mg/dL meet the criteria for diagnosis of diabetes. In the absence of unequivocal hyperglycemia, results should be confirmed by repeat testing. In a patient with classic symptoms of hyperglycemia or hyperglycemic crisis, random plasma glucose results greater than or equal to 200 mg/dL meet the criteria for diagnosis of diabetes.Reference: Standards of Medical Care in Diabetes 2016, [place] Diabetes Association. Diabetes Care. 2016.39(Suppl 1). Performed By: #### C NORMA TOMPKINS NTBNP ####[facility] [place], [place] [phone] Potassium molar conc 4.6 mmol/L Normal 3.7-5.1 [facility] Comment on above: Performed By: #### C NORMA TOMPKINS NTBNP ####[facility] [place], [place] [phone] Sodium 138 mmol/L Normal 136-144 [facility] [place] [facility] Comment on above: Performed By: #### C NORMA TOMPKINS NTBNP ####[facility] [place], [place] [phone] Urea nitrogen 21 mg/dL Normal 9-24 [facility] [place] [facility] Comment on above: Performed By: #### C NORMA TOMPKINS NTBNP ####[facility] [place], [place] [phone] CBC and Differentialon 05-07 Abs Baso 0.04 k/uL Normal 0.00-0.10 [facility] [place] [facility] Comment on above: Performed By: #### C BCDIF, BMP, NTBNP ####[place] [address] [address] [place] [phone] Abs Scott 0.75 k/uL Normal 0.00-0.86 [facility] [place] [facility] Comment on above: Performed By: #### C BCDIF, BMP, NTBNP ####[address] [phone] Abs Neut 5.39 k/uL Normal 1.45-7.50 [facility] [place] [facility] Comment on above: Performed By: #### C BCDIF, BMP, NTBNP ####[address] [place] [phone] Basophils/100 WBC Auto (Bld) 0.5 % Normal [facility] [place] [facility] Comment on above: Performed By: #### C BCDIF, BMP, NTBNP ####[address] [place] [phone] DTYPE Auto Diff Normal [facility] [place] [facility] Comment on above: Performed By: #### C BCDIF, BMP, NTBNP ####[place] [phone] Eosinophils 0.15 10*3/uL Normal 0.00-0.45 [facility] [place] [facility] Comment on above: Performed By: #### C BCDIF, BMP, NTBNP ####[address] [phone] Eosinophils/100 leukocytes 1.9 % Normal [facility] [place] [facility] Comment on above: Performed By: #### C BCDIF, BMP, NTBNP ####[address] [place] [phone] Erythrocyte distribution width Auto Ratio (RBC) 14.7 % Normal 11.5-15.0 [facility] [place] [facility] Comment on above: Performed By: #### C BCDIF, BMP, NTBNP ####[place] [address] [address] [place] [phone] Erythrocytes (RBC) 0.0 /100 WBC Normal 0 [facility] Comment on above: Performed By: #### C BCDIF, BMP, NTBNP ####[place] [address] [address] [place] [phone] Erythrocytes (RBC) 4.03 10*6/uL Low 4.20-6.00 [facility] Comment on above: Performed By: #### C BCDIF, BMP, NTBNP ####[place] [address] [address] [place] [phone] Erythrocytes (RBC) 0.00 10*6/uL Normal [facility] Comment on above: Performed By: #### C BCDIF, BMP, NTBNP ####[address] [place] [phone] Hematocrit (HCT) 39.9 % Normal 39.0-51.0 [facility] Comment on above: Performed By: #### C BCDIF, BMP, NTBNP ####[address] [place] [phone] Hemoglobin mass conc (Bld) 12.5 g/dL Low 13.0-17.0 [facility] [place] [facility] Comment on above: Performed By: #### C BCDIF, BMP, NTBNP ####[address] [phone] Lymphocytes 1.42 10*3/uL Normal 1.00-4.00 [facility] [place] [facility] Comment on above: Performed By: #### C BCDIF, BMP, NTBNP ####[address] [phone] Lymphocytes/100 leukocytes 18.3 % Normal [facility] [place] [facility] Comment on above: Performed By: #### C BCDIF, BMP, NTBNP ####[place] [address] [address] [place] [phone] MCH 31.0 pG Normal 26.0-34.0 [facility] [place] [facility] Comment on above: Performed By: #### C BCDIF, BMP, NTBNP ####[place] [address] [address] [place] [phone] MCHC mass conc (RBC) 31.3 g/dL Normal 30.5-36.0 [facility] Comment on above: Performed By: #### C BCDIF, BMP, NTBNP ####[address] [phone] MCV 99.0 fL Normal 80.0-100.0 [facility] [place] [facility] Comment on above: Performed By: #### C BCDIF, BMP, NTBNP ####[address] [phone] Monocytes/100 leukocytes 9.7 % Normal [facility] [place] [facility] Comment on above: Performed By: #### C BCDIF, BMP, NTBNP ####[address] [place] [phone] Neutrophils/100 WBC Auto (Bld) 69.6 % Normal [facility] [place] [facility] Comment on above: Performed By: #### C BCDIF, BMP, NTBNP ####[place] [address] [address] [place] [phone] Platelet mean volume (PMV) 10.6 fL Normal 9.0-12.7 [facility] [place] [facility] Comment on above: Performed By: #### C BCDIF, BMP, NTBNP ####[place] [address] [address] [place] [phone] Platelets 313 10*3/uL Normal 150-400 [facility] [place] [facility] Comment on above: Performed By: #### C BCDIF, BMP, NTBNP ####[place] [address] [address], [place] [phone] WBC (Leukocytes) 7.75 10*3/uL Normal 3.70-11.00 [facility] Comment on above: Performed By: #### C BCDIF, BMP, NTBNP ####[place] [address], [place] [phone] CNOVon 05-07-2017 CNOV Office Visit (INTMWS) -------ARMAAN CHANEL ([id number]) 1940 MDate Time Provider Department05/07/17 2:20 PM BRANDON OLIVER INTMWS During your visit today, we recorded the following information about you: Pulse Respiration Blood pressure Weight 84/minute 18/minute 124/56 89.4 kgBrandon Oliver MD 05/07/2017 3:46 PM SignedThis note was created using BitDefender.Tom Chanel is a 77 year old male for persistent cough, productive at times,dry at times, shortness of breath, hoarseness for 2 months. He was seen in [facility] given levofloxacin, steroid pack and cough medication. He was givenalbuterol and flonase with no clear relief. He has significant coughing attimes, he loses appetite. He has lost some weight. His chest X-ray wasnormal.Review of SystemsConstitutional: Positive for appetite change and unexpected weight change.Negative for chills, diaphoresis and fever.HENT: Positive for postnasal drip, rhinorrhea, sneezing and voice change.Negative for sore throat and trouble swallowing.Respiratory: Positive for cough and shortness of breath. Negative for chesttightness and wheezing.Cardiovascular: Negative.Gastrointestinal: Negative.ObjectiveBP 124/56 (BP Site: Left Arm, BP Position: Sitting, BP Cuff Size: RegularAdult) Pulse 84 Resp 18 Wt 89.4 kg (197 lb) SpO2 100% BMI 31.8 kg/o7Dcpocbhz ExamConstitutional: He appears well-nourished.HENT:Nose: Mucosal edema present. No sinus tenderness.Mouth/Throat: Uvula is midline and oropharynx is clear and moist.Cardiovascular: Normal rate, regular rhythm, normal heart sounds and intactdistal pulses.Pulmonary/Chest: Effort normal. He has wheezes. He has rales.Abdominal: Soft. There is no tenderness.Musculoskeletal: He exhibits no edema.ASSESSMENT/PLAN:1. Cough - ICD9: 786.2, ICD10: R05 (primary diagnosis)Bronchospasm?- XR CHEST PA/LAT- CBC + DIFF- NT PRO BNP- BASIC METABOLIC PNL- OMEPRAZOLE 40 MG CAPSULE,DELAYED RELEASE2. BURCIAGA (dyspnea on exertion) - ICD9: 786.09, ICD10: R06.09Rule out CHF.- XR CHEST PA/LAT- CBC + DIFF- NT PRO BNP- BASIC METABOLIC PNL3. Hoarseness of voice - ICD9: 784.42, ICD10: R49.0Rule out GERD.- XR CHEST PA/LAT- CBC + DIFF- NT PRO BNP- BASIC METABOLIC PNL- OMEPRAZOLE 40 MG CAPSULE,DELAYED RELEASEIf above none contributory, I will refer to pulmonary with PFT. Trial of PPIfor atypical acid reflux. Patient and spouse indicated understanding andwillingness to follow recommendations.Brandon Oliver, MDReferring Provider: SELF [200]Allergies As of Date: 05/07/2017(No Known Allergies)Date Reviewed: 05/07/2017Reviewed by: Yasemin Sandoval LPN - Fully AssessedReason for Visit: Cough [28] URI [115]Primary Visit Diagnosis:Cough [R05] Other Visit Diagnoses:BURCIAGA (dyspnea on exertion) [R06.09] Hoarseness of voice [R49.0]Order(s):XR CHEST PA/LAT [1464800] Order #: [id number] FUTURE CBC + DIFF [SQCBCDIF] Order #: [id number] FUTURE NT PRO BNP [SQNTBNP] Order #: [id number] FUTURE BASIC METABOLIC PNL [SQBMP] Order #: [id number] FUTURE Omeprazole 40 mg capsuleTake 1 capsule by mouth once daily.Disp: 30 capsuleRfl: 0Prescriptions as of 05/07/2017 Sig: OMEPRAZOLE 40 MG CAPSULE,MAHENDRA* Take 1 capsule by mouth once * GLIPIZIDE ER 5 MG TABLET, EXT* TAKE 1 TABLET TWICE A DAY WIT* ALBUTEROL SULFATE HFA 90 MCG/* Inhale 2 Puffs as instructed * FLUTICASONE 50 MCG/ACTUATION * Use 2 Sprays in each nostril * DEXTROMETHORPHAN POLISTIREX E* Take 60 mg by mouth twice fredy* MOBIC ORAL Take by mouth. LANTUS SOLOSTAR 100 UNIT/ML (* INJECT 22 UNITS UNDER THE SKI* LOSARTAN 50 MG TABLET TAKE 1 TABLET DAILY BD INSULIN PEN NEEDLE UF SHOR* USE ONCE DAILY OR INSTRUCT* PIOGLITAZONE 30 MG TABLET TAKE 1 TABLET DAILY METFORMIN 500 MG TABLET TAKE 2 TABLETS TWICE A DAY WI* ATORVASTATIN 40 MG TABLET Take 1 tablet by mouth once d* TAMSULOSIN 0.4 MG CAPSULE Take 1 capsule by mouth once * FINASTERIDE 5 MG TABLET TAKE 1 TABLET DAILY BLOOD SUGAR DIAGNOSTIC STRIPS Test blood sugar(s) 2 times d* ASPIRIN 81 MG TABLET Take one (1) tablet daily . MULTIVITAMIN TABLET Take one(1) tablet daily. VITAMIN C 500 MG TABLET Take one(1) tablet daily. VITAMIN E 400 UNIT SOFTGEL Take one(1) capsule daily.Problem List As Of Date 05/07/2017 Noted Resolved LUMBOSACRAL NEURITIS NOS [[id number]] INVALID FOR*06/24/2006 Diabetes mellitus without complication (HCC) [E*INVALID FOR* Hyperlipemia [E78.5] INVALID FOR* More... LUMBAR DISC DISPLACEMENT [M51.26] 06/24/2006 More... 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 Impotence of Organic Origin [N52.9] INVALID FOR* Elevated PSA [R97.20] INVALID FOR*08/06/2016Prescriptions ordered this encounter Disp Refills Start End OMEPRAZOLE 40 MG CAPSULE,DELAYED REL* 30 c* 0 05/07/2017 Route: ORAL Sig: Take 1 capsule by mouth once daily.Disposition: Return in about 1 month (around 06/07/2017).Follow-up and Disposition History RecordedEncounter Number: [id number] Status:Closed by BRANDON OLIVER MD on 05/07/17 Normal [facility] [place] [facility] NT Pro BNPon 05-07-2017 PRO B Natr Peptide <50 Normal <450 [facility] Comment on above: Performed By: #### C BCDIF, BMP, NTBNP ####[place] [address] [place], [place] [phone] PROGRESSon 05-07-2017 PROGRESS HNO ID: [id number] thor: Bonifacio Nation (Rt) Shellie Amos: (none)Author Type: TechnicianType: Progress NotesFiled: 05/07/2017 3:49 PMNote Text: Radiology Service Progress NotePATIENT NAME: Armaan ChanelMRN: [id number] OF SERVICE: May 07, 2017TIME: 3:46 PMPATIENT IDENTITY VERIFICATION COMPLETED USING TWO (2) METHODS: Patientconfirmed name verbally and Date of .PATIENT GENDER DATA: MalePATIENT RELEVANT IMPLANT DATA REVIEWED: Not ApplicableRADIOLOGY DEPARTMENT: General X-ray: Exam(s) Completed: Chest X-RayPERIPHERAL IV DATA: Not applicableSIGNED BY: Bonifacio Amos [facility] [[email or web address]] 2016 3:46 PM Normal [facility] [place] [facility] PROGRESS HNO ID: [id number] thor: Brandon Casas: (none)Author Type: PhysicianType: Progress NotesFiled: 05/07/2017 3:46 PMNote Text:This note was created using BitDefender.Tom Chanel is a 77 year old male for persistent cough, productive attimes, dry at times, shortness of breath, hoarseness for 2 months. He wasseen in [facility] and given levofloxacin, steroid pack and cough medication. Hewas given albuterol and flonase with no clear relief. He has significantcoughing at times, he loses appetite. He has lost some weight. His chestX-ray was normal.Review of SystemsConstitutional: Positive for appetite change and unexpected weight change.Negative for chills, diaphoresis and fever.HENT: Positive for postnasal drip, rhinorrhea, sneezing and voice change.Negative for sore throat and trouble swallowing.Respiratory: Positive for cough and shortness of breath. Negative forchest tightness and wheezing.Cardiovascular: Negative.Gastrointestinal: Negative.ObjectiveBP 124/56 (BP Site: Left Arm, BP Position: Sitting, BP Cuff Size: RegularAdult) Pulse 84 Resp 18 Wt 89.4 kg (197 lb) SpO2 100% BMI 31.8kg/r8Fqelncvh ExamConstitutional: He appears well-nourished.HENT:Nose: Mucosal edema present. No sinus tenderness.Mouth/Throat: Uvula is midline and oropharynx is clear and moist.Cardiovascular: Normal rate, regular rhythm, normal heart sounds andintact distal pulses.Pulmonary/Chest: Effort normal. He has wheezes. He has rales.Abdominal: Soft. There is no tenderness.Musculoskeletal: He exhibits no edema.ASSESSMENT/PLAN:1. Cough - ICD9: 786.2, ICD10: R05 (primary diagnosis)Bronchospasm?- XR CHEST PA/LAT- CBC + DIFF- NT PRO BNP- BASIC METABOLIC PNL- OMEPRAZOLE 40 MG CAPSULE,DELAYED RELEASE2. BURCIAGA (dyspnea on exertion) - ICD9: 786.09, ICD10: R06.09Rule out CHF.- XR CHEST PA/LAT- CBC + DIFF- NT PRO BNP- BASIC METABOLIC PNL3. Hoarseness of voice - ICD9: 784.42, ICD10: R49.0Rule out GERD.- XR CHEST PA/LAT- CBC + DIFF- NT PRO BNP- BASIC METABOLIC PNL- OMEPRAZOLE 40 MG CAPSULE,DELAYED RELEASEIf above none contributory, I will refer to pulmonary with PFT. Trial ofPPI for atypical acid reflux. Patient and spouse indicated understandingand willingness to follow recommendations.Brandon Oliver MD [facility] XR CHEST 2 VIEWon 05-07-2017 XR CHEST 2 VIEW * * *Final Report* * *DATE OF EXAM: May 07 2017 3:50PM WOX [id number] - XR CHEST 2 VIEW / REASON: multiple diagnoses * * * * Physician Interpretation * * * * EXAMINATION: CHEST RADIOGRAPH (2 VIEW FRONTAL and LATERAL)Clinical History: Cough Other forms of dyspnea DysphoniaM: XC2_3Comparison: 03/05/2017RESULT:Lines, tubes, and devices: None.Lungs and pleura: No focal consolidation, pleural effusion or pneumothorax. The pulmonary vasculature is within normal limits.Cardiomediastinal silhouette: Stable cardiomediastinal silhouette. Atherosclerotic disease.Other: No acute osseous abnormality is identified.IMPRESSION:No acute radiographic abnormality.Transcriptionis t: PSCB Transcribe Date/Time: May 07 2017 4:04PDictated by : AUTUMN MURILLO MDThis examination was interpreted and the report reviewed and electronically signed by: AUTUMN MURILLO MD on May 07 2017 4:06PM EST Normal [facility] [place] [facility] OBSOLETEon 04-21-2017 OBSOLETE Refill (INTMWS) -------ARMAAN CHANEL ([id number]) 1940 MDate Time Provider Department04/21/17 BRANDON OLIVER INTRohanWS During your visit today, we recorded the following information about you:Liya Delgado PharmD 04/22/2017 11:27 AM SignedPharmacist Refill Authorization ReviewName: Armaan ChanelMRN: [id number]: 04/22/2017Time: 11:27 AMRefill authorization request(s) received via pharmacy request and reviewedunder effective consult agreement. Upon review, did confirm that an activepatient-provider relationship exists and that the prescriber is a participatingphysician under the consult agreement.The medication(s) fall under the following categories:Category 1: 1 corresponding medication(s) qualifies for renewal due to up todate labs and provider visits.Additional actions taken: Prescription(s) issued.Yomi Gomez Managed Authorization CenterPhone Current Outpatient Prescriptions:albuterol HFA (PROVENTIL HFA, VENTOLIN HFA) 90 mcg/actuation inhaler Inhale 2Puffs as instructed every 6 hours as needed.fluticasone (FLONASE) 50 mcg/actuation nasal spray Use 2 Sprays in each nostrilonce daily. Rinse mouth after use.Dextromethorphan Poly Complex (DELSYM) 30 mg/5 mL liquid Take 60 mg by mouthtwice daily.MELOXICAM (MOBIC ORAL) Take by mouth.LANTUS SOLOSTAR 100 unit/mL (3 mL) inpn INJECT 22 UNITS UNDER THE SKIN DAILY ATBEDTIMElosartan (COZAAR) 50 mg tablet TAKE 1 TABLET DAILYBD INSULIN PEN NEEDLE UF 31 gauge x 02/19ANDquot; ndle USE ONCE DAILY OR ASINSTRUCTEDglipiZIDE XL (GLUCOTROL XL) 5 mg 24 hr tablet TAKE 1 TABLET TWICE A DAY WITHMEALS WITH BREAKFAST AND SUPPERpioglitazone (ACTOS) 30 mg tablet TAKE 1 TABLET DAILYmetFORMIN (GLUCOPHAGE) 500 mg tablet TAKE 2 TABLETS TWICE A DAY WITH MEALSatorvastatin (LIPITOR) 40 mg tablet Take 1 tablet by mouth once daily. Forcholesterol.tamsulosin ER (FLOMAX) 0.4 mg cp24 Take 1 capsule by mouth once daily.finasteride (PROSCAR) 5 mg tablet TAKE 1 TABLET DAILYblood sugar diagnostic (FREESTYLE LITE STRIPS) test strip Test blood sugar(s) 2times daily. Dx: Type 2 DM - Controlled E11.9 Insulin: YesASPIRIN 81 MG ORAL TAB Take one (1) tablet daily .MULTIVITAMIN ORAL TAB Take one(1) tablet daily.VITAMIN C 500MG TABLET Take one(1) tablet daily.VITAMIN E 400 UNIT SOFTGEL Take one(1) capsule daily.No current facility-administered medications for this visit.Allergies As of Date: 04/21/2017(No Known Allergies)Date Reviewed: 03/22/2017Reviewed by: Shanika Morales [facility] - Fully AssessedReason for Visit: Refill Request [94]Order(s):glipiZIDE XL (GLUCOTROL XL) 5 mg 24 hr tabletTAKE 1 TABLET TWICE A DAY WITH MEALS WITH BREAKFAST AND SUPPERDisp: 180 tabletRfl: 3Prescriptions as of 04/21/2017 Sig: GLIPIZIDE ER 5 MG TABLET, EXT* TAKE 1 TABLET TWICE A DAY WIT* ALBUTEROL SULFATE HFA 90 MCG/* Inhale 2 Puffs as instructed * FLUTICASONE 50 MCG/ACTUATION * Use 2 Sprays in each nostril * DEXTROMETHORPHAN POLISTIREX E* Take 60 mg by mouth twice fredy* MOBIC ORAL Take by mouth. LANTUS SOLOSTAR 100 UNIT/ML (* INJECT 22 UNITS UNDER THE SKI* LOSARTAN 50 MG TABLET TAKE 1 TABLET DAILY BD INSULIN PEN NEEDLE UF SHOR* USE ONCE DAILY OR INSTRUCT* PIOGLITAZONE 30 MG TABLET TAKE 1 TABLET DAILY METFORMIN 500 MG TABLET TAKE 2 TABLETS TWICE A DAY WI* ATORVASTATIN 40 MG TABLET Take 1 tablet by mouth once d* TAMSULOSIN 0.4 MG CAPSULE Take 1 capsule by mouth once * FINASTERIDE 5 MG TABLET TAKE 1 TABLET DAILY BLOOD SUGAR DIAGNOSTIC STRIPS Test blood sugar(s) 2 times d* ASPIRIN 81 MG TABLET Take one (1) tablet daily . MULTIVITAMIN TABLET Take one(1) tablet daily. VITAMIN C 500 MG TABLET Take one(1) tablet daily. VITAMIN E 400 UNIT SOFTGEL Take one(1) capsule daily.Problem List As Of Date 04/21/2017 Noted Resolved LUMBOSACRAL NEURITIS NOS [[id number]] INVALID FOR*06/24/2006 Diabetes mellitus without complication (HCC) [E*INVALID FOR* Hyperlipemia [E78.5] INVALID FOR* More... LUMBAR DISC DISPLACEMENT [M51.26] 06/24/2006 More... 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 Impotence of Organic Origin [N52.9] INVALID FOR* Elevated PSA [R97.20] INVALID FOR*08/06/2016Prescriptions ordered this encounter Disp Refills Start End GLIPIZIDE ER 5 MG TABLET, EXTENDED R* 180 * 3 04/22/2017 Sig: TAKE 1 TABLET TWICE A DAY WITH MEALS WITH BREAKFAST AND SUPPERMedications Discontinued During This Encounter glipiZIDE XL (GLUCOTROL XL) 5 mg 24 * 180 * 1 10/22/2016 04/22/2017 Sig: TAKE 1 TABLET TWICE A DAY WITH MEALS WITH BREAKFAST AND SUPPER Disc: Reason for discontinue is not on file. Status:Closed by KOFI (PHARMACIST)LIYA on 04/22/17 Normal [place] [facility] Encounters Encounter Date Encounter Type Care Provider Facility Start: 01-04-2025 End: 01-04-2025 ambulatory Jaime Galarza Facility:[facility] Start: 09-23-2024 End: 09-23-2024 ambulatory Jaime Galarza Facility:[facility] Start: 08-28-2024 End: 08-28-2024 ambulatory Jaime Galarza Facility:[facility] Start: 08-22-2024 ambulatory Jaime Galarza [facility] Start: 08-22-2024 End: 08-25-2024 Evaluation and management of inpatient Alyson L White Facility:[facility] Start: 08-21-2024 End: 08-21-2024 ambulatory Jaime Galarza Facility:[facility] Start: 08-21-2024 End: 08-21-2024 ambulatory Maxx SAL Facility:[facility] Start: 07-06-2024 End: 07-06-2024 ambulatory Julia Cladwell Facility:[facility] Start: 06-29-2024 End: 06-29-2024 ambulatory Jaime Galarza Facility:[facility] Start: 06-16-2024 End: 06-16-2024 ambulatory Jaime Galarza Facility:[facility] Start: 05-13-2024 End: 05-13-2024 ambulatory Jaime Galarza Facility:[facility] Start: 05-13-2024 End: 05-13-2024 ambulatory Valentín SAL Facility:[facility] Start: 12-26-2023 End: 12-26-2023 ambulatory [facility] Work Phone: Start: 12-26-2023 End: 12-26-2023 Patient encounter procedure [facility] Work Phone: Start: 12-24-2022 End: 12-24-2022 ambulatory [facility] Work Phone: Start: 12-24-2022 End: 12-24-2022 Patient encounter procedure [facility] Family Start: 05-09-2022 End: 05-09-2022 [facility] Start: 05-07-2017 End: 05-07-2017 Ambulatory BRANDON Arevalo [facility] Start: 05-07-2017 End: 05-07-2017 Ambulatory BRANDON Arevalo [facility] Immunizations Immunization Date Immunization Notes Care Provider Aung [email or web address] 08-11-2013 tetanus and diphther ia toxoids, adsorbed, preservative free, for adult use (2 Lf of tetanus toxoid and 2 Lf of diphtheria toxoid) [facility] Payers Date Payer Category Payer Self-pay [id number] 2016 Private Health Insurance [facility] [id number] Unknown [id number] 2.16.8 [id number] Unknown [id number] 2.16.8 [id number] Unknown [id number] 2.16.8 [id number] Unknown [id number] 2.16.8 [id number] Unknown [id number] 2.16.8 [id number] Unknown [id number] 2.16.8 [id number] Unknown [id number] 2.16.8 [id number] Unknown [id number] 2.16.8 [id number] Unknown [id number] 2.16.8 [id number] Unknown [id number] 2.16.8 [id number] Unknown [id number] 2.16.8 [id number] Unknown [id number] 2.16.8 [id number] Unknown [id number] 2.16.8 [id number] Unknown [id number] 2.16.8 [id number] Unknown [id number] 2.16.8 [id number] Social History Date Type Detail Facility Start: 07-14-2021 End: 05-28-2023 Tobacco smoking status NHIS Unknown if ever smoked [facility] Start: 01-06-[address] [facility] Start: 1940 Sex Assigned At Male [facility] Medical Equipment Procedure Code Equipment Code Equipment Origin al Text Equipment Identifier Dates ACCOLADE 132' HIP STEM FDA St art: 01-05-2019 FEMORAL HEAD FDA Start: 01-05-2019 MDM LINER-CEMENT LESS GLEN FDA Start: 01-05-2019 MDM X3 INSERT FO R LINER FDA Start: 01-05-2019 TRIDENT TITAN ACETABULAR SHELL FDA Start: 01-05-2019 ([id number]) Coated hip femur prosthesis, modular ()[id number]( [id number] FDA Start: 07-31-2021 ([id number]) Non-constrained polyethylene acetabular liner ()[id number]( [id number] FDA Start: 07-31-2021 ([id number]) Acetabular shell ()[id number] FDA Start: 07-31-2021 ([id number]) Metallic femoral head prosthesis ()[id number] FDA Start: 07-31-2021 ([id number]) Acetabular shell ()[id number] FDA Start: 07-31-2021 ACCOLADE 132' HIP STEM FDA St art: 01-05-2019 FEMORAL HEAD FDA Start: 01-05-2019 MDM LINER-CEMENT LESS GLEN FDA Start: 01-05-2019 MDM X3 INSERT FO R LINER FDA Start: 01-05-2019 TRIDENT TITAN ACETABULAR SHELL FDA Start: 01-05-2019 ACCOLADE 132' HIP STEM FDA St art: 01-05-2019 FEMORAL HEAD FDA Start: 01-05-2019 MDM LINER-CEMENT LESS GLEN FDA Start: 01-05-2019 MDM X3 INSERT FO R LINER FDA Start: 01-05-2019 TRIDENT TITAN ACETABULAR SHELL FDA Start: 01-05-2019 Discharge summary note 08-25-2024 Note Date & Type Note Facility 08-25-2024 Note [facility] Medical Records Department [address] [place] [address] Discharge Summary 08/25/24 1028 MR#: [id number] Acct: [id number] Name: ARMAAN CHANEL Rep #: [id number] : 1940 84 From: Anders Nguyen MD PCP: Dr. Jaime Galarza MD Status:ADM IN Location: [facility] [id number] Providers Date of Admission: 08/22/24 Date of Discharge: 08/25/24 Primary Care Physician: Dr. Jaime Galarza MD Reason For Visit: PNA Diagnosis Discharge Diagnosis (1) Pneumonia: Status: Acute Code(s): J18.9 - Pneumonia, unspecified organism Plan 84-year-old gentleman was admitted with fever cough for past 3 days with gradual worsening. Patient also had outpatient prescription of erythromycin who he was taking with minimal relief. Patient was diagnosed pneumonia with bilateral basilar infiltrate. 1. Bibasilar community-acquired pneumonia-continue present antibiotic coverage, patient's white blood cell count remains normal at this time, patient is on room air at this time, I will repeat patient's chest x-ray tomorrow 08/24: Repeat chest x-ray done in the morning, individually reviewed shows persistent left posterior CP angle patchy airspace disease compared with the previous chest x-ray. Patient is still symptomatic with shortness of breath therefore continue IV antibiotics. Tmax 99.3 Fahrenheit 08/25: Clinically patient much improved. No shortness of breath/dyspnea at rest. Currently not on oxygen. No tachypnea. Patient is discharged on cefdinir for 5 more days and Mucinex DM; prescription given. Home qualification oxygen ordered. Pulse ox 96% on room air. Continue incentive spirometry and PEP for 1 week. Advised to follow with pipeline engineer Dr. Errol Cabral in 2 weeks. #2 hypoxia secondary to #1: On 2 L of oxygen. 08/25 hypoxia resolved. #3 type 2 diabetes: Accu-Chek before meals and at bedtime with Humalog sliding scale coverage and hypoglycemia protocol. 08/25: Glucose 281 in BMP. On metformin glipizide and pioglitazone at home. Continued #4. Essential hypertension: Continue on his home regimen 08/25: Blood pressure in normal range. Discharge medication reconciliation done. Discharge follow-up instructions completed. Discharge process discussed with the patient and all questions were answered to patient's satisfaction. Follow with PCP in 1 to 2 weeks Total time spent, exact 35 minutes on discharge meds reconciliation, examination, coordination of care with nurses and ancillary staff, review of imaging and blood test and discussion with the patient on follow-up instructions. Medications at Discharge Home Medications glipizide 5 mg tablet, extended release 24 hr 5 mg PO BID DIABETES 08/11/13 insulin glargine 100 unit/mL (3 mL) subcutaneous pen 22 units subcut QHS DIABETES 08/11/13 losartan 50 mg tablet 50 mg PO DAILY BP 08/11/13 metformin 1,000 mg tablet 1,000 mg PO BIDCM DIABETES 08/11/13 multivitamin with folic acid 400 mcg tablet 1 tab PO DAILY SUPPLEMENT 08/11/13 pioglitazone 30 mg tablet 30 mg PO DAILY DIABETES 08/11/13 atorvastatin 40 mg tablet 40 mg PO QHS CHOLESTEROL 06/02/17 ascorbic acid (vitamin C) 500 mg tablet (Vitamin C) 500 mg PO DAILY SUPPLEMENT 12/19/18 vitamin E 268 mg (400 unit) capsule 400 unit PO DAILY SUPPLEMENT 12/19/18 aspirin 81 mg chewable tablet 81 mg PO DAILY 01/11/21 acetaminophen 500 mg tablet 1,000 mg PO Q12H PRN PRN Pain 07/14/21 benzonatate 200 mg capsule 200 mg PO TID PRN cough #20 caps 06/16/24 cefdinir 300 mg capsule 300 mg PO BID 5 days #10 caps 08/25/24 dextromethorphan-guaifenesin ER 60 mg-1,200 mg tab,extend release,12hr 1 tab PO BID 7 days #14 tabs 08/25/24 Physical Exam Narrative Seen and examined. Patient has mild cough sometimes bring phlegm otherwise no tachypnea or shortness of breath or dyspnea. Physical exam General: Alert, Oriented x3, Cooperative. BMI 29.6 kg/m??? HEENT: Atraumatic, PERRLA, EOMI, Normocephalic Oral: No Gingival or Mucosal Lesions/ Ulcerations Neck: Supple, No JVD, Negative Carotid Bruits Chest wall/Lungs: Air entry diminished in bilateral lung bases. No tachypnea or hypoxia. Mild bilateral coarse crepitations Cardiovascular: Regular rate, Regular Rhythm, Normal S1, Normal S2, No M/G/R Abdomen: Bowel Sounds Present, Soft, Non Tender, Non-Distended : No dysuria. No renal angle tenderness. No suprapubic tenderness. Extremities: No edema, Capillary Refill Less than 3 Seconds Skin: No rashes, No breakdown Musculoskeletal: No Tenderness to Palpation of Joints or Extremities Neurological: Cranial nerves II-XII grossly intact, DTR 2+/4. No acute focal neurological deficit. Psych/Mental Status: Normal Affect, Appropriate. Weight / BMI Weight Weight: 186 lb 15.232 oz Body Mass Index (BMI) 29.3 ABG / Lab / Microbiology Data 08/23/24 05:20 08/23/24 05:20 Laboratory: Laboratory Results - las (more content not included)... [facility] Evaluation note Note Date & Type Note Facility Evaluation note No assessment information availa ble [facility] Work Phone: Summary Purpose Family History No Family History Records FoundNo Family History Records Found Advance Directives No Advanced Directives Records Found Advance Directive Response Recorded Date/ Time Living Will Yes July 14 11:20am Power of Contract Assistant Yes July 14 021 11:20am Advance Directive Response Recorded Date/ Time Living Will Yes March 16, 2023 9:15pm Power of Contract Assistant Yes March 16 9:15pm Additional Source Comments (unrecognized sect ion and content) No Status Records FoundNo Status Records Found INFORMATION SOURCE (unrecogn ized section and content) DATE CREATED AUTHOR 03/31/2018 [facility] DATE CREATED AUTHOR AUTHOR'S ORGANIZ ATION 01/05/2025 [facility] Goals (unrecognized section and content) Goals may be documented in a n alternate sectionGoals may be documented in an alternate sectionGoals may be documented in an alternate section Care Teams (unrecognized sec tion and content) Team Status: Active Member Role Status Dates Dr. Brandon Oliver MD Family Provider Active Dr. Jaime Galarza MD Primary Care Provider Active Team Status: Inactive Member Role Status Dates Dr. Jaime Galarza MD Primary Care Provider, Attending Provider Active Team Status: Inactive Member Role Status Dates Dr. Jaime Galarza MD Primary Care Provi rosi, Attending Provider, Referring Provider Active FOR RECORDS PERTAINING TO PATIENTS WHO ARE OR HAVE BEEN ENROLLED IN A CHEMICAL DEPENDENCY/SUBSTANCEABUSE PROGRAM, SOME INFORMATION MAY BE OMITTED. This clinical summary was aggregated from multiple sources. Caution should be exercised in using it in the provision of clinical care. This summary normalizes information from multiple sources, and as a consequence, information in this document may materially change the coding, format and clinical context of patient data. In addition, data may be omitted in some cases. CLINICAL DECISIONS SHOULD BE BASED ON THE PRIMARY CLINICAL RECORDS. [facility] [employer] [facility]. provides no warranty or guarantee of the accuracy or completeness of information in this document.
[2025-03-26 10:05] LABS: Absolute Lymphocyte Count 0.99 X10^3/uL (0.83-4.51); Absolute Neutrophil Count 3.3 X10^3/uL (2.0-7.7); Basophil# 0.03 X10^3/uL; Basophil% 0.6 % (0-1); Eosinophil# 0.11 X10^3/uL; Eosinophils% 2.3 % (0-5); Hematocrit 27.5 % (40-54); Hemoglobin 8.8 g/dL (13.0-16.5); Lymphocyte # 0.99 X10^3/ul (0.83-4.51); Lymphocyte % 20.5 % (19-41); Mean Corpuscular Hgb 33.5 pg (27.0-32.0); Mean Corpuscular Volume 104.6 fL (80-94); Mean Platelet Vol. 9.9 fl (6.2-12.0); Monocyte# 0.34 X10^3/uL; NRBC Flagged by Analyzer 0 % (0-5); Neutrophil # 3.28 X10^3/uL (2.7-7.7); Neutrophil % 67.7 % (47-70); Platelet Count 273 K/mm3 (150-450); RBC Distribution Width CV 15.6 % (11.6-14.6); RBC Distribution Width SD 57.4 fl (35.1-43.9); Red Blood Count 2.63 M/mm3 (4.6-6.2); White Blood Count 4.8 K/mm3 (4.4-11.0)
[2025-03-26 10:56] LABS: Microalbumin,Random Urine 33.2 mg/L (NO RANGE EST.); Microalbumin:Creatinine Ratio 44.1 mg/g CRE
[2025-03-26 11:06] LABS: ALB/GLOB Ratio 1.8 RATIO (0.9-2.4); AST(SGOT) 22 U/L (<=37); Alanine Aminotransfer ALT/SGPT 15 U/L (<=46); Albumin, Serum 3.9 g/dL (3.4-4.8); Alkaline Phosphatase 74 U/L (40-129); Anion Gap 9 (5-15); BUN 17 mg/dL (4-19); BUN/Creat Ratio 22.5 RATIO (10-20); Calcium,Total 9.3 mg/dL (7.6-11.0); Carbon Dioxide 25.3 mmol/L (21.0-32.0); Chloride 105 mmol/L (98-108); Cholesterol 76 mg/dL (<=200); Creatinine, Serum 0.77 mg/dL (0.70-1.20); EST Glomerular Filtration Rate 89 (>60); Globulin 2.2 g/dL (2.2-4.2); Glucose 190 mg/dL (70-99); High Density Lipoprotein 35 mg/dL; Low Density Lipoprotein Calc. 28 mg/dL; Potassium 4.9 mmol/L (3.3-5.1); Sodium Level 139 mmol/L (133-145); Total Bilirubin 1.04 mg/dL (0.00-1.30); Triglycerides 67 mg/dL; Very Low Density Lipoprotein 13 mg/dL (5-40); cholesterol:hdl ratio screen 2.19
== END | disposition home or self-care (01) ==
LOC: MFPLAB 09:17
PROVIDERS: PCP Family Medicine; Referring Provider Family Medicine; Visit Provider Family Medicine
DX: E11.9 Type 2 diabetes mellitus without complications (principal); D64.9 Anemia, unspecified
CPT/HCPCS: 36415; 80053; 80061; 82043; 82570; 85025

== ENCOUNTER 2025-04-28 13:14 | Day surgery (SDC) | payer MEDICARE, SELFPAY ==
--- NOTE | 2025-04-27 15:34 | PAT.ANESEVAL ---
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 When Was Last Pacemaker Check QUESTION #4 FULL TEXT: You/Your Family Experience fever (hyperthermia) with Anesthesia Last Oral Intake Last Oral intake: Last Oral Intake NPO since Meds taken in AM with sips of water? Meds patient instructed to take am of surgery PONV PONV - quality control lab technician: PONV - quality control lab technician Female No 04/27/25 08:29 HX of Motion Sickness No 04/27/25 08:29 HX of N/V After Surgery No 04/27/25 08:29 Non-Smoker Yes 04/27/25 08:29 Duration of Surgery greater No 04/27/25 08:29 than 60 minutes Number of Risk Factors 1 04/27/25 08:29 PONV Score Low Risk 04/27/25 08:29 Height & Weight Height & Weight: Anesthesia: Height & Weight Height 5 ft 7 in 04/15/25 15:09 Respiratory Assessment Respiratory Assessment - quality control lab technician: Respiratory Tract Infection Hx - quality control lab technician Hx Respiratory Tract Infection No 04/27/25 08:29 STOP Sleep Apnea STOP Sleep Apnea - quality control lab technician: STOP Sleep Apnea - quality control lab technician Hx Hypertension Yes: CONTROLLED WITH MEDS 04/27/25 08:29 Hx Sleep Apnea Yes 04/27/25 08:29 CPAP Yes 04/27/25 08:29 BIPAP No 04/27/25 08:29 Do you snore loudly (louder than talking or can be heard Do you often feel tired/ fatigued/ sleepy during daytime? Has anyone observed you stop breathing during sleep? STOP Results Positive 04/27/25 08:29 QUESTION #5 FULL TEXT : Do you snore loudly (louder than talking or can be heard through closed doors)? 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 Specify any problems Hx of Preganancy in last 3 N/A 04/27/25 08:29 Months Nurse Filling Out Transfusion [email or web address] 04/27/25 08:29 & Questions: Date: 04/27/25 04/27/25 08:29 Time: 08:32 04/27/25 08:29 Patient unable to answer at this time (ie. confused, unrespo /Reproduction History /Reproductive History - quality control lab technician: /Reproductive Hx- quality control lab technician Hx Now Gestational Age (in weeks): EDC: Hx Hx Para Hx Section SAB PFSH Medical History (Updated 04/27/25 @ 08:36 by Ajay Sarabia) Alcohol use History of steroid therapy Easy bruising High cholesterol Cardiology follow-up encounter Anemia Obesity BPH (benign prostatic hyperplasia) HLD (hyperlipidemia) HTN (hypertension) Chronic anemia IRVING on CPAP Pneumonia Wears hearing aid Wears glasses Insulin dependent diabetes mellitus Back pain Former smoker History of pain when walking History of stress test History of echocardiogram History of dislocation of elbow Chronic neck and back pain Arthritis Home Medications Medication Instructions Recorded Last Taken Type glipizide 5 mg tablet, extended 5 mg PO BID DIABETES 08/11/13 Unknown History release 24 hr insulin glargine 100 unit/mL (3 22 units subcut QHS DIABETES 08/11/13 Unknown History mL) subcutaneous pen losartan 50 mg tablet 50 mg PO DAILY BP 08/11/13 07/31/21 05:00 History multivitamin with folic acid 400 1 tab PO DAILY SUPPLEMENT 08/11/13 Unknown History mcg tablet pioglitazone 30 mg tablet 30 mg PO DAILY DIABETES 08/11/13 Unknown History atorvastatin 40 mg tablet 40 mg PO QHS CHOLESTEROL 06/02/17 Unknown History ascorbic acid (vitamin C) 500 mg 500 mg PO DAILY SUPPLEMENT 12/19/18 Unknown History tablet (Vitamin C) vitamin E 268 mg (400 unit) capsule 400 unit PO DAILY SUPPLEMENT 12/19/18 Unknown History aspirin 81 mg chewable tablet 81 mg PO DAILY 01/11/21 04/24/25 History acetaminophen 500 mg tablet 1,000 mg PO Q12H PRN PRN Pain 07/14/21 Unknown History fluticasone furoate 100 1 inh inhalation Q24H 04/05/25 Unknown History mcg-vilanterol 25 mcg/dose inhalation powder (Breo Ellipta) metformin 1,000 mg tablet 1,000 mg PO BID 04/08/25 Unknown History Allergy/AdvReac Type Severity Reaction Status Date / Time No Known Allergies Allergy Verified 04/27/25 08:27 Family History Mother Heart failure Heart disease Father Diabetes Surgical History Hx of transurethral resection of prostate Hx of colonoscopy History of tonsillectomy and adenoidectomy Hx of total hip arthroplasty History of back surgery History of appendectomy Social History household members: spouse Smoking Status: Former smoker how long ago did patient quit smoking: Quit 1965, smoked 1 ppd from college->quit. alcohol intake: current alcohol intake frequency: a few times a month Alcohol type: wine substance use type: does not use Audit: Pertinent Findings Pertinent Findings Additional pertinent findings: CBC of 9.9 is acceptable for surgery Recommendation Anesthesia Recommendation Anesthesia recommendation: OPTIMIZED for anesthesia
[2025-04-28] VITALS (8 sets, daily range): BP systolic 105–131; BP diastolic 39–58; PULSE 67–76; RESP 16–18; TEMP 36.4–37.1; O2SAT 99–100; BMI 28.6
--- NOTE | 2025-04-28 14:08 | PRE.ANES_ITS ---
ASA Classification* ASA Classification ASA Classification: 3 Assessment & Plan Anesthesia* Anesthesia Assessment Anesthesia Assessment: Discussed sedation and/or anesthesia options, risks, benefits, and alternatives with patient/parents/legal guardian/POA. Questions invited. The patient/parents/legal guardian/POA seems to understand and agrees to proceed with anesthesia plan. Reviewed the physical assessment, medical history, allergy history and patient home medications list prior to surgery/procedure/anesthetic and documented any changes. Performed airway and anesthesia risk assessments. Anesthesia Type Anesthesia Type: MAC History Source History Obtained from:: Patient and Chart Anesthesia Focused Assessment* Temperature: 98.7 F Pulse Rate: 76 Blood Pressure: 131/58 Respiratory Rate: 18 Pulse Ox: 99 Oxygen Delivery Method: Room Air Airway Assessment Mouth opens: 2 cm Mallampati Score: II Teeth Condition: Caps/Crowns (Patient has a couple crowns. They are tight.) Neck Range of motion (ROM): Limited ROM (Somewhat Decreased) Labs Anesthesia Preop lab: CBC WBC 6.9 K/mm3 (4.4-11.0) 04/08/25 14:40 04/08/25 RBC 2.66 M/mm3 (4.6-6.2) L 04/08/25 14:40 04/08/25 Hgb 9.9 g/dL (13.0-16.5) L 04/08/25 14:40 04/08/25 Hct 28.9 % (40-54) L 04/08/25 14:40 04/08/25 Plt Count 281 K/mm3 (150-450) 04/08/25 14:40 04/08/25 CHEMISTRY Potassium 4.6 mmol/L (3.3-5.1) 04/08/25 14:40 04/08/25 Sodium 141 mmol/L (133-145) 04/08/25 14:40 04/08/25 Magnesium 1.9 mg/dL (1.5-2.2) 04/08/25 14:40 04/08/25 Phosphorus 3.1 mg/dL (2.7-4.5) 04/08/25 14:40 04/08/25 BUN 16 mg/dL (4-19) 04/08/25 14:40 04/08/25 Creatinine 0.73 mg/dL (0.70-1.20) 04/08/25 14:40 04/08/25 Glucose 205 mg/dL (70-99) H 04/08/25 14:40 04/08/25 POC Glucose 304 mg/dL (74-106) H 08/25/24 11:37 08/25/24 TSH 0.92 uIU/mL (0.358-3.74) 12/08/18 09:48 COAG Pre-Assessment Diagnosis/Proposed Procedure Planned Operative Procedure(s): COLONOSCOPY, EGD Anesthesia History 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 When Was Last Pacemaker Check QUESTION #4 FULL TEXT: You/Your Family Experience fever (hyperthermia) with Anesthesia Last Oral Intake Last Oral intake: Last Oral Intake NPO since 09:30 04/28/25 13:42 Meds taken in AM with sips of Yes 04/28/25 13:42 water? Meds patient instructed to losartan 04/28/25 13:42 take am of surgery Any additional information?: Yes NPO since: 10:00 (Patient finished prep at 10 AM today.) Meds taken in AM with sips of water?: Yes PONV PONV - black oxide operator: PONV - black oxide operator Female No 04/27/25 08:29 HX of Motion Sickness No 04/27/25 08:29 HX of N/V After Surgery No 04/27/25 08:29 Non-Smoker Yes 04/27/25 08:29 Duration of Surgery greater No 04/27/25 08:29 than 60 minutes Number of Risk Factors 1 04/27/25 08:29 PONV Score Low Risk 04/27/25 08:29 Height & Weight Height & Weight: Anesthesia: Height & Weight Height 5 ft 7 in 04/28/25 13:42 Weight: 83 kg 04/28/25 13:42 Body Mass Index (BMI) 28.6 04/28/25 13:42 Respiratory Assessment Respiratory Assessment - black oxide operator: Respiratory Tract Infection Hx - black oxide operator Hx Respiratory Tract Infection No 04/27/25 08:29 STOP Sleep Apnea STOP Sleep Apnea - black oxide operator: STOP Sleep Apnea - black oxide operator Hx Hypertension Yes: CONTROLLED WITH MEDS 04/27/25 08:29 Hx Sleep Apnea Yes 04/27/25 08:29 CPAP Yes 04/27/25 08:29 BIPAP No 04/27/25 08:29 Do you snore loudly (louder than talking or can be heard Do you often feel tired/ fatigued/ sleepy during daytime? Has anyone observed you stop breathing during sleep? STOP Results Positive 04/27/25 08:29 QUESTION #5 FULL TEXT : Do you snore loudly (louder than talking or can be heard through closed doors)? 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 Specify any problems Hx of Preganancy in last 3 N/A 04/27/25 08:29 Months Nurse Filling Out Transfusion [id number] 04/27/25 08:29 & Questions: Date: 04/27/25 04/27/25 08:29 Time: 08:32 04/27/25 08:29 Patient unable to answer at this time (ie. confused, unrespo /Reproduction History /Reproductive History - black oxide operator: /Reproductive Hx- black oxide operator Hx Now Gestational Age (in weeks): EDC: Hx Hx Para Hx Section SAB Active Medications Active Medications: Current Medications Generic Name Dose Route Start Last Admin Trade Name Freq PRN Reason Stop Dose Admin Lactated Ringer's 1,000 mls @ 15 mls/hr 04/28/25 13:30 IV .Q48H HERNAN Lactated Ringer's 1,000 mls @ 15 mls/hr 04/28/25 13:30 IV .Q48H HERNAN PFSH Medical History Alcohol use History of steroid therapy Easy bruising High cholesterol Cardiology follow-up encounter Anemia Obesity BPH (benign prostatic hyperplasia) HLD (hyperlipidemia) HTN (hypertension) Chronic anemia IRVING on CPAP Pneumonia Wears hearing aid Wears glasses Insulin dependent diabetes mellitus Back pain Former smoker History of pain when walking History of stress test History of echocardiogram History of dislocation of elbow Chronic neck and back pain Arthritis Home Medications Medication Instructions Recorded Last Taken Type glipizide 5 mg tablet, extended 5 mg PO BID DIABETES 1 10/11/12 04/27/25 History release 24 hr insulin glargine 100 unit/mL (3 22 units subcut QHS DI ABETES 08/11/13 04/27/25 History mL) subcutaneous pen losartan 50 mg tablet 50 mg PO DAILY BP 08/11/13 0 04/28/25 History multivitamin with folic acid 400 1 tab PO DAILY SUPPLE MENT 08/11/13 04/27/25 History mcg tablet pioglitazone 30 mg tablet 30 mg PO DAILY DIABETES 02/1604/27/25 History atorvastatin 40 mg tablet 40 mg PO QHS CHOLESTEROL 04/27/25 History ascorbic acid (vitamin C) 500 mg 500 mg PO DAILY SUPPL EMENT 12/19/18 04/27/25 History tablet (Vitamin C) vitamin E 268 mg (400 unit) capsule 400 unit PO DAILY SUPPLEMENT 12/19/18 04/27/25 History aspirin 81 mg chewable tablet 81 mg PO DAILY 01/11/21 04/24/25 History acetaminophen 500 mg tablet 1,000 mg PO Q12H PRN PRN P ain 07/14/21 04/27/25 History fluticasone furoate 100 1 inh inhalation Q24H 04/27/25 History mcg-vilanterol 25 mcg/dose inhalation powder (Breo Ellipta) metformin 1,000 mg tablet 1,000 mg PO BID 04/08/25 History Allergy/AdvReac Type Severity Reaction Status Date / Time No Known Allergies Allergy Verified 04/28/25 13:40 Family History Mother Heart failure Heart disease Father Diabetes Surgical History Hx of transurethral resection of prostate Hx of colonoscopy History of tonsillectomy and adenoidectomy Hx of total hip arthroplasty History of back surgery History of appendectomy Social History household members: spouse Smoking Status: Former smoker how long ago did patient quit smoking: Quit 1965, smoked 1 ppd from college- >quit. alcohol intake: current alcohol intake frequency: a few times a month Alcohol type: wine substance use type: does not use Review of Systems (Anesthesia) ROS Narrative System reviewed and no additional complaints, except as documented.
--- NOTE | 2025-04-28 14:15 | EGD_PTH ---
PATIENT: ARMAAN MCCLOUD LOC: EN U#:[id number] AGE/SX: 85/M ROOM: RE04/28/[address]: Dr. Winston Hernández DO : 1940 BED: DIS: 04/28/2025 SPEC #: [id number] RECD: 04/29/25 08:00 STATUS: NADYA RAJANHeber #: [id number] WON: 04/28/25 14:[address]: Winston Hernández DEPT: SURGICAL PATHOLOGY RECD BY: Henrique Cabrera ENTERED: 04/29/25 10:06 SP TYPE: EGD BIOPSY OT DR: Dr. Jaime Galarza MD Tissues: A - Duodenum, NOS B - Esophagus, NOS C - Cecum, NOS D - SPLENIC FLEXURE E - Sigmoid colon biopsy Procedures: Surgery Specimen Level IV HEADER OPERATION: Colonoscopy, EGD and biopsies and polypectomy and endoscopic PRE-OP DIAGNOSIS: Anemia, fecal occult blood stool positive TISSUE SUBMITTED: A- Duodenal lipoma, B- Random esophageal biopsies, C- Cecum polyp x2, D- Splenic flexure polyp, E- Sigmoid polyp MICROSCOPIC DIAGNOSIS A. Duodenum, "lipoma", biopsy: - Normal villous architecture with Weston gland hyperplasia. - Negative for increased intraepithelial lymphocytes. - Focal submucosal adipocytes and dilated vessels - see note. Note: Scant submucosal tissue is included in this biopsy. Benign adipocytes are suggestive of lipoma. Dilated vessels raise consideration of a benign angioma. B. Esophagus, random, biopsy: - Squamous mucosa with mild reactive changes. - Negative for eosinophils. C. Colon, cecum, polyp x2, biopsy: - Tubular adenoma, multiple fragments. D. Splenic flexure, colon, polyp, biopsy: - Inflammatory polyp. E. Sigmoid colon, polyp, biopsy: - Hyperplastic polyp. MICROSCOPIC DESCRIPTION Slides are reviewed. GROSS DESCRIPTION A. Received in fixative is one container labeled with the patient's name and designated "Duodenal lipoma." The specimen consists of two irregular fragments of light lyle soft tissue that measure 0.3 and 0.4 cm. The specimen is totally submitted in one cassette. B. Received in fixative is one container labeled with the patient's name and designated "Random esophageal biopsies." The specimen consists of two irregular fragments of light lyle soft tissue, each measuring 0.4 cm. The specimen is totally submitted in one cassette. C. Received in fixative is one container labeled with the patient's name and designated "Cecum polyp x2." The specimen consists of multiple irregular fragments of light lyle soft tissue that in aggregate measure 1.2 x 0.6 x 0.1 cm. The specimen is totally submitted in one cassette. D. Received in fixative is one container labeled with the patient's name and designated "Splenic flexure polyp." The specimen consists of multiple irregular fragments of light lyle soft tissue that in aggregate measure 1.6 x 1 x 0.3 cm. The specimen is totally submitted in one cassette. E. Received in fixative is one container labeled with the patient's name and designated "Sigmoid polyp." The specimen consists of one irregular fragment of light lyle soft tissue that measures 0.4 cm. The specimen is totally submitted in one cassette. IN 04/29/2025 CPT:8830x5
--- NOTE | 2025-04-28 14:18 | PCM.HP.STD ---
HPI - General General Date of Admission: 04/28/25 Date of Service: 04/28/25 Chief Complaint: Anemia HPI Narrative JAYLON MCCLOUD, is a 85 M who presents with Chief Complaint: anemia Referred from hematology for low hgb and normal iron. FOBT +. Pt denies abd pain, constipation, diarrhea, visible blood in his stool, heartburn or n/v. He has never had GI bleed before. Pt last colonoscopy was about 13 years ago. He has never had an EGD. He is scheduled for liver US and elastography for low haptoglobin. He drinks one glass of wine per week. [facility] Medical History Alcohol use History of steroid therapy Easy bruising High cholesterol Cardiology follow-up encounter Anemia Obesity BPH (benign prostatic hyperplasia) HLD (hyperlipidemia) HTN (hypertension) Chronic anemia IRVING on CPAP Pneumonia Wears hearing aid Wears glasses Insulin dependent diabetes mellitus Back pain Former smoker History of pain when walking History of stress test History of echocardiogram History of dislocation of elbow Chronic neck and back pain Arthritis Home Medications Medication Instructions Recorded Last Taken Type glipizide 5 mg tablet, extended 5 mg PO BID DIABETES 08/11/13 04/27/25 History release 24 hr insulin glargine 100 unit/mL (3 22 units subcut QHS DIABETES 08/11/13 04/27/25 History mL) subcutaneous pen losartan 50 mg tablet 50 mg PO DAILY BP 08/11/13 04/28/25 History multivitamin with folic acid 400 1 tab PO DAILY SUPPLEMENT 08/11/13 04/27/25 History mcg tablet pioglitazone 30 mg tablet 30 mg PO DAILY DIABETES 08/11/13 04/27/25 History atorvastatin 40 mg tablet 40 mg PO QHS CHOLESTEROL 06/02/17 04/27/25 History ascorbic acid (vitamin C) 500 mg 500 mg PO DAILY SUPPLEMENT 12/19/18 04/27/25 History tablet (Vitamin C) vitamin E 268 mg (400 unit) capsule 400 unit PO DAILY SUPPLEMENT 12/19/18 04/27/25 History aspirin 81 mg chewable tablet 81 mg PO DAILY 01/11/21 04/24/25 History acetaminophen 500 mg tablet 1,000 mg PO Q12H PRN PRN Pain 07/14/21 04/27/25 History fluticasone furoate 100 1 inh inhalation Q24H 04/05/25 04/27/25 History mcg-vilanterol 25 mcg/dose inhalation powder (Breo Ellipta) metformin 1,000 mg tablet 1,000 mg PO BID 04/08/25 04/27/25 History Allergy/AdvReac Type Severity Reaction Status Date / Time No Known Allergies Allergy Verified 04/28/25 13:40 Family History Mother Heart failure Heart disease Father Diabetes Surgical History Hx of transurethral resection of prostate Hx of colonoscopy History of tonsillectomy and adenoidectomy Hx of total hip arthroplasty History of back surgery History of appendectomy Social History household members: spouse Smoking Status: Former smoker how long ago did patient quit smoking: Quit 1965, smoked 1 ppd from college->quit. alcohol intake: current alcohol intake frequency: a few times a month Alcohol type: wine substance use type: does not use ROS Constitutional Constitutional: Denies fatigue, fever(s), poor appetite, weight gain or weight loss Gastrointestinal Gastrointestinal: Denies belching, bloating, change in bowel habits, change in stool character, chewing difficulty, coffee ground emesis, constipation, cramping, diarrhea, dyspepsia, dysphagia, early satiety, excessive flatus, fecal incontinence, heartburn, hematemesis, hematochezia, hemorrhoids, loose stools, melena, nausea, odynophagia, rectal bleeding, tenesmus, vomiting or weight changes Vital Signs Vital Signs Vital Signs: 04/28/25 13:42 04/28/25 13:42 04/28/25 14:15 Temperature 98.7 F 98.7 F Temperature Source Temporal Pulse Rate 76 76 Respiratory Rate 18 18 Respiratory Pattern Normal Blood Pressure 131/58 H 131/58 H Blood Pressure Mean 82 Blood Pressure Source Monitor Blood Pressure Position Semi-Fowlers Blood Pressure Location Left Arm Pulse Ox 99 99 Oxygen Delivery Method Room Air Room Air Weight Weight: 182 lb 15.739 oz Body Mass Index (BMI) 28.6 Physical Exam Const alert, oriented x3, no apparent distress and healthy appearing General Appearance: cooperative GI normal to inspection, nondistended, normoactive bowel sounds, soft to palpation, non-tender and non-distended Percussion: normal to percussion Rectal Exam: deferred Assessment & Plan Assessment/Plan (1) Anemia: QUALIFIERS: Anemia type: unspecified type Qualified Code(s): D64.9 - Anemia, unspecified (2) Fecal occult blood test positive: PLAN: Assessment and Plan Assessment and Plan (1) Anemia: Status: Acute Qualifiers: Anemia type: unspecified type Qualified Code(s): D64.9 - Anemia, unspecified Comment: Anemia with normal iron profile. Plan: Jaylon is an 85 yo male pt here today for evaluation of low hgb. Pt has mildly low hgb chronically since 2017 per chart review. He established with Dr. Prather who ordered further blood work which showed normal iron studies, low hgb, high MCV, and low haptoglobin. FOBT positive. He was scheduled for Liver US and elastography to rule out chronic liver condition. Due to positive stool test for blood and anemia, he will undergo EGD and colonoscopy. He was agreeable to plan. -EGD -Colonoscopy -f/u after procedures (2) Fecal occult blood test positive: Status: Acute
--- NOTE | 2025-04-28 15:11 | PCM.POST.ANE ---
Anesthesia: Postop Eval I Current Vital Signs Temperature: 97.8 F Pulse Rate: 67 Blood Pressure: 108/50 Respiratory Rate: 16 Pulse Ox: 100 Oxygen Delivery Method: Room Air Assessment Airway patent: Yes Spontaneous unlabored respirations: Yes Mental status: Asleep nausea: No Vomiting: No Anesthesia Complication: No Fluid Hydration Crystalloid volume administer (ml): 800 Total IV fluid infused: 800 Progress Note Anesthesia document: Postop Eval 1 completed: Yes
--- NOTE | 2025-04-28 15:14 | OP.EGD_ITS ---
Patient Name: Jaylon Chanel Procedure Date: 04/28/2025 2:27 PM Date of : 1940 Age: 85 Procedure: Upper GI endoscopy Indications: Iron deficiency anemia Providers: DO Mely Chang MD: Jaime Galarza MD Medicines: Monitored Anesthesia Care Patient Profile: This is an 85 year old male. Refer to note in patient chart for documentation of history and physical. Complications: No immediate complications. Procedure: Pre-Anesthesia Assessment: - Prior to the procedure, a History and Physical was performed, and patient medications and allergies were reviewed. The patient is competent. The risks and benefits of the procedure and the sedation options and risks were discussed with the patient. All questions were answered and informed consent was obtained. Patient identification and proposed procedure were verified by the physician in the pre-procedure area. Mental Status Examination: alert and oriented. Airway Examination: normal oropharyngeal airway and neck mobility. Respiratory Examination: clear to auscultation. CV Examination: normal. Prophylactic Antibiotics: The patient does not require prophylactic antibiotics. Prior Anticoagulants: The patient has taken no anticoagulant or antiplatelet agents. ASA Grade Assessment: II - A patient with mild systemic disease. After reviewing the risks and benefits, the patient was deemed in satisfactory condition to undergo the procedure. The anesthesia plan was to use monitored anesthesia care (MAC). Immediately prior to administration of medications, the patient was re-assessed for adequacy to receive sedatives. The heart rate, respiratory rate, oxygen saturations, blood pressure, adequacy of pulmonary ventilation, and response to care were monitored throughout the procedure. The physical status of the patient was re-assessed after the procedure. After obtaining informed consent, the endoscope was passed under direct vision. Throughout the procedure, the patient's blood pressure, pulse, and oxygen saturations were monitored continuously. The colonoscope was introduced through the mouth, and advanced to the fourth part of the duodenum. Small bowel enteroscopy was deemed necessary. The upper GI endoscopy was accomplished without difficulty. The patient tolerated the procedure well. Scope In: 2:35:33 PM Scope Out: 2:41:03 PM Total Procedure Duration Time 0 hours 5 minutes 30 seconds Findings: Patchy, white plaques were found in the entire esophagus. Biopsies were taken with a cold forceps for histology. Verification of patient identification for the specimen was done. Estimated blood loss was minimal. The entire examined stomach was normal. There was a large lipoma, 19 mm in diameter, in the first portion of the duodenum. Biopsies were taken with a cold forceps for histology. Verification of patient identification for the specimen was done. Estimated blood loss was minimal. Impression: - Esophageal plaques were found, consistent with candidiasis. Biopsied. - Normal stomach. - Duodenal lipoma. Biopsied. Recommendation: - Discharge patient to home. - Resume previous diet. - Continue present medications. - Await pathology results. Procedure Code(s): --- Professional --- 94252, Small intestinal endoscopy, enteroscopy beyond second portion of duodenum, not including ileum; with biopsy, single or multiple CPT copyright 2021 [employer]. All rights reserved. The codes documented in this report are preliminary and upon silviculture teacher review may be revised to meet current compliance requirements. Winston Hernández DO 04/28/2025 3:14:22 PM This report has been signed electronically. Number of Addenda: 0 Note Initiated On: 04/28/2025 2:27 PM
--- NOTE | 2025-04-28 15:14 | OP.CCLET_ITS ---
04/28/2025 Jaime Galarza MD [address] [phone] Re : Upper GI endoscopy procedure for Jaylon Chanel Dear Dr. Galarza This procedure was performed on Monday, April 28, 2025. My impressions and recommendations are as follows: Impressions : - Esophageal plaques were found, consistent with candidiasis. Biopsied. - Normal stomach. - Duodenal lipoma. Biopsied. Recommendations : - Discharge patient to home. - Resume previous diet. - Continue present medications. - Await pathology results. My findings are described in the full procedure note, which is enclosed. If I can be of further assistance, please feel free to contact me at . Sincerely, Winston Hernández, 04/28/2025 3:14:22 PM This report has been signed electronically.
--- NOTE | 2025-04-28 15:20 | OP.CCLET_ITS ---
04/28/2025 Jaime Galarza MD [address] [phone] Re : Colonoscopy procedure for Jaylon Chanel Dear Dr. Galarza This procedure was performed on Monday, April 28, 2025. My impressions and recommendations are as follows: Impressions : - One 4 mm polyp in the sigmoid colon, removed with a cold biopsy forceps. Resected and retrieved. - One 9 mm polyp at the splenic flexure, removed with a hot snare. Resected and retrieved. - Two 15 mm polyps in the cecum, removed with a hot snare. Resected and retrieved. Tattooed. - The examined portion of the ileum was normal. Recommendations : - Discharge patient to home. - Resume previous diet. - Continue present medications. - Await pathology results. - Repeat colonoscopy for surveillance. My findings are described in the full procedure note, which is enclosed. If I can be of further assistance, please feel free to contact me at . Sincerely, Winston Hernández, 04/28/2025 3:20:11 PM This report has been signed electronically.
--- NOTE | 2025-04-28 15:20 | OP.COLON_ITS ---
Patient Name: Jaylon Chanel Procedure Date: 04/28/2025 2:41 PM Date of : 1940 Age: 85 Procedure: Colonoscopy Indications: Iron deficiency anemia Providers: Winston Hernández DO Referring MD: Jaime Galarza MD Medicines: Monitored Anesthesia Care Patient Profile: This is an 85 year old male. Refer to note in patient chart for documentation of history and physical. Last Colonoscopy: more than 10 years ago. Complications: No immediate complications. Procedure: Pre-Anesthesia Assessment: - Prior to the procedure, a History and Physical was performed, and patient medications and allergies were reviewed. The patient is competent. The risks and benefits of the procedure and the sedation options and risks were discussed with the patient. All questions were answered and informed consent was obtained. Patient identification and proposed procedure were verified by the physician in the pre-procedure area. Mental Status Examination: alert and oriented. Airway Examination: normal oropharyngeal airway and neck mobility. Respiratory Examination: clear to auscultation. CV Examination: normal. Prophylactic Antibiotics: The patient does not require prophylactic antibiotics. Prior Anticoagulants: The patient has taken no anticoagulant or antiplatelet agents. ASA Grade Assessment: II - A patient with mild systemic disease. After reviewing the risks and benefits, the patient was deemed in satisfactory condition to undergo the procedure. The anesthesia plan was to use monitored anesthesia care (MAC). Immediately prior to administration of medications, the patient was re-assessed for adequacy to receive sedatives. The heart rate, respiratory rate, oxygen saturations, blood pressure, adequacy of pulmonary ventilation, and response to care were monitored throughout the procedure. The physical status of the patient was re-assessed after the procedure. After I obtained informed consent, the scope was passed under direct vision. Throughout the procedure, the patient's blood pressure, pulse, and oxygen saturations were monitored continuously. The colonoscope was introduced through the anus and advanced to the terminal ileum. The colonoscopy was performed without difficulty. The patient tolerated the procedure well. The quality of the bowel preparation was adequate. The terminal ileum, ileocecal valve, appendiceal orifice, and rectum were photographed. Scope In: 2:35:13 PM Scope Withdrawal Time 0 hours 14 minutes 9 seconds Scope Out: 3:02:01 PM Total Procedure Duration Time 0 hours 26 minutes 48 seconds Findings: The perianal and digital rectal examinations were normal. A 4 mm polyp was found in the sigmoid colon. The polyp was sessile. The polyp was removed with a cold biopsy forceps. Resection and retrieval were complete. Verification of patient identification for the specimen was done. Estimated blood loss was minimal. A 9 mm polyp was found in the splenic flexure. The polyp was sessile. The polyp was removed with a hot snare. Resection and retrieval were complete. Verification of patient identification for the specimen was done. Estimated blood loss was minimal. Two sessile polyps were found in the cecum. The polyps were 15 mm in size. These polyps were removed with a hot snare. Resection and retrieval were complete. Area was tattooed with an injection of 2 mL of Radha ink. The terminal ileum appeared normal. Impression: - One 4 mm polyp in the sigmoid colon, removed with a cold biopsy forceps. Resected and retrieved. - One 9 mm polyp at the splenic flexure, removed with a hot snare. Resected and retrieved. - Two 15 mm polyps in the cecum, removed with a hot snare. Resected and retrieved. Tattooed. - The examined portion of the ileum was normal. Recommendation: - Discharge patient to home. - Resume previous diet. - Continue present medications. - Await pathology results. - Repeat colonoscopy for surveillance. Procedure Code(s): --- Professional --- 27935, Colonoscopy, flexible; with removal of tumor(s), polyp(s), or other lesion(s) by snare technique 36120, 59, Colonoscopy, flexible; with biopsy, single or multiple 12525, Colonoscopy, flexible; with directed submucosal injection(s), any substance CPT copyright 2021 [employer]. All rights reserved. The codes documented in this report are preliminary and upon spindle setter review may be revised to meet current compliance requirements. Winston Hernández DO 04/28/2025 3:20:11 PM This report has been signed electronically. Number of Addenda: 0 Note Initiated On: 04/28/2025 2:41 PM
--- NOTE | 2025-04-28 18:46 | PCM.POSTANE2 ---
Anesthesia Postop Eval I Sum Postop Eval Completion status Anesthesia document: Postop Eval 1 completed: Yes Anesthesia Postop Eval I Summary Anesthesia Postop Eval I Summary: Anesthesia Postop Eval I: Assessment Summary Airway patent Yes 04/28/25 15:11 [email or web address] Spontaneous unlabored Yes 04/28/25 15:11 [email or web address] respirations Mental status Asleep 04/28/25 15:11 [email or web address] nausea No 04/28/25 15:11 [email or web address] Vomiting No 04/28/25 15:11 [email or web address] Anesthesia Postop Eval I: Fluid Summary Crystalloid volume administer 800 04/28/25 15:11 [email or web address] (ml) Colloids volume administered ( ml) Blood Product volume administered (ml) Total IV fluid infused 800 04/28/25 15:11 [email or web address] Anesthesia Postop Eval I: Summary Notes Anesthesia Complication No 04/28/25 15:11 [email or web address] Anesthesia Complication Comment: Post-operative progress note Anesthesia: Postop Eval II Evaluation Mental status: Awake Pain Level: 0 nausea: No Vomiting: No
--- OUTSIDE RECORDS SUMMARY | 2025-04-28 19:54 | XMS RPT_ITS | CCD ---
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 Sandoval Primary Care Provider Geovanni TANG, Dr. Sandoval Referring Provider Valentín Jones Attending Provider Geovanni TANG, Dr. Sandoval Attending Provider Keyanna Robledo Attending Provider Unavailable Crescencio TANG, Dr. Perry Attending Provider Crescencio TANG, Dr. Perry Referring Provider Crescencio TANG, Dr. Perry Referring Provider Noelle France Attending Provider Jaime Galarza Referring Unavailable Galarza, Jaime Primary Care Unavailable Orlando Prather Attending Unavailable Valentín Jones Attending Unavailable Geovanni, Jaime Primary Care Unavailable Jaime Galarza Referring Unavailable Noelle Sellers Attending Unavailable Jaime Galarza Referring Unavailable Galarza, Jaime Primary Care Unavailable Maxx Colón Attending Unavailable Geovanni, Jaime Primary Care Unavailable GalarzaJaime talavera Referring Unavailable Leeton, Julia Referring Unavailable Leeton, Julia Attending Unavailable Geovanni, Jaime Primary Care Unavailable Jaime Galarza Primary Care Unavailable Orlando Prather Referring Unavailable Orlando Prather Attending Unavailable Maxx Colón Referring Unavailable Maxx Colón Attending Unavailable Geovanni, Jaime Primary Care Unavailable Galarza, Jaime Primary Care Unavailable Geovanni, Jaime Attending Unavailable Geovanni, Jaime Referring Unavailable Galarza, Jaime Primary Care Unavailable Valentín Jones Referring Unavailable Valentín Jones Attending Unavailable Galarza, Jaime Attending Unavailable Galarza, Jaime Primary Care Unavailable Galarza, Jaime Referring Unavailable Galarza, Jaime Primary Care Unavailable Orlando Prather Attending Unavailable Keyanna Robledo Attending Unavailable Galarza, Jaiem Primary Care Unavailable White, Alyson L Admitting Unavailable White, Alyson L Attending Unavailable White, Alyson L Consulting Unavailable Galarza, Jaime Primary Care Unavailable Tereletsky, Matias Attending Unavailable Tereletsky, Matias Consulting Unavailable Patrick, Anders Attending Unavailable Patrick, Anders Consulting Unavailable Keyanna Robledo Attending Unavailable Galarza, Jaime Primary Care Unavailable Galarza, Jaime Primary Care Unavailable Galarza, Jaime Referring Unavailable Valentín Jones Attending Unavailable Valentín Jones Attending Unavailable Galarza, Jaime Primary Care Unavailable Galarza, Jaime Referring Unavailable Galarza, Jaime Primary Care Unavailable Galarza, Jaime Attending Unavailable Galarza, Jaime Referring Unavailable Galarza, Jaime Primary Care Unavailable Galarza, Jaime Attending Unavailable Galarza, Jaime Referring Unavailable Winston Hernández Attending Unavailable Galarza, Jaime Referring Unavailable Galarza, Jaime Primary Care Unavailable White, Alyson L Consulting Unavailable White, Alyson L Admitting Unavailable Patrick, Anders Attending Unavailable Galarza, Jaime Primary Care Unavailable Dottie, Matias Consulting Unavailable Dr. Winston Hernández DO Attending Provider Friend Dr. Winston BARRETT Other Provider Medications Current Medications Medication Drug Class(es) Dates Sig (Normalized) Sig (Original) acetaminophen 500 mg oral tablet (16 sources) Start: 07-14-2021 take 2 tablets by mouth every twelve hours as needed for pain Acetaminophen 500 MG tablet Active 1000 mg PO EVERY 12 HOURS NEEDED as needed for Pain July 14, 2021 11:04am Start: 07-14-2021 take 1000 mg by mout h every twelve hours as needed Acetaminophen Active 1000 MG PO EVERY 12 HOURS NEEDED July 14, 2021 11:04am Start: 01-06-2019 End: 07-14-2021 take 2 tablets by mouth every eight hours Acetaminophen 500 MG tablet Discontinued 1000 mg PO EVERY 8 HOURS 90 0 January 06, 2019 12:00am July 14, 2021 11:05am Start: 01-06-2019 End: 07-14-2021 take 1000 mg by mouth every eight hours Acetaminophen Discontinued 1000 MG PO EVERY 8 HOURS 90 January 06, 2019 12:00am July 14, 2021 11:05am ascorbic acid 500 mg oral tablet (8 sources) Vitamin C Start: 12-19-2018 take 1 tablet by mouth once daily Ascorbic Acid (Vitamin C) (Vitamin C) 500 MG tablet Active 500 mg PO DAILY December 19, 2018 12:00am SUPPLEMENT aspirin 81 mg chewable tablet (16 sources) Platelet Aggregation Inhibitor, Nonsteroidal Anti-inflammatory Drug Start: 01-11-2021 take 1 tablet by mouth once daily Aspirin 81 MG tablet,chewable Active 81 mg PO DAILY January 11, 2021 12:00am Start: 08-11-2013 End: 01-06-2019 take 1 tablet by mouth once daily Aspirin 81 MG tablet Discontinued 81 mg PO DAILY@0800 August 11, 2013 1:00am January 06, 2019 7:54am HEART [facility] atorvastatin 40 mg oral tablet (8 sources) HMG-CoA Reductase Inhibitor Start: 06-02-2017 take 1 tablet by mouth at bedtime Atorvastatin 40 MG tablet Active 40 mg PO AT BEDTIME June 02, 2017 12:00am CHOLESTEROL 30 actuat fluticasone furoate 0.1 mg/actuat / vilanterol 0.025 mg/actuat dry powder inhaler (4 sources) Corticosteroid, beta2-Adrenergic Agonist Start: 04-05-2025 Fluticasone Furoate-Vilantero l (Breo Ellipta) 100-25 mcg/dose blister with device Active 1 NMA INHALATION Q24H April 05, 2025 12:00am 120 actuat formoterol fumarate 0.005 mg/actuat / mometasone furoate 0.2 mg/actuat metered dose inhaler (3 sources) Corticosteroid, beta2-Adrenergic Agonist Start: 06-29-2021 take 1 puff(s) by inhalation twice daily Mometasone-Formot bhupinder (Dulera) 200-5 mcg/actuation HFA aerosol inhaler Active 2 PUFF INHALATION TWICE A DAY June 29, 2021 12:00am glipiZIDE er 5 mg 24 hr extended release oral tablet (8 sources) Sulfonylurea Start: 08-11-2013 take 1 tablet by mouth twice daily Glipizide 5 MG tablet Active 5 mg PO TWICE A DAY August 11, 2013 1:00am DIABETES 3 ml insulin glargine 100 unt/ml pen injector (8 sources) Insulin Analog Start: 08-11-2013 Insulin Glargine 100 UNITS/ML insulin pen Active 22 U SC AT BEDTIME August 11, 2013 1:00am DIABETES Start: 08-11-2013 Insulin Glargi ne Active 22 UNITS SC AT BEDTIME August 11, 2013 1:00am losartan potassium 50 mg oral tablet (8 sources) Angiotensin 2 Receptor Luis Start: 08-11-2013 take 1 tablet by mouth once daily Losartan 50 MG tablet Active 50 mg PO DAILY August 11, 2013 1:00am BP metFORMIN hydrochloride 1000 mg oral tablet (12 sources) Biguanide Start: 04-08-2025 take 1 tablet by mouth twice daily Metformin 1,000 mg tablet Active 1000 mg PO TWICE A DAY April 08, 2025 12:00am Start: 08-11-2013 End: 04-05-2025 take 1 tablet by mouth twice daily at mealtime Metformin 1,000 MG tablet Discontinued 1000 mg PO TWICE DAILY WITH MEALS August 11, 2013 1:00am April 05, 2025 8:42am DIABETES Multivitamin With Folic Acid (3 sources) Start: 08-11-2013 take 1 tablet by mouth once daily Multivitamin With Folic Acid Active 1 TABLET PO DAILY August 11, 2013 1:00am Multivitamin With Folic Acid 1 TABLET tablet (5 sources) Start: 08-11-2013 take 1 tablet by mouth once daily Multivitamin With Folic Acid 1 TABLET tablet Active 1 {tbl} PO DAILY August 11, 2013 1:00am SUPPLEMENT Start: 08-11-2013 take 1 tablet by sherita th once daily Multivitamin With Folic Acid 1 TABLET tablet Active 1 {tbl} PO DAILY August 11, 2013 1:00am nystatin [id number] unt/ml oral suspension (1 source) Polyene Antifungal Start: 04-28-2025 take 1 mL by mouth three times daily Nystatin 100,000 unit/mL suspension Active 1 mL PO THREE TIMES A DAY 21 7 1 April 28, 2025 12:00am swish and swallow pioglitazone 30 mg oral tablet (8 sources) Peroxisome Proliferator Receptor alpha Agonist, Peroxisome Proliferator Receptor gamma Agonist, Thiazolidinedione Start: 08-11-2013 take 1 tablet by mouth once daily Pioglitazone 30 MG tablet Active 30 mg PO DAILY August 11, 2013 1:00am DIABETES vitamin e 180 mg oral capsule (8 sources) Start: 12-19-2018 take 1 capsule by mouth once daily Vitamin E 400 UNIT capsule Active 400 U PO DAILY December 19, 2018 12:00am SUPPLEMENT Completed/Discontinued Medications Medication Drug Class(es) Dates Sig (Normalized) Sig (Original) acetaminophen 325 mg / oxyCODONE hydrochloride 5 mg oral tablet (8 sources) Opioid Agonist Start: 09-28-2018 End: 10-03-2018 Oxycodone-Acetaminop hen 1 TABLET tablet Discontinued 1 {tbl} PO EVERY 6 HOURS NEEDED as needed for Pain 20 5 0 September 28, 2018 1:00am October 02, 2018 1:00am October 03, 2018 1:08am Herpes zoster Zoster without complications Start: 09-28-2018 End: 10-03-2018 take 1 tablet by mouth every six hours as needed Oxycodone-Acetaminophen Discontinued 1 TABLET PO EVERY 6 HOURS NEEDED 20 5 September 28, 2018 1:00am October 03, 2018 1:08am acyclovir 800 mg oral tablet (8 sources) Herpesvirus Nucleoside Analog DNA Polymerase Inhibitor, Herpes Simplex Virus Nucleoside Analog DNA Polymerase Inhibitor, Herpes Zoster Virus Nucleoside Analog DNA Polymerase Inhibitor Start: 09-27-2018 End: 10-04-2018 take 5 tablets by mouth every twenty-four hours Acyclovir 800 mg tablet Discontinued 800 mg PO Q4H 42 7 0 September 27, 2018 1:00am October 03, 2018 1:00am October 04, 2018 1:07am while awake; give 5 doses in 24 hours azithromycin 250 mg oral tablet (5 sources) Macrolide Antimicrobial Start: 08-21-2024 End: 08-25-2024 take 2-5 tablets by mouth once daily Azithromycin 250 mg tablet Discontinued 0 PO .COMPLEX 6 0 August 21, 2024 1:00am August 25, 2024 11:25am take 500 mg today (day 1), then 250 mg for 4 days (days 2-5) PO benzonatate 200 mg oral capsule (5 sources) Non-narcotic Antitussive Start: 06-16-2024 End: 01-04-2025 take 1 capsule by mouth three times daily as needed for cough Benzonatate 200 mg capsule Discontinued 200 mg PO THREE TIMES A DAY as needed for cough 20 0 June 16, 2024 12:00am January 04, 2025 1:10pm cefdinir 300 mg oral capsule (5 sources) Cephalosporin Antibacterial Start: 08-25-2024 End: 01-04-2025 take 1 capsule by mouth twice daily Cefdinir 300 mg capsule Discontinued 300 mg PO TWICE A DAY 10 5 0 August 25, 2024 1:00am January 04, 2025 1:10pm dexamethasone 6 mg oral tablet (5 sources) Corticosteroid Start: 06-16-2024 End: 08-22-2024 take 1 tablet by mouth once daily Dexamethasone 6 mg tablet Discontinued 6 mg PO DAILY 5 0 June 16, 2024 12:00am August 22, 2024 9:46pm 12 hr dextromethorphan hydrobromide 60 mg / guaiFENesin 1200 mg extended release oral tablet (5 sources) Uncompetitive X-sgnccv-J-aspart ate Receptor Antagonist, Sigma-1 Agonist Start: 08-25-2024 End: 04-05-2025 Dextromethorphan-Gua ifenesin 60-1,200 mg tablet extended release 12 hr Discontinued 1 {tbl} PO TWICE A DAY 14 7 0 August 25, 2024 1:00am April 05, 2025 8:42am ibuprofen 600 mg oral tablet (8 sources) Nonsteroidal Anti-inflammatory Drug Start: 01-18-2021 End: 01-25-2021 take 1-10 tablets by mouth every six hours as needed for pain Ibuprofen 600 MG tablet Discontinued 600 mg PO EVERY 6 HOURS NEEDED as needed for Pain 1-10 Or Fever 20 7 0 January 18, 2021 10:07am January 24, 2021 12:00am January 25, 2021 12:02am methylPREDNISolone 4 mg oral tablet (5 sources) Corticosteroid Start: 01-04-2025 End: 04-05-2025 take 1 tablet by mouth once Methylprednisolone (Medrol (Triston)) 4 mg tablets,dose pack Discontinued 0 PO per package directions 21 0 January 04, 2025 12:00am April 05, 2025 8:42am PO PER PKG DIR Mometasone-Formoterol (Dulera) 200-5 mcg/actuation HFA aerosol inhaler (5 sources) Start: 06-29-2021 End: 08-22-2024 Mometasone-Formotero l (Dulera) 200-5 mcg/actuation HFA aerosol inhaler Discontinued 2 NMA INHALATION TWICE A DAY June 29, 2021 12:00am August 22, 2024 9:47pm naproxen sodium 220 mg oral capsule (8 sources) Nonsteroidal Anti-inflammatory Drug Start: 12-19-2018 End: 01-06-2019 Naproxen Sodium (Aleve) 220 MG capsule Discontinued 220 mg PO NEEDED as needed for Pain December 19, 2018 12:00am January 06, 2019 7:54am oxyCODONE hydrochloride 5 mg oral tablet (8 sources) Opioid Agonist Start: 01-06-2019 End: 01-13-2019 take 5-10 mg by mouth every four hours as needed for pain Oxycodone 5 MG tablet Discontinued 5 - 10 mg PO EVERY 4 HOURS NEEDED as needed for Mod-Severe Pain (4-10/10) 90 7 0 January 06, 2019 12:00am January 12, 2019 12:00am January 13, 2019 12:11am Acute postoperative pain of right hip Other acute postprocedural pain predniSONE 10 mg oral tablet (6 sources) Start: 05-28-2023 End: 08-22-2024 take 1 tablet by mouth twice daily Prednisone 10 mg tablet Discontinued 10 mg PO TWICE A DAY 10 0 May 28, 2023 12:00am August 22, 2024 9:47pm sulfacetamide sodium 100 mg/ml ophthalmic solution (8 sources) Sulfonamide Antibacterial Start: 09-27-2018 End: 10-04-2018 Sulfacetamide Sodium (Bleph-10) 10 % drops Discontinued 1 NMA ophthalmic (eye) Q3H 15 7 0 September 27, 2018 1:00am October 03, 2018 1:00am October 04, 2018 1:07am Problems Active Problems Problem Classification Problem Date Documented Da te Episodic/Chronic Cardiac dysrhythmias (5 sources) Tachycardia; Translations: [Tachycardia, unspecified] 08-22-2024 Episodic Deficiency and other anemia (16 sources) Anemia; Translations: [Anemia, unspecified] 04-08-2025 Episodic Comment on above: Discussed evaluation of anemia, Pt wants to proceed. Anemia with normal i farnaz profile. Deficiency and other anemia (2 sources) Anemia, unspecified; Translations: [Anemia, unspecified] Onset: 04-15-2025 Episodic Deficiency and other anemia (4 sources) Deficiency and other anemia Diabetes mellitus without complication (6 sources) Diabetes mellitus; Translations: [Type 2 diabetes mellitus without complications] Onset: 04-01-2025 08-22-2024 Chronic E Codes: Fall (6 sources) Fall; Translations: [Unspecified fall, initial encounter] 03-24-2023 Episodic Essential hypertension (1 source) Essential (primary) hypertension; Translations: [Essential (primary) hypertension] Onset: 07-22-2024 Chronic Hyperplasia of prostate (8 sources) Benign prostatic hypertrophy with outflow obstruction; Translations: [Benign prostatic hyperplasia with lower urinary tract symptoms] 01-18-2021 Chronic Immunizations and screening for infectious disease (8 sources) Patient encounter status; Translations: [Encounter for laboratory testing for COVID-19 virus] 06-25-2021 Episodic Other circulatory disease (5 sources) Respiratory finding; Translations: [Other specified symptoms and signs involving the circulatory and respiratory systems] 01-04-2025 Episodic Other gastrointestinal disorders (11 sources) Occult blood in stools; Translations: [Other fecal abnormalities] 04-15-2025 Episodic Other injuries and conditions due to external causes (6 sources) Closed injury of head; Translations: [Unspecified injury of head, initial encounter] 03-24-2023 Episodic Other screening for suspected conditions (not mental disorders or infectious disease) (2 sources) Unspecified abnormal finding in specimens from other organs, systems and tissues; Translations: [Encounter for screening for malignant neoplasm of prostate] Onset: 07-29-2024 Episodic Other upper respiratory disease (8 sources) Respiratory tract congestion; Translations: [Nasal congestion] 06-25-2021 Episodic Other upper respiratory infections (7 sources) Upper respiratory infection; Translations: [Acute upper respiratory infection, unspecified] Onset: 08-22-2024 05-28-2023 Episodic Pneumonia (except that caused by tuberculosis or sexually transmitted disease) (7 sources) Pneumonia; Translations: [Pneumonia, unspecified organism] Onset: 08-25-2024 08-29-2024 Episodic Skull and face fractures (6 sources) Closed fracture of right orbit; Translations: [Fracture of orbit, unspecified, initial encounter for closed fracture] 03-24-2023 Episodic Superficial injury; contusion (19 sources) Abrasion of cornea of right eye; Translations: [Injury of conjunctiva and corneal abrasion without foreign body, right eye, initial encounter] 01-05-2019 Episodic Unclassified (1 source) Unknown / UNK(Unknown) Onset: 05-07-2017 Unclassified (8 sources) Age AND/OR growth finding; Translations: [65 years of age or older] 06-29-2021 Unclassified (1 source) Cough, unspecified; Translations: [Cough, unspecified] Onset: 08-22-2024 Viral infection (16 sources) Disease caused by 2019-nCoV; Translations: [COVID-19] [...] forms of dyspnea] Onset: 05-07-2017 Episodic Other upper respiratory disease (1 source) Dysphonia; Translations: [Dysphonia] Onset: 05-07-2017 Episodic Results Test Name Value Interpretation Reference Range Facility Glucose measurement at [facility] deOrdered By: Winston Hernández on 04-28-2025 Glucose [Mass/Vol] 150 mg/dL High 74-106 [facility] Comment on above: MANAGEMENT OF PATIEN T CARE PER NURSING PROTOCOL MR/Perla 04-27-2025 /[facility] Medical Records Department [address] [place] [address] PAT - Anesthesia 04/27/25 1534 MR#: [id number] Acct: [id number] Name: ARMAAN CHANEL Rep #: [id number] : 1940 85 From: Bubba Olivares MD PCP: Dr. 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 When Was Last Pacemaker Check QUESTION #4 FULL TEXT: You/Your Family Experience fever (hyperthermia) with Anesthesia Last Oral Intake Last Oral intake: Last Oral Intake NPO since Meds taken in AM with sips of water? Meds patient instructed to take am of surgery PONV PONV - dog obedience instructor: PONV - dog obedience instructor Female No 04/27/25 08:29 HX of Motion Sickness No 04/27/25 08:29 HX of N/V After Surgery No 04/27/25 08:29 Non-Smoker Yes 04/27/25 08:29 Duration of Surgery greater No 04/27/25 08:29 than 60 minutes Number of Risk Factors 1 04/27/25 08:29 PONV Score Low Risk 04/27/25 08:29 Height Weight Height Weight: Anesthesia: Height Weight Height 5 ft 7 in 04/15/25 15:09 Respiratory Assessment Respiratory Assessment - dog obedience instructor: Respiratory Tract Infection Hx - dog obedience instructor Hx Respiratory Tract Infection No 04/27/25 08:29 STOP Sleep Apnea STOP Sleep Apnea - dog obedience instructor: STOP Sleep Apnea - dog obedience instructor Hx Hypertension Yes: CONTROLLED WITH MEDS 04/27/25 08:29 Hx Sleep Apnea Yes 04/27/25 08:29 CPAP Yes 04/27/25 08:29 BIPAP No 04/27/25 08:29 Do you snore loudly (louder than talking or can be heard Do you often feel tired/ fatigued/ sleepy during daytime? Has anyone observed you stop breathing during sleep? STOP Results Positive 04/27/25 08:29 QUESTION #5 FULL TEXT : Do you snore loudly (louder than talking or can be heard through closed doors)? 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 Specify any problems Hx of Preganancy in last 3 N/A 04/27/25 08:29 Months Nurse Filling Out Transfusion [id number] 04/27/25 08:29 Questions: Date: 04/27/25 04/27/25 08:29 Time: 08:32 04/27/25 08:29 Patient unable to answer at this time (ie. 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: /Reproductive Hx- dog obedience instructor Hx Now Gestational Age (in weeks): EDC: Hx Hx Para [facility] History (Updated 04/27/25 @ 08:36 by Ajay Sarabia) Alcohol use History of steroid therapy Easy bruising High cholesterol Cardiology follow-up encounter Anemia Obesity BPH (benign prostatic hyperplasia) HLD (hyperlipidemia) HTN (hypertension) Chronic anemia IRVING on CPAP Pneumonia Wears hearing aid Wears glasses Insulin dependent diabetes mellitus Back pain Former smoker History of pain when walking History of stress test History of echocardiogram History of dislocation of elbow Chronic neck and back pain Arthritis Home Medications ???Medication ???Instructions ???Recorded ???Last Taken ???Type glipizide 5 mg tablet, extended 5 mg PO BID DIABETES 08/11/13 Unkn own History release 24 hr insulin glargine 100 unit/mL (3 22 units subcut QHS DIABETES 08/11 Unknown History mL) subcutaneous pen losartan 50 mg tablet 50 mg PO DAILY BP 08/11/13 (more content not included)... Normal [facility] Gastroenterology Visit Repor ton 04-19-2025 Gastroenterology Visit Report [facility]enter[facility] [address] [place] [address] OFFICE VISIT Date of Service: 04/19/25 MR#: [id number] Acct: [id number] Name: ARMAAN CHANEL Rep #: [id number] : 1940 Provider: DORON Watts Age/Sex: 85/M Location: [facility] Status: Signed Intake Vital Signs 04/15/25 15:09 Height 5 ft 7 in Weight: 189 lb 7 oz BMI 29.7 BP 116/71 Blood Pressure Location Rt brachial Position Sitting Respiration 15 Pulse 82 Pulse Source Monitor Pulse Oximetry (%) 97 Oxygen Delivery Method room air Intake Visit Reasons: ANEMIA - OTHER FECAL ABNORMALITIES Chief Complaint: anemia Allergies No Known Allergies Allergy (Verified 04/15/25 15:19) Have you fallen in the past year?: No PFSH Medical History Anemia Pneumonia Obesity BPH (benign prostatic hyperplasia) HLD [...] use type: does not use HPI HPI Chief Complaint: anemia Details: ARMAAN CHANEL, is a 85 M who presents to the office today for establishment with [facility]. Referred from hematology for low hgb and normal iron. FOBT +. Pt denies abd pain, constipation, diarrhea, visible blood in his stool, heartburn or n/v. He has never had GI bleed before. Pt last colonoscopy was about 13 years ago. He has never had an EGD. He is scheduled for liver US and elastography for low haptoglobin. He drinks one glass of wine per week. ROS Const Constitutional: Positive for fatigue; No fever(s) or weight change ENT ENT: No difficulty swallowing Gastro GI: Positive for Blood in stool; No abdominal pain, belching, bloating, change in bowel habits, change in stool character, coffee ground emesis, constipation, cramping, diarrhea, heartburn, difficulty swallowing, feeling full early, excessive flatus, incontinent of stools, Vomiting blood/hematemesis, loose stools, Black,tarry stools, nausea/dyspepsia, pain with swallowing, vomiting or other Musc Musculoskeletal: Positive for joint pain and Arthritis Skin Skin: No yellowing of the eye or itchy eyes Psych Psychiatric: No anxiety and No depression Endo Endocrine: Positive for fatigue; No weight change Aller/Imm Allergy/Immunologic: No itchy eyes Ap/Lymp Hematologic/Lymphatic: Positive for easy bruising; No easy bleeding Exam Const General: cooperative, healthy appearing and comfortable Orientation: alert HENMT Head: normal to inspection Ears: hearing grossly normal bilaterally Eyes General: appearance normal, both eyes and all related structures Neck Neck: normal visual inspection Chest Chest palpation inspection: normal inspection of the chest Resp Effort Inspection: normal respiratory effort Cardio Rate: regular rate Rhythm: regular rhythm GI Inspection: normal to inspection Auscultation: normal bowel sounds Palpation: soft and nontender Assessment and Plan Assessment and Plan (1) Anemia: Status: Acute Qualifiers: Anemia type: unspecified type Qualified Code(s): D64.9 - Anemia, unspecified Comment: Anemia with normal iron profile. Plan: Armaan is an 85 yo male pt here today for evaluation of low hgb. Pt has mildly low hgb chronically since 2017 per chart review. He established with Dr. Prather who ordered further blood work which showed normal iron studies, low hgb, high MCV, and low haptoglobin. FOBT positive. He was scheduled for Liver US and elastography to rule out chronic liver condition. Due to positive stool test for blood and anemia, he will undergo EGD and colonoscopy. He was agreeable to plan. -EGD -Colonoscopy -f/u after procedures (2) Fecal occult blood test positive: Status: Acute Coding Level of Care Code Off vis,new,level 4 Diagnoses Anemia, unspecified type D64.9 A (more content not included)... Normal [facility] Oncology Visit Reporton 04-06 Oncology Visit Report [facility] [place] [address] OFFICE VISIT Date of Service: 04/15/25 1509 MR#: [id number] Acct: [id number] Name: ARMAAN CHANEL Rep #: [id number] : 1940 From: Orlando Prather MD Age/Sex: 85/M Location: [facility] [place] Status: Signed HPI Subjective Date of Service 04/15/25 Chief Complaint F/u for evaluation of anemia. History of Present Illness 85y.o.man was found have anemia and referred for further evaluation. He feels tired, denied weight loss, fever or night sweats. Had blood work and comes for follow up. [facility] Medical History Anemia Pneumonia Obesity BPH (benign prostatic hyperplasia) HLD [...] wine substance use type: does not use Intake Vital Signs 04/08/25 14:03 04/15/25 15:09 Height 5 ft 7 in 5 ft 7 in Weight: 85.927 kg BMI 29.7 BP 116/71 Blood Pressure Location Rt brachial Position Sitting Respiration 15 Pulse 82 Pulse Source Monitor Pulse Oximetry (%) 97 Oxygen Delivery Method room air Intake Is patient in pain?: No Allergies No Known Allergies Allergy (Verified 04/15/25 15:19) Medications ???Medication ???Instructions ???Recorded ???Confirmed ???Type glipizide 5 mg tablet, extended 5 mg PO BID DIABETES 08/11/1304/06 History release 24 hr insulin glargine 100 unit/mL (3 22 units subcut QHS DIABETES 08/1104/15/25 History mL) subcutaneous pen losartan 50 mg tablet 50 mg PO DAILY BP 08/11/13 5 History multivitamin with folic acid 400 1 tab PO DAILY SUPPLEMENT 08/11/13 04/15/25 History mcg tablet pioglitazone 30 mg tablet 30 mg PO DAILY DIABETES 08/11/13 0 04/15/25 History atorvastatin 40 mg tablet 40 mg PO QHS CHOLESTEROL 06/02/17 04/15/25 History ascorbic acid (vitamin C) 500 mg 500 mg PO DAILY SUPPLEMENT 9 04/15/25 History tablet (Vitamin C) vitamin E 268 mg (400 unit) capsule 400 unit PO DAILY SUPPLEMENT 04/15/25 History aspirin 81 mg chewable tablet 81 mg PO DAILY 01/11/21 04/15/25 H istory acetaminophen 500 mg tablet 1,000 mg PO Q12H PRN PRN Pain 05/2704/15/25 History fluticasone furoate 100 1 inh inhalation Q24H 04/05/2507/31 History mcg-vilanterol 25 mcg/dose inhalation powder (Breo Ellipta) metformin 1,000 mg tablet 1,000 mg PO BID 04/08/25 04/15/25 History Have you fallen in the past year?: No Central Venous Access Central Venous Access: No Laboratory Tests 03/26/25 04/08/25 09:18 14:40 WBC 4.8 6.9 Hgb 8.8 L 9.9 L Hct 27.5 L 28.9 L Plt Count 273 281 Absolute Neuts (auto) 3.3 Absolute Lymphs (auto) 0.99 Haptoglobin < 10 L Sodium 141 Potassium 4.6 Chloride 106 Carbon Dioxide 24.1 BUN 16 Creatinine 0.73 Glucose 205 H Uric Acid 4.2 Calcium 9.5 Phosphorus 3.1 Magnesium 1.9 Iron 80 TIBC 266 Iron Saturation 30.1 Erythropoietin 35.7 H Ferritin 403 Total Bilirubin 1.22 AST 26 ALT 16 Alkaline Phosphatase 77 Lactate Dehydrogenase 246 H C-React Prot Ext Range < 3.00 Total Protein 6.3 Albumin 4.0 Globulin 2.2 Exam Physical Exam Narrative Elderly man. Const alert, oriented x3 and no apparent distress Coding Level of Care Code Off vis,est,level 4 Exam Problem Focused Diagnoses Anemia, unspecified type D64.9 Anemia type: unspecified type Fecal occult blood test positive R19.5 Abnormal laboratory test R89.9 Assessment and Plan Assessment and Plan (1) Anemia: Status: Acute Qualifiers: Anemia type: unspecified type Qualified Code(s): D64.9 - Anemia, unspecified Comment: Anemia with normal iron profile. Plan: To obtain GI consult for endoscopy. (2) Fecal occult blood test p (more content not included)... Normal [facility] Erythropoietinon 04-12-2025 ERYTHROPOIETIN 35.7 mIU/mL High 2.6-18.5 [facility] Comment on above: Result Comment: [employer] DxI 800 Immunoassay System Values obtained with different assay methods or kits cannot be used interchangeably. Results cannot be interpreted as absolute evidence of the presence or absence of malignant disease. Performed By: #### M 100.678, L400.0001 #### [facility] [address] [place], [address] Haptoglobinon 04-12-2025 HAPTOGLOBIN < 10 Low 38-329 [facility] Comment on above: Result Comment: Perf ormed at: [facility] [id number] Site Coordinator: Adam Huffman PhD, Phone: [phone] Performed By: #### L 348.3810, P443.5190 #### [facility] [address] [place], [place], [id number] Stool Occult Blood iFOBon STOB Positive Normal [facility] Comment on above: Performed By: #### M 100.7900 ####[facility] [address] [place], [place], [id number] Stool gastrointestinal hemog lobin detection by immunologic methodOrdered By: Orlando Prather on 04-12-2025 Lower GI hemoglobin IA Ql (Stl) Positive Abnormal [facility] Absolute lymphocyte countOrd ered By: Orlando Prather on 04-08-2025 Lymphocytes Auto (Unsp spec) [#/Vol] 0.87 10*3/uL 0.83-4.51 [facility] Absolute neutrophil countOrd ered By: Orlando Prather on 04-08-2025 Neutrophils (Bld) [#/Vol] 5.4 10*3/uL 2.0-7.7 [facility] Anion gap in Serum or Plasma Ordered By: Orlando Prather on 04-08-2025 Anion gap [Moles/Vol] 11 mmol/L 5-15 [facility] Automated lymphocyte count a s percentage of total leukocytesOrdered By: Orlando Prather on 04-08-2025 Lymphocytes/100 WBC Auto (Unsp spec) 12.6 % Low 19-41 [facility] BUN/creatinine ratioOrdered By: Orlando Prather on 04-08-2025 Urea nitrogen/Creatinine [Mass ratio] 21.5 mg/mg High 10-20 [facility] Basophil percentageOrdered B y: Orlando Prather on 04-08-2025 Basophils/100 WBC (Bld) 0.3 % 0-1 [facility] Bilirubin Test strip Ql (U)O rdered By: Orlando Prather on 04-08-2025 Bilirubin Ql (U) Negative Negative [facility] Bilirubin, totalOrdered By: Orlando Prather on 04-08-2025 Bilirubin [Mass/Vol] 1.22 mg/dL 0.00-1.30 [facility] CBC W/Diff, Automatedon 07-0 Absolute Lymph 0.87 X10 3/uL Normal 0.83-4.51 [facility] Comment on above: Performed By: #### M 100.678, L400.0001 #### [facility] [address] [place], [address] Absolute Neut 5.4 X10 3/uL Normal 2.0-7.7 [facility] Comment on above: Performed By: #### M 100.678, L400.0001 #### [facility] [address] [place], [address] Basophils/100 WBC (Bld) 0.3 % Normal 0-1 [facility] Comment on above: Performed By: #### M 100.678, L400.0001 #### [facility] [address] [place], [address] Eosinophils/100 WBC (Bld) 0.9 % Normal 0-5 [facility] Comment on above: Performed By: #### M 100.678, L400.0001 #### [facility] [address] [place], [address] Erythrocyte distribution width (RBC) [Ratio] 18.6 % High 11.6-14.6 [facility] Comment on above: Performed By: #### M 100.678, L400.0001 #### [facility] [address] [place], [address] Hematocrit (Bld) [Volume fraction] 28.9 % Low 40-54 [facility] Comment on above: Performed By: #### 100.678, L400.0001 #### [facility] [address] [place], [address] Hemoglobin (Bld) [Mass/Vol] 9.9 g/dL Low 13.0-16.5 [facility] Comment on above: Performed By: #### M 100.678, L400.0001 #### [facility] [address] [place], [address] IG% 1.500 High 0.0-0.9 [facility] Comment on above: Result Comment: IG% - Immature Granulocytes (promyelocytes, myelocytes and metamyelocytes) > 1% indicates that a LEFT SHIFT is Present. Performed By: #### M 100.678, L400.0001 #### [facility] [address] [place], [address] Lymphocytes/100 WBC (Bld) 12.6 % Low 19-41 [facility] Comment on above: Performed By: #### M 100.678, L400.0001 #### [facility] [address] [place], [address] MCH (RBC) [Entitic mass] 37.2 pg High 27.0-32.0 [facility] Comment on above: Performed By: #### M 100.678, L400.0001 #### [facility] [address] [place], [address] MCHC (RBC) [Mass/Vol] 34.3 g/dL Normal 32-36 [facility] Comment on above: Performed By: #### M 100.678, L400.0001 #### [facility] [address] [place], [address] MCV (RBC) [Entitic vol] 108.6 fL High 80-94 [facility] Comment on above: Performed By: #### M 100.678, L400.0001 #### [facility] [address] [place], [address] Monocytes/100 WBC (Bld) 6.3 % Normal 0-10 [facility] Comment on above: Performed By: #### M 100.678, L400.0001 #### [facility] [address] [place], [address] Neutrophils/100 WBC (Bld) 78.4 % High 47-70 [facility] Comment on above: Performed By: #### M 100.678, L400.0001 #### [facility] [address] [place], [address] Nucleated RBC (Bld) [#/Vol] 0 10*3/uL Normal 0-5 [facility] Comment on above: Performed By: #### M 100.678, L400.0001 #### [facility] [address] [place], [address] Platelet mean volume (Bld) [Entitic vol] 10.2 fL Normal 6.2-12.0 [facility] Comment on above: Performed By: #### M 100.678, L400.0001 #### [facility] [address] [place], [address] Platelets (Bld) [#/Vol] 281 10*3/uL Normal 150-450 [facility] Comment on above: Performed By: #### M 100.678, L400.0001 #### [facility] [address] [place], [address] RBC (Bld) [#/Vol] 2.66 10*6/uL Low 4.6-6.2 [facility] Comment on above: Performed By: #### M 100.678, L400.0001 #### [facility] [address] [place], [address] RDW SD 56.5 fl High 35.1-43.9 [facility] Comment on above: Performed By: #### M 100.678, L400.0001 #### [facility] [address] [place], [address] WBC (Bld) [#/Vol] 6.9 10*3/uL Normal 4.4-11.0 [facility] Comment on above: Performed By: #### M 100.678, L400.0001 #### [facility] [address] [place], [address] CRPon 04-08-2025 C-REACTIVE PROT < 3.00 Normal 0.0-3.0 [facility] Comment on above: Performed By: #### M 100.678, L400.0001 #### [facility] [address] [place], [address] Carbon dioxide, total [Moles /volume] in Central venous bloodOrdered By: Orlando Prather on 04-08-2025 CO2 [Moles/Vol] 24.1 mmol/L 21.0-32.0 [facility] Chloride assayOrdered By: Vanesa Prather on 04-08-2025 Chloride [Moles/Vol] 106 mmol/L 98-108 [facility] Comprehensive Metabolic Prof ilon 04-08-2025 Albumin [Mass/Vol] 4.0 g/dL Normal 3.4-4.8 [facility] Comment on above: Performed By: #### M 100.678, L400.0001 #### [facility] [address] [place], [address] Albumin/Globulin [Mass ratio] 1.8 {ratio} Normal 0.9-2.4 [facility] Comment on above: Performed By: #### M 100.678, L400.0001 #### [facility] [address] [place], [address] ALK PHOS 77 U/L Normal 40-129 [facility] Comment on above: Performed By: #### M 100.678, L400.0001 #### [facility] [address] [place], [address] ALT [Catalytic activity/Vol] 16 U/L Normal <=46 [facility] Comment on above: Performed By: #### M 100.678, L400.0001 #### [facility] [address] [place], [address] AST [Catalytic activity/Vol] 26 U/L Normal <=37 [facility] Comment on above: Performed By: #### M 100.678, L400.0001 #### [facility] [address] [place], [address] Bilirubin [Mass/Vol] 1.22 mg/dL Normal 0.00-1.30 [facility] Comment on above: Performed By: #### M 100.678, L400.0001 #### [facility] [address] [place], [address] BUN/CRE 21.5 RATIO High 10-20 [facility] Comment on above: Performed By: #### M 100.678, L400.0001 #### [facility] [address] [place], [address] Calcium [Mass/Vol] 9.5 mg/dL Normal 7.6-11.0 [facility] Comment on above: Performed By: #### M 100.678, L400.0001 #### [facility] [address] [place], [address] Chloride [Moles/Vol] 106 mmol/L Normal 98-108 [facility] Comment on above: Performed By: #### M 100.678, L400.0001 #### [facility] [address] [place], [address] CO2 [Moles/Vol] 24.1 mmol/L Normal 21.0-32.0 [facility] Comment on above: Performed By: #### M 100.678, L400.0001 #### [facility] [address] [place], [address] Creatinine [Mass/Vol] 0.73 mg/dL Normal 0.70-1.20 [facility] Comment on above: Performed By: #### M 100.678, L400.0001 #### [facility] [address] [place], [address] GAP 11 Normal 5-15 [facility] Comment on above: Performed By: #### M 100.678, L400.0001 #### [facility] [address] [place], [address] GFR/1.73 sq M.predicted among non-blacks MDRD (S/P/Bld) [Vol rate/Area] 90 mL/min/{1.73_m2} Normal >60 [facility] Comment on above: Result Comment: mL/m in/1.73m2 CKD-EPI Creatinine Equation (2020) Performed By: #### M 100.678, L400.0001 #### [facility] [address] [place], [address] Globulin (S) [Mass/Vol] 2.2 g/dL Normal 2.2-4.2 [facility] Comment on above: Performed By: #### M 100.678, L400.0001 #### [facility] [address] [place], [address] Glucose [Mass/Vol] 205 mg/dL High 70-99 [facility] Comment on above: Performed By: #### M 100.678, L400.0001 #### [facility] [address] [place], [address] Potassium [Moles/Vol] 4.6 mmol/L Normal 3.3-5.1 [facility] Comment on above: Performed By: #### M 100.678, L400.0001 #### [facility] [address] [place], [address] Sodium [Moles/Vol] 141 mmol/L Normal 133-145 [facility] Comment on above: Performed By: #### M 100.678, L400.0001 #### [facility] [address] [place], [address] T PROT 6.3 g/dL Normal 5.9-8.4 [facility] Comment on above: Performed By: #### M 100.678, L400.0001 #### [facility] [address] [place], [address] Urea nitrogen [Mass/Vol] 16 mg/dL Normal 4-19 [facility] Comment on above: Performed By: #### M 100.678, L400.0001 #### [facility] [address] [place], [address] Eosinophil percentageOrdered By: Orlando Prather on 04-08-2025 Eosinophils/100 WBC (Bld) 0.9 % 0-5 [facility] Erythrocyte Sed Rateon 04-08 SED RATE 2 mm/hr Normal 0-20 [facility] Comment on above: Performed By: #### M 100.678, L400.0001 #### [facility] [address] [place], [place], [address] Erythrocyte distribution wid th ratioOrdered By: Orlando Prather on 04-08-2025 Erythrocyte distribution width (RBC) [Ratio] 18.6 % High 11.6-14.6 [facility] Erythrocyte distribution wid th standard deviationOrdered By: Orlando Prather on 04-08-2025 Erythrocyte distribution width (RBC) [Ratio] 56.5 fl High 35.1-43.9 [facility] Erythrocyte sedimentation ra teOrdered By: Orlando Prather on 04-08-2025 ESR (Bld) [Velocity] 2 mm/h 0-20 [facility] Ferritinon 04-08-2025 Ferritin [Mass/Vol] 403 ng/mL Normal 37-417 [facility] Comment on above: Performed By: #### M 100.678, L400.0001 #### [facility] [address] [place], [place], [address] Glomerular filtration rate ( GFR) estimation/1.73 sq m using serum, plasma, or whole bOrdered By: Orlando Prather on 04-08-2025 GFR/1.73 sq M.predicted among non-blacks MDRD (S/P/Bld) [Vol rate/Area] 90 mL/min/{1.73_m2} >60 [facility] Comment on above: mL/min/1.73m2 CKD-EP I Creatinine Equation (2020) Hematocrit Auto (Bld) [Volum e fraction]Ordered By: Orlando Prather on 04-08-2025 Hematocrit (Bld) [Volume fraction] 28.9 % Low 40-54 [facility] Hemoglobin measurementOrdere d By: Orlando Prather on 04-08-2025 Hemoglobin (Bld) [Mass/Vol] 9.9 g/dL Low 13.0-16.5 [facility] Immature granulocytes/100 WB C Auto (Bld)Ordered By: Orlando Prather on 04-08-2025 Immature granulocytes/100 WBC (Bld) 1.500 % High 0.0-0.9 [facility] Comment on above: IG% - Immature Granu locytes (promyelocytes, myelocytes and metamyelocytes) > 1% indicates that a LEFT SHIFT is Present. Iron measurement (mass/mass) Ordered By: Orlando Prather on 04-08-2025 Iron (Unsp spec) [Mass/Mass] 80 ug/dL 65-175 [facility] Iron+Iron Binding Capacityon 04-08-2025 Iron [Mass/Vol] 80 ug/dL Normal 65-175 [facility] Comment on above: Performed By: #### M 100.678, L400.0001 #### [facility] [address] [place], [address] UIBC 186 ug/dL Low 228-428 [facility] Comment on above: Performed By: #### M 100.678, L400.0001 #### [facility] [address] [place], [address] Ketones Test strip Ql (U)Ord ered By: Orlando Prather on 04-08-2025 Ketones Ql (U) Negative Negative [facility] LDHon 04-08-2025 LDH 246 U/L High 87-241 [facility] Comment on above: Order Comment: 1 Performed By: #### M 100.678, L400.0001 #### [facility] [address] [place], [address] Laboratory - Chemistry and C hemistry - challengeOrdered By: Orlando Prather on 04-08-2025 AST [Catalytic activity/Vol] 26 U/L <38 [facility] Lactate dehydrogenase (LDH) measurementOrdered By: Orlando Prather on 04-08-2025 LDH [Catalytic activity/Vol] 246 U/L High 87-241 [facility] MCV (mean corpuscular volume ) determinationOrdered By: Orlando Prather on 04-08-2025 MCV (RBC) [Entitic vol] 108.6 fL High 80-94 [facility] Magnesiumon 07-03-2025 Magnesium [Mass/Vol] 1.9 mg/dL Normal 1.5-2.2 [facility] Comment on above: Performed By: #### M 100.678, L400.0001 #### [facility] [address] [place], [address] Magnesium measurement (mass/ volume)Ordered By: Orlando Prather on 04-08-2025 Magnesium (Unsp spec) [Mass/Vol] 1.9 mg/dL 1.5-2.2 [facility] Mean corpuscular hemoglobin (MCH) determinationOrdered By: Orlando Prather on 04-08-2025 MCH (RBC) [Entitic mass] 37.2 pg High 27.0-32.0 [facility] Mean corpuscular hemoglobin concentration (MCHC) determinationOrdered By: Orlando Prather on 04-08-2025 MCHC (RBC) [Mass/Vol] 34.3 g/dL 32-36 [facility] Mean platelet volume determi nationOrdered By: Orlando Prather on 04-08-2025 Platelet mean volume (Bld) [Entitic vol] 10.2 fL 6.2-12.0 [facility] Microscopic analysis of urin e for red blood cells (RBC)Ordered By: Orlando Prather on 04-08-2025 Microscopic analysis of urine for red blood cells (RBC) 0-5 SEEN /hpf 0-5 [facility] Monocyte percentageOrdered B y: Orlando Prather on 04-08-2025 Monocytes/100 WBC (Bld) 6.3 % 0-10 [facility] Mucus LM Ql (Urine sed)Order ed By: Orlando Prather on 04-08-2025 Mucus Ql (Urine sed) 0 SEEN /hpf [facility] Neutrophil percentageOrdered By: Orlando Prather on 04-08-2025 Neutrophils/100 WBC (Bld) 78.4 % High 47-70 [facility] Nitrite Test strip Ql (U)Ord ered By: Orlando Prather on 04-08-2025 Nitrite Ql (U) Negative Negative [facility] No Panel InformationOrdered By: Orlando Prather on 04-08-2025 Unsaturated Iron Binding Capacity 186 ug/dL Low 228-428 [facility] Nucleated red blood cell per centageOrdered By: Orlando Prather on 04-08-2025 Nucleated RBC/100 WBC (Bld) [Ratio] 0 % 0-5 [facility] Oncology Visit Reporton Oncology Visit Report [facility] [address] [place] [address] OFFICE VISIT Date of Service: 04/08/25 1358 MR#: [id number] Acct: [id number] Name: ARMAAN CHANEL Rep #: [id number] : 1940 From: Orlando Prather MD Age/Sex: 85/M Location: [facility] [place] Status: Signed HPI Subjective Date of Service 04/08/25 Chief Complaint Referred for evaluation of anemia. History of Present Illness 85y.o.man was found have anemia and referred for further evaluation. He feels tired, denies weight loss, fever or night sweats. [facility] Anemia Pneumonia Obesity BPH (benign prostatic hyperplasia) HLD [...] substance use type: does not use ROS Constitutional Constitutional: Reports systems reviewed and no addt'l complaints, except as documented Eyes Eyes: Reports systems reviewed and no addt'l complaints, except as documented ENT HEENT: Reports systems reviewed and no addt'l complaints, except as documented Cardiovascular Cardiovascular: Reports systems reviewed and no addt'l complaints, except as documented Respiratory/Chest Respiratory/Chest: Reports systems reviewed and no addt'l complaints, except as documented Gastrointestinal Gastrointestinal: Reports systems reviewed and no addt'l complaints, except as documented Genitourinary Genitourinary: Reports systems reviewed and no addt'l complaints, except as documented Musculoskeletal Musculoskeletal: Reports systems reviewed and no addt'l complaints, except as documented Integumentary Integumentary: Reports systems reviewed and no addt'l complaints, except as documented Neurologic Neurologic: Reports systems reviewed and no addt'l complaints, except as documented Psychiatric Psychiatric: Reports systems reviewed and no addt'l complaints, except as documented Endocrine Endocrinology: Reports systems reviewed and no addt'l complaints, except as documented Hematologic/Lymphatic Hematologic/Lymphatic: Reports systems reviewed and no addt'l complaints, except as documented Allergic/Immunologic Allergic/Immunologic: Reports systems reviewed and no addt'l complaints, except as documented Intake Vital Signs 01/04/25 13:07 04/08/25 14:01 04/08/25 14:03 Height 5 ft 7 in 5 ft 7 in 5 ft 7 in Weight: 85.927 kg BMI 29.7 BP 139/64 H Blood Pressure Location Lt brachial Position Sitting Respiration 18 Pulse 75 Pulse Source Monitor Temp 98.7 F Temperature Source Temporal Artery Pulse Oximetry (%) 96 Oxygen Delivery Method room air Intake Accompanied by: Self Is patient in pain?: No Allergies No Known Allergies Allergy (Verified 04/08/25 13:59) Medications ???Medication ???Instructions ???Recorded ???Confirmed ???Type glipizide 5 mg tablet, extended 5 mg PO BID DIABETES 08/11/1312/29 History release 24 hr insulin glargine 100 unit/mL (3 22 units subcut QHS DIABETES 08/1104/08/25 History mL) subcutaneous pen losartan 50 mg tablet 50 mg PO DAILY BP 08/11/13 5 History multivitamin with folic acid 400 1 tab PO DAILY SUPPLEMENT 08/11/13 04/08/25 History mcg tablet pioglitazone 30 mg tablet 30 mg PO DAILY DIABETES 08/11/13 0 04/08/25 History atorvastatin 40 mg tablet 40 mg PO QHS CHOLESTEROL 06/02/17 04/08/25 History ascorbic acid (vitamin C) 500 mg 500 mg PO DAILY SUPPLEMENT 9 04/08/25 History tablet (Vitamin C) vitamin E 268 mg (400 unit) capsule 400 unit PO DAILY SUPPLEMENT 04/08/25 History aspirin 81 mg chewable tablet 81 mg PO DAILY 01/11/21 04/08/25 H istory acetaminophen 500 mg tablet 1,000 mg PO Q12H PRN PRN Pain 10/0 05/2704/08/25 History fluticasone furoate 100 1 inh inhalation Q24H 04/05/2512/29 History mcg-vilante (more content not included)... Normal [facility] Phosphoruson 04-08-2025 Phosphate [Mass/Vol] 3.1 mg/dL Normal 2.7-4.5 [facility] Comment on above: Performed By: #### M 100.678, L400.0001 #### [facility] [address] [place], [address] Platelet countOrdered By: Vanesa Prather on 04-08-2025 Platelets (Bld) [#/Vol] 281 10*3/uL 150-450 [facility] Potassium measurement (mass/ volume)Ordered By: Orlando Prather on 04-08-2025 Potassium (Unsp spec) [Mass/Vol] 4.6 mmol/L 3.3-5.1 [facility] Protein Test strip Ql (U)Ord ered By: Orlando Prather on 04-08-2025 Protein Ql (U) 30 mg/dl High Negative [facility] RBC Auto (Bld) [#/Vol]Ordere d By: Orlando Prather on 04-08-2025 RBC (Bld) [#/Vol] 2.66 10*6/uL Low 4.6-6.2 [facility] Retic Panelon 04-08-2025 IM RET FRACTION 27.80 High 3.00-15.90 [facility] Comment on above: Performed By: #### M 100.678, L400.0001 #### [facility] [address] [place], [address] RET-HE 33.7 pg Normal 30-35 [facility] Comment on above: Performed By: #### M 100.678, L400.0001 #### [facility] [address] [place], [address] Retic Count 4.56 High 0.5-1.5 [facility] Comment on above: Performed By: #### M 100.678, L400.0001 #### [facility] [address] [place], [address] Reticulocyte hemoglobin equi valent (RET-He) measurementOrdered By: Orlando Prather on 04-08-2025 Hemoglobin (Reticulocytes) [Entitic mass] 33.7 pg 30-35 [facility] Reticulocytes Auto (Bld) [#/ Vol]Ordered By: Orlando Prather on 04-08-2025 Reticulocytes/100 RBC (Bld) 4.56 % High 0.5-1.5 [facility] Serum creatinine measurement (mass/volume)Ordered By: Orlando Prather on 04-08-2025 Creatinine [Mass/Vol] 0.73 mg/dL 0.70-1.20 [facility] Serum globulin measurementOr dered By: Orlando Prather on 04-08-2025 Globulin (S) [Mass/Vol] 2.2 g/dL 2.2-4.2 [facility] Serum glucose measurement (m ass/volume)Ordered By: Orlando Prather on 04-08-2025 Glucose [Mass/Vol] 205 mg/dL High 70-99 [facility] Serum or plasma C reactive p rotein measurement (mass/volume)Ordered By: Orlando Prather on 04-08-2025 CRP [Mass/Vol] mg/L 0.0-3.0 [facility] Serum or plasma alanine hooks otransferase (ALT) measurementOrdered By: Orlando Prather on 04-08-2025 ALT [Catalytic activity/Vol] 16 U/L <47 [facility] Serum or plasma albumin amandeep urement (mass/volume)Ordered By: Orlando Prather on 04-08-2025 Albumin [Mass/Vol] 4.0 g/dL 3.4-4.8 [facility] Serum or plasma albumin/glob ulin mass ratioOrdered By: Orlando Prather on 04-08-2025 Albumin/Globulin [Mass ratio] 1.8 {ratio} 0.9-2.4 [facility] Serum or plasma alkaline elin sphatase measurementOrdered By: Orlando Prather on 04-08-2025 ALP [Catalytic activity/Vol] 77 U/L 40-129 [facility] Serum or plasma calcium amandeep urement (mass/volume)Ordered By: Orlando Prather on 04-08-2025 Calcium [Mass/Vol] 9.5 mg/dL 7.6-11.0 [facility] Serum or plasma erythropoiet in (EPO) measurement (units/volume)Ordered By: Orlando Prather on 04-08-2025 Erythropoietin (EPO) Qn 35.7 mIU/mL High 2.6-18.5 [facility] Comment on above: Vitasoft el DxI 800 Immunoassay SystemValues obtained with different assay methods or kits cannotbe used interchangeably. Results cannot be interpreted asabsolute evidence of the presence or absence of malignantdisease. Serum or plasma ferritin marques surement (mass/volume)Ordered By: Orlando Prather on 04-08-2025 Ferritin [Mass/Vol] 403 ng/mL 37-417 [facility] Serum or plasma iron saturat ion measurement (mass fraction)Ordered By: Orlando Prather on 04-08-2025 Iron saturation [Mass fraction] 30.1 % 9-55 [facility] Comment on above: Previous reported re sult: 30.0 %Edited by: AUTOINS on 04/08/25:1640 AMENDED REPORT 04/08/25 1640 IRON SATURATION previously reported as: 30.0 % Serum or plasma urea nitroge n measurement (mass/volume)Ordered By: Orlando Prather on 04-08-2025 Urea nitrogen [Mass/Vol] 16 mg/dL 4-19 [facility] Serum or plasma uric acid me asurement (mass/volume)Ordered By: Orlando Prather on 04-08-2025 Urate [Mass/Vol] 4.2 mg/dL 3.5-7.2 [facility] Comment on above: The drugs N-Acetylcy steine and Metamizole may falsely depress this assay. Sodium levelOrdered By: Clem Prather on 04-08-2025 Sodium [Moles/Vol] 141 mmol/L 133-145 [facility] Squamous epithelial cells de tection in urine sediment by light microscopyOrdered By: Orlando Crescencio on 04-08-2025 Epithelial cells.squamous LM Ql (Urine sed) 0-5 SEEN /hpf 0-5 [facility] Total proteinOrdered By: Fermin Prather on 04-08-2025 Protein [Mass/Vol] 6.3 g/dL 5.9-8.4 [facility] Uric Acidon 04-08-2025 URIC 4.2 mg/dL Normal 3.5-7.2 [facility] Comment on above: Result Comment: The drugs N-Acetylcysteine and Metamizole may falsely depress this assay. Performed By: #### M 100.678, L400.0001 #### [facility] [address] [facility] [address] Urinalysis, Completeon 04-08 EPI,SQUAMOUS 0-5 SEEN Normal 0-5 [facility] Comment on above: Order Comment: BRETT CTOR TO SPECIFY Performed By: #### L 400.0001 #### [facility] [address] [place], [address] RBC 0-5 SEEN Normal 0-5 [facility] Comment on above: Order Comment: COLLE CTOR TO SPECIFY Performed By: #### L 400.0001 #### [facility] [address] [place], [address] WBC 0-5 SEEN Normal 0-5 [facility] Comment on above: Order Comment: BRETT CTOR TO SPECIFY Performed By: #### L 400.0001 #### [facility] [address] [place], [address] BACTERIA 0 SEEN Normal None Seen [facility] Comment on above: Order Comment: COLLE CTOR TO SPECIFY Performed By: #### L 400.0001 #### [facility] [address] [facility] [id number] Mucus Ql (Urine sed) 0 SEEN Normal [facility] Comment on above: Order Comment: COLLE CTOR TO SPECIFY Performed By: #### L 400.0001 #### [facility] [address] [place], [place], [id number] Urine clarityOrdered By: Fermin Prather on 04-08-2025 Clarity (U) Sl. Cloudy Clear [facility] Urine color determinationOrd ered By: Orlando Prather on 04-08-2025 Color (U) Yellow Yellow [facility] Urine glucose detectionOrder ed By: Orlando Prather on 04-08-2025 Glucose Ql (U) 250 mg/dl High Normal [facility] Urine leukocyte esterase det ection by dipstickOrdered By: Orlando Prather on 04-08-2025 Leukocyte esterase Test strip Ql (U) Negative Negative [facility] Urine pHOrdered By: Orlando escobar on 04-08-2025 pH (U) 5.0 [pH] 5.0 - 8.0 [facility] Urine sediment bacteria coun t by microscopy (number/high power field)Ordered By: Orlando Prather on 04-08-2025 Bacteria LM.HPF (Urine sed) [#/Area] 0 /[HPF] None Seen [facility] Urine specific gravity measu rementOrdered By: Orlando Prather on 04-08-2025 Specific gravity (U) [Rel density] 1.025 1.002-1.030 [facility] Urine urobilinogen measureme ntOrdered By: Orlando Prather on 04-08-2025 Urobilinogen Ql (U) Normal mg/dl Normal [facility] Vitamin B12on 04-08-2025 Cobalamin (Vitamin B12) [Mass/Vol] 301 pg/mL Normal 180-914 [facility] Comment on above: Performed By: #### M 100.678, L400.0001 #### [facility] [address] [place], [place], [id number] Vitamin B12 ser/plasOrdered By: Orlando Prather on 04-08-2025 Cobalamin (Vitamin B12) [Mass/Vol] 301 pg/mL 180-914 [facility] White blood cell (WBC) count Ordered By: Orlando Prather on 04-08-2025 WBC (Bld) [#/Vol] 6.9 10*3/uL 4.4-11.0 [facility] White blood cell countOrdere d By: Orlando Prather on 04-08-2025 White blood cell count 0-5 SEEN /hpf 0-5 [facility] Absolute lymphocyte countOrd ered By: Jaime Galarza on 03-26-2025 Lymphocytes Auto (Unsp spec) [#/Vol] 0.99 10*3/uL 0.83-4.51 [facility] Absolute neutrophil countOrd ered By: Jaime Galarza on 03-26-2025 Neutrophils (Bld) [#/Vol] 3.3 10*3/uL 2.0-7.7 [facility] Anion gap in Serum or Plasma Ordered By: Jaime Galarza on 03-26-2025 Anion gap [Moles/Vol] 9 mmol/L 5- [facility] Automated lymphocyte count a s percentage of total leukocytesOrdered By: Jaime Galarza on 03-26-2025 Lymphocytes/100 WBC Auto (Unsp spec) 20.5 % - [facility] BUN/creatinine ratioOrdered By: Jaime Galarza on 03-26-2025 Urea nitrogen/Creatinine [Mass ratio] 22.5 mg/mg High - [facility] Basophil percentageOrdered B y: Jaime Galarza on 03-26-2025 Basophils/100 WBC (Bld) 0.6 % 0-1 [facility] Bilirubin, totalOrdered By: Jaime Galarza on 03-26-2025 Bilirubin [Mass/Vol] 1.04 mg/dL 0.00-1.30 [facility] CBC W/Diff, Automatedon 03-08 Absolute Lymph 0.99 X10 3/uL Normal 0.83-4.51 [facility] Comment on above: Performed By: #### L 500.4100, L100.0100, L502.0250, L500.4050 #### [facility] [place], [address] Absolute Neut 3.3 X10 3/uL Normal 2.0-7.7 [facility] Comment on above: Performed By: #### L 500.4100, L100.0100, L502.0250, L500.4050 #### [facility] [address] [place], [address] Basophils/100 WBC (Bld) 0.6 % Normal 0-1 [facility] Comment on above: Performed By: #### L 500.4100, L100.0100, L502.0250, L500.4050 #### [facility] [address] [place], [address] Eosinophils/100 WBC (Bld) 2.3 % Normal 0-5 [facility] Comment on above: Performed By: #### L 500.4100, L100.0100, L502.0250, L500.4050 #### [facility] [address] [place], [address] Erythrocyte distribution width (RBC) [Ratio] 15.6 % High 11.6-14.6 [facility] Comment on above: Performed By: #### L 500.4100, L100.0100, L502.0250, L500.4050 #### [facility] [address] [place], [address] Hematocrit (Bld) [Volume fraction] 27.5 % Low 40-54 [facility] Comment on above: Performed By: #### L 500.4100, L100.0100, L502.0250, L500.4050 #### [facility] [address] [place], [address] Hemoglobin (Bld) [Mass/Vol] 8.8 g/dL Low 13.0-16.5 [facility] Comment on above: Performed By: #### L 500.4100, L100.0100, L502.0250, L500.4050 #### [facility] [address] [place], [address] IG% 1.900 High 0.0-0.9 [facility] Comment on above: Result Comment: IG% - Immature Granulocytes (promyelocytes, myelocytes and metamyelocytes) > 1% indicates that a LEFT SHIFT is Present. Performed By: #### L 500.4100, L100.0100, L502.0250, L500.4050 #### [facility] [address] [place], [address] Lymphocytes/100 WBC (Bld) 20.5 % Normal 19-41 [facility] Comment on above: Performed By: #### L 500.4100, L100.0100, L502.0250, L500.4050 #### [facility] [address] [place], [address] MCH (RBC) [Entitic mass] 33.5 pg High 27.0-32.0 [facility] Comment on above: Performed By: #### L 500.4100, L100.0100, L502.0250, L500.4050 #### [facility] [address] [place], [address] MCHC (RBC) [Mass/Vol] 32.0 g/dL Normal 32-36 [facility] Comment on above: Performed By: #### L 500.4100, L100.0100, L502.0250, L500.4050 #### [facility] [address] [place], [address] MCV (RBC) [Entitic vol] 104.6 fL High 80-94 [facility] Comment on above: Performed By: #### L 500.4100, L100.0100, L502.0250, L500.4050 #### [facility] [address] [place], [address] Monocytes/100 WBC (Bld) 7.0 % Normal 0-10 [facility] Comment on above: Performed By: #### L 500.4100, L100.0100, L502.0250, L500.4050 #### [facility] [address] [place], [address] Neutrophils/100 WBC (Bld) 67.7 % Normal 47-70 [facility] Comment on above: Performed By: #### L 500.4100, L100.0100, L502.0250, L500.4050 #### [facility] [address] [place], [address] Nucleated RBC (Bld) [#/Vol] 0 10*3/uL Normal 0-5 [facility] Comment on above: Performed By: #### L 500.4100, L100.0100, L502.0250, L500.4050 #### [facility] [address] [place], [address] Platelet mean volume (Bld) [Entitic vol] 9.9 fL Normal 6.2-12.0 [facility] Comment on above: Performed By: #### L 500.4100, L100.0100, L502.0250, L500.4050 #### [facility] [address] [place], [address] Platelets (Bld) [#/Vol] 273 10*3/uL Normal 150-450 [facility] Comment on above: Performed By: #### L 500.4100, L100.0100, L502.0250, L500.4050 #### [facility] [address] [place], [address] RBC (Bld) [#/Vol] 2.63 10*6/uL Low 4.6-6.2 [facility] Comment on above: Performed By: #### L 500.4100, L100.0100, L502.0250, L500.4050 #### [facility] [address] [place], [address] RDW SD 57.4 fl High 35.1-43.9 [facility] Comment on above: Performed By: #### L 500.4100, L100.0100, L502.0250, L500.4050 #### [facility] [address] [place], [address] WBC (Bld) [#/Vol] 4.8 10*3/uL Normal 4.4-11.0 [facility] Comment on above: Performed By: #### L 500.4100, L100.0100, L502.0250, L500.4050 #### [facility] [address] [place], [address] Calculated very low density lipoprotein (VLDL) cholesterol measurementOrdered By: Jaime Galarza on 03-26-2025 Calculated very low density lipoprotein (VLDL) cholesterol measurement 13 mg/dL 5-40 [facility] Carbon dioxide, total [Moles /volume] in Central venous bloodOrdered By: Jaime Galarza on 03-26-2025 CO2 [Moles/Vol] 25.3 mmol/L 21.0-32.0 [facility] Chloride assayOrdered By: Doron Galarza on 03-26-2025 Chloride [Moles/Vol] 105 mmol/L 98-108 [facility] Comprehensive Metabolic Prof ilon 03-26-2025 Albumin [Mass/Vol] 3.9 g/dL Normal 3.4-4.8 [facility] Comment on above: Performed By: #### L 500.4100, L100.0100, L502.0250, L500.4050 ####[facility] [address] [place], [address] Albumin/Globulin [Mass ratio] 1.8 {ratio} Normal 0.9-2.4 [facility] Comment on above: Performed By: #### L 500.4100, L100.0100, L502.0250, L500.4050 ####[facility] [address] [place], [address] ALK PHOS 74 U/L Normal 40-129 [facility] Comment on above: Performed By: #### L 500.4100, L100.0100, L502.0250, L500.4050 ####[facility] [address] [place], [address] ALT [Catalytic activity/Vol] 15 U/L Normal <=46 [facility] Comment on above: Performed By: #### L 500.4100, L100.0100, L502.0250, L500.4050 ####[facility] [address] [place], [address] AST [Catalytic activity/Vol] 22 U/L Normal <=37 [facility] Comment on above: Performed By: #### L 500.4100, L100.0100, L502.0250, L500.4050 ####[facility] [address] [place], [address] Bilirubin [Mass/Vol] 1.04 mg/dL Normal 0.00-1.30 [facility] Comment on above: Performed By: #### L 500.4100, L100.0100, L502.0250, L500.4050 ####[facility] [address] [place], [address] BUN/CRE 22.5 RATIO High 10-20 [facility] Comment on above: Performed By: #### L 500.4100, L100.0100, L502.0250, L500.4050 ####[facility] [address] [place], [address] Calcium [Mass/Vol] 9.3 mg/dL Normal 7.6-11.0 [facility] Comment on above: Performed By: #### L 500.4100, L100.0100, L502.0250, L500.4050 ####[facility] [address] [place], [address] Chloride [Moles/Vol] 105 mmol/L Normal 98-108 [facility] Comment on above: Performed By: #### L 500.4100, L100.0100, L502.0250, L500.4050 ####[facility] [address] [place], [address] CO2 [Moles/Vol] 25.3 mmol/L Normal 21.0-32.0 [facility] Comment on above: Performed By: #### L 500.4100, L100.0100, L502.0250, L500.4050 ####[facility] [address] [place], [address] Creatinine [Mass/Vol] 0.77 mg/dL Normal 0.70-1.20 [facility] Comment on above: Performed By: #### L 500.4100, L100.0100, L502.0250, L500.4050 ####[facility] [address] [place], [address] GAP 9 Normal 5-15 [facility] Comment on above: Performed By: #### L 500.4100, L100.0100, L502.0250, L500.4050 ####[facility] [address] [place], [address] GFR/1.73 sq M.predicted among non-blacks MDRD (S/P/Bld) [Vol rate/Area] 89 mL/min/{1.73_m2} Normal >60 [facility] Comment on above: Result Comment: mL/m in/1.73m2 CKD-EPI Creatinine Equation (2020) Performed By: #### L 500.4100, L100.0100, L502.0250, L500.4050 ####[facility] [address] [place], [address] Globulin (S) [Mass/Vol] 2.2 g/dL Normal 2.2-4.2 [facility] Comment on above: Performed By: #### L 500.4100, L100.0100, L502.0250, L500.4050 ####[facility] [address] [place], [address] Glucose [Mass/Vol] 190 mg/dL High 70-99 [facility] Comment on above: Performed By: #### L 500.4100, L100.0100, L502.0250, L500.4050 ####[facility] [address] [place], [address] Potassium [Moles/Vol] 4.9 mmol/L Normal 3.3-5.1 [facility] Comment on above: Performed By: #### L 500.4100, L100.0100, L502.0250, L500.4050 ####[facility] [address] [place], [address] Sodium [Moles/Vol] 139 mmol/L Normal 133-145 [facility] Comment on above: Performed By: #### L 500.4100, L100.0100, L502.0250, L500.4050 ####[facility] [address] [place], [address] T PROT 6.0 g/dL Normal 5.9-8.4 [facility] Comment on above: Performed By: #### L 500.4100, L100.0100, L502.0250, L500.4050 ####[facility] [address] [place], [address] Urea nitrogen [Mass/Vol] 17 mg/dL Normal 4-19 [facility] Comment on above: Performed By: #### L 500.4100, L100.0100, L502.0250, L500.4050 ####[facility] [address] [place], [address] Eosinophil percentageOrdered By: Jaime Galarza on 03-26-2025 Eosinophils/100 WBC (Bld) 2.3 % 0-5 [facility] Erythrocyte distribution wid th ratioOrdered By: Jaime Galarza on 03-26-2025 Erythrocyte distribution width (RBC) [Ratio] 15.6 % High 11.6-14.6 [facility] Erythrocyte distribution wid th standard deviationOrdered By: Jaime Galarza on 03-26-2025 Erythrocyte distribution width (RBC) [Ratio] 57.4 fl High 35.1-43.9 [facility] Glomerular filtration rate ( GFR) estimation/1.73 sq m using serum, plasma, or whole bOrdered By: Jaime Galarza on 03-26-2025 GFR/1.73 sq M.predicted among non-blacks MDRD (S/P/Bld) [Vol rate/Area] 89 mL/min/{1.73_m2} >60 [facility] Comment on above: mL/min/1.73m2 CKD-EP I Creatinine Equation (2020) Hematocrit Auto (Bld) [Volum e fraction]Ordered By: Jaime Galarza on 03-26-2025 Hematocrit (Bld) [Volume fraction] 27.5 % Low 40-54 [facility] Hemoglobin measurementOrdere d By: Jaime Galarza on 03-26-2025 Hemoglobin (Bld) [Mass/Vol] 8.8 g/dL Low 13.0-16.5 [facility] Immature granulocytes/100 WB C Auto (Bld)Ordered By: Jaime Galarza on 03-26-2025 Immature granulocytes/100 WBC (Bld) 1.900 % High 0.0-0.9 [facility] Comment on above: IG% - Immature Granu locytes (promyelocytes, myelocytes and metamyelocytes) > 1% indicates that a LEFT SHIFT is Present. LDL calc ser/plasOrdered By: Jaime Galarza on 03-26-2025 Cholesterol in LDL [Mass/Vol] 28 mg/dL [facility] Comment on above: Zwghwxsupo=496-248 m g/dL & Higher Rvcm=398 mg/dL or greater Laboratory - Chemistry and C hemistry - challengeOrdered By: Jaime Galarza on 03-26-2025 AST [Catalytic activity/Vol] 22 U/L <38 [facility] Lipid Profileon 03-26-2025 CHOL:HDL 2.[address] [facility] Comment on above: Performed By: #### L 500.4100, L100.0100, L502.0250, L500.4050 ####[facility] [address] [place], [address] Cholesterol [Mass/Vol] 76 mg/dL Normal <=200 [facility] Comment on above: Result Comment: Chol esterol level, Desirable <200 mg/dL Borderline high cholesterol 200-239 mg/dL High cholesterol >=240 mg/dL Recommendations of the NCEP Adult Treatment Panel for the following risk-cutoff thresholds for the [place] population. Performed By: #### L 500.4100, L100.0100, L502.0250, L500.4050 ####[facility] [address] [place], [address] Cholesterol in HDL [Mass/Vol] 35 mg/dL Low [facility] Comment on above: Result Comment: Antonia onal Cholesterol Education Program (NCEP) guidelines: <40 mg/dL: Low HDL-cholesterol (major risk factor for CHD) >= 60 mg/dL: High HDL-cholesterol (negative risk factor for CHD) HDL-cholesterol is affected by a number of factors, e.g. smoking, exercise, hormones, sex and age. Performed By: #### L 500.4100, L100.0100, L502.0250, L500.4050 ####[facility] [address] [place], [address] Cholesterol in LDL [Mass/Vol] 28 mg/dL Normal [facility] Comment on above: Result Comment: Bord egjixg=065-302 mg/dL Higher Mxvx=985 mg/dL or greater Performed By: #### L 500.4100, L100.0100, L502.0250, L500.4050 ####[facility] [address] [place], [place], [id number] Cholesterol in VLDL [Mass/Vol] 13 mg/dL Normal 5-40 [facility] Comment on above: Performed By: #### L 500.4100, L100.0100, L502.0250, L500.4050 ####[facility] [address] [place], [place], [address] Triglyceride [Mass/Vol] 67 mg/dL Normal [facility] Comment on above: Result Comment: The drugs N-Acetylcysteine and Metamizole may falsely depress this assay. Normal range: <150 mg/dL Borderline High: 150-199 mg/dL High: 200-499 mg/dL Very High: >500 mg/dL Performed By: #### L 500.4100, L100.0100, L502.0250, L500.4050 ####[facility] [address] [place], [place], [id number] MCV (mean corpuscular volume ) determinationOrdered By: Jaime Galarza on 03-26-2025 MCV (RBC) [Entitic vol] 104.6 fL High 80-94 [facility] Mean corpuscular hemoglobin (MCH) determinationOrdered By: Jaime Galarza on 03-26-2025 MCH (RBC) [Entitic mass] 33.5 pg High 27.0-32.0 [facility] Mean corpuscular hemoglobin concentration (MCHC) determinationOrdered By: Jaime Galarza on 03-26-2025 MCHC (RBC) [Mass/Vol] 32.0 g/dL 32-36 [facility] Mean platelet volume determi nationOrdered By: Jaime Galarza on 03-26-2025 Platelet mean volume (Bld) [Entitic vol] 9.9 fL 6.2-12.0 [facility] Microalb:Creat Ratio,Random URon 03-26-2025 Creatinine [Mass/Vol] 75.30 mg/dL Normal 39.00- 259.[address] [facility] Comment on above: Performed By: #### L 500.4100, L100.0100, L502.0250, L500.4050 #### [facility] Laboratory [address] [place], [address] MALB:CREAT 44.1 mg/g CRE Normal [facility] Comment on above: Performed By: #### L 500.4100, L100.0100, L502.0250, L500.4050 #### [facility] [address] [place], [address] MICROALBUMIN,UR 33.2 mg/L Normal NO RANGE EST. [facility] Comment on above: Performed By: #### L 500.4100, L100.0100, L502.0250, L500.4050 #### [facility] Laboratory [address] [place], [address] Monocyte percentageOrdered B y: Jaime Galarza on 03-26-2025 Monocytes/100 WBC (Bld) 7.0 % 0-10 [facility] Neutrophil percentageOrdered By: Jaime Galarza on 03-26-2025 Neutrophils/100 WBC (Bld) 67.7 % 47-70 [facility] Nucleated red blood cell per centageOrdered By: Jaime Galarza on 03-26-2025 Nucleated RBC/100 WBC (Bld) [Ratio] 0 % 0-5 [facility] Platelet countOrdered By: Doron Galarza on 03-26-2025 Platelets (Bld) [#/Vol] 273 10*3/uL 150-450 [facility] Potassium measurement (mass/ volume)Ordered By: Jaime Galarza on 03-26-2025 Potassium (Unsp spec) [Mass/Vol] 4.9 mmol/L 3.3-5.1 [facility] RBC Auto (Bld) [#/Vol]Ordere d By: Jaime Galarza on 03-26-2025 RBC (Bld) [#/Vol] 2.63 10*6/uL Low 4.6-6.2 [facility] Random urine creatinine amandeep urement (mass/volume)Ordered By: Jaime Galarza on 03-26-2025 Creatinine Unsp time (U) [Mass/Vol] 75.30 mg/dL 39.00-259.[address] [facility] Screening total cholesterol/ high density lipoprotein (HDL) cholesterol ratioOrdered By: Jaime Galarza on 03-26-2025 Cholesterol.total/Chol esterol in HDL [Mass ratio] 2.19 {ratio} [facility] Serum creatinine measurement (mass/volume)Ordered By: Jaime Galarza on 03-26-2025 Creatinine [Mass/Vol] 0.77 mg/dL 0.70-1.20 [facility] Serum globulin measurementOr dered By: Jaime Galarza on 03-26-2025 Globulin (S) [Mass/Vol] 2.2 g/dL 2.2-4.2 [facility] Serum glucose measurement (m ass/volume)Ordered By: Jaime Galarza on 03-26-2025 Glucose [Mass/Vol] 190 mg/dL High 70-99 [facility] Serum or plasma alanine hooks otransferase (ALT) measurementOrdered By: Jaime Gaalrza on 03-26-2025 ALT [Catalytic activity/Vol] 15 U/L <47 [facility] Serum or plasma albumin amandeep urement (mass/volume)Ordered By: Jaime Galarza on 03-26-2025 Albumin [Mass/Vol] 3.9 g/dL 3.4-4.8 [facility] Serum or plasma albumin/glob ulin mass ratioOrdered By: Jaime Galarza on 03-26-2025 Albumin/Globulin [Mass ratio] 1.8 {ratio} 0.9-2.4 [facility] Serum or plasma alkaline elin sphatase measurementOrdered By: Jaime Galarza on 03-26-2025 ALP [Catalytic activity/Vol] 74 U/L 40-129 [facility] Serum or plasma calcium amandeep urement (mass/volume)Ordered By: Jaime Galarza on 03-26-2025 Calcium [Mass/Vol] 9.3 mg/dL 7.6-11.0 [facility] Serum or plasma cholesterol in HDL measurement (mass/volume)Ordered By: Jaime Galarza on 03-26-2025 Cholesterol in HDL [Mass/Vol] 35 mg/dL Low >40 [facility] Comment on above: National Cholesterol Education Program (NCEP) guidelines:<40 mg/dL: Low HDL-cholesterol (major risk factor for CHD)>= 60 mg/dL: High HDL-cholesterol (negative risk factor for CHD)HDL-cholesterol is affected by a number of factors, e.g. smoking, exercise, hormones, sex and age. Serum or plasma cholesterol measurement (mass/volume)Ordered By: Jaime Galarza on 03-26-2025 Cholesterol [Mass/Vol] 76 mg/dL <201 [facility] Comment on above: Cholesterol level, D esirable <200 mg/dLBorderline high cholesterol 200-239 mg/dLHigh cholesterol >=240 mg/dLRecommendations of the NCEP Adult Treatment Panel for the following risk-cutoff thresholds for the [place] population. Serum or plasma urea nitroge n measurement (mass/volume)Ordered By: Jaime Galarza on 03-26-2025 Urea nitrogen [Mass/Vol] 17 mg/dL 4-19 [facility] Sodium levelOrdered By: Jaime Galarza on 03-26-2025 Sodium [Moles/Vol] 139 mmol/L 133-145 [facility] Total proteinOrdered By: Patrizia Galarza on 03-26-2025 Protein [Mass/Vol] 6.0 g/dL 5.9-8.4 [facility] Triglycerides measurementOrd ered By: Jaime Galarza on 03-26-2025 Triglyceride [Mass/Vol] 67 mg/dL <199 [facility] Comment on above: The drugs N-Acetylcy steine and Metamizole may falsely depress this assay. Normal range: <150 mg/dLBorderline High: 150-199 mg/dLHigh: 200-499 mg/dLVery High: >500 mg/dL Urine albumin measurement [facility] detection limit of 20 mg/L or less (mass/volume)Ordered By: Jaime Galarza on 03-26-2025 Albumin DL <= 20 mg/L (U) [Mass/Vol] 33.2 mg/L NO RANGE EST. [facility] White blood cell (WBC) count Ordered By: Jaime Galarza on 03-26-2025 WBC (Bld) [#/Vol] 4.8 10*3/uL 4.4-11.0 [facility] Urgent Care Visit Reporton 0 01-04-2025 Urgent Care Visit Report [facility] [address], [address] [place], [place] [address] OFFICE VISIT Date of Service: 01/04/25 MR#: [id number] Acct: [id number] Name: ARMAAN CHANEL Rep #: [id number] : 1940 Provider: DORON Ferrer Age/Sex: 84/M Location: [facility] [place] Status: Signed Intake Vital Signs 08/23/24 11:01 01/04/25 13:07 Height 5 ft 7 in 5 ft 7 in Weight: 190 lb BMI 29.7 BP 122/74 H Blood Pressure Location Rt brachial Position Sitting Respiration 18 Pulse 90 Pulse Source Monitor Temp 98.8 F Temp Source Temporal Pulse Oximetry (%) 98 Oxygen Delivery Method room air Intake Visit Reasons: 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 Is having difficuly sleeping at [facility] due to coughing. Had leftover benzonate and dayquil he was able to sleep last night. [facility] Medical History Pneumonia Obesity BPH (benign prostatic [...] his cough is more prominent when supine. Ujqa-ugk-mrpqxjg DayQuil as well as Mucinex DM and [...] external n (more content not included)... Normal [facility] CBC W/Diff, Automatedon 09-06 Absolute Lymph 0.99 X10 3/uL Normal 0.83-4.51 [facility] Comment on above: Order Comment: Order Date: 08/31/24Order Info: 0184- - CBCD Performed By: #### L 500.4100, L500.2500 #### [facility] Laboratory [address] [place], [address] Absolute Neut 4.3 X10 3/uL Normal 2.0-7.7 [facility] Comment on above: Order Comment: Order Date: 08/31/24Order Info: 0184- - CBCD Performed By: #### L 500.4100, L500.2500 #### [facility] [address] [place], [address] Basophils/100 WBC (Bld) 0.5 % Normal 0-1 [facility] Comment on above: Order Comment: Order Date: 08/31/24Order Info: 0184-1 - CBCD Performed By: #### L 500.4100, L500.2500 #### [facility] [address] [place], [address] Eosinophils/100 WBC (Bld) 2.4 % Normal 0-5 [facility] Comment on above: Order Comment: Order Date: 08/31/24Order Info: 0184-1 - CBCD Performed By: #### L 500.4100, L500.2500 #### [facility] [address] [place], [address] Erythrocyte distribution width (RBC) [Ratio] 16.9 % High 11.6-14.6 [facility] Comment on above: Order Comment: Order Date: 08/31/24Order Info: 018- - CBCD Performed By: #### L 500.4100, L500.2500 #### [facility] [address] [place], [address] Hematocrit (Bld) [Volume fraction] 30.5 % Low 40-54 [facility] Comment on above: Order Comment: Order Date: 08/31/24Order Info: 018- - CBCD Performed By: #### L 500.4100, L500.2500 #### [facility] [address] [place], [address] Hemoglobin (Bld) [Mass/Vol] 9.5 g/dL Low 13.0-16.5 [facility] Comment on above: Order Comment: Order Date: 08/31/24Order Info: 01801-05 - CBCD Performed By: #### L 500.4100, L500.2500 #### [facility] [address] [place], [address] IG% 1.200 High 0.0-0.9 [facility] Comment on above: Order Comment: Order Date: 08/31/24Order Info: 018- - CBCD Result Comment: IG% - Immature Granulocytes (promyelocytes, myelocytes and metamyelocytes) > 1% indicates that a LEFT SHIFT is Present. Performed By: #### L 500.4100, L500.2500 #### [facility] [address] [place], [address] Lymphocytes/100 WBC (Bld) 16.8 % Low 19-41 [facility] Comment on above: Order Comment: Order Date: 08/31/24Order Info: 0184-1 - CBCD Performed By: #### L 500.4100, L500.2500 #### [facility] [address] [place], [address] MCH (RBC) [Entitic mass] 33.0 pg High 27.0-32.0 [facility] Comment on above: Order Comment: Order Date: 08/31/24Order Info: 0184-1 - CBCD Performed By: #### L 500.4100, L500.2500 #### [facility] [address] [place], [address] MCHC (RBC) [Mass/Vol] 31.1 g/dL Low 32-36 [facility] Comment on above: Order Comment: Order Date: 08/31/24Order Info: 4- - CBCD Performed By: #### L 500.4100, L500.2500 #### [facility] [address] [place], [address] MCV (RBC) [Entitic vol] 105.9 fL High 80-94 [facility] Comment on above: Order Comment: Order Date: 08/31/24Order Info: 4-1 - CBCD Performed By: #### L 500.4100, L500.2500 #### [facility] [address] [place], [address] Monocytes/100 WBC (Bld) 6.1 % Normal 0-10 [facility] Comment on above: Order Comment: Order Date: 08/31/24Order Info: 0184-1 - CBCD Performed By: #### L 500.4100, L500.2500 #### [facility] [address] [place], [address] Neutrophils/100 WBC (Bld) 73.0 % High 47-70 [facility] Comment on above: Order Comment: Order Date: 08/31/24Order Info: 0184-1 - CBCD Performed By: #### L 500.4100, L500.2500 #### [facility] [address] [place], [address] Nucleated RBC (Bld) [#/Vol] 0 10*3/uL Normal 0-5 [facility] Comment on above: Order Comment: Order Date: 08/31/24Order Info: 0184-1 - CBCD Performed By: #### L 500.4100, L500.2500 #### [facility] [address] [place], [address] Platelet mean volume (Bld) [Entitic vol] 10.4 fL Normal 6.2-12.0 [facility] Comment on above: Order Comment: Order Date: 08/31/24Order Info: 4- - CBCD Performed By: #### L 500.4100, L500.2500 #### [facility] [address] [place], [address] Platelets (Bld) [#/Vol] 216 10*3/uL Normal 150-450 [facility] Comment on above: Order Comment: Order Date: 08/31/24Order Info: 018- - CBCD Performed By: #### L 500.4100, L500.2500 #### [facility] [address] [place], [address] RBC (Bld) [#/Vol] 2.88 10*6/uL Low 4.6-6.2 [facility] Comment on above: Order Comment: Order Date: 08/31/24Order Info: 0184-1 - CBCD Performed By: #### L 500.4100, L500.2500 #### [facility] [address] [place], [address] RDW SD 64.9 fl High 35.1-43.9 [facility] Comment on above: Order Comment: Order Date: 08/31/24Order Info: 0184-1 - CBCD Performed By: #### L 500.4100, L500.2500 #### [facility] [address] [place], [address] WBC (Bld) [#/Vol] 5.9 10*3/uL Normal 4.4-11.0 [facility] Comment on above: Order Comment: Order Date: 08/31/24Order Info: 0184-1 - CBCD Performed By: #### L 500.4100, L500.2500 #### [facility] [address] [place], [address] CBC W/Diff, Automatedon - PATH REV Reviewed Normal [facility] Comment on above: Result Comment: LEUK OCYTOSIS Macrocytic anemia. SLIGHT L WBC Clinical correlation suggested. Juan A Peralta D.O. 09/01/24 AMENDED REPORT 09/01/24 0853 PATH REV previously reported as: February Performed By: #### L 500.4100, L500.2500 #### [facility] [address] [place], [address] Basic Metabolic Profile (BMP )on 08-28-2024 BUN/CRE 18.3 RATIO Normal 10-20 [facility] Comment on above: Performed By: #### L 500.4100, L500.2500 #### [facility] [address] [place], [address] CA,Total 9.6 mg/dL Normal 8.5-10.1 [facility] Comment on above: Performed By: #### L 500.4100, L500.2500 #### [facility] [address] [place], [address] Chloride [Moles/Vol] 106 mmol/L Normal 98-107 [facility] Comment on above: Performed By: #### L 500.4100, L500.2500 #### [facility] [address] [place], [address] CO2 [Moles/Vol] 25.0 mmol/L Normal 21.0-32.0 [facility] Comment on above: Performed By: #### L 500.4100, L500.2500 #### [facility] [address] [place], [address] Creatinine [Mass/Vol] 0.88 mg/dL Normal 0.70-1.30 [facility] Comment on above: Result Comment: The validity of the calculated GFR GFRAA in patients over 70 years has not been determined. Clinical correlation is essential. Performed By: #### L 500.4100, L500.2500 #### [facility] [address] [place], [address] EST GFR - AA 107 mL/min Normal >60 [facility] Comment on above: Result Comment: Afri can Lithuanian GFR Calc Performed By: #### L 500.4100, L500.2500 #### [facility] [address] [place], [address] GAP 7 Normal 5-15 [facility] Comment on above: Performed By: #### L 500.4100, L500.2500 #### [facility] [address] [place], [address] GFR/1.73 sq M.predicted among non-blacks MDRD (S/P/Bld) [Vol rate/Area] 89 mL/min/{1.73_m2} Normal >60 [facility] Comment on above: Result Comment: Non- GFR Calc Performed By: #### L 500.4100, L500.2500 #### [facility] [address] [place], [address] Glucose [Mass/Vol] 298 mg/dL High 74-106 [facility] Comment on above: Result Comment: Gluc ose result greater than or equal to 200 mg/dL suggests DIABETES MELLITUS per A.D.A. criteria. Performed By: #### L 500.4100, L500.2500 #### [facility] [address] [place], [address] Potassium [Moles/Vol] 4.2 mmol/L Normal 3.5-5.1 [facility] Comment on above: Performed By: #### L 500.4100, L500.2500 #### [facility] [address] [place], [address] Sodium [Moles/Vol] 138 mmol/L Normal 136-145 [facility] Comment on above: Performed By: #### L 500.4100, L500.2500 #### [facility] [address] [place], [address] Urea nitrogen [Mass/Vol] 16 mg/dL Normal 7-18 [facility] Comment on above: Performed By: #### L 500.4100, L500.2500 #### [facility] [address] [place], [address] Culture, Blood (WB)on 2023 CUB Blood Cultures x2, f rom different sites No growth in [address] [facility] Comment on above: Performed By: #### M 100.678, L400.0001 #### [facility] [address] [place], [address] Bedside Glucoseon 08-25-2024 FINGERSTICK GLU 304 mg/dL High 74-106 [facility] Comment on above: Result Comment: YESSI GEMENT OF PATIENT CARE PER NURSING PROTOCOL Performed By: #### L 500.4100, L500.2500 #### [facility] [address] [place], [address] FINGERSTICK GLU 312 mg/dL High 74-106 [facility] Comment on above: Result Comment: YESSI GEMENT OF PATIENT CARE PER NURSING PROTOCOL Performed By: #### L 500.4100, L500.2500 #### [facility] [address] [place], [address] Discharge Instructionon 08-07 Discharge Instruction [facility] Medical Records Department [address] [place] [address] Instructions for Home/Discharge Instructions 08/25/24 1021 MR#: [id number] Acct: [id number] Name: ARMAAN CHANEL Rep #: [id number] : 1940 84 From: Anders Nguyen MD [...] for 1 week Discharge Orders/Prescriptions Prescriptions: New dextromethorphan-guaifenes in 60-1,200 mg tablet extended release 12 hr [...] CC: Dr. Alyson Clarke MD; Dr. Matias Sinclair, DO; Dr. Jaime Galarza MD Signed Normal [facility] Respiratory Cultureon 2023 RESPC List Antibiotics [place] 48 Hours? rocephin zithromax Presumptive C albicans Amount Growth 1+ Normal [facility] Comment on above: Performed By: #### M 100.678, L400.0001 #### [facility] [address] [place], [address] Bedside Glucoseon 08-24-2024 FINGERSTICK GLU 277 mg/dL High 74-106 [facility] Comment on above: Result Comment: YESSI DE LEON OF PATIENT CARE PER NURSING PROTOCOL Performed By: #### L 501.080 ####[facility] [address] [place], [address] Performed By: #### L 500.4100, L500.2500 #### [facility] [address] [place], [address] FINGERSTICK GLU 326 mg/dL High 74-106 [facility] Comment on above: Result Comment: YESSI DE LEON OF PATIENT CARE PER NURSING PROTOCOL Performed By: #### L 501.080 ####[facility] [address] [place], [address] FINGERSTICK GLU 240 mg/dL High 74-106 [facility] Comment on above: Result Comment: YESSI DE LEON OF PATIENT CARE PER NURSING PROTOCOL Performed By: #### L 500.4100, L500.2500 #### [facility] [facility] [address] [place], [address] Chest PA and Lateralon 08-24 Chest PA and Lateral [facility] Imaging Services [address] [place] [address] Chest PA and Lateral MR#: [id number] Acct: [id number] Name: ARMAAN CHANEL Rep #: [id number] : 1940 M 84 From: Greg Mckeon MD PCP: Dr. Jaime Galarza MD Status: ADM IN Study: Chest PA and Lateral Date of Exam: 08/24/24 Exam# [id number] Ordering Dr: Matias Sinclair DO [id number] INDICATION: pneumonia EXAMINATION/TECHNIQUE: X-RAY - XR Chest [...] at 6:39 EST , CC: Dr. Matias Sinclair DO; Dr. Jaime Galarza MD Briar Wood Sorter: Signed Normal [facility] Bedside Glucoseon 08-23-2024 FINGERSTICK GLU 209 mg/dL High 74-106 [facility] Comment on above: Result Comment: YESSI GEMENT OF PATIENT CARE PER NURSING PROTOCOL Performed By: #### L 501.080 ####[facility] [address] [place], [address] FINGERSTICK GLU 193 mg/dL High 74-106 [facility] Comment on above: Result Comment: YESSI GEMENT OF PATIENT CARE PER NURSING PROTOCOL Performed By: #### L 500.4100, L500.2500 #### [facility] [address] [place], [address] FINGERSTICK GLU 275 mg/dL High 74-106 [facility] Comment on above: Result Comment: YESSI GEMENT OF PATIENT CARE PER NURSING PROTOCOL Performed By: #### L 501.080 ####[facility] [address] [place], [address] FINGERSTICK GLU 255 mg/dL High 74-106 [facility] Comment on above: Result Comment: YESSI GEMENT OF PATIENT CARE PER NURSING PROTOCOL Performed By: #### L 500.4100, L500.2500 #### [facility] [address] [place], [address] CBC W/Diff, Automatedon 08-07 POLYCHROMASIA 1+ Normal [facility] Comment on above: Performed By: #### L 500.4100, L500.2500 #### [facility] [address] [place], [address] SMEAR COMMENT SCANNED Normal [facility] Comment on above: Performed By: #### L 500.4100, L500.2500 #### [facility] [address] [place], [address] Comprehensive Metabolic Prof ilon 08-23-2024 Albumin [Mass/Vol] 2.9 g/dL Low 3.2-5.0 [facility] Comment on above: Performed By: #### L 500.4100, L500.2500 #### [facility] [address] [place], [address] Albumin/Globulin [Mass ratio] 0.9 {ratio} Normal 0.9-2.4 [facility] Comment on above: Performed By: #### L 500.4100, L500.2500 #### [facility] [address] [place], [address] ALK P 61 U/L Normal 45-117 [facility] Comment on above: Performed By: #### L 500.4100, L500.2500 #### [facility] [address] [place], [address] ALT [Catalytic activity/Vol] 15 U/L Low 16-61 [facility] Comment on above: Performed By: #### L 500.4100, L500.2500 #### [facility] [address] [place], [address] AST [Catalytic activity/Vol] 20 U/L Normal 15-37 [facility] Comment on above: Performed By: #### L 500.4100, L500.2500 #### [facility] [address] [place], [address] Bilirubin [Mass/Vol] 1.30 mg/dL High 0.20-1.00 [facility] Comment on above: Result Comment: For patients on eltrombopag therapy, use of Dimension Slovan TBIL is not recommended. Performed By: #### L 500.4100, L500.2500 #### [facility] [address] [place], [address] BUN/CRE 19.7 RATIO Normal 10-20 [facility] Comment on above: Performed By: #### L 500.4100, L500.2500 #### [facility] [address] [place], [address] CA,Total 8.8 mg/dL Normal 8.5-10.1 [facility] Comment on above: Performed By: #### L 500.4100, L500.2500 #### [facility] [address] [place], [address] Chloride [Moles/Vol] 108 mmol/L High 98-107 [facility] Comment on above: Performed By: #### L 500.4100, L500.2500 #### [facility] [address] [place], [address] CO2 [Moles/Vol] 25.0 mmol/L Normal 21.0-32.0 [facility] Comment on above: Performed By: #### L 500.4100, L500.2500 #### [facility] [address] [place], [address] Creatinine [Mass/Vol] 0.76 mg/dL Normal 0.70-1.30 [facility] Comment on above: Result Comment: The validity of the calculated GFR GFRAA in patients over 70 years has not been determined. Clinical correlation is essential. Performed By: #### L 500.4100, L500.2500 #### [facility] [address] [place], [address] ECRCL 73.81 ml/min Normal [facility] Comment on above: Performed By: #### L 500.4100, L500.2500 #### [facility] [address] [place], [address] EST GFR - AA 126 mL/min Normal >60 [facility] Comment on above: Result Comment: Afri can Lithuanian GFR Calc Performed By: #### L 500.4100, L500.2500 #### [facility] [address] [place], [address] GAP 5 Normal 5-15 [facility] Comment on above: Performed By: #### L 500.4100, L500.2500 #### [facility] [address] [place], [address] GFR/1.73 sq M.predicted among non-blacks MDRD (S/P/Bld) [Vol rate/Area] 104 mL/min/{1.73_m2} Normal >60 [facility] Comment on above: Result Comment: Non- GFR Calc Performed By: #### L 500.4100, L500.2500 #### [facility] [address] [place], [address] Globulin (S) [Mass/Vol] 3.2 g/dL Normal 2.2-4.2 [facility] Comment on above: Performed By: #### L 500.4100, L500.2500 #### [facility] [address] [place], [address] Glucose [Mass/Vol] 281 mg/dL High 74-106 [facility] Comment on above: Result Comment: Gluc ose result greater than or equal to 200 mg/dL suggests DIABETES MELLITUS per A.D.A. criteria. Performed By: #### L 500.4100, L500.2500 #### [facility] [address] [place], [address] Potassium [Moles/Vol] 3.8 mmol/L Normal 3.5-5.1 [facility] Comment on above: Performed By: #### L 500.4100, L500.2500 #### [facility] [address] [place], [address] Sodium [Moles/Vol] 138 mmol/L Normal 136-145 [facility] Comment on above: Performed By: #### L 500.4100, L500.2500 #### [facility] [address] [place], [address] T PROT 6.1 g/dL Low 6.4-8.2 [facility] Comment on above: Performed By: #### L 500.4100, L500.2500 #### [facility] [address] [place], [address] Urea nitrogen [Mass/Vol] 15 mg/dL Normal 7-18 [facility] Comment on above: Performed By: #### L 500.4100, L500.2500 #### [facility] [address] [place], [address] Gram Stainon 08-23-2024 GS List Antibiotics [place] 48 Hours? rocephin zithromax Acceptable Specimen? Yes (<25 Epithelial cells per/lpf) Gram Stain 3+ White Blood Cells 1+ Gram positive cocci No Epithelial cells Normal [facility] Comment on above: Performed By: #### M 100.678, L400.0001 #### [facility] [address] [facility] [place], [address] Legionella Antigen Urineon 1 10-23-2023 LEGU URINE, CLEAN CATCH Negative Presumptive negative for Legionella pneumophila serogroup 1 antigen in urine, suggesting no recent or current infection. Legionella Ag, Urine Negative (See interpretation below) Normal [facility] Comment on above: Performed By: #### M 300.4500 ####[facility] [id number] [facility] [place], [address] RESPIRATORY PANEL MOLECULARo n 08-23-2024 RP PANEL [...] Not Detected RSV B Not Detected Normal [facility] Comment on above: Performed By: #### M 100.638 ####[facility] [id number] [place], [address] Strep pneumoniae Antig(UR,CS F)on 08-23-2024 STPAG Negative Urine Presumptive negative for pneumococcal pneumonia, suggesting no current or recent pneumococcal infection. Infection due to S pneumoniae cannot be ruled out since the antigen present in the sample may be below the detection limit of the test. Strep pneumo Test Negative URINE (See interpretation below) Normal [facility] Comment on above: Performed By: #### M 100.678, L400.0001 #### [facility] [address] [place], [address] Basic Metabolic Profile (BMP )on 08-22-2024 BUN/CRE 18.7 RATIO Normal 10-20 [facility] Comment on above: Performed By: #### M 100.678, L400.0001 #### [facility] [address] [place], [address] CA,Total 9.6 mg/dL Normal 8.5-10.1 [facility] Comment on above: Performed By: #### M 100.678, L400.0001 #### [facility] [address] [place], [address] Chloride [Moles/Vol] 104 mmol/L Normal 98-107 [facility] Comment on above: Performed By: #### M 100.678, L400.0001 #### [facility] [address] [place], [address] CO2 [Moles/Vol] 26.0 mmol/L Normal 21.0-32.0 [facility] Comment on above: Performed By: #### M 100.678, L400.0001 #### [facility] [address] [place], [address] Creatinine [Mass/Vol] 0.86 mg/dL Normal 0.70-1.30 [facility] Comment on above: Result Comment: The validity of the calculated GFR GFRAA in patients over 70 years has not been determined. Clinical correlation is essential. Performed By: #### M 100.678, L400.0001 #### [facility] [address] [place], [address] ECRCL 68.96 ml/min Normal [facility] Comment on above: Performed By: #### M 100.678, L400.0001 #### [facility] [address] [place], [address] EST GFR - AA 110 mL/min Normal >60 [facility] Comment on above: Result Comment: Afri can Lithuanian GFR Calc Performed By: #### M 100.678, L400.0001 #### [facility] [address] [place], [address] GAP 6 Normal 5-15 [facility] Comment on above: Performed By: #### M 100.678, L400.0001 #### [facility] [address] [place], [address] GFR/1.73 sq M.predicted among non-blacks MDRD (S/P/Bld) [Vol rate/Area] 91 mL/min/{1.73_m2} Normal >60 [facility] Comment on above: Result Comment: Non- GFR Calc Performed By: #### M 100.678, L400.0001 #### [facility] [address] [place], [address] Glucose [Mass/Vol] 261 mg/dL High 74-106 [facility] Comment on above: Result Comment: Gluc ose result greater than or equal to 200 mg/dL suggests DIABETES MELLITUS per A.D.A. criteria. Performed By: #### M 100.678, L400.0001 #### [facility] [address] [place], [address] Potassium [Moles/Vol] 4.0 mmol/L Normal 3.5-5.1 [facility] Comment on above: Performed By: #### M 100.678, L400.0001 #### [facility] [address] [place], [address] Sodium [Moles/Vol] 136 mmol/L Normal 136-145 [facility] Comment on above: Performed By: #### M 100.678, L400.0001 #### [facility] [address] [place], [address] Urea nitrogen [Mass/Vol] 16 mg/dL Normal 7-18 [facility] Comment on above: Performed By: #### M 100.678, L400.0001 #### [facility] [address] [place], [address] CBC W/Diff, Automatedon 11- Anisocytosis Ql (Bld) RARE Normal [facility] Comment on above: Performed By: #### M 100.678, L400.0001 #### [facility] [address] [place], [address] [facility] Comment on above: Performed By: #### M 100.678, L400.0001 #### [facility] [address] [place], [address] [address] [facility] Comment on above: Performed By: #### M 100.678, L400.0001 #### [facility] [address] [place], [address] [facility] Comment on above: Performed By: #### M 100.678, L400.0001 #### [facility] [address] [place], [address] RED CELL MORPH N CHROM Normal NORM C C [facility] Comment on above: Performed By: #### M 100.678, L400.0001 #### [facility] [address] [place], [address] PLT EST ADEQUATE Normal ADEQ [facility] Comment on above: Performed By: #### M 100.678, L400.0001 #### [facility] [address] [place], [place], [address] SMEAR COMMENT SEE COMMENT Normal [facility] Comment on above: Result Comment: LYMP HOPENIA NOTED Performed By: #### M 100.678, L400.0001 #### [facility] [address] [place], [place], [address] Chest PA and Lateralon 08-22 Chest PA and Lateral [facility] Imaging Services [address] [place], [place] [address] Chest PA and Lateral MR#: [id number] Acct: [id number] Name: ARMAAN CHANEL Rep #: [id number] : 1940 M 84 From: Morales Cordoba MD PCP: Dr. Jaime Galarza MD Status: [facility] ER Study: Chest PA and Lateral Date of Exam: 08/22/24 Exam# [id number] Ordering Dr: Gerry Ojeda DO [id number] STUDY: X-RAY CHEST REASON FOR EXAM: Male, [...] Signed: Morales Cordoba MD at 22:41 EST , CC: Dr. Gerry Ojeda DO; Dr. Jaime Galarza MD Briar Wood Sorter: Signed Normal [facility] Emergency Department Summary on 08-22-2024 Emergency Department Summary [facility] Medical Records Department [address] [place] [address] Emergency Department Summary 08/22/24 MR#: [id number] Acct: [id number] Name: ARMAAN CHANEL Rep #: [id number] : 1940 84 From: Gerry Ojeda DO PCP: Dr. Jaime Galarza MD Status:ADM IN Location: MS3 [id number] HPI History of Present Illness Chief Complaint: [...] or sinus pressure. Patient denies any headaches. [facility] Medical History Contusion of right chest wall [...] Pressure M (more content not included)... Normal [facility] H AND P Exam - Hospitaliston 08-22-2024 H&P Exam - Hospitalist [facility] Medical Records Department [address] [place] [address] H P Exam - Hospitalist 08/22/24 2321 MR#: [id number] Acct: [id number] Name: ARMAAN CHANEL Rep #: [id number] : 1940 84 From: Alyson Clarke MD PCP: Dr. 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 [facility] Medical History Obesity BPH (benign prostatic hyperplasia) [...] edema, o (more content not included)... Normal [facility] M100.678on 08-22-2024 M100.678 Pending SARS-CoV-2 (COVID 19) Negative INFLUENZA A Negative INFLUENZA B Negative RSV PCR Negative Normal [facility] Comment on above: Performed By: #### M 100.678, L400.0001 #### [facility] [address] [place], [place], [address] Urinalysis, Completeon 08-22 AMORPHOUS 1+ Normal [facility] Comment on above: Order Comment: CLEAN CATCH Performed By: #### M 100.678, L400.0001 #### [facility] [address] [place], [place], [address] CAST,HYALINE 0-5 SEEN Normal 0-5 [facility] Comment on above: Order Comment: CLEAN CATCH Performed By: #### M 100.678, L400.0001 #### [facility] [address] [place], [address] EPI,SQUAMOUS 0-5 SEEN Normal 0-5 [facility] Comment on above: Order Comment: CLEAN CATCH Performed By: #### M 100.678, L400.0001 #### [facility] [address] [place], [address] BILIRUBIN URINE Negative Normal Negative [facility] Comment on above: Order Comment: CLEAN CATCH Performed By: #### M 100.678, L400.0001 #### [facility] [address] [place], [address] Clarity (U) Clear Normal Clear [facility] Comment on above: Order Comment: CLEAN CATCH Performed By: #### M 100.678, L400.0001 #### [facility] [address] [place], [address] Color (U) Yellow Normal Yellow [facility] Comment on above: Order Comment: CLEAN CATCH Performed By: #### M 100.678, L400.0001 #### [facility] [address] [place], [address] GLUCOSE, UR 1000 mg/dl Abnormal Normal [facility] Comment on above: Order Comment: CLEAN CATCH Performed By: #### M 100.678, L400.0001 #### [facility] [address] [place], [address] KETONE UR 50 mg/dl Abnormal Negative [facility] Comment on above: Order Comment: CLEAN CATCH Performed By: #### M 100.678, L400.0001 #### [facility] [address] [place], [address] LEUK ESTERASE Negative Normal Negative [facility] Comment on above: Order Comment: CLEAN CATCH Performed By: #### M 100.678, L400.0001 #### [facility] [address] [place], [address] Nitrite Ql (U) Negative Normal Negative [facility] Comment on above: Order Comment: CLEAN CATCH Performed By: #### M 100.678, L400.0001 #### [facility] [address] [place], [address] OCCULT BLOOD-UR 25 /ul Abnormal Negative [facility] Comment on above: Order Comment: CLEAN CATCH Performed By: #### M 100.678, L400.0001 #### [facility] [address] [place], [address] pH UR 6.0 Normal 5.0 - 8.0 [facility] Comment on above: Order Comment: CLEAN CATCH Performed By: #### M 100.678, L400.0001 #### [facility] [address] [place], [address] PROT DIPSTX 100 mg/dl Abnormal Negative [facility] Comment on above: Order Comment: CLEAN CATCH Performed By: #### M 100.678, L400.0001 #### [facility] [address] [place], [address] SP.GR. DIPSTX 1.015 Normal 1.002-1.030 [facility] Comment on above: Order Comment: CLEAN CATCH Performed By: #### M 100.678, L400.0001 #### [facility] [address] [place], [address] UROBILI 4 mg/dl Abnormal Normal [facility] Comment on above: Order Comment: CLEAN CATCH Performed By: #### M 100.678, L400.0001 #### [facility] [address] [place], [address] BACTERIA 0 SEEN Normal None Seen [facility] Comment on above: Order Comment: CLEAN CATCH Performed By: #### M 100.678, L400.0001 #### [facility] [address] [place], [address] Mucus Ql (Urine sed) 0 SEEN Normal [facility] Comment on above: Order Comment: CLEAN CATCH Performed By: #### M 100.678, L400.0001 #### [facility] [address] [place], [address] RBC 0 SEEN Normal 0-5 [facility] Comment on above: Order Comment: CLEAN CATCH Performed By: #### M 100.678, L400.0001 #### [facility] [address] [place], [address] WBC 0 SEEN Normal 0-5 [facility] Comment on above: Order Comment: CLEAN CATCH Performed By: #### M 100.678, L400.0001 #### [facility] [address] [place], [address] Chest PA and Lateralon 08-21 Chest PA and Lateral [facility] Imaging Services [address] [place] [address] Chest PA and Lateral MR#: [id number] Acct: [id number] Name: ARMAAN CHANEL Rep #: [id number] : 1940 M 84 From: Arin Schulz PCP: Dr. Jaime Galarza MD Status: [facility] CLI Study: Chest PA and Lateral Date of Exam: 08/21/24 Exam# [id number] Ordering Dr: Maxx Rivera PA PA [id number] INDICATION: cough EXAMINATION/TECHNIQUE: X-RAY - XR Chest [...] Signed: Arin Reddy MD at 8:05 EST Reading Location ID and State: [address] [place] [address] Tel , Service support , CC: DORON Bermudez; Dr. Jaime Galarza MD Briar Wood Sorter: Signed Normal [facility] Urgent Care Visit Reporton 1 10-21-2023 Urgent Care Visit Report [facility] [address], [address] [place] [address] OFFICE VISIT Date of Service: 08/21/24 MR#: [id number] Acct: [id number] Name: ARMAAN CHANEL Rep #: [id number] : 1940 Provider: DORON Bermudez Age/Sex: 84/M Location: [facility] Status: Signed Intake Vital Signs 06/16/24 12:34 [...] Exam Const General: cooperative and well developed [facility] Head: normal to inspection and atraumatic Ears: [...] Grey Signature: Date (if applicable) CC: Normal [facility] PSA,Total - Annual Screenon 07-06-2024 PSA,TOT SCREEN 4.31 ng/mL High 0.00-4.00 [facility] Comment on above: Result Comment: This test was performed using the TPSA assay method for the [employer] chemistry system. Values obtained with different assay methods cannot be used interchangably. When changing PSA assays in the course of monitoring a patient, additional sequential testing should be carried out to confirm baseline values. Performed By: #### M 100.678, L400.0001 #### [facility] [address] [place], [address] Basic Metabolic Profile (BMP )on 06-29-2024 BUN/CRE 17.3 RATIO Normal 10-20 [facility] Comment on above: Performed By: #### L 500.4100, L500.2500 #### [facility] [address] [place], [address] CA,Total 9.2 mg/dL Normal 8.5-10.1 [facility] Comment on above: Performed By: #### L 500.4100, L500.2500 #### [facility] [address] [place], [address] Chloride [Moles/Vol] 103 mmol/L Normal 98-107 [facility] Comment on above: Performed By: #### L 500.4100, L500.2500 #### [facility] [address] [place], [address] CO2 [Moles/Vol] 27.0 mmol/L Normal 21.0-32.0 [facility] Comment on above: Performed By: #### L 500.4100, L500.2500 #### [facility] [address] [place], [address] Creatinine [Mass/Vol] 0.81 mg/dL Normal 0.70-1.30 [facility] Comment on above: Result Comment: The validity of the calculated GFR GFRAA in patients over 70 years has not been determined. Clinical correlation is essential. Performed By: #### L 500.4100, L500.2500 #### [facility] [address] [place], [address] EST GFR - AA 117 mL/min Normal >60 [facility] Comment on above: Result Comment: Afri can Lithuanian GFR Calc Performed By: #### L 500.4100, L500.2500 #### [facility] [address] [place], [address] GAP 5 Normal 5-15 [facility] Comment on above: Performed By: #### L 500.4100, L500.2500 #### [facility] [address] [place], [address] GFR/1.73 sq M.predicted among non-blacks MDRD (S/P/Bld) [Vol rate/Area] 97 mL/min/{1.73_m2} Normal >60 [facility] Comment on above: Result Comment: Non- GFR Calc Performed By: #### L 500.4100, L500.2500 #### [facility] [address] [place], [address] Glucose [Mass/Vol] 265 mg/dL High 74-106 [facility] Comment on above: Result Comment: Gluc ose result greater than or equal to 200 mg/dL suggests DIABETES MELLITUS per A.D.A. criteria. Performed By: #### L 500.4100, L500.2500 #### [facility] [address] [place], [address] Potassium [Moles/Vol] 4.1 mmol/L Normal 3.5-5.1 [facility] Comment on above: Performed By: #### L 500.4100, L500.2500 #### [facility] [address] [place], [address] Sodium [Moles/Vol] 135 mmol/L Low 136-145 [facility] Comment on above: Performed By: #### L 500.4100, L500.2500 #### [facility] [address] [place], [address] Urea nitrogen [Mass/Vol] 14 mg/dL Normal 7-18 [facility] Comment on above: Performed By: #### L 500.4100, L500.2500 #### [facility] [address] [place], [address] Lipid Profileon 06-29-2024 Cholesterol [Mass/Vol] 92 mg/dL Normal 200 [facility] Comment on above: Result Comment: <200 mg/dL Desirable 200-240 mg/dL Borderline >240 mg/dL High Risk Performed By: #### L 500.4100, L500.2500 #### [facility] [address] [place], [address] Cholesterol in HDL [Mass/Vol] 35 mg/dL Low [facility] Comment on above: Result Comment: The drugs N-Acetylcysteine and Metamizole may falsely depress this assay. Reference Range HDL <40 mg/dL Low HDL Cholesterol HDL >or= 60 mg/dL High HDL Cholesterol Performed By: #### L 500.4100, L500.2500 #### [facility] [address] [place], [address] Cholesterol in LDL [Mass/Vol] 27 mg/dL Normal 0-130 [facility] Comment on above: Performed By: #### L 500.4100, L500.2500 #### [facility] [address] [place], [address] Cholesterol in VLDL [Mass/Vol] 30 mg/dL Normal 5-40 [facility] Comment on above: Performed By: #### L 500.4100, L500.2500 #### [facility] [address] [place], [address] Triglyceride [Mass/Vol] 152 mg/dL Normal [facility] Comment on above: Result Comment: The drugs N-Acetylcysteine and Metamizole may falsely depress this assay. Serum Triglycerides Reference Interval Normal <150 mg/dL Borderline high 150 - 199 mg/dL High 200 - 499 mg/dL Very High > or = 500 mg/dL Performed By: #### L 500.4100, L500.2500 #### [facility] [address] [place], [address] Urgent Care Visit Reporton 0 06-16-2024 Urgent Care Visit Report [facility] [address], [address] [place], [place] [address] OFFICE VISIT Date of Service: 06/16/24 MR#: [id number] Acct: [id number] Name: ARMAAN CHANEL Rep #: [id number] : 1940 Provider: DORON Ferrer Age/Sex: 84/M Location: [facility] Status: Signed Intake Vital Signs 05/28/23 16:10 [...] COUGH/CHEST/SINUS CONGESTION Chief Complaint: COUGH CHEST CONGESTION Economics Lecturer Required: No Accompanied by: Is patient in [...] of breath or dyspnea on exertion. No sffu-npm-mdmrsby products taken to assist. Several close contacts with similar URI complaints, including spouse. Non-smoker. No other associated symptoms and no alleviating/aggravating factors. ROS Const Constitutional: No other (as above) Exam Const General: cooperative, healthy appearing and no acute distress Nutritional Appearance: average body habitus Orientation: alert, awake and oriented x3 HENMT [...] today. Patient aware of isolation recommendations and [facility] department notification. Follow-up with PCP in 5 [...] B La (more content not included)... Normal [facility] Ribs Uni Min 3V w/PA Cheston 05-13-2024 Ribs Uni Min 3V w/PA Chest [facility] [address] [place] [address] Ribs Uni Min 3V w/PA Chest MR#: [id number] Acct: [id number] Name: ARMAAN CHANEL Rep #: [id number] : 1940 M 84 From: Willard reddy MD PCP: Dr. Jaime Galarza MD Status: REG CL Study: Ribs Uni Min 3V w/PA Chest Date of Exam: 05/13 Exam# [id number] Ordering Dr: Valentín Estrada PA [id number] STUDY: X-RAY - UNILATERAL RIBS ( RIGHT [...] Signed: Willard Conrad MD at 14:31 EDT , CC: Dr. Jaime Galarza MD; DORON Ferrer Briar Wood Sorter: Signed Normal [facility] Urgent Care Visit Reporton 0 05-13-2024 Urgent Care Visit Report [facility] [address], [address] [place], [place] [address] OFFICE VISIT Date of Service: 05/13/24 MR#: [id number] Acct: [id number] Name: ARMAAN CHANEL Rep #: [id number] : 1940 Provider: DORON Ferrer Age/Sex: 84/M Location: [facility] [place] Status: Signed Intake Vital Signs 05/28/23 16:10 [...] FROM FALL Chief Complaint: right rib pain Economics Lecturer Required: No Is patient in pain?: Yes Allergies No Known Allergies Allergy (Verified 05/13/24 13:52) Have you fallen in the past year?: Yes Nurse's Note: right rib pain after a trip and fall 1 week ago landing on cooler. c/o pain since, worse with inspiration and cough. denies additional injuries. [facility] Medical History (Updated 05/13/24 @ 14:25 by [...] office today for initial evaluation at the [facility] for right anterior lower rib cage pain. Patient was proximately week ago tripping and falling hitting the same causing localized pain which is aggravated to touch and with deep inspiration. He notes no complaints of chest pain or shortness of breath or dyspnea on exertion or fatigue or abdominal complaints. No complaints of nausea/vomiting or changes in bowel/bladder function. PMH NC. No pxji-maq-ekxmmqd box diagnosis. No other associated symptoms and no other alleviating/aggravating factors. ROS Const Constitutional: No other (as above) Exam Const General: cooperative, healthy appearing and no acute distress Orientation: alert and awake HENMT Head: normal to inspection Ears: hearing [...] the above. This note was generated with [employer] software. It may contain incorrect words, spelling, and punctuation that were not noted in checking the note before signing. Orders (more content not included)... Normal [facility] Basophil percentageOrdered B y: Jaime Galarza on 12-26-2023 Chloride [Moles/Vol] 107 mmol/L 98-107 [facility] Cholesterol [Mass/Vol] 76 mg/dL <200 [facility] Comment on above: <200 mg/dL Desirable 200-240 mg/dL Borderline >240 mg/dL High Risk Glucose [Mass/Vol] 192 mg/dL 74-106 [facility] Comment on above: Fasting Glucose resu lt greater than or equal to 126 mg/dL suggests DIABETES MELLITUS per A.D.A. criteria. Potassium [Moles/Vol] 4.4 mmol/L 3.5-5.1 [facility] Sodium [Moles/Vol] 138 mmol/L 136-145 [facility] Triglyceride [Mass/Vol] 94 mg/dL <199 [facility] Comment on above: The drugs N-Acetylcy steine and Metamizole may falsely depress this assay.Serum Triglycerides Reference Interval Normal <150 mg/dL Borderline high 150 - 199 mg/dL High 200 - 499 mg/dL Very High > or = 500 mg/dL Laboratory - Chemistry and C hemistry - challengeOrdered By: Jaime Galarza on 12-26-2023 Cholesterol in HDL [Mass/Vol] 40 mg/dL >40 [facility] Comment on above: The drugs N-Acetylcy steine and Metamizole may falsely depress this assay. Reference Range HDL <40 mg/dL Low HDL Cholesterol HDL >or= 60 mg/dL High HDL Cholesterol Cholesterol in LDL [Mass/Vol] 17 mg/dL 0-130 [facility] CO2 [Moles/Vol] 23.0 mmol/L 21.0-32.0 [facility] Urea nitrogen/Creatinine [Mass ratio] 18.3 mg/mg 10-20 [facility] No Panel InformationOrdered By: Jaime Galarza on 12-26-2023 Estimated GFR (MDRD) Amer 108 mL/min >60 [facility] Comment on above: GFR Calc Estimated GFR (MDRD) Non-Af Amer 89 mL/min >60 [facility] Comment on above: Non- GFR Calc VLDL Cholesterol 19 mg/dL 5-40 [facility] Serum or plasma calcium amandeep urement (mass/volume)Ordered By: Jaime Galarza on 12-26-2023 Calcium [Mass/Vol] 8.9 mg/dL 8.5-10.1 [facility] Serum or plasma creatinine m easurement (mass/volume)Ordered By: Jaime Galarza on 12-26-2023 Creatinine [Mass/Vol] 0.87 mg/dL 0.70-1.30 [facility] Comment on above: The validity of the calculated GFR & GFRAA in patients over 70 years has not been determined. Clinical correlation is essential. Serum or plasma urea nitroge n measurement (mass/volume)Ordered By: Jaime Galarza on 12-26-2023 Urea nitrogen [Mass/Vol] 16 mg/dL 7-18 [facility] Thin prep Papanicolaou smear with manual screeningOrdered By: Jaime Galarza on 12-26-2023 Thin prep Papanicolaou smear with manual screening 8 5-15 [facility] Basophil percentageOrdered B y: Dr. Galarza on 12-24-2022 Chloride [Moles/Vol] 106 mmol/L 98-107 [facility] Glucose [Mass/Vol] 137 mg/dL 74-106 [facility] Comment on above: Fasting Glucose resu lt greater than or equal to 126 mg/dL suggests DIABETES MELLITUS per A.D.A. criteria. Potassium [Moles/Vol] 4.0 mmol/L 3.5-5.1 [facility] Sodium [Moles/Vol] 140 mmol/L 136-145 [facility] Laboratory - Chemistry and C hemistry - challengeOrdered By: Dr. Galarza on 12-24-2022 CO2 [Moles/Vol] 26.0 mmol/L 21.0-32.0 [facility] Urea nitrogen/Creatinine [Mass ratio] 30.5 mg/mg 10- [facility] No Panel InformationOrdered By: Dr. Galarza on 12-24-2022 Estimated GFR (MDRD) Amer 135 mL/min >60 [facility] Comment on above: GFR Calc Estimated GFR (MDRD) Non-Af Amer 111 mL/min >60 [facility] Comment on above: Non- GFR Calc Prostate Specific Antigen Screen 4.50 ng/mL 0.00-4.00 [facility] Comment on above: This test was perfor med using the TPSA assay method for [employer] chemistry system. Values obtained with differentassay methods cannot be used interchangably.When changing PSA assays in the course of monitoring apatient, additional sequential testing should be carriedout to confirm baseline values. Serum or plasma calcium amandeep urement (mass/volume)Ordered By: Dr. Galarza on 12-24-2022 Calcium [Mass/Vol] 9.8 mg/dL 8.5-10.1 [facility] Serum or plasma creatinine m easurement (mass/volume)Ordered By: Dr. Galarza on 12-24-2022 Creatinine [Mass/Vol] 0.72 mg/dL 0.70-1.30 [facility] Comment on above: The validity of the calculated GFR & GFRAA in patients over 70 years has not been determined. Clinical correlation is essential. Serum or plasma urea nitroge n measurement (mass/volume)Ordered By: Dr. Galarza on 12-24-2022 Urea nitrogen [Mass/Vol] 22 mg/dL 7-18 [facility] Thin prep Papanicolaou smear with manual screeningOrdered By: Dr. Galarza on 12-24-2022 Thin prep Papanicolaou smear with manual screening 8 5-15 [facility] - Microbiology an d Antimicrobial susceptibilityon 05-09-2022 SARS-CoV-2 (COVID-19) RNA YESSI+probe Ql (Unsp spec) Detected Not Detect [facility] Work Phone: Comment on above: Normal Reference [...] recent exposure. OBSOLETEon 10-28-2017 OBSOLETE Refill (INTMWS) YANIQUEARMAAN ([id number]) 1940 MDate Time Provider Department10/28/17 BRANDON GRANT INTMWS During your visit today, we recorded [...] BP: 05/07/2017 124/56Please advise. Thank you. Lashell Kaplan CNP 10/28/2017 3:14 PM SignedPatient needs to reschedule follow-up that was canceled for further refills.The following approved medication requests have been transmitted electronically.Signed Prescriptions Disp Refills losartan (COZAAR) 50 mg tablet 90 tablet 0 Sig: TAKE 1 TABLET DAILY ELICEO: No Authorizing Provider: KHALIDA KAPLAN (GISSELL)Elizabeth Frederick LPN 10/28/2017 4:15 PM SignedPlease call pt to arrange Nov yearly.Ting Lynn, PSR 10/28/2017 4:31 PM [id number] attempt/left message for patient to call back and schedule yearly physical.Ting SandsShani zhurichelle Franklindesirae, PSR 11/01/2017 10:27 AM SignedSpoke with patient/he [...] Date 10/28/2017 Noted Resolved LUMBOSACRAL NEURITIS NOS [[id number]] INVALID FOR*06/24/2006 Diabetes mellitus without complication (HCC) [E*INVALID FOR* Hyperlipemia [E78.5] INVALID FOR* More... LUMBAR DISC DISPLACEMENT [M51.26] 06/24/2006 More... 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 Impotence of Organic Origin [N52.9] INVALID FOR* Elevated PSA [R97.20] INVALID FOR*08/06/2016Prescription s ordered this encounter Disp Refills Start End LOSARTAN 50 MG TABLET 90 t* 0 10/28/2017 Sig: TAKE 1 TABLET DAILYMedications Discontinued During This Encounter losartan (COZAAR) 50 mg tablet 90 t* 3 11/02/2016 10/28/2017 Sig: TAKE 1 TABLET DAILY Disc: Reason for discontinue is not on file. Status:Closed by ZINA ROGERS LPN on 11/04/17 [facility] OBSOLETEon 09-26-2017 OBSOLETE Refill (INTMWS) ARMAAN CHANEL ([id number]) 1940 [facility] Time Provider Zgyermbaou39/21/17 BRANDON GRANT INTMWS During your visit today, we recorded the following information about you:Zina Rogers LPN 09/26/2017 10:03 AM SignedPatient phones requesting refills as follows:Pending Prescriptions Disp Refills PIOGLITAZONE 30 MG TABLET 90 tablet 3 Sig: TAKE 1 TABLET DAILY ELICEO: no METFORMIN 500 MG TABLET 360 tablet 3 Sig: TAKE 2 TABLETS TWICE A DAY WITH MEALS ELICEO: noLast appt with pcp 05/07/17.Please call pt to reschedule yearly from Nov. Please review and advise.Zina Pro Older, BATCH STILL OPERATOR 09/26/2017 12:02 PM SignedThe following approved medication requests have been transmitted electronically.Signed Prescriptions Disp Refills pioglitazone (ACTOS) 30 mg tablet 90 tablet 0 Sig: TAKE 1 TABLET DAILY ELICEO: No Authorizing Provider: KHALIDA KAPLAN (GISSELL) metFORMIN (GLUCOPHAGE) 500 mg tablet 360 tablet 0 Sig: TAKE 2 TABLETS TWICE A DAY WITH MEALS ELICEO: No Authorizing Provider: KHALIDA KAPLAN (GISSELL)Khalida Kaplan CNPAllergies As of Date: 09/26/2017(No Known Allergies)Date Reviewed: 05/07/2017Reviewed by: Yasemin Sandoval LPN - Fully AssessedReason for Visit: Refill Request [94]Primary Visit Diagnosis:Diabetes mellitus without complication (HCC) [E11.9]Order(s):pioglitazo ne (ACTOS) 30 mg tabletTAKE 1 TABLET DAILYDisp: 90 tabletRfl: 0 metFORMIN (GLUCOPHAGE) 500 mg tabletTAKE 2 TABLETS TWICE A DAY WITH MEALSDisp: 360 tabletRfl: 0 COMP METABOLIC PANEL [SQCMP] Order #: [id number] FUTURE HGB A1C [GLJOS7L] Order #: [id number] FUTURE ALBUMIN/CREAT RATIO RND UR [SQUACR] Order #: [id number] FUTUREPrescriptions as of 09/26/2017 Sig: PIOGLITAZONE 30 [...] Date 09/26/2017 Noted Resolved LUMBOSACRAL NEURITIS NOS [[id number]] INVALID FOR*06/24/2006 Diabetes mellitus without complication (HCC) [E*INVALID FOR* Hyperlipemia [E78.5] INVALID FOR* More... LUMBAR DISC DISPLACEMENT [M51.26] 06/24/2006 More... 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 Impotence of Organic Origin [N52.9] INVALID FOR* Elevated PSA [R97.20] INVALID FOR*08/06/2016Prescription s ordered this encounter Disp Refills Start End [...] is not on file. Status:Closed by KHALIDA KAPLAN CNP on 09/26/17 [facility] OBSOLETEon 07-21-2017 OBSOLETE Refill (INTMWS) [facility][id number][facility] 1940 [facility] Itkinjzbto31/15/17 BRANDON GRANT During your visit today, we recorded the following information about you:Zina Rogers LPN 07/22/2017 11:13 AM SignedPatient's pharmacy requesting refills as follows:Pending Prescriptions Disp Refills BD INSULIN PEN NEEDLE UF SHORT 31 GAUGE X 5/16ANDquot; 100 Each 3 Sig: USE ONCE DAILY OR INSTRUCTED ELICEO: no Please review and advise.Zina Kaplan CNP 07/22/2017 11:55 AM SignedThe following approved medication requests have been transmitted electronically.Signed Prescriptions Disp Refills BD INSULIN PEN NEEDLE UF 31 gauge x 5/16ANDquot; ndle 100 Each 3 Sig: USE ONCE DAILY OR INSTRUCTED ELICEO: No Authorizing Provider: KHALIDA KAPLAN (GISSELL)Royal Frederick As of Date: 07/21/2017(No Known Allergies)Date Reviewed: 05/07/2017Reviewed by: Yasemin Sandoval LPN - Fully AssessedReason for Visit: Refill Request [94]Order(s):BD INSULIN PEN NEEDLE UF 31 gauge x 5/16" ndleUSE ONCE DAILY OR INSTRUCTEDDisp: 100 EachRfl: [...] Date 07/21/2017 Noted Resolved LUMBOSACRAL NEURITIS NOS [[id number]] INVALID FOR*06/24/2006 Diabetes mellitus without complication (HCC) [E*INVALID FOR* Hyperlipemia [E78.5] INVALID FOR* More... LUMBAR DISC DISPLACEMENT [M51.26] 06/24/2006 More... 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 Impotence of Organic Origin [N52.9] INVALID FOR* Elevated PSA [R97.20] INVALID FOR*08/06/2016Prescription s ordered this encounter Disp Refills Start End BD INSULIN PEN NEEDLE UF SHORT 31 GA* 100 * 3 07/22/2017 Sig: USE ONCE DAILY OR INSTRUCTEDMedications Discontinued During This Encounter BD INSULIN PEN NEEDLE UF 31 gauge x * 100 * 2 10/22/2016 07/22/2017 Sig: USE ONCE DAILY OR INSTRUCTED Disc: Reason for discontinue is not on file. Status:Closed by KHALIDA KAPLAN CNP on 07/22/17 [facility] OBSOLETEon 07-14-2017 OBSOLETE Refill (INTMWS) [facility][id number][facility] 1940 [facility] Eqckndpnao53/8/17 BRANDON GRANT INTMWS During your visit today, we recorded [...] Date 07/14/2017 Noted Resolved LUMBOSACRAL NEURITIS NOS [[id number]] INVALID FOR*06/24/2006 Diabetes mellitus without complication (HCC) [E*INVALID FOR* Hyperlipemia [E78.5] INVALID FOR* More... LUMBAR DISC DISPLACEMENT [M51.26] 06/24/2006 More... 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 Impotence of Organic Origin [N52.9] INVALID FOR* Elevated PSA [R97.20] INVALID FOR*08/06/2016Encounter Number: [id number] Status:Closed by ZINA ROGERS LPN on 07/15/17 [facility] OBSOLETEon 06-29-2017 OBSOLETE Refill (INTMWS) ARMAAN CHANEL ([id number]) 1940 MDate Time Provider Department06/29/17 BRANDON GRANT INTMWS During your visit today, we recorded the following information about you:Cyndie Crawford PharmD 07/01/2017 11:00 AM SignedPharmacist Refill Authorization ReviewName: Armaan YaniqueMRN: [id number]: 07/01/2017Time: 11:00 AMRefill authorization request(s) received via pharmacy request and reviewedunder effective consult agreement. Upon review, did confirm that an activepatient-provider relationship exists and that the prescriber is a participatingphysician under the consult agreement.The medication(s) fall under the following categories:Category 1: 1 corresponding medication(s) qualifies for renewal due to up todate labs and provider visits.Additional actions taken: Prescription(s) issued.Cyndie Crawford PharmDPharmacy Managed Authorization AbellPhone Current Outpatient Prescriptions:Omeprazole 40 mg capsule Take [...] NEEDLE UF 31 gauge x 5/16ANDquot; ndle USE ONCE DAILY OR ASINSTRUCTEDpioglitazone (ACTOS) [...] Date 06/29/2017 Noted Resolved LUMBOSACRAL NEURITIS NOS [[id number]] INVALID FOR*06/24/2006 Diabetes mellitus without complication (HCC) [E*INVALID FOR* Hyperlipemia [E78.5] INVALID FOR* More... LUMBAR DISC DISPLACEMENT [M51.26] 06/24/2006 More... 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 Impotence of Organic Origin [N52.9] INVALID FOR* Elevated PSA [R97.20] INVALID FOR*08/06/2016Prescription s ordered this encounter Disp Refills Start End [...] Status:Closed by MICHAEL (PHARMACIST)CYNDIE on 07/01/17 Normal [facility] Basic Metabolic Panlon 05-07 Anion gap 14 mmol/L Normal 06-24 [facility] Comment on above: Performed By: #### C BCDIF, BMP, NTBNP ####[facility] [place], [place] [phone] Calcium 10.6 mg/dL High 8.5-10.2 [facility] Comment on above: Performed By: #### C BCDIF, BMP, NTBNP ####[place] [address] [address] [place] [phone] Chloride 100 mmol/L Normal 97-105 [facility] Comment on above: Performed By: #### C BCDIF, BMP, NTBNP ####[address] [phone] CO2 24 mmol/L Normal 22-30 [facility] Comment on above: Performed By: #### C BCDIF, BMP, NTBNP ####[place] [phone] Creatinine 0.87 mg/dL Normal 0.73-1.22 [facility] Comment on above: Performed By: #### C BCDIF, BMP, NTBNP ####[place] [phone] eGFR (non-black) mL/min/{1.73_m2} Normal [facility] Comment on above: Performed By: #### C BCDIF, BMP, NTBNP ####[address] [place] [phone] Result Comment: eGFR (Estimated GFR) Units of [...] Glucose mass conc 160 mg/dL High 74-99 [facility] Comment on above: Result Comment: The [place] Diabetes Association (ADA) provides guidance for cutoff [...] Standards of Medical Care in Diabetes 2016, [place] [employer]. Diabetes Care. 2016.39(Suppl 1). Performed By: #### C NORMA TOMPKINS NTBNP ####[place] [phone] Potassium molar conc 4.6 mmol/L Normal 3.7-5.1 [facility] Comment on above: Performed By: #### C NORMA TOMPKINS NTBNP ####[place] [phone] Sodium 138 mmol/L Normal 136-144 [facility] Comment on above: Performed By: #### NORMA GONZALEZ NTBNP ####[place] [phone] Urea nitrogen 21 mg/dL Normal 9-24 [facility] Comment on above: Performed By: #### NORMA GONZALEZ NTBNP ####[place] [phone] CBC and Differentialon 05-07 Abs Baso 0.04 k/uL Normal 0.00-0.10 [facility] Comment on above: Performed By: #### NORMA GONZALEZ NTBNP ####[place] [phone] Abs Wells 0.75 k/uL Normal 0.00-0.86 [facility] Comment on above: Performed By: #### C BCDIF, BMP, NTBNP ####[place] [address] [address] [place] [phone] Abs Neut 5.39 k/uL Normal 1.45-7.50 [facility] Comment on above: Performed By: #### C BCDIF, BMP, NTBNP ####[address] [place] [phone] Basophils/100 WBC Auto (Bld) 0.5 % Normal [facility] Comment on above: Performed By: #### C BCDIF, BMP, NTBNP ####[place] [phone] DTYPE Auto Diff Normal [facility] Comment on above: Performed By: #### C BCDIF, BMP, NTBNP ####[phone] Eosinophils 0.15 10*3/uL Normal 0.00-0.45 [facility] Comment on above: Performed By: #### C BCDIF, BMP, NTBNP ####[place] [phone] Eosinophils/100 leukocytes 1.9 % Normal [facility] Comment on above: Performed By: #### C BCDIF, BMP, NTBNP ####[address] [place] [phone] Erythrocyte distribution width Auto Ratio (RBC) 14.7 % Normal 11.5-15.0 [facility] Comment on above: Performed By: #### C BCDIF, BMP, NTBNP ####[address] [place] [phone] Erythrocytes (RBC) 0.0 /100 WBC Normal 0 [facility] Comment on above: Performed By: #### C BCDIF, BMP, NTBNP ####[place] [address] [address] [place] [phone] Erythrocytes (RBC) 4.03 10*6/uL Low 4.20-6.00 [facility] Comment on above: Performed By: #### C BCDIF, BMP, NTBNP ####[address] [phone] Erythrocytes (RBC) 0.00 10*6/uL Normal [facility] Comment on above: Performed By: #### C BCDIF, BMP, NTBNP ####[address] [phone] Hematocrit (HCT) 39.9 % Normal 39.0-51.0 [facility] Comment on above: Performed By: #### C BCDIF, BMP, NTBNP ####[address] [phone] Hemoglobin mass conc (Bld) 12.5 g/dL Low 13.0-17.0 [facility] Comment on above: Performed By: #### C BCDIF, BMP, NTBNP ####[place] [phone] Lymphocytes 1.42 10*3/uL Normal 1.00-4.00 [facility] Comment on above: Performed By: #### C BCDIF, BMP, NTBNP ####[address] [phone] Lymphocytes/100 leukocytes 18.3 % Normal [facility] Comment on above: Performed By: #### C BCDIF, BMP, NTBNP ####[address] [phone] MCH 31.0 pG Normal 26.0-34.0 [facility] Comment on above: Performed By: #### C BCDIF, BMP, NTBNP ####[place] [address] [address], [place] [phone] MCHC mass conc (RBC) 31.3 g/dL Normal 30.5-36.0 [facility] Comment on above: Performed By: #### C BCDIF, BMP, NTBNP ####[address], [place] [phone] MCV 99.0 fL Normal 80.0-100.0 [facility] Comment on above: Performed By: #### C BCDIF, BMP, NTBNP ####[address] [place] [phone] Monocytes/100 leukocytes 9.7 % Normal [facility] Comment on above: Performed By: #### C BCDIF, BMP, NTBNP ####[place] [phone] Neutrophils/100 WBC Auto (Bld) 69.6 % Normal [facility] Comment on above: Performed By: #### C BCDIF, BMP, NTBNP ####[address] [phone] Platelet mean volume (PMV) 10.6 fL Normal 9.0-12.7 [facility] Comment on above: Performed By: #### C BCDIF, BMP, NTBNP ####[address], [place] [phone] Platelets 313 10*3/uL Normal 150-400 [facility] Comment on above: Performed By: #### C BCDIF, BMP, NTBNP ####[address], [place] [phone] WBC (Leukocytes) 7.75 10*3/uL Normal 3.70-11.00 [facility] Comment on above: Performed By: #### C BCDIF, BMP, NTBNP ####[place] [address] [place], [place] [phone] CNOVon 05-07-2017 CNOV Office Visit (INTMWS) ARMAAN CHANEL ([id number]) 1940 MDate Time Provider Department05/07/17 2:20 PM BRANDON GRANT INTMWS During your visit today, we recorded the following information about you: Pulse Respiration Blood pressure Weight 84/minute 18/minute 124/56 89.4 kgBrandon Grant MD 05/07/2017 3:46 PM SignedThis note was created using [employer].SubjectiveRonal les Yanique is a 77 year old male for persistent cough, productive at times,dry at times, shortness of breath, hoarseness for 2 months. He was seen in [facility] given levofloxacin, steroid pack and cough medication. [...] kg (197 lb) SpO2 100% BMI 31.8 kg/j1Ijpufijh ExamConstitutional: He appears well-nourished.HENT:Nose: Mucosal edema present. No sinus tenderness.Mouth/Throat: Uvula is midline and oropharynx is clear and moist.Cardiovascular: Normal rate, regular rhythm, normal heart sounds and intactdistal pulses.Pulmonary/Chest: Effort normal. He has wheezes. He has rales.Abdominal: Soft. There is no tenderness.Musculoskeletal : He exhibits no edema.ASSESSMENT/PLAN:1. Cough - ICD9: [...] spouse indicated understanding andwillingness to follow recommendations.Brandon Grant, MDReferring Provider: SELF [200]Allergies As of Date: 05/07/2017(No Known Allergies)Date Reviewed: 05/07/2017Reviewed by: Yasemin Sandoval LPN - Fully AssessedReason for Visit: Cough [28] URI [115]Primary Visit Diagnosis:Cough [R05] Other Visit Diagnoses:BURCIAGA (dyspnea on exertion) [R06.09] Hoarseness of voice [R49.0]Order(s):XR CHEST PA/LAT [7157662] Order #: [id number] FUTURE CBC + DIFF [SQCBCDIF] Order #: [id number] FUTURE NT PRO BNP [SQNTBNP] Order #: [id number] FUTURE BASIC METABOLIC PNL [SQBMP] Order #: [id number] FUTURE Omeprazole 40 mg capsuleTake 1 capsule [...] Date 05/07/2017 Noted Resolved LUMBOSACRAL NEURITIS NOS [[id number]] INVALID FOR*06/24/2006 Diabetes mellitus without complication (HCC) [E*INVALID FOR* Hyperlipemia [E78.5] INVALID FOR* More... LUMBAR DISC DISPLACEMENT [M51.26] 06/24/2006 More... 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 Impotence of Organic Origin [N52.9] INVALID FOR* Elevated PSA [R97.20] INVALID FOR*08/06/2016Prescription s ordered this encounter Disp Refills Start End OMEPRAZOLE 40 MG CAPSULE,DELAYED REL* 30 c* 0 05/07/2017 Route: ORAL Sig: Take 1 capsule by mouth once daily.Disposition: Return in about 1 month (around 06/07/2017).Follow-up and Disposition History RecordedEncounter Number: [id number] Status:Closed by BRANDON GRANT MD on 05/07/17 [facility] Pro BNPon 05-07-2017 PRO B Natr Peptide <50 Normal <450 [facility] Comment on above: Performed By: #### C BCDIF, BMP, NTBNP ####[facility] [address] [place], [place] [phone] PROGRESSon 05-07-2017 PROGRESS HNO ID: [id number] thor: Bonifacio Nation (Rt) Shellie Amos: (none)Author Type: TechnicianType: Progress NotesFiled: 05/07/2017 3:49 PMNote Text: Radiology Service Progress NotePATIENT NAME: Armaan ChanelMRN: [id number] OF SERVICE: May 07, 2017TIME: 3:46 PMPATIENT IDENTITY VERIFICATION COMPLETED USING TWO (2) METHODS: Patientconfirmed name verbally and Date of .PATIENT GENDER DATA: MalePATIENT RELEVANT IMPLANT DATA REVIEWED: Not ApplicableRADIOLOGY DEPARTMENT: General X-ray: Exam(s) Completed: Chest X-RayPERIPHERAL IV DATA: Not applicableSIGNED BY: AUGIE [facility] 2016 3:46 PM Normal [facility] PROGRESS HNO ID: [id number] thor: Brandon Casas: (none)Author Type: PhysicianType: Progress NotesFiled: 05/07/2017 3:46 PMNote Text:This note was created using [employer].ElmaRonkristine les Chanel is a 77 year old male [...] 89.4 kg (197 lb) SpO2 100% BMI 31.8kg/h1Grdahqxm ExamConstitutional: He appears well-nourished.HENT:Nose: Mucosal edema present. No sinus tenderness.Mouth/Throat: Uvula is midline and oropharynx is clear and moist.Cardiovascular: Normal rate, regular rhythm, normal heart sounds andintact distal pulses.Pulmonary/Chest: Effort normal. He has wheezes. He has rales.Abdominal: Soft. There is no tenderness.Musculoskeletal : He exhibits no edema.ASSESSMENT/PLAN:1. Cough - ICD9: [...] spouse indicated understandingand willingness to follow recommendations.Brandon Grant MD Normal [facility] XR CHEST 2 VIEWon 05-07-2017 XR CHEST [...] acute osseous abnormality is identified.IMPRESSION:No acute radiographic abnormality.Transcriptioni st: PSCB Transcribe Date/Time: May 07 2017 4:04PDictated by : AUTUMN MURILLO MDThis examination was interpreted and the report reviewed and electronically signed by: AUTUMN MURILLO MD on May 07 2017 4:06PM EST Normal [facility] OBSOLETEon 04-21-2017 OBSOLETE Refill (INTMWS) ARMAAN CHANEL ([id number]) 1940 MDate Time Provider Department04/21/17 BRANDON GRANT INTMWS During your visit today, we recorded the following information about you:Liya Delgado PharmD 04/22/2017 11:27 AM SignedPharmacist Refill Authorization ReviewName: Armaan ChanelMRN: [id number]: 04/22/2017Time: 11:27 AMRefill authorization request(s) received via pharmacy request and reviewedunder effective consult agreement. Upon review, did confirm that an activepatient-provider relationship exists and that the prescriber is a participatingphysician under the consult agreement.The medication(s) fall under the following categories:Category 1: 1 corresponding medication(s) qualifies for renewal due to up todate labs and provider visits.Additional actions taken: Prescription(s) issued.Wendi Gomezharksenia Managed Authorization AbellPhone Current Outpatient Prescriptions:albuterol HFA (PROVENTIL HFA, VENTOLIN [...] Known Allergies)Date Reviewed: 03/22/2017Reviewed by: Shanika Morales [facility] - Fully AssessedReason for Visit: Refill Request [...] Date 04/21/2017 Noted Resolved LUMBOSACRAL NEURITIS NOS [[id number]] INVALID FOR*06/24/2006 Diabetes mellitus without complication (HCC) [E*INVALID FOR* Hyperlipemia [E78.5] INVALID FOR* More... LUMBAR DISC DISPLACEMENT [M51.26] 06/24/2006 More... 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 Impotence of Organic Origin [N52.9] INVALID FOR* Elevated PSA [R97.20] INVALID FOR*08/06/2016Prescription s ordered this encounter Disp Refills Start End [...] on file. Status:Closed by KOFI (PHARMACIST)LIYA on 7/17/17 Normal [facility] Vital Signs Date Time Vital Sign Value Performing Clinician Faci lity 04-28-2025 15:25-0400 Body temperature 97.5 [degF] Dr. Jaime Galarza MD Work Phone: [facility] 04-28-2025 15:25-0400 Diastolic blood pressure 39 mm[Hg] Dr. Jaime Galarza MD Work Phone: [facility] 04-28-2025 15:25-0400 Heart rate 68 /min Dr. Jaime Galarza MD Work Phone: [facility] 04-28-2025 15:25-0400 Respiratory rate 16 /min Dr. Jaime Galarza MD Work Phone: [facility] 04-28-2025 15:25-0400 SaO2% (BldA) [Mass fraction] 100 % Dr. Jaime Galarza MD Work Phone: [facility] 04-28-2025 15:25-0400 Systolic blood pressure 109 mm[Hg] Dr. Jaime Galarza MD Work Phone: [facility] 04-28-2025 13:42-0400 Body height 170.[address] Jaime Galarza MD Work Phone: [facility] 04-28-2025 13:42-0400 Body mass index (BMI) [Ratio] 28.6 kg/m2 Dr. Jaime Galarza MD Work Phone: [facility] 04-28-2025 13:42-0400 Body weight [address] Jaime Galarza MD Work Phone: [facility] 04-15-2025 15:09-0400 Body height 170.[address] Jaime Galarza MD Work Phone: [facility] 04-15-2025 15:09-0400 Body mass index (BMI) [Ratio] 29.7 kg/m2 Dr. Jaime Galarza MD Work Phone: [facility] 04-15-2025 15:09-0400 Body weight 85.[address] Jaime Galarza MD Work Phone: [facility] 04-15-2025 15:09-0400 Diastolic blood pressure 71 mm[Hg] Dr. Jaime Galarza MD Work Phone: [facility] 04-15-2025 15:09-0400 Heart rate 82 /min Dr. Jaime Galarza MD Work Phone: [facility] 04-15-2025 15:09-0400 Respiratory rate 15 /min Dr. Jaime Galarza MD Work Phone: [facility] 04-15-2025 15:09-0400 SaO2% (BldA) [Mass fraction] 97 % Dr. Jaime Galarza MD Work Phone: 6(585)459-904066 [place] [address] 04-15-2025 15:09-0400 Systolic blood pressure 116 mm[Hg] Dr. Jamie Galarza MD Work Phone: 0(628)929-700474 [address] 04-08-2025 14:03-0400 Body height 170.[address] Jaime Galarza MD Work Phone: 7(121)803-984066 [place] [address] 04-08-2025 14:01-0400 Body mass index (BMI) [Ratio] 29.7 kg/m2 Dr. Jaime Galarza MD Work Phone: 3(616)129-662474 [address] 04-08-2025 14:01-0400 Body temperature 98.7 [degF] Dr. Jaime Galarza MD Work Phone: 3(513)433-810166 [place] [address] 04-08-2025 14:01-0400 Body weight 85.[address] Jaime Galarza MD Work Phone: [facility] 04-08-2025 14:01-0400 Diastolic blood pressure 64 mm[Hg] Dr. Jaime Galarza MD Work Phone: 1(154)899-478366 [place] [address] 04-08-2025 14:01-0400 Heart rate 75 /min Dr. Jaime Galarza MD Work Phone: [facility] 04-08-2025 14:01-0400 Respiratory rate 18 /min Dr. Jaime Galarza MD Work Phone: 5(865)263-613366 [place] [address] 04-08-2025 14:01-0400 SaO2% (BldA) [Mass fraction] 96 % Dr. Jaime Galarza MD Work Phone: [facility] 04-08-2025 14:01-0400 Systolic blood pressure 139 mm[Hg] Dr. Jaime Galarza MD Work Phone: [facility] 01-04-2025 13:07-0400 Body height 170.[address] Jaime Galarza MD Work Phone: 8(228)124-789166 [place] [address] 01-04-2025 13:07-0400 Body mass index (BMI) [Ratio] 29.7 kg/m2 Dr. Jaime Galarza MD Work Phone: 3(185)234-008366 [place] [address] 01-04-2025 13:07-0400 Body temperature 98.8 [degF] Dr. Jaime Galarza MD Work Phone: 9(601)083-381866 [place] [address] 01-04-2025 13:07-0400 Body weight 86.[address] Jaime Galarza MD Work Phone: [facility] 01-04-2025 13:07-0400 Diastolic blood pressure 74 mm[Hg] Dr. Jaime Galarza MD Work Phone: [facility] 01-04-2025 13:07-0400 Heart rate 90 /min Dr. Jaime Galarza MD Work Phone: 1(012)745-748766 [place] [address] 01-04-2025 13:07-0400 Respiratory rate 18 /min Dr. Jaime Galarza MD Work Phone: [facility] 01-04-2025 13:07-0400 SaO2% (BldA) [Mass fraction] 98 % Dr. Jaime Galarza MD Work Phone: [facility] 01-04-2025 13:07-0400 Systolic blood pressure 122 mm[Hg] Dr. Jaime Galarza MD Work Phone: [facility] Encounters Encounter Date Encounter Type Care Provider Facility Start: 04-28-2025 [facility] Start: 04-28-2025 End: 04-28-2025 Admission to same day surgery center Winston Hernández DO -Endoscopy Work Phone: Start: 04-28-2025 End: 04-28-2025 ambulatory Winston Hernández Facility:[facility] Start: 04-19-2025 End: 04-19-2025 Patient encounter procedure Noelle SAL -[facility] Work Phone: Start: 04-19-2025 End: 04-19-[address] Jaime Galarza MD Work Phone: -[facility] Start: 04-15-2025 End: 04-15-[address] Orlando Prather MD -[facility] Work Phone: Start: 04-15-2025 End: 04-15-[address] Jaime Galarza MD Work Phone: [facility] Start: 04-12-2025 [facility] Start: 04-12-[address] Orlando Prather MD -[facility] Start: 04-08-[address] Orlando Prather MD -[facility] Start: 04-08-2025 End: 04-08-[address] Orlando Prather MD -[facility] Work Phone: Start: 04-08-2025 End: 04-08-[address] Jaime Galarza MD Work Phone: [facility] Start: 04-05-2025 [facility] Work Phone: Start: 04-05-2025 ambulatory [facility] Facility :[facility] Start: 04-02-2025 Non-patient / [facility] Work Phone: Start: 04-02-2025 ambulatory [facility] Facility :[facility] Start: 03-26-2025 End: 03-26-[address] Jaime Galarza MD Work Phone: [facility] Work Phone: Start: 03-26-2025 End: 03-26-[address] Jaime Galarza MD -[facility] Start: 03-26-2025 End: 03-26-2025 ambulatory Jaime Galarza Facility:[facility] Start: 01-04-2025 End: 01-04-2025 Patient encounter procedure Valentín SAL -[facility] Work Phone: Start: 01-04-2025 End: 01-04-2025 ambulatory Valentín SAL Facility:[facility] Start: 09-23-2024 End: 09-23-2024 ambulatory Jaime Galarza Facility:[facility] Start: 08-28-2024 End: 08-28-2024 ambulatory Jaime Galarza Facility:[facility] Start: 08-22-2024 ambulatory Alyson Clarke Facility :[facility] Start: 08-22-2024 End: 08-25-2024 Evaluation and management of inpatient Alyson L White Facility:[facility] Start: 08-21-2024 End: 08-21-2024 ambulatory Maxx SAL Facility:[facility] Start: 08-21-2024 End: 08-21-2024 ambulatory Maxx SAL Facility:[facility] Start: 07-06-2024 End: 07-06-2024 ambulatory Julia Caldwell Facility:[facility] Start: 06-29-2024 End: 06-29-2024 ambulatory Jaime Galarza Facility:[facility] Start: 06-16-2024 End: 06-16-2024 ambulatory Valentín SAL Facility:[facility] Start: 05-13-2024 End: 05-13-2024 ambulatory Jaime Galarza Facility:[facility] Start: 05-13-2024 End: 05-13-2024 ambulatory Jaime Galarza Facility:[facility] Start: 12-26-2023 End: 12-26-2023 ambulatory [facility] Work Phone: Start: 12-26-2023 End: 12-26-[address] [facility] Work Phone: Start: 12-24-2022 End: 12-24-2022 ambulatory [facility] Work Phone: Start: 12-24-2022 End: 12-24-[address] [facility], Karla Davidson Start: 05-09-2022 End: 05-09-[address] [facility], Specimen Start: 05-07-2017 End: 05-07-[address] [facility] veland Start: 05-07-2017 End: 05-07-2017 Ambulatory BRANDON GRANT [facility] veland Procedures Date Procedure Procedure Detail Performing Clinician Start: 04-28-[address] Jaime naik MD Work Phone: Start: 04-12-2025 Measurement of occul t blood in stool specimen using immunoassay Dr. Jaime Galarza MD Work Phone: Start: 04-08-2025 Urnls dip stick/tabl et reagent auto microscopy Dr. Jaime Galarza MD Work Phone: Start: 04-08-[address] e fraction Dr. Jaime Galarza MD Work Phone: Start: 04-08-[address] Jaime Galarza MD Work Phone: Comment on above: Performed at: [address] Director: Adam Huffman PhD, Phone: [phone] Start: 04-08-2025 Serum inorganic phosphate measurement Dr. Jaime Galarza MD Work Phone: Start: 04-08-2025 Total iron binding capacity measurement Dr. Jaime Galarza MD Work Phone: Start: 03-26-2025 Urine microalbumin/creatinine ratio measurement Dr. Jaime Galarza MD Work Phone: Laboratory test resu lt abnormal Abnormal laboratory test Dr. Orlando Prather MD Comment on above: Low Haptoglobin R/O liver disease Plan of Treatment Date Care Activity Detail Author Start: 04-28-2025 Patient discharge [facility] Start: 04-08-2025 Urinalysis complete panel - Urine [facility] Start: 04-08-2025 C reactive protein [ Mass/volume] in Serum or Plasma [facility] Start: 04-08-2025 CBC W Auto Different ial panel - Blood [facility] Start: 04-08-2025 Comprehensive metabo lic 1999 panel - Serum or Plasma [facility] Start: 04-08-[address] [facility] Start: 04-08-2025 Erythropoietin (EPO) [Units/volume] in Serum or Plasma [facility] Start: 04-08-2025 Ferritin [Mass/volum e] in Serum or Plasma [facility] Start: 04-08-2025 Haptoglobin [Mass/vo lume] in Serum or Plasma [facility] Start: 04-08-2025 Iron and Iron bindin g capacity panel - Serum or Plasma [facility] Start: 04-08-[address] [facility] Start: 04-08-[address] [facility] Start: 04-08-2025 Reticulocyte count [facility] Start: 04-08-2025 Serum inorganic phos phate measurement [facility] Start: 04-08-2025 Urate [Mass/volume] in Serum or Plasma [facility] Start: 04-08-[address] [facility] Start: 04-08-2025 [facility] Alanine aminotransfe rase [Enzymatic activity/volume] in Serum or Plasma [facility] Albumin [Mass/volume ] in Serum or Plasma [facility] Alkaline phosphatase [Enzymatic activity/volume] in Serum or Plasma [facility] Anion gap in Serum or Plasma [facility] Bilirubin measurement, urine [facility] Bilirubin, total measurement [facility] BUN/Creatinine ratio [facility] Calcium [Mass/volume ] in Serum or Plasma [facility] Carbon dioxide, tota l [Moles/volume] in Central venous blood [facility] CBC W Auto Different ial panel - Blood [facility] Comprehensive metabo lic 1999 panel - Serum or Plasma [facility] Creatinine [Mass/vol ume] in Serum or Plasma [facility] Erythrocyte mean cor puscular volume determination [facility] Erythropoietin (EPO) [Units/volume] in Serum or Plasma [facility] spital Ferritin [Mass/volum e] in Serum or Plasma [facility] Folate [Moles/volume ] in Serum or Plasma [facility] Glucose [Mass/volume ] in Serum or Plasma [facility] Haptoglobin [Mass/vo lume] in Serum or Plasma [facility] Hematocrit [Volume F raction] of Blood [facility] Hemoglobin [Mass/volume] in Blood [facility] Hemoglobin [Presence] in Urine [facility] Iron [Mass/mass] in Unspecified specimen [facility] Iron and Iron bindin g capacity panel - Serum or Plasma [facility] Iron saturation [Mas s Fraction] in Serum or Plasma [facility] Lactate dehydrogenase measurement [facility] Leukocytes [#/volume] in Blood [facility] Liver stiffness by U S.transient elastography [facility] Magnesium measurement [facility] Mean corpuscular hem oglobin concentration determination [facility] Mean corpuscular hem oglobin determination [facility] Measurement of keton es in urine using dipstick [facility] Measurement of occul t blood in stool specimen using immunoassay [facility] pital Measurement of renal function [facility] Microscopic urinalysis [facility] Neutrophil count [facility] Neutrophil percent d ifferential count [facility] pH of Urine [facility] Platelets [#/volume] in Blood [facility] Potassium measurement [facility] Red blood cell count [facility] Red cell distributio n width determination [facility] Serum chloride measurement [facility] Serum inorganic phos phate measurement [facility] Sodium measurement [facility] Specific gravity of Urine [facility] Total iron binding c apacity measurement [facility] Total protein measurement [facility] Urea nitrogen [Mass/ volume] in Serum or Plasma [facility] Urine blood test [facility] Urine dipstick for glucose [facility] Urine dipstick for l eukocyte esterase [facility] Urine dipstick for nitrite [facility] Urine dipstick for protein [facility] Urine examination [facility] Urine microscopy: epithelial cells [facility] Urine Microscopy: white cells [facility] Urobilinogen [Presence] in Urine [facility] Immunizations Immunization Date Immunization Notes Care Provider Aung mcfadden 08-11-2013 tetanus and diphther ia toxoids, adsorbed, preservative free, for adult use (2 Lf of tetanus toxoid and 2 Lf of diphtheria toxoid) [facility] Payers Date Payer Category Payer Self-pay [id number] 2016 Private Health Insurance 101 [id number] Unknown [id number] 2.16.8 40.1.971145.3.579.2.462 Unknown [id number] 2.16.8 40.1.245034.3.579.2.462 Unknown [id number] 2.16.8 40.1.168052.3.579.2.462 Unknown [id number] 2.16.8 40.1.228666.3.579.2.462 Unknown [id number] 2.16.8 40.1.992829.3.579.2.462 Unknown [id number] 2.16.8 40.1.152642.3.579.2.462 Unknown [id number] 2.16.8 40.1.487120.3.579.2.462 Unknown [id number] 2.16.8 40.1.579602.3.579.2.462 Unknown [id number] 2.16.8 40.1.721097.3.579.2.462 Unknown [id number] 2.16.8 40.1.314387.3.579.2.462 Unknown [id number] 2.16.8 40.1.419301.3.579.2.462 Unknown [id number] 2.16.8 40.1.559930.3.579.2.462 Unknown [id number] 2.16.8 40.1.829104.3.579.2.462 Unknown [id number] 2.16.8 40.1.052108.3.579.2.462 Unknown [id number] 2.16.8 40.1.273773.3.579.2.462 Unknown [id number] 2.16.8 40.1.048869.3.579.2.462 Unknown [id number] 2.16.8 40.1.605966.3.579.2.462 Unknown [id number] 2.16.8 40.1.475039.3.579.2.462 Unknown [id number] 2.16.8 40.1.912534.3.579.2.462 Unknown [id number] 2.16.8 40.1.395534.3.579.2.462 Unknown [id number] 2.16.8 40.1.980360.3.579.2.462 Unknown [id number] 2.16.8 40.1.312126.3.579.2.462 Unknown [id number] 2.16.8 40.1.199045.3.579.2.462 Social History Date Type Detail Facility Start: 07-14-2021 End: 05-28-2023 Tobacco smoking status [facility] Unknown if ever smoked [facility] Start: 01-06-[address] [facility] Start: 1940 Sex Assigned At Male [facility] Start: 08-22-2024 End: 04-27-2025 Tobacco smoking status NHIS Ex-smoker (finding) [facility] Medical Equipment Procedure Code Equipment Code Equipment Origin al Text Equipment Identifier Dates ACCOLADE 132' HIP STEM FDA St art: 01-05-2019 FEMORAL HEAD FDA Start: 01-05-2019 MDM LINER-CEMENT LESS GLEN FDA Start: 01-05-2019 MDM X3 INSERT FO R LINER FDA Start: 01-05-2019 TRIDENT TITAN ACETABULAR SHELL FDA Start: 01-05-2019 ([id number]) Coated hip femur prosthesis, modular ()[id number] FDA Start: 07-31-2021 ([id number]) Non-constrained polyethylene acetabular liner ()[id number] FDA Start: 07-31-2021 ([id number]) Acetabular shell ()[id number] FDA Start: 07-31-2021 ([id number]) Metallic femoral head prosthesis ()[id number] FDA Start: 07-31-2021 ([id number]) Acetabular shell ()[id number] FDA Start: 07-31-2021 ACCOLADE 132' HIP [...] TRIDENT TITAN ACETABULAR SHELL FDA Start: 01-05-2019 Goals Date Patient Goal Desired Activity /State Mental Status Date Assessment Result Facility 04-28-2025 Cognitive function Voice/Name [facility] Work Phone: Clinical Notes 08-25-2024 to 04-28-2025 Note Date & Type Note Facility 04-28-[address] [facility] 04-28-[address] [facility] 04-28-[address] [facility] 04-28-[address] [facility] 04-28-[address] [facility] 04-28-[address] [facility] 04-28-[address] [facility] 04-19-2025 Progress note [facility] 04-08-2025 Progress note [facility] 04-08-2025 Progress note Note Date/Time April 08, 2025 2:30pm [facility] [address] [place] [address] OFFICE VISIT Date of Service: 04/08/25 1358 MR#: [id number] Acct: [id number] Name: ARMAAN CHANEL Rep #: [id number] : 1940 From: Orlando Prather MD Age/Sex: 85/M Location: [facility] Status: Signed HPI Subjective Date of Service 04/08/25 Chief Complaint Referred for evaluation of anemia. History of Present Illness 85y.o.man was found have anemia and referred for further evaluation. He feels tired, denies weight loss, fever or night sweats. [facility] Medical History Anemia Pneumonia Obesity BPH (benign prostatic hyperplasia) HLD [...] substance use type: does not use ROS Constitutional Constitutional: Reports systems reviewed and no addt'l complaints, except as documented Eyes Eyes: Reports systems reviewed and no addt'l complaints, except as documented ENT HEENT: Reports systems reviewed and no addt'l complaints, except as documented Cardiovascular Cardiovascular: Reports systems reviewed and no addt'l complaints, except as documented Respiratory/Chest Respiratory/Chest: Reports systems reviewed and no addt'l complaints, except as documented Gastrointestinal Gastrointestinal: Reports systems reviewed and no addt'l complaints, except as documented Genitourinary Genitourinary: Reports systems reviewed and no addt'l complaints, except as documented Musculoskeletal Musculoskeletal: Reports systems reviewed and no addt'l complaints, except as documented Integumentary Integumentary: Reports systems reviewed and no addt'l complaints, except as documented Neurologic Neurologic: Reports systems reviewed and no addt'l complaints, except as documented Psychiatric Psychiatric: Reports systems reviewed and no addt'l complaints, except as documented Endocrine Endocrinology: Reports systems reviewed and no addt'l complaints, except as documented Hematologic/Lymphatic Hematologic/Lymphatic: Reports systems reviewed and no addt'l complaints, exceptas documented Allergic/Immunologic Allergic/Immunologic: Reports systems reviewed and no addt'l complaints, except as documented Intake Vital Signs 01/04/25 13:07 04/08/25 14:01 04/08/25 14:03 Height 5 ft 7 in 5 ft 7 in 5 ft 7 in Weight: 85.927 kg BMI 29.7 BP 139/64 H Blood Pressure Location Lt brachial Position Sitting Respiration 18 Pulse 75 Pulse Source Monitor Temp 98.7 F Temperature Source Temporal Artery Pulse Oximetry (%) 96 Oxygen Delivery Method room air Intake Accompanied by: Self Is patient in pain?: No Allergies No Known Allergies Allergy (Verified 04/08/25 13:59) Medications ?Medication ?Instructions ?Recorded ?Confirmed ?Type glipizide 5 mg tablet, extended 5 mg PO BID DIABETES 1 10/11/12 04/08/25 History release 24 hr insulin glargine 100 unit/mL (3 22 units subcut QHS DI ABETES 08/11/13 04/08/25 History mL) subcutaneous pen losartan 50 mg tablet 50 mg PO DAILY BP 08/11/13 0 04/08/25 History multivitamin with folic acid 400 1 tab PO DAILY SUPPLE MENT 08/11/13 04/08/25 History mcg tablet pioglitazone 30 mg tablet 30 mg PO DAILY DIABETES 02/1604/08/25 History atorvastatin 40 mg tablet 40 mg PO QHS CHOLESTEROL 04/08/25 History ascorbic acid (vitamin C) 500 mg 500 mg PO DAILY SUPPL EMENT 12/19/18 04/08/25 History tablet (Vitamin C) vitamin E 268 mg (400 unit) capsule 400 unit PO DAILY SUPPLEMENT 12/19/18 04/08/25 History aspirin 81 mg chewable tablet 81 mg PO DAILY 01/11/21 04/08/25 History acetaminophen 500 mg tablet 1,000 mg PO Q12H PRN PRN P ain 07/14/21 04/08/25 Hist ory fluticasone furoate 100 1 inh inhalation Q24H 04/08/25 History mcg-vilanterol 25 mcg/dose inhalation powder (Breo Ellipta) metformin 1,000 mg tablet 1,000 mg PO BID 04/08/2512/29 History Have you fallen in the past year?: No Central Venous Access Central Venous Access: No Laboratory Tests 03/26/25 09:18 WBC 4.8 Hgb 8.8 L Hct 27.5 L Plt Count 273 Absolute Neuts (auto) 3.3 Absolute Lymphs (auto) 0.99 Coding Level of Care Code Off vis,new,level 3 Exam Problem Focused Diagnoses Anemia D64.9 Assessment and Plan Assessment and Plan (1) Anemia: Status: Acute Comment: Discussed evaluation of anemia, Pt wants to proceed. Plan: To obtain blood for anemia work up. Check stool for occult blood, urine for occult blood. Plan Details Follow Up: 1 Week Clinical Quality Measures Falls Risk Screening/Assistive Devices Have you fallen in the past year?: No 04/08/25 1430 <Electronically signed by Orlando Schulz> Date _ Orlando Prather MD Cosigner Signature: Date (if applicable) CC: Dr. Jaime Galarza MD ~ [facility] Work Phone: 1(261) 253-377703-31-2025 Evaluation note* Diagnosis Onset Date Resolution Status Admit Date Respiratory symptoms noneactive [facility] 2024 1:01pm [facility] Work Phone: 1(305) 604-362703-31-2025 Evaluation note* Diagnosis Onset Date Resolution Status Admit Date Respiratory symptoms noneactive [facility] 2024 1:01pm Anemia acute April 08, 2025 1:40pm [facility] Work Phone: 1([phone]) 854-141603-31-2025 Evaluation note* Diagnosis Onset Date Resolution Status Admit Date Respiratory symptoms noneactive [facility] 2024 1:01pm Anemia acute April 08, 2025 1:40pm Abnormal laboratory test acute April 15, 2025 3:08pm Anemia acute April 15 3:08pm Fecal occult blood test positive acute April 15, 2025 3:08pm [facility] Work Phone: [phone] Evaluation note* Diagnosis Onset Date Resolution Status Admit Date Respiratory symptoms noneactive [facility] 2024 1:01pm Anemia acute April 08, 2025 1:40pm Abnormal laboratory test acute April 15, 2025 3:08pm Anemia acute April 15 3:08pm Fecal occult blood test positive acute April 15, 2025 3:08pm Anemia acute April 19 12:55pm Fecal occult blood test positive acute April 19, 2025 12:55pm [facility] Work Phone: [phone] Evaluation note* Diagnosis Onset Date Resolution Status Admit Date Respiratory symptoms noneactive Mick [facility] 2024 1:01pm Anemia acute April 08, 2025 1:40pm Abnormal laboratory test acute April 15, 2025 3:08pm Anemia acute April 15 3:08pm Fecal occult blood test positive acute April 15, 2025 3:08pm Anemia acute April 19 12:55pm Fecal occult blood test positive acute April 19, 2025 12:55pm Anemia acute April 28 1:14pm Fecal occult blood test positive acute April 28, 2025 1:14pm [facility] Work Phone: 1(525) 917-539811-19-2024 [facility] Medical Records Department [address] [place] [address] Discharge Summary 08/25/24 1028 MR#: [id number] Acct: [id number] Name: ARMAAN CHANEL Rep #: [id number] : 1940 84 From: Anders Nguyen MD PCP: Dr. Jaime Galarza MD Status:ADM IN Location: [place] [address] Providers Date of Admission: 08/22/24 Date of [...] for 1 week. Advised to follow with traffic observer Dr. Errol Cabral in 2 weeks. #2 [...] 05:20 08/23/24 05:20 Laboratory: Laboratory Results - [facility] (more content not included)...[facility] Author Jonah Arevalo [facility] Note Date/Time April 28, 2025 2:18 pm [facility] Medical Records Department [address] [place] [address] Pre-Anesthesia Evaluation 04/28/25 1408 MR#: [id number] Acct: [id number] Name: ARMAAN CHANEL Rep #:[id number] : 1940 85 From: Jonah Arevalo MD PCP: Dr. Jaime Galarza MD Status:REG S DC Y Race: C Location: [place] [address] ASA Classification* ASA Classification ASA Classification: 3 Assessment & Plan Anesthesia* Anesthesia Assessment Anesthesia Assessment: Discussed sedation and/or anesthesia options, risks, benefits, and alternatives with patient/parents/legal guardian/POA. Questions invited. The patient/parents/legal guardian/POA seems to understand and agrees to proceedwith anesthesia plan. Reviewed the physical assessment, medical history, allergy history and patient home medications list prior to surgery/procedure/anesthetic and documented any changes. Performed airway and anesthesia risk assessments. Anesthesia Type Anesthesia Type: MAC History Source History Obtained from:: Patient and Chart Anesthesia Focused Assessment* Temperature: 98.7 F Pulse Rate: 76 Blood Pressure: 131/58 Respiratory Rate: 18 Pulse Ox: 99 Oxygen Delivery Method: Room Air Airway Assessment Mouth opens: 2 cm Mallampati Score: II Teeth Condition: Caps/Crowns (Patient has a couple crowns. They are tight.) Neck Range of motion (ROM): Limited ROM (Somewhat Decreased) Labs Anesthesia Preop lab: CBC WBC 6.9 K/mm3 (4.4-11.0) 04/08/25 14:40 04/08/25 RBC 2.66 M/mm3 (4.6-6.2) L 04/08/25 14:40 04/08/25 Hgb 9.9 g/dL (13.0-16.5) L 04/08/25 14:40 04/08/25 Hct 28.9 % (40-54) L 04/08/25 14:40 04/08/25 Plt Count 281 K/mm3 (150-450) 04/08/25 14:40 04/08/25 CHEMISTRY Potassium 4.6 mmol/L (3.3-5.1) 04/08/25 14:40 04/08/25 Sodium 141 mmol/L (133-145) 04/08/25 14:40 04/08/25 Magnesium 1.9 mg/dL (1.5-2.2) 04/08/25 14:40 04/08/25 Phosphorus 3.1 mg/dL (2.7-4.5) 04/08/25 14:40 04/08/25 BUN 16 mg/dL (4-19) 04/08/25 14:40 04/08/25 Creatinine 0.73 mg/dL (0.70-1.20) 04/08/25 14:40 04/08/25 Glucose 205 mg/dL (70-99) H 04/08/25 14:40 04/08/25 POC Glucose 304 mg/dL (74-106) H 08/25/24 11:37 08/25/24 TSH 0.92 uIU/mL (0.358-3.74) 12/08/18 09:48 COAG Pre-Assessment Diagnosis/Proposed Procedure Planned Operative Procedure(s): COLONOSCOPY, EGD Anesthesia History 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 When Was Last Pacemaker Check QUESTION #4 FULL TEXT: You/Your Family Experience fever (hyperthermia) with Anesthesia Last Oral Intake Last Oral intake: Last Oral Intake NPO since 09:30 04/28/25 13:42 Meds taken in AM with sips of Yes 04/28/25 13:42 water? Meds patient instructed to losartan 04/28/25 13:42 take am of surgery Any additional information?: Yes NPO since: 10:00 (Patient finished prep at 10 AM today.) Meds taken in AM with sips of water?: Yes PONV PONV - dog obedience instructor: PONV - dog obedience instructor Female No 04/27/25 08:29 HX of Motion Sickness No 04/27/25 08:29 HX of N/V After Surgery No 04/27/25 08:29 Non-Smoker Yes 04/27/25 08:29 Duration of Surgery greater No 04/27/25 08:29 than 60 minutes Number of Risk Factors 1 04/27/25 08:29 PONV Score Low Risk 04/27/25 08:29 Height & Weight Height & Weight: Anesthesia: Height & Weight Height 5 ft 7 in 04/28/25 13:42 Weight: 83 kg 04/28/25 13:42 Body Mass Index (BMI) 28.6 04/28/25 13:42 Respiratory Assessment Respiratory Assessment - dog obedience instructor: Respiratory Tract Infection Hx - dog obedience instructor Hx Respiratory Tract Infection No 04/27/25 08:29 STOP Sleep Apnea STOP Sleep Apnea - dog obedience instructor: STOP Sleep Apnea - dog obedience instructor Hx Hypertension Yes: CONTROLLED WITH MEDS 04/27/25 08:29 Hx Sleep Apnea Yes 04/27/25 08:29 CPAP Yes 04/27/25 08:29 BIPAP No 04/27/25 08:29 Do you snore loudly (louder than talking or can be heard Do you often feel tired/ fatigued/ sleepy during daytime? Has anyone observed you stop breathing during sleep? STOP Results Positive 04/27/25 08:29 QUESTION #5 FULL TEXT : Do you snore loudly (louder than talking or can be heard through closed doors)? 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 Specify any problems Hx of Preganancy in last 3 N/A 04/27/25 08:29 Months Nurse Filling Out Transfusion [id number] 04/27/25 08:29 & Questions: Date: 04/27/25 04/27/25 08:29 Time: 08:32 04/27/25 08:29 Patient unable to answer at this time (ie. 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: /Reproductive Hx- dog obedience instructor Hx Now Gestational Age (in weeks): EDC: Hx Hx Para Hx Section SAB Active Medications Active Medications: Current Medications Generic Name Dose Route Start Last Admin Trade Name Freq PRN Reason Stop Dose Admin Lactated Ringer's 1,000 mls @ 15 mls/hr 04/28/25 13:30 IV .Q48H HERNAN Lactated Ringer's 1,000 mls @ 15 mls/hr 04/28/25 13:30 IV .Q48H HERNAN PFSH Medical History Alcohol use History of steroid therapy Easy bruising High cholesterol Cardiology follow-up encounter Anemia Obesity BPH (benign prostatic hyperplasia) HLD (hyperlipidemia) HTN (hypertension) Chronic anemia IRVING on CPAP Pneumonia Wears hearing aid Wears glasses Insulin dependent diabetes mellitus Back pain Former smoker History of pain when walking History of stress test History of echocardiogram History of dislocation of elbow Chronic neck and back pain Arthritis Home Medications ?Medication ?Instructions ?Recorded ?Last Taken ?Type glipizide 5 mg tablet, extended 5 mg PO BID DIABETES 1 10/11/12 04/27/25 History release 24 hr insulin glargine 100 unit/mL (3 22 units subcut QHS DI ABETES 08/11/13 04/27/25 History mL) subcutaneous pen losartan 50 mg tablet 50 mg PO DAILY BP 08/11/13 0 04/28/25 History multivitamin with folic acid 400 1 tab PO DAILY SUPPLE MENT 08/11/13 04/27/25 History mcg tablet pioglitazone 30 mg tablet 30 mg PO DAILY DIABETES 02/1604/27/25 History atorvastatin 40 mg tablet 40 mg PO QHS CHOLESTEROL 04/27/25 History ascorbic acid (vitamin C) 500 mg 500 mg PO DAILY SUPPL EMENT 12/19/18 04/27/25 History tablet (Vitamin C) vitamin E 268 mg (400 unit) capsule 400 unit PO DAILY SUPPLEMENT 12/19/18 04/27/25 History aspirin 81 mg chewable tablet 81 mg PO DAILY 01/11/21 04/24/25 History acetaminophen 500 mg tablet 1,000 mg PO Q12H PRN PRN P ain 07/14/21 04/27/25 History fluticasone furoate 100 1 inh inhalation Q24H 04/27/25 History mcg-vilanterol 25 mcg/dose inhalation powder (Breo Ellipta) metformin 1,000 mg tablet 1,000 mg PO BID 04/08/25 History Allergy/AdvReac Type Severity Reaction Status Date / Time No Known Allergies Allergy Verified 04/28/25 13:40 Family History Mother Heart failure Heart disease Father Diabetes Surgical History Hx of transurethral resection of prostate Hx of colonoscopy History of tonsillectomy and adenoidectomy Hx of total hip arthroplasty History of back surgery History of appendectomy Social History household members: spouse Smoking Status: Former smoker how long ago did patient quit smoking: Quit 1965, smoked 1 ppd from college- >quit. alcohol intake: current alcohol intake frequency: a few times a month Alcohol type: wine substance use type: does not use Review of Systems (Anesthesia) ROS Narrative System reviewed and no additional complaints, except as documented. 04/28/25 9338 <Electronically signed by Jonah cote MD> Date _ Jonah Arevalo MD Cosigner Signature: Date CC: ~ Signed [facility] Work Phone: Consult note Author Ashvin Landa [facility] Note Date/Time April 28, 2025 3:11 pm [facility] Medical Records Department [address] [place] [address] Anesthesia Postop Eval I 04/28/25 1511 MR#: [id number] Acct: [id number] Name: ARMAAN CHANEL Rep #:[id number] : 1940 85 From: Ashvin Landa PCP: Dr. Jaime Galarza MD Status:REG S DC Y Race: C Location: [place] [address] Anesthesia: Postop Eval I Current Vital Signs Temperature: 97.8 F Pulse Rate: 67 Blood Pressure: 108/50 Respiratory Rate: 16 Pulse Ox: 100 Oxygen Delivery Method: Room Air Assessment Airway patent: Yes Spontaneous unlabored respirations: Yes Mental status: Asleep nausea: No Vomiting: No Anesthesia Complication: No Fluid Hydration Crystalloid volume administer (ml): 800 Total IV fluid infused: 800 Progress Note Anesthesia document: Postop Eval 1 completed: Yes 04/28/251510 <Electronically signed by Ashvin Landa > Date _ Ashvin Grey Signature: Date CC: ~ Signed [facility] Work Phone: Evaluation noteNo assessment information available [facility] Work Phone: History and physical note Author Winston Hernández [facility] Note Date/Time April 28, 2025 2:19 pm [facility] Medical Records Department [address] [place] [address] History & Physical Exam 04/28/25 1418 MR#: [id number] Acct: [id number] Name: ARMAAN CHANEL Rep #:[id number] : 1940 85 From: Winston Hernández DO PCP: Dr. Jaime Galarza MD Status:REG S DC Location: [place] [address]-1 HPI - General General Date of Admission: 04/28/25 Date of Service: 04/28/25 Chief Complaint: Anemia HPI Narrative ARMAAN CHANEL, is a 85 M who presents with Chief Complaint: anemia Referred from hematology for low hgb and normal iron. FOBT +. Pt denies abd pain, constipation, diarrhea, visible blood in his stool, heartburn or n/v. He has never had GI bleed before. Pt last colonoscopy was about 13 years ago. He has never had an EGD. He is scheduled for liver US and elastography for low haptoglobin. He drinks one glass of wine per week. [facility] Medical History Alcohol use History of steroid therapy Easy bruising High cholesterol Cardiology follow-up encounter Anemia Obesity BPH (benign prostatic hyperplasia) HLD (hyperlipidemia) HTN (hypertension) Chronic anemia IRVING on CPAP Pneumonia Wears hearing aid Wears glasses Insulin dependent diabetes mellitus Back pain Former smoker History of pain when walking History of stress test History of echocardiogram History of dislocation of elbow Chronic neck and back pain Arthritis Home Medications ?Medication ?Instructions ?Recorded ?Last Taken ?Type glipizide 5 mg tablet, extended 5 mg PO BID DIABETES 1 10/11/12 04/27/25 History release 24 hr insulin glargine 100 unit/mL (3 22 units subcut QHS DI ABETES 08/11/13 04/27/25 History mL) subcutaneous pen losartan 50 mg tablet 50 mg PO DAILY BP 08/11/13 0 04/28/25 History multivitamin with folic acid 400 1 tab PO DAILY SUPPLE MENT 08/11/13 04/27/25 History mcg tablet pioglitazone 30 mg tablet 30 mg PO DAILY DIABETES 02/1604/27/25 History atorvastatin 40 mg tablet 40 mg PO QHS CHOLESTEROL 04/27/25 History ascorbic acid (vitamin C) 500 mg 500 mg PO DAILY SUPPL EMENT 12/19/18 04/27/25 History tablet (Vitamin C) vitamin E 268 mg (400 unit) capsule 400 unit PO DAILY SUPPLEMENT 12/19/18 04/27/25 History aspirin 81 mg chewable tablet 81 mg PO DAILY 01/11/21 04/24/25 History acetaminophen 500 mg tablet 1,000 mg PO Q12H PRN PRN P ain 07/14/21 04/27/25 History fluticasone furoate 100 1 inh inhalation Q24H 04/27/25 History mcg-vilanterol 25 mcg/dose inhalation powder (Breo Ellipta) metformin 1,000 mg tablet 1,000 mg PO BID 04/08/25 History Allergy/AdvReac Type Severity Reaction Status Date / Time No Known Allergies Allergy Verified 04/28/25 13:40 Family History Mother Heart failure Heart disease Father Diabetes Surgical History Hx of transurethral resection of prostate Hx of colonoscopy History of tonsillectomy and adenoidectomy Hx of total hip arthroplasty History of back surgery History of appendectomy Social History household members: spouse Smoking Status: Former smoker how long ago did patient quit smoking: Quit 1965, smoked 1 ppd from college- >quit. alcohol intake: current alcohol intake frequency: a few times a month Alcohol type: wine substance use type: does not use ROS Constitutional Constitutional: Denies fatigue, fever(s), poor appetite, weight gain or weight loss Gastrointestinal Gastrointestinal: Denies belching, bloating, change in bowel habits, change in stool character, chewing difficulty, coffee ground emesis, constipation, cramping, diarrhea, dyspepsia, dysphagia, early satiety, excessive flatus, fecalincontinence, heartburn, hematemesis, hematochezia, hemorrhoids, loose stools, melena, nausea, odynophagia, rectal bleeding, tenesmus, vomiting or weight changes Vital Signs Vital Signs Vital Signs: 04/28/25 13:42 04/28/25 13:42 04/28/25 14:15 Temperature 98.7 F 98.7 F Temperature Source Temporal Pulse Rate 76 76 Respiratory Rate 18 18 Respiratory Pattern Normal Blood Pressure 131/58 H 131/58 H Blood Pressure Mean 82 Blood Pressure Source Monitor Blood Pressure Position Semi-Fowlers Blood Pressure Location Left Arm Pulse Ox 99 99 Oxygen Delivery Method Room Air Room Air Weight Weight: 182 lb 15.739 oz Body Mass Index (BMI) 28.6 Physical Exam Const alert, oriented x3, no apparent distress and healthy appearing General Appearance: cooperative GI normal to inspection, nondistended, normoactive bowel sounds, soft to palpation,non-tender and non-distended Percussion: normal to percussion Rectal Exam: deferred Assessment & Plan Assessment/Plan (1) Anemia: QUALIFIERS: Anemia type: unspecified type Qualified Code(s): D64.9 - Anemia, unspecified (2) Fecal occult blood test positive: PLAN: Assessment and Plan Assessment and Plan (1) Anemia: Status: Acute Qualifiers: Anemia type: unspecified type Qualified Code(s): D64.9 - Anemia, unspecified Comment: Anemia with normal iron profile. Plan: Armaan is an 85 yo male pt here today for evaluation of low hgb. Pt has mildly low hgb chronically since 2017 per chart review. He established with Dr. Prather who ordered further blood work which showed normal iron studies, low hgb, high MCV, and low haptoglobin. FOBT positive. He was scheduled for Liver US and elastography to rule out chronic liver condition. Due to positive stool test forblood and anemia, he will undergo EGD and colonoscopy. He was agreeable to plan. -EGD -Colonoscopy -f/u after procedures (2) Fecal occult blood test positive: Status: Acute 04/28/25 1419 <Electronically signed by Winston Hernández DO> Cosigner Signature (if applicable): CC: Dr. Jaime Galarza MD; Winston Hernández DO~ Signed [facility] Work Phone: Progress note Author Noelle Sellers [facility] Note Date/Time April 19, 2025 1:[address] [facility] [address] [place] [address] OFFICE VISIT Date of Service: 04/19/25 MR#: [id number] Acct: [id number] Name: ARMAAN CHANEL Rep #: [id number] : 1940 Provider: DORON Watts Age/Sex: 85/M Location: [facility] Status: Signed Intake Vital Signs 04/15/25 15:09 Height 5 ft 7 in Weight: 189 lb 7 oz BMI 29.7 BP 116/71 Blood Pressure Location Rt brachial Position Sitting Respiration 15 Pulse 82 Pulse Source Monitor Pulse Oximetry (%) 97 Oxygen Delivery Method room air Intake Visit Reasons: ANEMIA - OTHER FECAL ABNORMALITIES Chief Complaint: anemia Allergies No Known Allergies Allergy (Verified 04/15/25 15:19) Have you fallen in the past year?: No PFSH Medical History Anemia Pneumonia Obesity BPH (benign prostatic hyperplasia) HLD [...] smoking: Quit 1965, smoked 1 ppd from college- >quit. alcohol intake: current alcohol intake frequency: a few times a month Alcohol type: wine substance use type: does not use HPI HPI Chief Complaint: anemia Details: ARMAAN CHANEL, is a 85 M who presents to the office today for establishment withI. Referred from hematology for low hgb and normal iron. FOBT +. Pt denies abd pain, constipation, diarrhea, visible blood in his stool, heartburn or n/v. He has never had GI bleed before. Pt last colonoscopy was about 13 years ago. He has never had an EGD. He is scheduled for liver US and elastography for low haptoglobin. He drinks one glass of wine per week. ROS Const Constitutional: Positive for fatigue; No fever(s) or weight change ENT ENT: No difficulty swallowing Gastro GI: Positive for Blood in stool; No abdominal pain, belching, bloating, change in bowel habits, change in stool character, coffee ground emesis, constipation, cramping, diarrhea, heartburn, difficulty swallowing, feeling full early, excessive flatus, incontinent of stools, Vomiting blood/hematemesis, loose stools, Black,tarry stools, nausea/dyspepsia, pain with swallowing, vomiting or other Musc Musculoskeletal: Positive for joint pain and Arthritis Skin Skin: No yellowing of the eye or itchy eyes Psych Psychiatric: No anxiety and No depression Endo Endocrine: Positive for fatigue; No weight change Aller/Imm Allergy/Immunologic: No itchy eyes Ap/Lymp Hematologic/Lymphatic: Positive for easy bruising; No easy bleeding Exam Const General: cooperative, healthy appearing and comfortable Orientation: alert HENMT Head: normal to inspection Ears: hearing grossly normal bilaterally Eyes General: appearance normal, both eyes and all related structures Neck Neck: normal visual inspection Chest Chest palpation & inspection: normal inspection of the chest Resp Effort & Inspection: normal respiratory effort Cardio Rate: regular rate Rhythm: regular rhythm GI Inspection: normal to inspection Auscultation: normal bowel sounds Palpation: soft and nontender Assessment and Plan Assessment and Plan (1) Anemia: Status: Acute Qualifiers: Anemia type: unspecified type Qualified Code(s): D64.9 - Anemia, unspecified Comment: Anemia with normal iron profile. Plan: Armaan is an 85 yo male pt here today for evaluation of low hgb. Pt has mildly low hgb chronically since 2017 per chart review. He established with Dr. Prather who ordered further blood work which showed normal iron studies, low hgb, high MCV, and low haptoglobin. FOBT positive. He was scheduled for Liver US and elastography to rule out chronic liver condition. Due to positive stool test forblood and anemia, he will undergo EGD and colonoscopy. He was agreeable to plan. -EGD -Colonoscopy -f/u after procedures (2) Fecal occult blood test positive: Status: Acute Coding Level of Care Code Off vis,new,level 4 Diagnoses Anemia, unspecified type D64.9 Anemia type: unspecified type Fecal occult blood test positive R19.5 Clinical Quality Measures Falls Risk Screening/Assistive Devices Have you fallen in the past year?: No 04/19/25 5918 <Electronically signed by Noelle SAL> Date _ Noelle Sellers DORON Que Signature: Date (if applicable) CC: ~ [facility] Work Phone: Reason for referral (narrative)No reason for referral [facility] Work Phone: Summary Purpose Family History Relationship Condition Age at Onset Recorded Date/T luis e mother Heart failure Unknown Cardiac disease Unknown father Diabetes mellitus Unknown Advance Directives Advance Directive Response Recorded Date/ Time Living Will Yes July 14 11:20am Power of Mover Helper Yes July 14 11:20am Advance Directive Response Recorded Date/ Time Living Will Yes March 16, 2023 9:15pm Power of Mover Helper Yes March 16 9:15pm Advance Directive Response Recorded Date/ Time Do you have a Healthcare Power of Mover Helper? Yes April 27, 2025 8:29am Name of Medical Power of Mover Helper - MARIPOSA April 27, 2025 8:29am Chief Complaint and Reason for Visit Chief Complaint Admit Date Respiratory complaints January 04, 2025 1:01pm Reason for Visit Admit Date Respiratory symptoms January 04, 2025 1: 01pm Chief Complaint Admit Date Respiratory complaints January 04, 2025 1:01pm Amb Documentation April 02, 2025 11:4 7am Amb Documentation April 05, 2025 8:38 am Anemia April 08, 2025 1:40p m MED ONC April 08, 2025 2:44p m Reason for Visit Admit Date Respiratory symptoms January 04, 2025 1: 01pm Anemia April 08, 2025 1:40p m Chief Complaint Admit Date Respiratory complaints January 04, 2025 1:01pm Amb Documentation April 02, 2025 11:4 7am Amb Documentation April 05, 2025 8:38 am Anemia April 08, 2025 1:40p m MED ONC April 12, 2025 9:04a m [facility] April 15, 2025 3:08 pm Reason for Visit Admit Date Respiratory symptoms January 04, 2025 1: 01pm Anemia April 08, 2025 1:40p m Abnormal laboratory test April 15, 2025 3:08pm Anemia April 15, 2025 3:08 pm Fecal occult blood test positive April 152024 3:08pm Chief Complaint Admit Date Respiratory complaints January 04, 2025 1:01pm Amb Documentation April 02, 2025 11:4 7am Amb Documentation April 05, 2025 8:38 am Anemia April 08, 2025 1:40p m MED ONC April 12, 2025 9:04a m [facility] April 15, 2025 3:08 pm ANEMIA - OTHER FECAL ABNORMALITIES April 19, 2025 12:55pm Reason for Visit Admit Date Respiratory symptoms January 04, 2025 1: 01pm Anemia April 08, 2025 1:40p m Abnormal laboratory test April 15, 2025 3:08pm Anemia April 15, 2025 3:08 pm Fecal occult blood test positive April 152024 3:08pm Anemia April 19, 2025 12:5 5pm Fecal occult blood test positive April 192024 12:55pm Reason for Visit Admit Date Respiratory symptoms January 04, 2025 1: 01pm Anemia April 08, 2025 1:40p m Abnormal laboratory test April 15, 2025 3:08pm Anemia April 15, 2025 3:08 pm Fecal occult blood test positive April 152024 3:08pm Anemia April 19, 2025 12:5 5pm Fecal occult blood test positive April 192024 12:55pm Anemia April 28, 2025 1:14 pm Fecal occult blood test positive April 282024 1:14pm Additional Source Comments (unrecognized sect ion and content) No Status Records FoundNo Status Records Found INFORMATION SOURCE (unrecogn ized section and content) DATE CREATED AUTHOR 03/31/2018 [facility] DATE CREATED AUTHOR 'S YONG ATFANNY 04/27/2025 [facility] Goals (unrecognized section and content) Goals may [...] Active Member Role Status Dates Dr. Brandon Grant MD Family Provider Active Dr. Jaime Galarza MD Primary Care Provider Active Team Status: Inactive Member Role Status Dates Dr. Jaime Galarza MD Primary Care Provider, Attending Provider Active Team Status: Inactive Member Role Status Dates Dr. Jaime Galarza MD Primary Care Provi rosi, Attending Provider, Referring Provider Active Team Status: Inactive Member Role Status Dates Dr. Jaime Galarza MD Primary Care Provider Active Start: January 04, 2025 End: January 04, 2025 Dr. Jaime Galarza MD Referring Provider Active Start: January 04, 2025 End: January 04, 2025 DORON Monteiro Attending Provider Active Start: January 04, 2025 End: January 04, 2025 Team Status: Inactive Member Role Status Dates Dr. Jaime Galarza MD Primary Care Provider Active Start: March 26, 2025 End: March 26, 2025 Dr. Jaime Galarza MD Attending Provider Active Start: March 26, 2025 End: March 26, 2025 Dr. Jaime Galarza MD Referring Provider Active Start: March 26, 2025 End: March 26, 2025 Team Status: Active Member Role/Relationship Status Dates Dr. Jaime Galarza MD Primary Care Provider Active Team Status: Inactive Member Role/Relationship Status Dates Dr. Jaime Galarza MD Primary Care Provider Active Start: January 04, 2025 End: January 04, 2025 Dr. Jaime Galarza MD Referring Provider Active Start: January 04, 2025 End: January 04, 2025 DORON Monteiro Attending Provider Active Start: January 04, 2025 End: January 04, 2025 Team Status: Inactive Member Role/Relationship Status Dates Dr. Jaime Galarza MD Primary Care Provider Active Start: March 26, 2025 End: March 26, 2025 Dr. Jaime Galarza MD Attending Provider Active Start: March 26, 2025 End: March 26, 2025 Dr. Jaime Galarza MD Referring Provider Active Start: March 26, 2025 End: March 26, 2025 Team Status: Active Member Role/Relationship Status Dates Dr. Jaime Galarza MD Primary Care Provider Active Start: April 02, 2025 Keyanna Robledo Attending Provider Active Start: April 02, 2025 Team Status: Active Member Role/Relationship Status Dates Dr. Jaime Galarza MD Primary Care Provider Active Start: April 05, 2025 Keyanna Venkat Attending Provider Active Start: April 05, 2025 Team Status: Inactive Member Role/Relationship Status Dates Dr. Jaiem Galarza MD Primary Care Provider Active Start: April 08, 2025 End: April 08, 2025 Dr. Jaime Galarza MD Referring Provider Active Start: April 08, 2025 End: April 08, 2025 Dr. Orlando Prather MD Attending Provider Active S tart: April 08, 2025 End: April 08, 2025 Team Status: Active Member Role/Relationship Status Dates Dr. Jaime Galarza MD Primary Care Provider Active Start: April 08, 2025 Dr. Orlando Prather MD Attending Provider Active S tart: April 08, 2025 Dr. Orlando Prather MD Referring Provider Active S tart: April 08, 2025 Team Status: Active Member Role/Relationship Status Dates Dr. Jaime Galarza MD Primary Care Provider Active Start: April 12, 2025 Dr. Orlando Prather MD Attending Provider Active S tart: April 12, 2025 Dr. Orlando Prather MD Referring Provider Active S tart: April 12, 2025 Team Status: Inactive Member Role/Relationship Status Dates Dr. Jaime Galarza MD Primary Care Provider Active Start: April 15, 2025 End: April 15, 2025 Dr. Jaime Galarza MD Referring Provider Active Start: April 15, 2025 End: April 15, 2025 Dr. Orlando Prather MD Attending Provider Active S tart: April 15, 2025 End: April 15, 2025 Team Status: Inactive Member Role/Relationship Status Dates Dr. Jaime Galarza MD Primary Care Provider Active Start: April 19, 2025 End: April 19, 2025 Dr. Jaime Galarza MD Referring Provider Active Start: April 19, 2025 End: April 19, 2025 DORON Watts Attending Provider Active Start: April 19, 2025 End: April 19, 2025 Team Status: Inactive Member Role/Relationship Status Dates Dr. Jaime Galarza MD Primary Care Provider Active Start: April 28, 2025 End: April 28, 2025 Dr. Jaime Galarza MD Referring Provider Active Start: April 28, 2025 End: April 28, 2025 Dr. Winston Hernández DO Attending Provider Active Start: April 28, 2025 End: April 28, 2025 Team Status: Active Member Role/Relationship Status Dates Dr. Jaime Galarza MD Primary Care Provider Active Start: April 28, 2025 Dr. Jaime Galarza MD Referring Provider Active Start: April 28, 2025 Dr. Winston Hernández DO Attending Provider Active Start: April 28, 2025 Dr. Winston Hernández DO Other Provider Active St art: April 28, 2025 FOR RECORDS PERTAINING TO PATIENTS WHO ARE [...] BE BASED ON THE PRIMARY CLINICAL RECORDS. [employer] provides no warranty or guarantee of the accuracy or completeness of information in this document.
== END 2025-04-28 16:05 | disposition home or self-care (01) ==
LOC: EN 13:15 → AC 13:20
PROVIDERS: PCP Family Medicine; Referring Provider Family Medicine; Visit Provider Internal Medicine Gastroenterology
PROC: 0DJD8ZZ Inspection of Lower Intestinal Tract, Via Natural or Artificial Opening Endoscopic (ICD-10-PCS; CPT 45378; principal; 2025-04-28 14:10)
DX: D50.9 Iron deficiency anemia, unspecified (principal); Z87.891 Personal history of nicotine dependence; K63.5 Polyp of colon; R19.5 Other fecal abnormalities; G47.33 Obstructive sleep apnea (adult) (pediatric); Z99.89 Dependence on other enabling machines and devices; I10 Essential (primary) hypertension; E78.5 Hyperlipidemia, unspecified; D17.72 Benign lipomatous neoplasm of other genitourinary organ; D12.0 Benign neoplasm of cecum
CPT/HCPCS: 45381; 45380; 45385; 44361; 82962; 88305; A4648; J2405

== ENCOUNTER → 2025-04-30 | Outpatient (CLI) | payer MEDICARE, SELFPAY ==
--- NOTE | 2025-04-30 09:56 | US_ITS ---
PROCEDURE: ABD LIMITED W/ ELASTOGRAPHY REASON FOR EXAM: R/O LIVER DISEASE COMPARISON: None. TECHNIQUE: Right upper quadrant abdominal ultrasound. Cierra ElastQ Imaging shear wave elastography for non-invasive assessment of liver tissue stiffness. Cierra EPIQ Elite. FINDINGS: LIVER: Size: Enlarged (hepatomegaly) Length: 19.9 cm Echotexture: Diffusely echogenic suggesting fatty infiltration Contour: Normal Lesions: None identified Elastography: EQI Med: 10.7 kPa EQI Med Rashaun: 1.9 m/s IQR/Med: 21 %* GALLBLADDER: Normal COMMON BILE DUCT: Normal measuring 4.2 mm . PANCREAS: Normal Visualized portions of the right kidney are unremarkable. No right upper quadrant ascites. 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 Fatty infiltration of the liver. Reference Values: SRU <1.37 m/s (5.7kPa): No to mild fibrosis 1.37 m/s - 2.2 m/s: Moderate to severe fibrosis >2.2 m/s (15kPa): Significant fibrosis / cirrhosis METAVIR Score F2 or higher: 1.34 m/s (5.7kPa) F3 or higher: 1.55 m/s (7.3kPa) F4: 1.80 m/s (10kPa) * If the IQR/Med is >30%, the variance in the measurements is a large and the a ccuracy of the measurement may be in question. Reading Location: [id number]
== END | disposition home or self-care (01) ==
PROVIDERS: PCP Family Medicine; Referring Provider Internal Medicine Medical Oncology; Visit Provider Internal Medicine Medical Oncology
DX: D64.9 Anemia, unspecified (principal); R89.9 Unspecified abnormal finding in specimens from other organs, systems and tissues
CPT/HCPCS: 76705; 76981

== ENCOUNTER → 2025-07-06 | Outpatient (CLI) | payer MEDICARE, SELFPAY ==
[2025-07-06 15:03] LABS: PSA,Total- Diagnostic 4.13 ng/mL (0.00-4.00)
== END | disposition home or self-care (01) ==
LOC: LAB 13:51
PROVIDERS: PCP Family Medicine; Referring Provider Urology; Visit Provider Urology
DX: N40.0 Benign prostatic hyperplasia without lower urinary tract symptoms (principal)
CPT/HCPCS: 36415; 84153

== ENCOUNTER 2025-07-28 13:30 | Outpatient (RCR) | payer MEDICARE, SELFPAY ==
--- NOTE | 2025-06-08 14:46 | HP.PTEVAL_ITS ---
Patient's Visit Information Visit Information Visit Information: ARMAAN MCCLOUD is a 85 year old M referred to Physical Therapy by DORON Caraballo with a diagnosis of OA R shoulder. Date of Evaluation: 06/08/25 Physical Therapist: Gerry Avilez, DPT, OCS, CSCS Visit Plan Frequency: 2-3x /Week Duration: 4-6 Weeks Plan: 3x/week for 4-6 weeks after fair week(pt too busy in meantime) IE HEP pendulum 3x/day, supine stick er adn flexion 10x 2x/day adn sleeper stretch 3 10x 2x/day to be started at home with activity modification. Treat with manual therapy grade 1-2 mons, PROM R shoulder. strength for RC and scap to HEP/gym, then gym program for upper half to I without increasing pain. Subjective Subjective: R shoulder pain, bothering for a while. X ray: bone on bone. Botheered him since the beginning of the summer . Front of shoulder, hurts 4/`0 if not moving it alot or beehind back or [place]. Comfy at rest. Sleep is not a big issue with pain, now and then up a bit then. Not employed, Hobbies: golf and yard work. Shouldr limits him in golf swing which compensates. More painful after golf. Yard work is limited but does it a ll, Basic ADLs: dressing, shower, bathroom all I. No regular exercises. Pain R anteerior shoulder.: Pain Intensity (Out of 10): 0 Pain Intensity Range: 5 Comment: above had and behind back. Objective Objective: Walks into PT slow but I with arms swinging. Posture is forward head and protracted scap B. Cervical and scapular ROM is painfree and WFL B. Stiff in rotation of c/s to 45 adn ext to 42 but no pain. L shoulder AROM WFL and no hsitation. R shoulder is 14 and painful at end range with firm endfeel. er is 40 L and 18 R with pain, IR is PSIS R and pain and L5 L without pain. elbow and wrist aROM WFL B. + KH, + neer for anterior shoulder pain, horiz adductionalso painful R. PROM same as AROM on R. strength is 3+ R r adn 4- L, IR 4- B, flexion 3+ R adn 4- L with pain on R. - sulcus B. reeflexes 2/3 bi and gri B. Sensation B UE WNL to gross light touch. Balance/Special Test Scores Quick DASH Score: 31.8175 Goals Goal 1:: I appropriate HEP to limit future problems with golf and yard work.(streength adn ROm shoulder) Goal Time Frame: 4-6 Weeks Goal 2:: 150 AROM R shoulder flexion and 28 er to improve ROM and diminish pain Goal Time Frame: 4-6 Weeks Goal 3:: golf with out increasee in pain in R shoulder Goal Time Frame: 4-6 Weeks Goal 4:: Pain in R shoulder 75% better at 1/10 at worst Goal Time Frame: 4-6 Weeks Goal 5:: quickdash score 15 or better Goal Time Frame: 4-6 Weeks Rehabilitation Potential Physical Therapy Diagnosis: stiff, pain, weak R shoulder limiting funciton. Rehabilitation Potential: Fair Anticipated Interventions Patient/Client Instruction: Educate patient on: Condition and Plan of Care For the Purpose of:: To decrease pain, To increase ROM, To improve nutrient delivery to tissue, To improve muscle performance and motor function and To increase tolerance to activity/condition/position Therapeutic Exercise to Include: Strength training, Flexibilty training, Passive ROM and Active ROM For the Purpose of:: To decrease pain, To increase ROM, To improve nutrient delivery to tissue, To improve muscle performance and motor function and To increase tolerance to activity/condition/position Manual Therapy Techniques to Include: Mobilization, Passive ROM and Soft tissue mobilization For the Purpose of:: To decrease pain, To increase ROM, To improve nutrient delivery to tissue, To improve muscle performance and motor function, To increase tolerance to activity/condition/position and To improve ability of physical actions for home/community/work/leisure Thermo therapy (hot pack): Yes For the Purpose of:: To decrease pain and To improve nutrient delivery to tissue Text: Thank you for the opportunity to evaluate your patient. For Medicare and Medicare HMO plans, please review the plan of care and approve it. It will need to be FAXED BACK to us at [phone] for Medicare purposes. For Medicare only, by signing this I certify the plan of care. Please let me know if there are questions or concerns regarding this plan of care. Physician Signature: Date:
--- NOTE | 2025-07-28 14:20 | HP.PTDCSUM_ITS ---
Discharge Summary D/C summary: It has been my pleasure to treat ARMAAN MCCLOUD referred by DORON Caraballo, with the diagnosis of OA R shoulder for a total of 15 visit(s). Discharge Date: 07/28/25 Please see the following information for a summary of their discharge status. Subjective Subjective: A little sore from unloading firewood this afternoon. Pain R anteerior shoulder.: Pain Intensity (Out of 10): 4 Overall Improvement % Improvement: 50 Objective Objective/Function: -Issued gym based exercise program that patient can continue independently via [employer] and [employer] membership. -Communicates good understanding. -Still reporting approximately 50% improvement with symptoms of popping and cracking remaining consistent. Goals Goal 1:: I appropriate HEP to limit future problems with golf and yard work.(streength adn ROm shoulder) Goal Progress: Goal Met Goal 2:: 150 AROM R shoulder flexion and 28 er to improve ROM and diminish pain Goal Progress: Progressing Goal 3:: golf with out increasee in pain in R shoulder Goal Progress: Not Progressing Goal 4:: Pain in R shoulder 75% better at 1/10 at worst Goal Progress: Not Progressing Goal 5:: quickdash score 15 or better Plan Plan: Re-assess with Gerry Avilez PT,DPT. D/C Information Discharge Comments: Pt to doctor in a week or two for other options. d/c sentence: If there are questions or concerns regarding this patient's physical therapy, please feel free to call me at [phone]. Thank you for the referral of this patient. Sincerely, Gerry Avilez, DPT, OCS, CSCS Balance/Gait/Functional tests Balance/Special Test Scores Quick DASH Score: 25.0000 Improvement % Improvement: 50
== END 2025-07-28 19:00 | disposition home or self-care (01) ==
LOC: PT 13:30
PROVIDERS: PCP Family Medicine
DX: M19.011 Primary osteoarthritis, right shoulder (principal); M25.511 Pain in right shoulder
CPT/HCPCS: 97110; 97140; 97161; 97164; 97530

== ENCOUNTER → 2025-08-03 | Outpatient (CLI) | payer MEDICARE, SELFPAY ==
[2025-08-03] VITALS (14 sets, daily range): BP systolic 104–147; BP diastolic 38–87; PULSE 64–75; RESP 11–20; TEMP 36.6; O2SAT 15–100; BMI 29.2
--- NOTE | 2025-08-03 08:05 | CT_ITS ---
PROCEDURE: CT/Biopsy/Inj or Needle Placement
[2025-08-03 08:08] LABS: Hematocrit 30.0 % (40-54); Hemoglobin 9.5 g/dL (13.0-16.5); Immature Granulocytes Count 0.150 X10^3/uL (0.0-0.0); Mean Corp Hgb Conc 31.7 g/dL (32-36); Mean Corpuscular Volume 105.3 fL (80-94); Mean Platelet Vol. 9.7 fl (6.2-12.0); NRBC Flagged by Analyzer 0 % (0-5); Platelet Count 279 K/mm3 (150-450); RBC Distribution Width CV 15.2 % (11.6-14.6); RBC Distribution Width SD 56.8 fl (35.1-43.9); Red Blood Count 2.85 M/mm3 (4.6-6.2); Reticulocyte Count 5.48 % (0.5-1.5); White Blood Count 5.6 K/mm3 (4.4-11.0)
[2025-08-03 08:13] LABS: Immature Reticulocyte Fraction 31.00 % (3.00-15.90)
[2025-08-03 08:26] LABS: Prothrombin Time (Protime)PT. 14.4 SECONDS (11.7-14.9)
[2025-08-03 08:27] LABS: Partial Thromboplast Time 46.2 Seconds (24.1-36.2)
[2025-08-03 08:42] LABS: AST(SGOT) 25 U/L (<=37); Alanine Aminotransfer ALT/SGPT 19 U/L (<=46); Albumin, Serum 4.4 g/dL (3.4-4.8); Alkaline Phosphatase 83 U/L (40-129); Anion Gap 8 (5-15); BUN 23 mg/dL (4-19); BUN/Creat Ratio 29.9 RATIO (10-20); Calcium,Total 9.7 mg/dL (7.6-11.0); Carbon Dioxide 26.3 mmol/L (21.0-32.0); Chloride 106 mmol/L (98-108); Estimated Creatinine Clearance 72.82 ml/min (50-250); Ferritin 363 ng/mL (37-417); Globulin 2.0 g/dL (2.2-4.2); Glucose 164 mg/dL (70-99); Iron 82 ug/dL (65-175); Iron Binding Capacity,Total 285 ug/dL (250-450); Iron Binding Capacity,Unsat 203 ug/dL (228-428); LDH 236 U/L (87-241); Potassium 4.7 mmol/L (3.3-5.1); Vitamin B12 327 pg/mL (180-914)
[2025-08-03] MEDS: 0.9% Normal Saline (250mL Bag) 250 ML 15 ML IV (09:23)
[2025-08-03] MEDS: Midazolam 2 MG/2 ML Syringe IV ×2 (09:27→09:42)
[2025-08-03] MEDS: fentaNYL 100 MCG/2 ML Ampul IV (09:40)
[2025-08-03] MEDS: Lidocaine 2% (20 ml mdv) 20 ML Vial INFILT (09:40)
[2025-08-03 09:55] LABS: FOLATES,SERUM (FOLIC ACID) 27.50 ng/mL (4.60-34.80)
[2025-08-03 10:58] LABS: Pathology Sent to OSU SEE PATHOLOGY REPORT
[2025-08-06 12:33] LABS: Bone Marrow Aspiraton SEE PATHOLOGY REPORT
== END | disposition home or self-care (01) ==
LOC: CT 07:50
PROVIDERS: Radiology Nuclear Radiology; PCP Family Medicine; Referring Provider Internal Medicine Medical Oncology; Visit Provider Internal Medicine Medical Oncology
DX: D64.9 Anemia, unspecified (principal)
CPT/HCPCS: 38220; 36415; 77012; 80053; 82607; 82668; 82728; 82746; 83010; 83540; 83550; 83615; 85025; 85045; 85610; 85730; 99156; A4216